=== PATIENT | male | born 1950 | race Caucasian/White ===

== ENCOUNTER 2017-06-12 07:12 | Inpatient (IN) | payer MEDICARE, OTHER ==
[2017-06-12] VITALS (10 sets, daily range): BP systolic 88–119; BP diastolic 51–73; PULSE 70–103; RESP 14–28; TEMP 97.7–98.2; O2SAT 94–98
[~2017-06-12] VITALS: Ht 167.6 cm; Wt 131.5 kg
[~2017-06-12 07:12] MED LIST: COMBAER INH; COZA100T PO; DUONSOL2 NEB; FURO1TAB93 PO; LANTUSP SQ; METF-324 PO; NOVOLOGP2 SQ; POTA-243 PO
[2017-06-12] MEDS ORDERED: methylPREDNISolone SOD SUCC 125 MG/2 ML VIAL IVP ONE (07:30)
[2017-06-12] MEDS ORDERED: SODIUM CHLORIDE 0.9% FLUSH 10 ML FLUSH IVF PRN (07:30)
--- NOTE | 2017-06-12 07:36 | PD ---
HPI Chief Complaint: Respiratory Symptoms Time Seen by Provider: 07:23 Travel History International Travel<30 days: No Contact w/Intl Traveler<30days: No Traveled to known affect area: No History of Present Illness HPI 66yo M with PMH of COPD on home O2 3L NC as needed, ?CHF, CAD, DM presents to the ED with c/o sob for 2 days. States he feels sob just sitting down and is not able to walk to the end of the room. States this is new for the last few days. Pt has not been taking his furosemide for months because he does not like that it makes him urinate a lot. Denies any fever, cough, chest pain, n/v , abdominal pain. Pt has bilateral lower extremity edema and states he is not sure if it is worst but it has been there for a while. PFSH Past Medical History Cardiovascular Problems: Yes Coronary Artery Disease: Yes Diabetes: Yes Hypertension: Yes Neurologic: Yes (DIABETIC NEUROPATHY) Past Surgical History Tonsillectomy: Yes Social History Alcohol Use: No Tobacco Use: Yes (QUIT 06/23/09 - PRIOR TO THAT 11/25 PPD X 40 YRS) Substance Use: No Allergies-Medications (Allergen,Severity, Reaction): Coded Allergies: Penicillin (Verified Allergy, Mild, 06/12/17) Reported Meds & Prescriptions Reported Meds & Active Scripts Active K-Dur (Potassium Chloride) 10 Meq Tabcr 10 Meq PO DAILY Lasix (Furosemide) 40 Mg Tab 40 Mg PO DAILY Reported Resp: Albuterol 2.5 Mg/Ipratropium 0.5 Mg (Albuterol/Ipratropium) 1 Amp Nebu 1 Amp NEB QID Combivent (Albuterol/Ipratropium) 14.7 Gm Aer 2 Puff INH Q6HPRN FOR WHEEZING Cozaar (Losartan Potassium) 100 Mg Tab 100 Mg PO BID Metformin ER 24 HR (Metformin HCl) 1,000 Mg Tab 1,000 Mg PO BID Novolog (Insulin Aspart) 100 Units/Ml Inj 30 Units SQ TIDAC Lantus (Insulin Glargine) 100 Units/Ml Inj 50 Units SQ BID Review of Systems Except as stated in HPI: all other systems reviewed are Neg Physical Exam Narrative GENERAL: 66yo M in moderate distress. SKIN: Focused skin assessment warm/dry. HEAD: Atraumatic. Normocephalic. EYES: Pupils equal and round. No scleral icterus. No injection or drainage. ENT: No nasal bleeding or discharge. Mucous membranes pink and moist. NECK: Trachea midline. No JVD. CARDIOVASCULAR: Regular rate and rhythm. No murmur appreciated. RESPIRATORY: + accessory muscle use. Bibasilar crackles. GASTROINTESTINAL: Abdomen soft, non-tender, nondistended. MUSCULOSKELETAL: No obvious deformities. No clubbing. No cyanosis. +Bilateral lower extremity pitting edema. NEUROLOGICAL: Awake and alert. No obvious cranial nerve deficits. Motor grossly within normal limits. Normal speech. PSYCHIATRIC: Appropriate mood and affect; insight and judgment normal. Data Data Last Documented VS Vital Signs Date Time Temp Pulse Resp B/P Pulse Ox O2 Delivery O2 Flow Rate FiO2 06/12/17 09:22 101 26 88/53 97 Nasal Cannula 2 06/12/17 07:34 97.8 Orders Complete Blood Count With Diff (06/12/17 07:28) Basic Metabolic Panel (Bmp) (06/12/17 07:28) B-Type Natriuretic Peptide (06/12/17 07:28) Act Partial Throm Time (Ptt) (06/12/17 07:28) Prothrombin Time / Inr (Pt) (06/12/17 07:28) Magnesium (Mg) (06/12/17 07:28) Troponin I (06/12/17 07:28) Blood Culture (06/12/17 07:28) Iv Access Insert/Monitor (06/12/17 07:28) Electrocardiogram (06/12/17 07:28) Ecg Monitoring (06/12/17 07:28) Oximetry (06/12/17 07:28) Oxygen Administration (06/12/17 07:28) Chest, Single Ap (06/12/17 07:28) Sodium Chloride 0.9% Flush (Ns Flush) (06/12/17 07:30) Methylprednisolone So Succ Inj (Solumedr (06/12/17 07:30) Albuterol-Ipratropium Neb (Duoneb Neb) (06/12/17 07:30) Lactic Acid Sepsis Protocol (06/12/17 07:29) Vancomycin Inj (Vancomycin Inj) (06/12/17 08:15) Piperacil-Tazo 3.375 Gm Premix (Zosyn 3. (06/12/17 08:15) Sodium Chlor 0.9% 1000 Ml Inj (Ns 1000 M (06/12/17 08:15) Sodium Chlor 0.9% 1000 Ml Inj (Ns 1000 M (06/12/17 08:45) Calcium Gluconate Inj (Calcium Gluconate (06/12/17 08:45) Insulin Human Regular Inj (Novolin R Inj (06/12/17 08:45) Dextrose 50% In Izabel (Vial) Inj (D50w (Vi (06/12/17 08:45) Type And Screen (06/12/17 08:48) Red Blood Cells (Rbc) (06/12/17 08:48) Blood Product Administration .UPON TRANSFUSION (06/12/17 08:48) Sodium Chlor 0.9% 250 Ml Inj (Ns 250 Ml (06/12/17 09:00) Urinalysis - C+S If Indicated (06/12/17 08:49) Dextrose 50% In Izabel (Syr) Inj (D50w (Syr (06/12/17 09:02) Admit Order (Ed Use Only) (06/12/17 09:20) Labs Laboratory Tests Test 06/12/17 06/12/17 07:30 09:20 White Blood Count 24.0 TH/MM3 Red Blood Count 2.61 MIL/MM3 Hemoglobin 8.0 GM/DL Hematocrit 25.2 % Mean Corpuscular Volume 96.5 FL Mean Corpuscular Hemoglobin 30.6 PG Mean Corpuscular Hemoglobin 31.7 % Concent Red Cell Distribution Width 17.3 % Platelet Count 185 TH/MM3 Mean Platelet Volume 9.1 FL Neutrophils (%) (Auto) 85.3 % Lymphocytes (%) (Auto) 4.7 % Monocytes (%) (Auto) 8.6 % Eosinophils (%) (Auto) 0.1 % Basophils (%) (Auto) 1.3 % Neutrophils # (Auto) 20.5 TH/MM3 Lymphocytes # (Auto) 1.1 TH/MM3 Monocytes # (Auto) 2.1 TH/MM3 Eosinophils # (Auto) 0.0 TH/MM3 Basophils # (Auto) 0.3 TH/MM3 CBC Comment DIFF FINAL Differential Comment Prothrombin Time 14.0 SEC Prothromb Time International 1.3 RATIO Ratio Activated Partial 30.8 SEC Thromboplast Time Fibrinogen 337 mg/dL Sodium Level 138 MEQ/L Potassium Level 5.9 MEQ/L Chloride Level 104 MEQ/L Carbon Dioxide Level 23.6 MEQ/L Anion Gap 10 MEQ/L Blood Urea Nitrogen 35 MG/DL Creatinine 1.43 MG/DL Estimat Glomerular Filtration 49 ML/MIN Rate Random Glucose 147 MG/DL Lactic Acid Level 5.4 mmol/L Calcium Level 7.8 MG/DL Magnesium Level 2.2 MG/DL Troponin I 0.05 NG/ML B-Type Natriuretic Peptide 260 PG/ML Blood Type A POSITIVE Antibody Screen NEGATIVE Crossmatch Leukocyte-Reduced Red Blood Cells Blood Bank Comment MDM Medical Decision Making Medical Screen Exam Complete: Yes Emergency Medical Condition: Yes Interpretation(s) EKG: Sinus tachycardia at 101bpm. 1st AV block. LAD. 1mm ST depression V4-V6. Differential Diagnosis CHF exacerbation vs. pulmonary edema vs. ACS vs. COPD exacerbation Narrative Course 66yo M with c/o sob for 2 days. Pt is afebrile but mildly tachycardic at 103bpm and BP was on the lower end at 104/51. Pt is on 3 liters NC and saturating at 97%. Labs reviewed, leukocytosis at 24.0. H/H is low at 8.0/ 25.2. Pt denies any black stool, blood in stool or vomiting. Hemaprompt negative. Lactic acid is elevated at 5.4. Blood cultures were drawn and pt empirically cover with vancomycin and zosyn. BNP 260. Troponin 0.05. 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 Critical Care Narrative Aggregate critical care time was 60 minutes. Time to perform other separately billable procedures was not included in the critical care time. My time did not include minutes spent treating any other patients simultaneously or on activities that did not directly contribute to the patient's treatment. The services I provided to this patient were to treat and/or prevent clinically significant deterioration that could result in: cardiovascular collapse or . I provided critical care services requiring my management, as noted below: Chart data review, documentation time, medication orders and management, vital sign assessments/reviewing monitor data, ordering and reviewing lab tests, ordering and interpreting/reviewing x-rays and diagnostic studies, care of the patient and discussion of the patient with the admitting physicians. Diagnosis Primary Impression: Severe sepsis Admitting Information Admitting Physician Requests: it Marie Jackson DO Jun 12, 2017 07:36
[2017-06-12 07:57] LABS: AUTOMATED NEUTROPHIL # 20.5 TH/MM3 (1.8-7.7); BASOPHIL # 0.3 TH/MM3 (0-0.2); BASOPHIL % 1.3 % (0.0-2.0); EOSINOPHIL % 0.1 % (0.0-4.0); HEMATOCRIT 25.2 % (39.0-51.0); HEMO FLAGS DIFF FINAL; LYMPH % 4.7 % (9.0-44.0); LYMPHOCYTE # 1.1 TH/MM3 (1.0-4.8); MEAN CELL VOLUME 96.5 FL (80.0-100.0); MEAN CORPUSCULAR HEMOGLOBIN 30.6 PG (27.0-34.0); MEAN CORPUSCULAR HGB CONC 31.7 % (32.0-36.0); MONO % 8.6 % (0.0-8.0); NEUT % 85.3 % (16.0-70.0); PLATELET COUNT 185 TH/MM3 (150-450); RED BLOOD COUNT 2.61 MIL/MM3 (4.50-5.90); RED CELL DISTRIBUTION WIDTH 17.3 % (11.6-17.2)
--- NOTE | 2017-06-12 07:58 | RADRPT ---
EXAM DATE/TIME: 06/12/2017 07:43 [facility] COMPARISON: No previous studies available for comparison. INDICATIONS : Chest pain and shortness of breath. MEDICAL HISTORY : None. SURGICAL HISTORY : None. ENCOUNTER: Initial ACUITY: 3 days PAIN SCORE: 4/10 LOCATION: Bilateral upper chest FINDINGS: A single view of the chest demonstrates left basilar density. Elevation left hemidiaphragm. Minimal r ight basilar density. Heart normal in size. Osseous structures are intact. CONCLUSION: 1. Elevation left hemidiaphragm. 2. Bibasilar densities likely atelectasis. Graham Antonio MD on June 12, 2017 at 7:56 Board Certified Radiologist. This report was verified electronically.
[2017-06-12 08:11] LABS: APTT (PATIENT) 30.8 SEC (24.3-30.1); INTERNATIONAL NORMALIZED RATIO 1.3 RATIO
[2017-06-12] MEDS ORDERED: PIPERACIL-TAZO 3.375 GM PREMIX 50 ML IV ONE (08:15)
[2017-06-12] MEDS ORDERED: SODIUM CHLOR 0.9% 1000 ML INJ 1,000 ML IV ONE ×2 (08:15→08:45)
[2017-06-12] MEDS ORDERED: VANCOMYCIN INJ 2,200 MG in SODIUM CHLORID 0.9% 500 ML INJ 500 ML IV ONE (08:15)
[2017-06-12 08:16] LABS: BICARBONATE 23.6 MEQ/L (21.0-32.0); MAGNESIUM 2.2 MG/DL (1.5-2.5); POTASSIUM 5.9 MEQ/L (3.5-5.1)
[2017-06-12] MEDS: RESP: ALBUTEROL 2.5 MG/IPRATROPIUM 0.5 MG NEB (SCH) INH ×4 (08:24→22:56)
[2017-06-12] MEDS ORDERED: INSULIN HUMAN REGULAR 1,000 UNITS/10 ML VIAL IV PUSH ONE ×2 (08:45→14:45)
[2017-06-12] MEDS ORDERED: CALCIUM GLUCONATE 10% 1 GM/10 ML VIAL SLOW IVP ONE ×2 (08:45→14:45)
[2017-06-12] MEDS ORDERED: DEXTROSE 50% IN WATER 50 ML VIAL(D50) IV PUSH ONE ×2 (08:45→14:45)
[2017-06-12] MEDS ORDERED: SODIUM CHLOR 0.9% 250 ML INJ 250 ML IV ONE (09:00)
[2017-06-12] MEDS ORDERED: DEXTROSE 50% IN WATER 50 ML SYRINGE ONE (09:02)
[2017-06-12] MEDS ORDERED: CHLORHEXIDINE GLUCONATE 2 % 1 PACK (2 CLOTHS) TOP PRN ×2 (09:45)
[2017-06-12] MEDS ORDERED: GLUCAGON 1 MG/ML VIAL OTHER PRN (09:45)
[2017-06-12] MEDS ORDERED: MISCELLANEOUS NURSING INFORMATION XX SCH ×2 (09:45)
[2017-06-12] MEDS ORDERED: ONDANSETRON HCL 4 MG/2 ML VIAL IV PRN (09:45)
[2017-06-12] MEDS ORDERED: ACETAMINOPHEN/HYDROcodone 325 MG/5 MG TAB PO PRN (09:45)
[2017-06-12] MEDS ORDERED: SENNOSIDES 8.6 MG TAB PO PRN (09:45)
[2017-06-12] MEDS ORDERED: MAGNESIUM HYDROXIDE SUSP 30 ML CUP PO PRN (09:45)
[2017-06-12] MEDS ORDERED: ACETAMINOPHEN 325 MG TAB PO PRN (09:45)
[2017-06-12] MEDS ORDERED: SODIUM CHLORIDE 0.9% FLUSH 10 ML FLUSH IV FLUSH PRN (09:45)
[2017-06-12] MEDS ORDERED: Vancomycin Consult Pharmacy 1 EA OTHER SCH (09:45)
[2017-06-12] MEDS ORDERED: BISACODYL 10 MG SUPP RECTAL PRN (09:45)
[2017-06-12 09:46] LABS: LACTIC ACID GHOST NOT REPORTABLE
[2017-06-12 10:21] LABS: BACTERIA, URINE OCC /hpf; BLOOD, URINE NEG (NEG); COMMENT (UR) CULT NOT INDICATED; CULTURE IF INDICATED CULT NOT INDICATED; GLUCOSE,URINE NEG (NEG); HYALINE CAST, URINE 9 /lpf (RARE); KETONE, URINE TRACE mg/dL (NEG); MUCUS URINE FEW /lpf (OCC); NITRITE,URINE NEG (NEG); PH, URINE 5.5 (5.0-8.5); SQUAMOUS EPITHELIAL CELL URINE 1 /hpf (0-5); URINE COLOR YELLOW (YELLW/STRAW)
[2017-06-12 10:34] LABS: AMYLASE 24 U/L (25-115)
[2017-06-12 10:49] LABS: CREATINE KINASE 23 U/L (39-308)
[2017-06-12] MEDS: INSULIN NovoLIN REGULAR SUPPLEMENTAL SCALE SQ SCH ×3 (11:00→21:00)
[2017-06-12] MEDS: SODIUM CHLOR 0.9% 1000 ML INJ 1,000 ML IV SCH ×3 (11:08→21:04)
[2017-06-12 12:37] LABS: BLOOD GAS BASE EXCESS -6.7 mmol/L (-2-2); BLOOD GAS CARBOXYHEMOGLOBIN 2.7 % (0-4); BLOOD GAS HCO3 18 mmol/L (22-26); BLOOD GAS METHEMOGLOBIN 0.8 % (0-2); BLOOD GAS O2 HGB SATURATION 92 % (90-100); BLOOD GAS OXYGEN CONTENT 11.2 Vol % (12.0-20.0); BLOOD GAS PCO2 31 mmHg (38-42); BLOOD GAS PO2 79 mmHg (61-120); BLOOD GAS TOTAL HGB 8.6 G/DL (12.0-16.0); TEMP CORR TO 98.6
[2017-06-12 12:38] LABS: CRITICAL VALUE NO; DRAW SITE LT RADIAL; LITER FLOW 1.5 L/M; NUMBER OF ARTERIAL PUNCTURES 1; OXYGEN DEVICE NASAL CANNULA; STAT YES; ULNAR PULSE Y
--- NOTE | 2017-06-12 13:02 | HHI.HP ---
[facility] Service Critical Care Medicine Primary Care Physician [facility] Admission Diagnosis Severe sepsis Diagnosis: (1) Severe sepsis Diagnosis: Principal (2) COPD (chronic obstructive pulmonary disease) Diagnosis: Principal (3) Diabetes mellitus Diagnosis: Principal (4) Coronary artery disease Diagnosis: Principal (5) Hypertension Diagnosis: Principal (6) Diabetic neuropathy associated with type 2 diabetes mellitus Diagnosis: Principal (7) BMI 50.0-59.9, adult Diagnosis: Principal (8) Leukocytosis Diagnosis: Principal (9) Lactic acidosis Diagnosis: Principal (10) Acute kidney injury Diagnosis: Principal (11) Elevated partial thromboplastin time (PTT) Diagnosis: Principal (12) Hyperkalemia Diagnosis: Principal (13) Hyperglycemia Diagnosis: Principal Chief Complaint: "I don't feel good" Travel History International Travel<30 Days: No Contact w/Intl Traveler <30 Da: No Traveled to Known Affected Are: No Sepsis Criteria SIRS Criteria (2 or more): RR > 20 or PaCO2 < 32, WBC > 17316, < 4000 or > 10 % bands Severe Sepsis (+one): Lactate >2 Septic Shock Criteria: Lactic acid >=4 Criteria Outcome: Meets septic shock criteria History of Present Illness 66-year-old male. Date of admission 06/12/2017. Past medical history includes COPD, morbid obesity, coronary artery disease, hypertension, diabetes mellitus with peripheral neuropathy. Patient was his normal state of health until yesterday when he "did not feel good " including myalgias, generalized weakness. No recent sick contacts. No changes in his diet. No recent travels. Laboratory work revealed a lactic acidosis of 5.4. Potassium is 5.9. Note he is on an ARB along with KCl supplementation, leukocytosis is a 24,000, anemia of 8.6 with Hemoccult-negative stool done in ED in acute kidney injury with a creatinine of 1.5. Chest x-ray revealed elevated left hemidiaphragm otherwise negative. Received 1 dose of Zosyn and vancomycin the ED. We are asked to admit. Review of Systems Constitutional: COMPLAINS OF: Fatigue, Weight gain, Dizziness, DENIES: Fever, Weight loss, Chills Endocrine: DENIES: Polydipsia, Polyuria Eyes: DENIES: Blurred vision, Double Vision Ears, nose, mouth, throat: DENIES: Tinnitus Respiratory: DENIES: Apneas Cardiovascular: DENIES: Chest pain Gastrointestinal: DENIES: Abdominal pain Genitourinary: DENIES: Urgency Musculoskeletal: DENIES: Joint pain Integumentary: DENIES: Pruritus, Rash Hematologic/lymphatic: DENIES: Bruising Immunologic/allergic: DENIES: Eczema Neurologic: DENIES: Headache Psychiatric: DENIES: Anxiety, Confusion, Depression Past Family Social History Allergies: Coded Allergies: Penicillin (Verified Allergy, Mild, 06/12/17) Past Medical History COPD Coronary artery disease Hypertension Diabetes mellitus with peripheral neuropathy Elevated BMI Past Surgical History Tonsillectomy Reported Medications Losartan 100 mg by mouth daily Duo nebs every 6 hours Metformin 1000 mg by mouth twice a day Insulin aspart 30 units 3 times a day Insulin glargine 50 mg twice a day Lasix 40 mg by mouth daily KCl 10 mEq daily Active Ordered Medications Reviewed in EMR Family History Doesn't know how his father is . Mother with coronary disease. Currently aged 83. 3 siblings in good health according to patient. Social History Quit tobacco 15 years ago. 50 pack years. Quit alcohol use. Prior " use" in past. Denies IV drug use. Physical Exam Vital Signs Vital Signs Date Time Temp Pulse Resp B/P Pulse Ox O2 Delivery O2 Flow Rate FiO2 06/12/17 11:38 103 26 92/56 96 Nasal Cannula 2 06/12/17 09:22 101 26 88/53 97 Nasal Cannula 2 06/12/17 08:27 98 Nasal Cannula 1.00 06/12/17 07:34 97 Nasal Cannula 2 06/12/17 07:34 97.8 102 24 98/53 97 Nasal Cannula 2 06/12/17 07:28 97.7 102 24 98/53 96 2 06/12/17 07:28 103 24 97 Nasal Cannula 06/12/17 07:23 97.8 103 18 104/51 96 Physical Exam GENERAL: 58-year-old male, critically ill currently resting in bed in no acute distress SKIN: Warm and pale. No rash. Tattoo left upper extremity HEAD: Atraumatic. Normocephalic. EYES: Pupils equal and round around 3 mm bilaterally and reactive. No scleral icterus. No injection or drainage. ENT: No nasal bleeding or discharge. Mucous membranes pink and moist. NECK: Trachea midline. No JVD. CARDIOVASCULAR: Distant. Regular rate and rhythm. S1, S2 no S4 without murmur RESPIRATORY: Diminished throughout. No wheezes, rales or rhonchi. Breath sounds equal bilaterally. GASTROINTESTINAL: Abdomen soft, non-tender, obese. Hypoactive bowel sounds. MUSCULOSKELETAL: Extremities with chronic venous stasis bilateral lower extremities with woody edema. NEUROLOGICAL: Awake and alert. No obvious cranial nerve deficits. Motor grossly within normal limits. Five out of 5 muscle strength in the arms and legs. Normal speech. PSYCHIATRIC: Appropriate mood and affect; insight and judgment normal. Laboratory Laboratory Tests Test 06/12/17 06/12/17 06/12/17 06/12/17 07:30 09:20 09:50 10:00 White Blood Count 24.0 Red Blood Count 2.61 Hemoglobin 8.0 Hematocrit 25.2 Mean Corpuscular Volume 96.5 Mean Corpuscular Hemoglobin 30.6 Mean Corpuscular Hemoglobin 31.7 Concent Red Cell Distribution Width 17.3 Platelet Count 185 Mean Platelet Volume 9.1 Neutrophils (%) (Auto) 85.3 Lymphocytes (%) (Auto) 4.7 Monocytes (%) (Auto) 8.6 Eosinophils (%) (Auto) 0.1 Basophils (%) (Auto) 1.3 Neutrophils # (Auto) 20.5 Lymphocytes # (Auto) 1.1 Monocytes # (Auto) 2.1 Eosinophils # (Auto) 0.0 Basophils # (Auto) 0.3 CBC Comment DIFF FINAL Differential Comment Prothrombin Time 14.0 Prothromb Time International 1.3 Ratio Activated Partial 30.8 Thromboplast Time Fibrinogen 337 Sodium Level 138 Potassium Level 5.9 Chloride Level 104 Carbon Dioxide Level 23.6 Anion Gap 10 Blood Urea Nitrogen 35 Creatinine 1.43 Estimat Glomerular Filtration 49 Rate Random Glucose 147 Lactic Acid Level 5.4 6.6 Calcium Level 7.8 Magnesium Level 2.2 Troponin I 0.05 B-Type Natriuretic Peptide 260 Blood Type A POSITIVE Antibody Screen NEGATIVE Crossmatch Leukocyte-Reduced Red Blood Cells Blood Bank Comment Urine Color YELLOW Urine Turbidity HAZY Urine pH 5.5 Urine Specific [place] 1.024 Urine Protein 30 Urine Glucose (UA) NEG Urine Ketones TRACE Urine Occult Blood NEG Urine Nitrite NEG Urine Bilirubin NEG Urine Urobilinogen 2.0 Urine Leukocyte Esterase TRACE Urine RBC LESS THAN 1 Urine WBC 3 Urine Squamous Epithelial 1 Cells Urine Bacteria OCC Urine Hyaline Casts 9 Urine Mucus FEW Microscopic Urinalysis Comment CULT NOT INDICATED Total Creatine Kinase 23 Amylase Level 24 Lipase 83 Test 06/12/17 06/12/17 10:58 12:35 Blood Type A POSITIVE Blood Gas Puncture Site LT RADIAL Blood Gas Patient Temperature 98.6 Blood Gas HCO3 18 Blood Gas Base Excess -6.7 Blood Gas Oxygen Saturation 92 Arterial Blood pH 7.37 Arterial Blood Partial 31 Pressure CO2 Arterial Blood Partial 79 Pressure O2 Arterial Blood Oxygen Content 11.2 Arterial Blood 2.7 Carboxyhemoglobin Arterial Blood Methemoglobin 0.8 Blood Gas Hemoglobin 8.6 Oxygen Delivery Device NASAL CANNULA Blood Gas Liter Flow 1.5 Date/Time Procedure Status Source Growth 06/12/17 10:19 Legionella Antigen - Final Complete Urine Clean Catch PRESUMPTIVE NEGATIVE FOR LEGIONELLA P... 06/12/17 10:19 Streptococcus pneumoniae Antigen (M - Final Complete Urine Clean Catch PRESUMPTIVE NEGATIVE FOR STREPTOCOCCU... 06/12/17 10:00 Influenza Types A,B Antigen (SUSHIL) - Final Complete Nasal Aspirate NEGATIVE FOR FLU A AND B ANTIGEN.... 06/12/17 07:47 Aerobic Blood Culture Received Blood Peripheral Pending 06/12/17 07:47 Anaerobic Blood Culture Received Blood Peripheral Pending Result Diagram: 06/12/1772906/12/17729 Imaging Last Impressions Chest X-Ray 06/12/17727 Signed Impressions: Service Date/Time: May 07:43 - CONCLUSION: 1. Elevation left hemidiaphragm. 2. Bibasilar densities likely atelectasis. Graham Antonio MD Assessment and Plan Assessment and Plan Neuro/Psych: Acetaminophen 650 mg by mouth every 4 hours when necessary fever Hydrocodone/acetaminophen 5/325 one tablet every 4 hours when necessary pain 1-5 Morphine sulfate 2 mg IV every 2 hours when necessary pain 6-10 CT head ordered CV: Lactic acidosis Hypertension Coronary artery disease EKG revealed sinus tachycardia. Left axis deviation. QTC was 403 Initial troponin 0.05. Cycle 2 Holding losartan 100 mg by mouth daily light of hypotension relative and acute kidney injury Holding Lasix 40 mg by mouth daily light of hypotension Resp: Prior tobaccoism 50 pack years. Quit 15 years ago Chronic oxygen use possibly undiagnosed PAULA/pickwick[place] Chest x-ray revealed elevated left hemidiaphragm. Possible bilateral lower lobe atelectasis Nasal cannula to maintain saturations greater than or equal to 92% Continue ipratropium/albuterol 0.5/2.5 nebulizers every 6 hours with albuterol nebulizers every 2 hours. Dyspnea Incentive spirometry while awake ABG ordered Follow-up CT thorax GI: Early satiety Liver function is currently pending. Lipase normal Check CT evidence/pelvis rule out abnormality Pantoprazole 40 mg IV daily for GI prophylaxis Docusate sodium/senna 1 tablet by mouth twice a day for bowel regimen : Franco catheter if indicated for accurate I's and O's in a critically ill patient Endo: Diabetes mellitus/insulin requiring with peripheral neuropathy Home medications include insulin aspart 30 units 3 times a day and insulin glargine 50 units subcutaneous twice a day Currently on detemir 15 units subcutaneous twice a day with Novolin R sliding scale insulin with Accu-Cheks before meals/at bedtime Renal: Acute kidney injury Unknown baseline. Check urine eosinophil/electrolytes Rule out hydronephrosis on CT scan abdomen/pelvis Currently normal saline at 84 cc an hour. Status post 3 L normal saline 1 Heme: Leukocytosis Normocytic anemia Elevated PTT Hemoccult negative in ED. ED ordered 1 unit PRBCs. Recheck PRBC/hemoglobin in a.m. ID: Day 1 vancomycin, aztreonam and Flagyl unknown sepsis Blood cultures 2, sputum, UA, urine Legionella and pneumococcal antigens are pending. Influenza negative. MSK: BMI greater than 50 Weight loss encouraged FEN: Hyperkalemia Received 1 ampule D50, 10 units are insulin, calcium gluconate in ED. Repeat pending Hold potassium chloride 10 mEq by mouth daily/home medication Replace electrolytes as clinically indicated Access - Utilize peripheral IV. Central line if indicated Prophylaxis - GI - pantoprazole - DVT - SCD/heparin Critical care time 35 minutes Code Status Full code Discussed Condition With Patient. Care plan discussed and all questions answered. Problem Qualifiers (1) COPD (chronic obstructive pulmonary disease): Qualified Code: J44.9 - Chronic obstructive pulmonary disease, unspecified COPD type (2) Diabetes mellitus: Qualified Code: E11.65 - Type 2 diabetes mellitus with hyperglycemia, with long -term current use of insulin (3) Coronary artery disease: Qualified Code: I25.10 - Coronary artery disease involving [place] coronary artery without angina pectoris, unspecified whether [place] or transplanted heart (4) Hypertension: Qualified Code: I10 - Hypertension, unspecified type (5) Diabetic neuropathy associated with type 2 diabetes mellitus: Qualified Code: E11.42 - Diabetic polyneuropathy associated with type 2 diabetes mellitus (6) Leukocytosis: Qualified Code: D72.829 - Leukocytosis, unspecified type Arron Hernandez MD Jun 12, 2017 13:01
[2017-06-12 14:25] LABS: POTASSIUM 5.8 MEQ/L (3.5-5.1)
[2017-06-12 14:28] LABS: INDIRECT BILIRUBIN 0.7 MG/DL (0.0-0.8); TOTAL BILIRUBIN ADULT 1.2 MG/DL (0.2-1.0)
[2017-06-12] MEDS ORDERED: ALBUMIN HUMAN 25% 25 GM/100 ML BAGP IV ONE (14:45)
[2017-06-12] MEDS ORDERED: SODIUM BICARBONATE 8.4% INJ 150 MEQ in WATER STERILE FOR INJ 850 ML IV SCH (14:45)
[2017-06-12] MEDS ORDERED: SODIUM POLYSTYRENE SULFONATE SUSP 15 GM/60 ML CUP PO ONE (14:45)
[2017-06-12] MEDS: metroNIDAZOLE 500 MG INJ 100 ML IV SCH ×2 (15:15→21:04)
[2017-06-12] MEDS: HEPARIN SODIUM - SQ 10,000 UNITS/ML VIAL SQ SCH ×2 (15:15→17:43)
[2017-06-12] MEDS: AZTREONAM INJ 2,000 MG in SODIUM CHLORIDE 0.9% INJ 100 ML IV SCH ×2 (15:16→21:04)
[2017-06-12] MEDS ORDERED: CALCIUM CHLORIDE INJ 1 GM in SODIUM CHLORIDE 0.9% INJ 100 ML IV ONE (17:00)
[2017-06-12] MEDS ORDERED: SODIUM BICARBONATE 8.4% SOLN 50 MEQ/50 ML VIAL SLOW IVP ONE (17:00)
[2017-06-12] MEDS ORDERED: CALCIUM GLUCONATE INJ 1 GM in SODIUM CHLORIDE 0.9% INJ 100 ML IV ONE (17:00)
[2017-06-12] MEDS ORDERED: LORazepam 2 MG/ML VIAL IV PUSH ONE (17:15)
[2017-06-12] MEDS ORDERED: SODIUM BICARBONATE 8.4% INJ 50 MEQ/50 ML SYR ONE (17:39)
--- NOTE | 2017-06-12 19:13 | EKG ---
Date Performed: 06/12/2017 Time Performed: 07:32:07 PTAGE: 66 years EKG: SINUS TACHYCARDIA BORDERLINE LEFT AXIS DEVIATION NONSPECIFIC ST & T-WAVE ABNORMALITY ABNORM AL RHYTHM ECG PREVIOUS TRACING 09/14/09 @ 12.33 Compared to prior tracing no significant change DOCTOR: Lashaun Apple Interpretating Date/Time 06/12/2017 19:13:01
--- NOTE | 2017-06-12 20:22 | RADRPT ---
EXAM DATE/TIME: 06/12/2017 18:32 [facility] COMPARISON: No previous studies available for comparison. INDICATIONS : Bilateral leg cellulitis. MEDICAL HISTORY : Hypertension. Chronic obstructive pulmonary disease. Diabetic neuropathy. Coronary artery disease. A fib. Diabetes. Neuropathy. SURGICAL HISTORY : Tonsillectomy. ENCOUNTER: Initial ACUITY: 4 - 6 days PAIN SCORE: 1/10 LOCATION: Bilateral leg. TECHNIQUE: Venous ultrasound of the left and right leg was performed from the inguinal ligament to the proximal calf. Real-time, color Doppler and spectral tracing, compression and augmentation techniques were us ed. FINDINGS: RIGHT LEG: There is normal compressibility of the deep venous system from the inguinal region to the proximal ca lf. No echogenic clot is seen in the lumen of the common femoral, femoral, popliteal, and posterior tibial veins. There is a normal response of the venous system to proximal and distal augmentation an d respiration. LEFT LEG: There is normal compressibility of the deep venous system from the inguinal region to the proximal ca lf. No echogenic clot is seen in the lumen of the common femoral, femoral, popliteal, and posterior tibial veins. There is a normal response of the venous system to proximal and distal augmentation an d respiration. CONCLUSION: Normal examination. Lev Gandhi MD on June 12, 2017 at 20:20 Board Certified Radiologist. This report was verified electronically.
[2017-06-12] MEDS: INSULIN DETEMIR 100 UNITS/ML VIAL SQ SCH (21:00)
[2017-06-12] MEDS: SODIUM CHLORIDE 0.9% FLUSH 10 ML FLUSH IV FLUSH SCH (21:05)
[2017-06-12] MEDS: DOCUSATE SODIUM 50 MG/SENNA 8.6 MG TAB PO SCH (21:07)
[2017-06-13] VITALS (26 sets, daily range): BP systolic 112–168; BP diastolic 60–84; PULSE 83–101; RESP 14–38; TEMP 97.6–98; O2SAT 88–94
[2017-06-13] MEDS: CHLORHEXIDINE GLUCONATE 2 % 1 PACK (2 CLOTHS) TOP SCH (03:10)
[2017-06-13] MEDS: metroNIDAZOLE 500 MG INJ 100 ML IV SCH ×3 (03:10→17:26)
[2017-06-13] MEDS: AZTREONAM INJ 2,000 MG in SODIUM CHLORIDE 0.9% INJ 100 ML IV SCH ×3 (03:10→23:07)
[2017-06-13] MEDS: HEPARIN SODIUM - SQ 10,000 UNITS/ML VIAL SQ SCH ×2 (03:11→11:00)
[2017-06-13] MEDS ORDERED: CHLORHEXIDINE GLUCONATE 2 % 1 PACK (2 CLOTHS) TOP SCH (04:00)
[2017-06-13] MEDS: RESP: ALBUTEROL 2.5 MG/IPRATROPIUM 0.5 MG NEB (SCH) INH ×6 (04:23→23:43)
[2017-06-13 05:27] LABS: AUTOMATED NEUTROPHIL # 17.9 TH/MM3 (1.8-7.7); BASOPHIL % 0.2 % (0.0-2.0); HEMATOCRIT 26.8 % (39.0-51.0); LYMPH % 4.2 % (9.0-44.0); LYMPHOCYTE # 0.8 TH/MM3 (1.0-4.8); MEAN CELL VOLUME 91.2 FL (80.0-100.0); MEAN CORPUSCULAR HEMOGLOBIN 31.1 PG (27.0-34.0); MEAN CORPUSCULAR HGB CONC 34.1 % (32.0-36.0); MONO % 3.4 % (0.0-8.0); NEUT % 92.2 % (16.0-70.0); PLATELET COUNT 158 TH/MM3 (150-450); RED BLOOD COUNT 2.93 MIL/MM3 (4.50-5.90); RED CELL DISTRIBUTION WIDTH 17.4 % (11.6-17.2); WHITE BLOOD COUNT 19.4 TH/MM3 (4.0-11.0)
[2017-06-13 05:35] LABS: HEMO FLAGS AUTO DIFF
[2017-06-13 05:44] LABS: APTT (PATIENT) 33.1 SEC (24.3-30.1); INTERNATIONAL NORMALIZED RATIO 1.3 RATIO; PROTHROMBIN TIME - PATIENT 14.3 SEC (9.8-11.6)
[2017-06-13 06:16] LABS: ALKALINE PHOSPHATASE 86 U/L (45-117); ALT (GPT) 24 U/L (12-78); ANION GAP 8 MEQ/L (5-15); AST (GOT) 23 U/L (15-37); BICARBONATE 27.8 MEQ/L (21.0-32.0); BLOOD UREA NITROGEN 47 MG/DL (7-18); CHLORIDE 102 MEQ/L (98-107); GLOMERULAR FILTRATION RATE 64 ML/MIN (>89); MAGNESIUM 2.4 MG/DL (1.5-2.5); POTASSIUM 4.8 MEQ/L (3.5-5.1); SODIUM (NA) 138 MEQ/L (136-145); TOTAL BILIRUBIN ADULT 1.6 MG/DL (0.2-1.0)
[2017-06-13] MEDS: INSULIN NovoLIN REGULAR SUPPLEMENTAL SCALE SQ SCH ×4 (07:00→21:39)
[2017-06-13 07:20] LABS: BANDS 11 % (0-6); PLATELET ESTIMATE SMEAR NORMAL (NORMAL); PLATELET MORPHOLOGY NORMAL (NORMAL); POLYS (SEG NEUTROPHILS) 87 % (16-70); SCAN/DIFF FINAL DIFF MANUAL; WBC DIFF SAMPLE 100
[2017-06-13] MEDS: DOCUSATE SODIUM 50 MG/SENNA 8.6 MG TAB PO SCH ×2 (09:00→21:40)
[2017-06-13] MEDS: INSULIN DETEMIR 100 UNITS/ML VIAL SQ SCH ×2 (09:00→21:00)
--- NOTE | 2017-06-13 09:31 | HHI.CCPN ---
Subjective Remarks/Hospital Course 66-year-old male. Date of admission 06/12/2017. Past medical history includes COPD, morbid obesity, coronary artery disease, hypertension, diabetes mellitus with peripheral neuropathy. Patient was his normal state of health until yesterday when he "did not feel good " including myalgias, generalized weakness. No recent sick contacts. No changes in his diet. No recent travels. Laboratory work revealed a lactic acidosis of 5.4. Potassium is 5.9. Note he is on an ARB along with KCl supplementation, leukocytosis is a 24,000, anemia of 8.6 with Hemoccult-negative stool done in ED in acute kidney injury with a creatinine of 1.5. Chest x-ray revealed elevated left hemidiaphragm otherwise negative. Received 1 dose of Zosyn and vancomycin the ED. We are asked to admit. Subjective 06/13: Lactic acidosis is clear. Afebrile. Currently on 3 L nasal cannula. Unable to do CTA imaging secondary to "anxiety "cannot lie flat". Attempted benzodiazepines however refused as he's had this before and failed. No obvious source of infection. Abdominal ultrasound ordered for today. Objective Vital Signs Date Time Temp Pulse Resp B/P Pulse Ox O2 Delivery O2 Flow Rate FiO2 06/13/17 06:00 84 06/13/17 06:00 19 127/61 94 06/13/17 04:00 97.7 06/12/17 20:00 Nasal Cannula 3.00 Intake and Output 06/12/17 06/12/17 06/12/17 07:59 15:59 23:59 Intake Total 2880 ml 5293 ml Output Total 200 ml 1200 ml Balance 2680 ml 4093 ml Result Diagram: 06/13/17 0405 06/13/17 0405 Other Results Microbiology Date/Time Procedure Status Source Growth 06/12/17 10:19 Legionella Antigen - Final Complete Urine Clean Catch PRESUMPTIVE NEGATIVE FOR LEGIONELLA P... 06/12/17 10:19 Streptococcus pneumoniae Antigen (M - Final Complete Urine Clean Catch PRESUMPTIVE NEGATIVE FOR STREPTOCOCCU... 06/12/17 10:00 Influenza Types A,B Antigen (SUSHIL) - Final Complete Nasal Aspirate NEGATIVE FOR FLU A AND B ANTIGEN.... 06/12/17 07:47 Aerobic Blood Culture - Preliminary Resulted Blood Peripheral Gram Positive Cocci 06/12/17 07:47 Anaerobic Blood Culture - Preliminary Resulted Gram Positive Cocci Imaging Last Impressions Chest X-Ray 06/12/17 0728 Signed Impressions: Service Date/Time: May 07:43 - CONCLUSION: 1. Elevation left hemidiaphragm. 2. Bibasilar densities likely atelectasis. Graham Antonio MD Lower Extremity Ultrasound 06/12/17 0000 Signed Impressions: Service Date/Time: May 18:32 - CONCLUSION: Normal examination. Lev Gandhi MD Objective Remarks GENERAL: 58-year-old male, critically ill currently resting in bed in no acute distress SKIN: Warm and pale. No rash. Tattoo left upper extremity HEAD: Atraumatic. Normocephalic. EYES: Pupils equal and round around 3 mm bilaterally and reactive. No scleral icterus. No injection or drainage. ENT: No nasal bleeding or discharge. Mucous membranes pink and moist. NECK: Trachea midline. No JVD. CARDIOVASCULAR: Distant. Regular rate and rhythm. S1, S2 no S4 without murmur RESPIRATORY: Diminished throughout. No wheezes, rales or rhonchi. Breath sounds equal bilaterally. GASTROINTESTINAL: Abdomen soft, non-tender, obese. Hypoactive bowel sounds. MUSCULOSKELETAL: Extremities with chronic venous stasis bilateral lower extremities with woody edema. NEUROLOGICAL: Awake and alert. No obvious cranial nerve deficits. Motor grossly within normal limits. Five out of 5 muscle strength in the arms and legs. Normal speech. PSYCHIATRIC: Appropriate mood and affect; insight and judgment normal. A/P Assessment and Plan Neuro/Psych: Acetaminophen 650 mg by mouth every 4 hours when necessary fever Hydrocodone/acetaminophen 5/325 one tablet every 4 hours when necessary pain 1-5 Morphine sulfate 2 mg IV every 2 hours when necessary pain 6-10 CT head ordered but refused per patient CV: Lactic acidosis - resolving Hypertension Coronary artery disease EKG revealed sinus tachycardia. Left axis deviation. QTC was 403 Initial troponin 0.05. Negative workup Holding losartan 100 mg by mouth daily light of hypotension relative and acute kidney injury. Resume when clinically indicated Holding Lasix 40 mg by mouth daily light of hypotension. Resume when clinically indicated Resp: Prior tobaccoism 50 pack years. Quit 15 years ago Chronic oxygen use possibly undiagnosed PAULA/pickwickian Chest x-ray revealed elevated left hemidiaphragm. Possible bilateral lower lobe atelectasis Nasal cannula to maintain saturations greater than or equal to 92% Continue ipratropium/albuterol 0.5/2.5 nebulizers every 6 hours with albuterol nebulizers every 2 hours. Dyspnea Incentive spirometry while awake Patient refuses CT thorax GI: Early satiety Elevated total bilirubin Total bilirubin elevated however remainder of LFTs negative. Benign abdominal examination.. Lipase normal Patient refuses CT abdomen/pelvis. Will order abdominal ultrasound today Pantoprazole 40 mg IV daily for GI prophylaxis Docusate sodium/senna 1 tablet by mouth twice a day for bowel regimen Dark stools per RN. Will Hemoccult stool 1. : Franco catheter if indicated for accurate I's and O's in a critically ill patient Endo: Diabetes mellitus/insulin requiring with peripheral neuropathy Home medications include insulin aspart 30 units 3 times a day and insulin glargine 50 units subcutaneous twice a day Currently on detemir 30 units subcutaneous twice a day with Novolin R sliding scale insulin with Accu-Cheks before meals/at bedtime Renal: Acute kidney injury - resolving Unknown baseline. Abdominal ultrasound rule out hydronephrosis Urine eosinophil/electrolytes Currently normal saline at 84 cc an hour. Status post 3 L normal saline 1 Heme: Leukocytosis Normocytic anemia Elevated PTT Hemoccult negative in ED. repeat today is nurses stools are dark ED ordered 1 unit PRBCs.. Hemoglobin currently 9.1 Recheck CBC in a.m. ID: Day 2 vancomycin, aztreonam and Flagyl unknown sepsis Blood cultures 2, sputum, UA, urine Legionella and pneumococcal antigens is also are pending. Influenza negative. MSK: BMI greater than 50 Weight loss encouraged FEN: Hyperkalemia - resolved Received 1 ampule D50, 10 units are insulin, calcium gluconate in ED. Repeat pending Hold potassium chloride 10 mEq by mouth daily/home medication Replace electrolytes as clinically indicated Access - Utilize peripheral IV. Central line if indicated Prophylaxis - GI - pantoprazole - DVT - SCD/heparin subcutaneous Level II follow-up Arron Hernandez MD Jun 13, 2017 09:31 MSK: BMI greater than 50 Weight loss encouraged FEN: Hyperkalemia Received 1 ampule D50, 10 units are insulin, calcium gluconate in ED. Repeat pending Hold potassium chloride 10 mEq by mouth daily/home medication Replace electrolytes as clinically indicated Access - Utilize peripheral IV. Central line if indicated Prophylaxis - GI - pantoprazole - DVT - SCD/heparin Critical care time 35 minutes Arron Hernandez MD Jun 13, 2017 09:31
[2017-06-13] MEDS: PANTOPRAZOLE SODIUM 40 MG VIAL IV SCH (09:37)
[2017-06-13] MEDS: SODIUM CHLOR 0.9% 1000 ML INJ 1,000 ML IV SCH (09:39)
[2017-06-13] MEDS: SODIUM CHLORIDE 0.9% FLUSH 10 ML FLUSH IV FLUSH SCH ×2 (09:39→21:44)
[2017-06-13] MEDS ORDERED: VANCOMYCIN INJ 2,200 MG in SODIUM CHLORID 0.9% 500 ML INJ 500 ML IV SCH (11:00)
--- NOTE | 2017-06-13 12:18 | PD.TRANSFR ---
Transfer Summary Admission Date Jun 12, 2017 at 09:22 Transfer Date: Jun 13, 2017 Admitting Diagnosis Severe sepsis Diagnoses: (1) Severe sepsis Diagnosis: Principal (2) COPD (chronic obstructive pulmonary disease) Diagnosis: Principal (3) Diabetes mellitus Diagnosis: Principal (4) Coronary artery disease Diagnosis: Principal (5) Hypertension Diagnosis: Principal (6) Diabetic neuropathy associated with type 2 diabetes mellitus Diagnosis: Principal (7) BMI 50.0-59.9, adult Diagnosis: Principal (8) Leukocytosis Diagnosis: Principal (9) Lactic acidosis Diagnosis: Principal (10) Acute kidney injury Diagnosis: Principal (11) Elevated partial thromboplastin time (PTT) Diagnosis: Principal (12) Hyperkalemia Diagnosis: Principal (13) Hyperglycemia Diagnosis: Principal Significant Findings Pending abdominal ultrasound Transfer Summary/Subjective See below Objective Vital Signs Date Time Temp Pulse Resp B/P Pulse Ox O2 Delivery O2 Flow Rate FiO2 06/13/17 10:41 93 3.00 06/13/17 06:00 84 06/13/17 06:00 19 127/61 06/13/17 04:00 97.7 06/12/17 20:00 Nasal Cannula Intake and Output 06/12/17 06/12/17 06/13/17 08:00 16:00 00:00 Intake Total 5980 ml 2193 ml Output Total 400 ml 1000 ml Balance 5580 ml 1193 ml Result Diagram: 06/13/17 0405 06/13/17 0405 Other Results Microbiology Date/Time Procedure Status Source Growth 06/12/17 10:00 Influenza Types A,B Antigen (SUSHIL) - Final Complete Nasal Aspirate NEGATIVE FOR FLU A AND B ANTIGEN.... 06/12/17 10:19 Legionella Antigen - Final Complete Urine Clean Catch PRESUMPTIVE NEGATIVE FOR LEGIONELLA P... 06/12/17 10:19 Streptococcus pneumoniae Antigen (M - Final Complete Urine Clean Catch PRESUMPTIVE NEGATIVE FOR STREPTOCOCCU... Laboratory Tests Test 06/12/17 12:35 Blood Gas Puncture Site LT RADIAL Blood Gas Patient Temperature 98.6 Blood Gas HCO3 18 mmol/L (22-26) Blood Gas Base Excess -6.7 mmol/L (-2-2) Blood Gas Oxygen Saturation 92 % (90-100) Arterial Blood pH 7.37 (7.380-7.420) Arterial Blood Partial 31 mmHg (38-42) Pressure CO2 Arterial Blood Partial 79 mmHg Pressure O2 (61-120) Arterial Blood Oxygen Content 11.2 Vol % (12.0-20.0) Arterial Blood 2.7 % (0-4) Carboxyhemoglobin Arterial Blood Methemoglobin 0.8 % (0-2) Blood Gas Hemoglobin 8.6 G/DL (12.0-16.0) Oxygen Delivery Device NASAL CANNULA Blood Gas Liter Flow 1.5 L/M Imaging Last Impressions Chest X-Ray 06/12/17 0728 Signed Impressions: Service Date/Time: May 07:43 - CONCLUSION: 1. Elevation left hemidiaphragm. 2. Bibasilar densities likely atelectasis. Graham Antonio MD Lower Extremity Ultrasound 06/12/17 0000 Signed Impressions: Service Date/Time: May 18:32 - CONCLUSION: Normal examination. Lev Gandhi MD Objective Remarks GENERAL: 58-year-old male, critically ill currently resting in bed in no acute distress SKIN: Warm and pale. No rash. Tattoo left upper extremity HEAD: Atraumatic. Normocephalic. EYES: Pupils equal and round around 3 mm bilaterally and reactive. No scleral icterus. No injection or drainage. ENT: No nasal bleeding or discharge. Mucous membranes pink and moist. NECK: Trachea midline. No JVD. CARDIOVASCULAR: Distant. Regular rate and rhythm. S1, S2 no S4 without murmur RESPIRATORY: Diminished throughout. No wheezes, rales or rhonchi. Breath sounds equal bilaterally. GASTROINTESTINAL: Abdomen soft, non-tender, obese. Hypoactive bowel sounds. MUSCULOSKELETAL: Extremities with chronic venous stasis bilateral lower extremities with woody edema. NEUROLOGICAL: Awake and alert. No obvious cranial nerve deficits. Motor grossly within normal limits. Five out of 5 muscle strength in the arms and legs. Normal speech. PSYCHIATRIC: Appropriate mood and affect; insight and judgment normal. A/P Assessment and Plan Neuro/Psych: Acetaminophen 650 mg by mouth every 4 hours when necessary fever Hydrocodone/acetaminophen 5/325 one tablet every 4 hours when necessary pain 1-5 Morphine sulfate 2 mg IV every 2 hours when necessary pain 6-10 CT head ordered but refused per patient CV: Lactic acidosis - resolving Hypertension Coronary artery disease EKG revealed sinus tachycardia. Left axis deviation. QTC was 403 Initial troponin 0.05. Negative workup Holding losartan 100 mg by mouth daily light of hypotension relative and acute kidney injury. Resume when clinically indicated Holding Lasix 40 mg by mouth daily light of hypotension. Resume when clinically indicated Resp: Prior tobaccoism 50 pack years. Quit 15 years ago Chronic oxygen use possibly undiagnosed PAULA/pickwickian Chest x-ray revealed elevated left hemidiaphragm. Possible bilateral lower lobe atelectasis Nasal cannula to maintain saturations greater than or equal to 92% Continue ipratropium/albuterol 0.5/2.5 nebulizers every 6 hours with albuterol nebulizers every 2 hours. Dyspnea Incentive spirometry while awake Patient refuses CT thorax GI: Early satiety Elevated total bilirubin Total bilirubin elevated however remainder of LFTs negative. Benign abdominal examination.. Lipase normal Patient refuses CT abdomen/pelvis. Will order abdominal ultrasound today Pantoprazole 40 mg IV daily for GI prophylaxis Docusate sodium/senna 1 tablet by mouth twice a day for bowel regimen Dark stools per RN. Will Hemoccult stool 1. : Franco catheter if indicated for accurate I's and O's in a critically ill patient Endo: Diabetes mellitus/insulin requiring with peripheral neuropathy Home medications include insulin aspart 30 units 3 times a day and insulin glargine 50 units subcutaneous twice a day Currently on detemir 30 units subcutaneous twice a day with Novolin R sliding scale insulin with Accu-Cheks before meals/at bedtime Renal: Acute kidney injury - resolving Unknown baseline. Abdominal ultrasound rule out hydronephrosis Urine eosinophil/electrolytes Currently normal saline at 84 cc an hour. Status post 3 L normal saline 1 Heme: Leukocytosis Normocytic anemia Elevated PTT Hemoccult negative in ED. repeat today is nurses stools are dark ED ordered 1 unit PRBCs.. Hemoglobin currently 9.1 Recheck CBC in a.m. ID: Day 2 vancomycin, aztreonam and Flagyl unknown sepsis Blood cultures 2, sputum, UA, urine Legionella and pneumococcal antigens is also are pending. Influenza negative. MSK: BMI greater than 50 Weight loss encouraged FEN: Hyperkalemia - resolved Received 1 ampule D50, 10 units are insulin, calcium gluconate in ED. Repeat pending Hold potassium chloride 10 mEq by mouth daily/home medication Replace electrolytes as clinically indicated Access - Utilize peripheral IV. Central line if indicated Prophylaxis - GI - pantoprazole - DVT - SCD/heparin subcutaneous Level II follow-up Arron Hernandez MD Jun 13, 2017 12:18
--- NOTE | 2017-06-13 17:26 | PD.CONS ---
HPI History of Present Illness This is a 66 year old male who came to the ER for evaluation of generalized weakness and difficulty breathing that began when he woke yesterday morning. He was admitted to the ICU for sepsis, hypertension, coronary artery disease, acute kidney injury with electrolyte abnormalities, and anemia. His H/H on admission was 8.0/25.2. He was transfused 2 units PRBC and it is currently 9.1/ 26.8. He was originally hemoccult negative in the ER, but another stool sample was sent to the lab and this was positive. The nurse reports that he had a melanotic stool this am. Initially, the patient told me that he has had black stools for the past 18 months and no one can ever find out where its coming from. He states that he has had stool samples sent and they always come back with no blood. Of note, he has never had an EGD or Colonoscopy. When I mentioned this, he then said that he never meant that he was having black stool and misunderstood what I was asking him. He denies any nausea, vomiting, heartburn, reflux, or abdominal pain. There was some mention of abdominal pain to other providers and a CT scan was ordered, but the patient was not able to tolerate this secondary to claustrophobia and refused the scan. He reported that he has not even been able to tolerate CT scan when he was sedated in the past. He denies any abdominal pain to me and states the only abdominal pain he has is "hunger pain" from us not giving him any food. There was also mention of early satiety, but the patient denies this as well. He denies any weight loss, change in stools, constipation, diarrhea, red blood in stools and is now denying black stools- although the nurse witnessed this earlier in the am. He denies any family hx of esophageal, gastric, colorectal cancer. (Aga Dyson) PFSH Past Medical History COPD DM CAD HTN Neuropathy Claustrophobia Past Surgical History Tonsillectomy (Aga Dyson) Coded Allergies: Penicillin (Verified Allergy, Mild, 06/12/17) Medications Allergies Coded Allergies Type Severity Reaction Last Updated Verified Penicillin Allergy Mild 06/12/17 Yes Active Scripts Medications Dose Route/Sig Days Date Category Dose Instructions K-Dur (Potassium Chloride) 10 Meq Tabcr 10 Meq PO DAILY 09/14/09 Rx Lasix (Furosemide) 40 Mg Tab 40 Mg PO DAILY 09/14/09 Rx Resp: Albuterol 2.5 Mg/Ipratropium 0.5 Mg (Albuterol/Ipratropium) 1 Amp Nebu 1 Amp NEB QID 09/14/09 Reported Combivent (Albuterol/Ipratropium) 14.7 Gm Aer 2 Puff INH Q6HPRN 09/14/09 Reported FOR WHEEZING Cozaar (Losartan Potassium) 100 Mg Tab 100 Mg PO BID 09/14/09 Reported Metformin ER 24 HR (Metformin HCl) 1,000 Mg Tab 1,000 Mg PO BID 09/14/09 Reported Novolog (Insulin Aspart) 100 Units/Ml Inj 30 Units SQ TIDAC 09/14/09 Reported Lantus (Insulin Glargine) 100 Units/Ml Inj 50 Units SQ BID 09/14/09 Reported Family History Denies any family hx of esophageal, gastric, or colorectal cancer. Social History 50 pack year smoking history, quit 15 years ago Prior etoh use, none currently No illicit drug use. (Aga Dyson) Review of Systems Constitutional: COMPLAINS OF: Fatigue, DENIES: Fever, Weight loss, Chills, Change in appetite Respiratory: COMPLAINS OF: Cough, Shortness of breath, DENIES: Wheezing Cardiovascular: COMPLAINS OF: Lower Extremity Edema, DENIES: Chest pain Gastrointestinal: COMPLAINS OF: Black stools, DENIES: Abdominal pain, Bloody stools, Constipation, Diarrhea, Nausea, Vomiting, Anorexia, Swelling of Abdomen , Heartburn, Hematemesis Musculoskeletal: COMPLAINS OF: Joint pain Hematologic/lymphatic: COMPLAINS OF: Bruising Psychiatric: DENIES: Confusion (Aga Dyson) GI Exam Vitals I&O Vital Signs Date Time Temp Pulse Resp B/P Pulse Ox O2 Delivery O2 Flow Rate FiO2 06/13/17 15:00 96 27 150/82 91 06/13/17 14:00 95 23 139/77 91 06/13/17 13:00 93 21 128/76 93 06/13/17 12:00 97.8 92 18 127/69 93 06/13/17 11:01 98 31 142/79 91 06/13/17 10:41 93 3.00 06/13/17 10:01 93 27 168/74 90 7/21/17 09:00 89 21 129/70 93 06/13/17 08:00 97.7 86 23 121/75 92 06/13/17 07:00 91 26 126/69 91 06/13/17 06:00 84 06/13/17 06:00 90 19 127/61 94 06/13/17 05:00 90 24 123/71 93 06/13/17 04:00 86 06/13/17 04:00 97.7 86 20 126/60 93 06/13/17 03:00 90 26 132/77 91 06/13/17 02:00 86 06/13/17 02:00 86 19 137/72 94 06/13/17 01:00 83 16 112/63 94 06/13/17 00:00 84 06/13/17 00:00 98.0 92 28 119/73 94 06/12/17 22:00 99 06/12/17 20:00 92 06/12/17 20:00 98.1 92 28 119/73 94 06/12/17 20:00 95 Nasal Cannula 3.00 I/O 06/12/17 06/12/17 06/12/17 06/13/17 06/13/17 06/13/17 06:59 14:59 22:59 06:59 14:59 22:59 Intake Total 8173 ml 1682 ml 1085 ml Output Total 1400 ml 1000 ml 1250 ml Balance 6773 ml 682 ml -165 ml Intake Oral 1800 ml 480 ml 300 ml IV Total 5323 ml 1202 ml 785 ml Packed Cells 1050 ml Output Urine Total 1400 ml 1000 ml 1250 ml # Voids 1 # Bowel Movements 1 1 1 3 Imaging Last Impressions Chest X-Ray 06/12/17 0728 Signed Impressions: Service Date/Time: May 07:43 - CONCLUSION: 1. Elevation left hemidiaphragm. 2. Bibasilar densities likely atelectasis. Graham Antonio MD Lower Extremity Ultrasound 06/12/17 0000 Signed Impressions: Service Date/Time: May 18:32 - CONCLUSION: Normal examination. Lev Gandhi MD Laboratory Test 06/12/17 06/12/17 06/13/17 06/13/17 20:40 21:00 04:05 05:02 Potassium Level 5.2 MEQ/L 4.8 MEQ/L Random Cortisol 27.6 MCG/DL Lactic Acid Level 3.5 mmol/L 2.1 mmol/L White Blood Count 19.4 TH/MM3 Red Blood Count 2.93 MIL/MM3 Hemoglobin 9.1 GM/DL Hematocrit 26.8 % Mean Corpuscular Volume 91.2 FL Mean Corpuscular Hemoglobin 31.1 PG Mean Corpuscular Hemoglobin 34.1 % Concent Red Cell Distribution Width 17.4 % Platelet Count 158 TH/MM3 Mean Platelet Volume 9.8 FL Neutrophils (%) (Auto) 92.2 % Lymphocytes (%) (Auto) 4.2 % Monocytes (%) (Auto) 3.4 % Eosinophils (%) (Auto) 0.0 % Basophils (%) (Auto) 0.2 % Neutrophils # (Auto) 17.9 TH/MM3 Lymphocytes # (Auto) 0.8 TH/MM3 Monocytes # (Auto) 0.7 TH/MM3 Eosinophils # (Auto) 0.0 TH/MM3 Basophils # (Auto) 0.0 TH/MM3 CBC Comment AUTO DIFF Differential Total Cells 100 Counted Neutrophils % (Manual) 87 % Band Neutrophils % 11 % Lymphocytes % 1 % Monocytes % 1 % Neutrophils # (Manual) 19.0 TH/MM3 Differential Comment FINAL DIFF MANUAL Platelet Estimate NORMAL Platelet Morphology Comment NORMAL Red Cell Morphology Comment NORMAL Prothrombin Time 14.3 SEC Prothromb Time International 1.3 RATIO Ratio Activated Partial 33.1 SEC Thromboplast Time Sodium Level 138 MEQ/L Chloride Level 102 MEQ/L Carbon Dioxide Level 27.8 MEQ/L Anion Gap 8 MEQ/L Blood Urea Nitrogen 47 MG/DL Creatinine 1.14 MG/DL Estimat Glomerular Filtration 64 ML/MIN Rate Random Glucose 342 MG/DL Calcium Level 8.0 MG/DL Phosphorus Level 2.5 MG/DL Magnesium Level 2.4 MG/DL Total Bilirubin 1.6 MG/DL Aspartate Amino Transf 23 U/L (AST/SGOT) Alanine Aminotransferase 24 U/L (ALT/SGPT) Alkaline Phosphatase 86 U/L Total Protein 6.0 GM/DL Albumin 2.2 GM/DL Random Vancomycin Level 11.6 COMMENT Date/Time Procedure Status Source Growth 06/13/17 11:00 Stool Occult Blood (SUSHIL) - Final Complete Stool Stool HEMOCCULT POSITIVE 06/12/17 10:19 Legionella Antigen - Final Complete Urine Clean Catch PRESUMPTIVE NEGATIVE FOR LEGIONELLA P... 06/12/17 10:19 Streptococcus pneumoniae Antigen (M - Final Complete Urine Clean Catch PRESUMPTIVE NEGATIVE FOR STREPTOCOCCU... 06/12/17 10:00 Influenza Types A,B Antigen (SUSHIL) - Final Complete Nasal Aspirate NEGATIVE FOR FLU A AND B ANTIGEN.... 06/12/17 07:47 Aerobic Blood Culture - Preliminary Resulted Blood Peripheral Gram Positive Cocci 06/12/17 07:47 Anaerobic Blood Culture - Preliminary Resulted Streptococcus Species Physical Examination HEENT: Normocephalic; atraumatic; no jaundice. CHEST: Resp. even/unlabored, diminished CARDIAC: RRR ABDOMEN: Soft, obese, nondistended, nontender; no hepatosplenomegaly; bowel sounds are present in all four quadrants. EXTREMITIES: BLE edema. SKIN: Normal; no rash; no jaundice. VACATION PLANNER: No focal deficits; alert and oriented times three. (Aga Dyson) Assessment and Plan Plan ASSESSMENT: - Anemia with hemoccult positive stool. H/H on admission was 8.0/25.2. S/P 2 units PRBC and it is currently 9./.8. 1st hemoccult negative in the ER, but rpt was positive. + Melanotic stool this am. Initially, the patient told me that he has had black stools for the past 18 months and no one can ever find out where its coming from. He states that he has had stool samples sent and they always come back with no blood, but denied ever having an EGD or Colonoscopy. As soon as I mentioned EGD/Colonoscopy, he denied any bleeding or GI symptoms. - GIB with melanotic stool. S/P 2 units PRBC. HH 9.12/19.8. - ? Abdominal pain. He did complain of this to other providers, but denies for me and states the only pain he is having is "hunger pain." Refused CT scan abdomen/pelvis. Abdominal US pending. - Sepsis/leukocytosis/lactic acidosis/bacteremia. WBC 19.4. BCx with GPC, Streptococcus species. Vanco, Azactam, Flagyl. - HAI with electrolyte abnormalities. Improved. - DM, CAD, COPD, HTN, Neuropathy per attending. PLAN: - EZEQUIEL - Cont. PPI - Await US - Monitor HH - Transfuse as necessary - Pt refuses CT scan - Pt is not receptive to further evaluation with CT/EGD/Colonoscopy at this time. He seems to be relatively stable and we would likely not do this until Friday unless there was active bleeding, so I am not going to press him for this at this time and will follow up over hte weekend - Supportive care - Further recommendations to follow based on results of above - Pt seen and examined by Dr. Corbett and myself and this note is written on her behalf (Aga Dyson) Physician Comments seen, examined agree with above will think about gi work-up (Pretty Corbett MD) Aga Dyson Jun 13, 2017 17:26 Pretty Corbett MD Jun 13, 2017 20:41
[2017-06-13 18:57] LABS: HEMATOCRIT 27.5 % (39.0-51.0); MEAN CELL VOLUME 92.8 FL (80.0-100.0); MEAN CORPUSCULAR HEMOGLOBIN 31.6 PG (27.0-34.0); PLATELET COUNT 185 TH/MM3 (150-450); RED BLOOD COUNT 2.96 MIL/MM3 (4.50-5.90); RED CELL DISTRIBUTION WIDTH 17.7 % (11.6-17.2); REVIEW FLAG FINAL; WHITE BLOOD COUNT 27.6 TH/MM3 (4.0-11.0)
--- NOTE | 2017-06-13 19:49 | RADRPT ---
EXAM DATE/TIME: 06/13/2017 15:35 [place] COMPARISON: No previous studies available for comparison. INDICATIONS : Abdomen pain. MEDICAL HISTORY : Chronic obstructive pulmonary disease. Hypertension. Diabetes. A-fib. Diabetic neuropathy. SURGICAL HISTORY : Tonsillectomy. ENCOUNTER: Initial ACUITY: 1 day PAIN SCORE: 2/10 LOCATION: Abdomen. MEASUREMENTS: LIVER: 16.9 cm length COMMON DUCT: 6 mm RIGHT KIDNEY: 12.9 x 5.1 x 6.2 cm LEFT KIDNEY: 11.0 x 4.7 x 5.0 cm SPLEEN: 12.3 cm length AORTA: 2.5 cm maximal FINDINGS: Pancreas not well-visualized. In the liver multiple cysts are identified including a 1.2 x 1.1 x 1.2 cm left lobe cyst and a 1.6 x 1.5 x 1.8 cm and a 9 x 8 x 10 mm cyst in the right lobe. The gallbladde r is is not adequately visualized. Right kidney and left kidney poorly visualized but unremarkable. S pleen normal. Small amount of free fluid is seen.. CONCLUSION: Limited study secondary to bowel gas and body habitus. Hepatic cysts are noted. Small amount of free fluid suspected. Lev Gandhi MD on June 13, 2017 at 19:45 Board Certified Radiologist. This report was verified electronically.
[2017-06-14] VITALS (25 sets, daily range): BP systolic 123–163; BP diastolic 66–89; PULSE 88–109; RESP 14–31; TEMP 97.6–97.9; O2SAT 88–96
[2017-06-14] MEDS: metroNIDAZOLE 500 MG INJ 100 ML IV SCH (03:03)
[2017-06-14] MEDS: RESP: ALBUTEROL 2.5 MG/IPRATROPIUM 0.5 MG NEB (SCH) INH ×6 (03:11→23:55)
[2017-06-14] MEDS: CHLORHEXIDINE GLUCONATE 2 % 1 PACK (2 CLOTHS) TOP SCH (04:00)
[2017-06-14] MEDS: AZTREONAM INJ 2,000 MG in SODIUM CHLORIDE 0.9% INJ 100 ML IV SCH (04:33)
[2017-06-14 05:04] LABS: AUTOMATED NEUTROPHIL # 25.5 TH/MM3 (1.8-7.7); BASOPHIL # 0.1 TH/MM3 (0-0.2); BASOPHIL % 0.3 % (0.0-2.0); HEMATOCRIT 28.7 % (39.0-51.0); LYMPH % 4.2 % (9.0-44.0); LYMPHOCYTE # 1.2 TH/MM3 (1.0-4.8); MEAN CELL VOLUME 94.2 FL (80.0-100.0); MEAN CORPUSCULAR HEMOGLOBIN 30.1 PG (27.0-34.0); MEAN CORPUSCULAR HGB CONC 31.9 % (32.0-36.0); MONO % 5.4 % (0.0-8.0); NEUT % 90.1 % (16.0-70.0); PLATELET COUNT 206 TH/MM3 (150-450); RED BLOOD COUNT 3.05 MIL/MM3 (4.50-5.90); RED CELL DISTRIBUTION WIDTH 17.8 % (11.6-17.2); WHITE BLOOD COUNT 28.3 TH/MM3 (4.0-11.0)
[2017-06-14 05:20] LABS: HEMO FLAGS AUTO DIFF
[2017-06-14 06:02] LABS: ALKALINE PHOSPHATASE 91 U/L (45-117); ALT (GPT) 27 U/L (12-78); ANION GAP 5 MEQ/L (5-15); AST (GOT) 33 U/L (15-37); BICARBONATE 29.2 MEQ/L (21.0-32.0); BLOOD UREA NITROGEN 34 MG/DL (7-18); CHLORIDE 107 MEQ/L (98-107); GLOMERULAR FILTRATION RATE 81 ML/MIN (>89); POTASSIUM 4.5 MEQ/L (3.5-5.1); SODIUM (NA) 141 MEQ/L (136-145); TOTAL BILIRUBIN ADULT 0.7 MG/DL (0.2-1.0)
[2017-06-14 06:03] LABS: MAGNESIUM 2.3 MG/DL (1.5-2.5)
[2017-06-14] MEDS: INSULIN NovoLIN REGULAR SUPPLEMENTAL SCALE SQ SCH ×4 (07:00→21:00)
[2017-06-14] MEDS: MORPHINE SULFATE 4 MG/ML INJ IV PRN (07:10)
--- NOTE | 2017-06-14 07:43 | HHI.PR ---
Subjective Remarks Patient seen and examined this morning. Intermittent tachycardia, pulse ox 93% on room air. He wants to know if he can eat, states his butt hurts. Denies abdominal pain. Having loose stools, unsure what color they are. States he cant see without his glasses. Objective Vital Signs Date Time Temp Pulse Resp B/P Pulse Ox O2 Delivery O2 Flow Rate FiO2 06/14/17 06:00 90 06/14/17 06:00 90 18 151/72 93 06/14/17 05:00 93 21 135/80 91 06/14/17 04:00 97.6 88 15 135/70 94 06/14/17 04:00 88 06/14/17 03:00 92 16 140/72 95 06/14/17 02:00 90 06/14/17 02:00 90 14 123/75 91 06/14/17 01:00 92 17 145/66 88 06/14/17 00:00 92 06/14/17 00:00 97.8 92 19 133/74 96 06/13/17 23:00 88 14 138/70 92 06/13/17 22:00 92 06/13/17 22:00 92 18 131/72 91 06/13/17 21:00 91 15 116/80 89 06/13/17 20:22 91 Nasal Cannula 3.00 06/13/17 20:00 96 06/13/17 20:00 97.6 96 23 116/80 88 06/13/17 18:00 101 30 135/84 88 06/13/17 17:00 95 23 130/73 91 06/13/17 16:40 97 38 127/71 88 06/13/17 16:00 97.6 92 22 121/72 92 06/13/17 15:00 96 27 150/82 91 06/13/17 14:00 95 23 139/77 91 06/13/17 13:00 93 21 128/76 93 06/13/17 12:00 97.8 92 18 127/69 93 06/13/17 11:01 98 31 142/79 91 06/13/17 10:41 93 3.00 06/13/17 10:01 93 27 168/74 90 06/13/17 09:00 89 21 129/70 93 06/13/17 08:00 97.7 86 23 121/75 92 I/O 06/13/17 06/13/17 06/13/17 06/14/17 06/14/17 06/14/17 06:59 14:59 22:59 06:59 14:59 22:59 Intake Total 1682 ml 1085 ml 1056 ml 743 ml Output Total 1000 ml 1250 ml 1125 ml 700 ml Balance 682 ml -165 ml -69 ml 43 ml Intake Oral 480 ml 300 ml IV Total 1202 ml 785 ml 1056 ml 743 ml Output Urine Total 1000 ml 1250 ml 1125 ml 700 ml # Bowel Movements 1 3 Result Diagram: 06/14/17 0430 06/14/17 0430 Imaging Last Impressions Abdomen Ultrasound 06/13/17 0000 Signed Impressions: Service Date/Time: Tuesday, June 13, 2017 15:35 - CONCLUSION: Limited study secondary to bowel gas and body habitus. Hepatic cysts are noted. Small amount of free fluid suspected. Lev Gandhi MD Chest X-Ray 06/12/17 0728 Signed Impressions: Service Date/Time: May 07:43 - CONCLUSION: 1. Elevation left hemidiaphragm. 2. Bibasilar densities likely atelectasis. Graham Antonio MD Lower Extremity Ultrasound 06/12/17 0000 Signed Impressions: Service Date/Time: May 18:32 - CONCLUSION: Normal examination. Lev Gandhi MD Objective Remarks GENERAL: 58-year-old male,sleeping comfortably no acute distress, awakes easily SKIN: Warm and pale. No rash. Tattoo left upper extremity. HEAD: Atraumatic. Normocephalic. EYES: Pupils equal and round around bilaterally and reactive. No scleral icterus. No injection or drainage. ENT: No nasal bleeding or discharge. Mucous membranes pink and dry around mouth. NECK: Trachea midline. No JVD. CARDIOVASCULAR: Distant. Regular rate and rhythm, without murmur RESPIRATORY: Diminished throughout. No wheezes, rales or rhonchi. Breath sounds equal bilaterally. GASTROINTESTINAL: Abdomen soft, non-tender, obese. Hypoactive bowel sounds. Umbilical hernia is present. MUSCULOSKELETAL: Extremities with chronic venous stasis bilateral lower extremities with woody edema. NEUROLOGICAL: Awake and alert. No obvious cranial nerve deficits. Motor grossly within normal limits. Normal speech. PSYCHIATRIC: Appropriate mood and affect; insight and judgment normal. A/P Problem List: (1) COPD (chronic obstructive pulmonary disease) ICD Code: J44.9 (2) Coronary artery disease ICD Code: I25.10 (3) Diabetes mellitus ICD Code: E11.9 (4) Severe sepsis ICD Code: A41.9 (5) Acute kidney injury ICD Code: N17.9 (6) Hypertension ICD Code: I10 Assessment and Plan 66-year-old male with Severe sepsis - On admission: Significant leukocytosis, tachycardia, tachypnea, afebrile. Leukocytosis continues to worsen. - neg legionella and strep, and flu, UA neg - Blood cultures +stretococcus - currently on vanco, aztreonam, and metronidazole - will consult ID Anemia with Hemoccult-positive stools - GI following - s/p 2 units PRBC, hb now stable at 9.2 - Likely CT/EGD/colonoscopy on Friday COPD - Continue breathing treatments - Home regimen duo nebs, Combivent Diabetes - Levemir 30 units twice a day, insulin sliding scale - Fasting blood glucose between 200- 300 - A1C ordered and pending - Home regimen: Metformin on hold, NovoLog 30 units 3 times a day, 50 units Lantus twice a day Coronary artery disease Hypertension - Home regimen Cozaar (on hold due to initial hypotension) HAI - Resolved Discharge Planning D/C pending improved clinical improvement. Likely several days. Problem Qualifiers (1) COPD (chronic obstructive pulmonary disease): Qualified Code: J44.9 - Chronic obstructive pulmonary disease, unspecified COPD type (2) Coronary artery disease: Qualified Code: I25.10 - Coronary artery disease involving [place] coronary artery without angina pectoris, unspecified whether [place] or transplanted heart (3) Diabetes mellitus: Qualified Code: E11.65 - Type 2 diabetes mellitus with hyperglycemia, with long -term current use of insulin (4) Hypertension: Qualified Code: I10 - Hypertension, unspecified type Liana Escamilla MD Jun 14, 2017 07:43
[2017-06-14] MEDS: INSULIN DETEMIR 100 UNITS/ML VIAL SQ SCH ×2 (09:00→21:00)
--- NOTE | 2017-06-14 09:14 | PD.CONS ---
History of Present Illness Service Infectious Disease Consult Requested By Dr. Escamilla Reason for Consult Evaluate patient with persistent leukocytosis Primary Care Physician Janine [facility] Diagnoses: History of Present Illness Patient seen and examined. Records reviewed. Patient is a 66-year-old morbidly obese male, presented to the hospital complaining of severe shortness of breath. Patient states he has COPD, and has had problem with chronic shortness of breath. He does not use any supplemental oxygen at home. Patient also admits to chronic lower extremity edema. He presented to the hospital because he had development of severe shortness of breath that he couldn't even walk a few distances which is not his normal. He denies any congestion, cough or any chest pain or palpitations. Also has been very weak, and just didn't feel good. He has not had any dizziness or syncopal episode. Has not had any nausea vomiting, abdominal pain, dysuria. On presentation he had an elevated white count. Patient has been afebrile. His lactic acid was elevated. Urinalysis was unremarkable. Chest x-ray with some basilar atelectasis. Patient was admitted initially for sepsis, and was started on broad-spectrum antibiotics. His WBC went down to 19, but it went up to 27,000. Patient received a large dose of IV Solu-Medrol on June 12. Patient currently states his breathing is better. He is still on nasal O2. Infectious disease consultation has been requested today to evaluate the leukocytosis. Review of Systems Constitutional: DENIES: Fever, Chills, Dizziness, Night Sweats Eyes: DENIES: Eye inflammation, Eye pain Ears, nose, mouth, throat: DENIES: Nasal discharge, Oral lesions, Throat pain, Ear Pain, Running Nose Respiratory: COMPLAINS OF: Shortness of breath, DENIES: Cough, Sputum production Cardiovascular: COMPLAINS OF: Dyspnea on Exertion, Lower Extremity Edema, DENIES: Chest pain, Palpitations, Syncope Gastrointestinal: DENIES: Abdominal pain, Diarrhea, Nausea, Vomiting, Difficulty Swallowing Genitourinary: DENIES: Urinary incontinence, Dysuria Musculoskeletal: COMPLAINS OF: Muscle aches, DENIES: Joint pain, Joint Swelling, Back pain Integumentary: DENIES: Pruritus, Rash Hematologic/lymphatic: DENIES: Bruising Immunologic/allergic: DENIES: Urticaria Neurologic: DENIES: Headache, Localized weakness Psychiatric: DENIES: Confusion, Hallucinations Past Family Social History Allergies: Coded Allergies: Penicillin (Verified Allergy, Mild, 06/12/17) Past Medical History COPD Coronary artery disease Hypertension Diabetes mellitus with peripheral neuropathy Elevated BMI Past Surgical History Tonsillectomy Active Ordered Medications Tylenol Daniel Albuterol Aztreonam Dulcolax Insulin Lactulose MOM Flagyl Morphine Zofran Protonix Cuca-colace Senokot Vancomycin Family History Non-contributory to current ID problem Social History Quit tobacco 15 years ago. 50 pack years. Quit alcohol use. Prior " use" in past. Denies IV drug use. Physical Exam Vital Signs Vital Signs Date Time Temp Pulse Resp B/P Pulse Ox O2 Delivery O2 Flow Rate FiO2 06/14/17 08:23 90 Nasal Cannula 4.00 06/14/17 06:00 90 06/14/17 06:00 90 18 151/72 93 06/14/17 05:00 93 21 135/80 91 06/14/17 04:00 97.6 88 15 135/70 94 06/14/17 04:00 88 06/14/17 03:00 92 16 140/72 95 06/14/17 02:00 90 06/14/17 02:00 90 14 123/75 91 06/14/17 01:00 92 17 145/66 88 06/14/17 00:00 92 06/14/17 00:00 97.8 92 19 133/74 96 06/13/17 23:00 88 14 138/70 92 06/13/17 22:00 92 06/13/17 22:00 92 18 131/72 91 06/13/17 21:00 91 15 116/80 89 06/13/17 20:22 91 Nasal Cannula 3.00 06/13/17 20:00 96 06/13/17 20:00 97.6 96 23 116/80 88 06/13/17 18:00 101 30 135/84 88 06/13/17 17:00 95 23 130/73 91 06/13/17 16:40 97 38 127/71 88 06/13/17 16:00 97.6 92 22 121/72 92 06/13/17 15:00 96 27 150/82 91 06/13/17 14:00 95 23 139/77 91 06/13/17 13:00 93 21 128/76 93 06/13/17 12:00 97.8 92 18 127/69 93 06/13/17 11:01 98 31 142/79 91 06/13/17 10:41 93 3.00 06/13/17 10:01 93 27 168/74 90 Physical Exam GENERAL: Patient is an obese, well-developed CM, awake and alert, not in respiratory distress. Looks comfortable at rest SKIN: Cool and dry. No generalized rash, no ecchymoses and no evidence of embolic lesions. HEAD: Atraumatic. Normocephalic. No temporal wasting, or tenderness. EYES: [place] conjunctiva. No petechia or hemorrhage. Pupils equal, round and reactive to light. Extraocular movements full and intact. No scleral icterus. No injection or drainage. EARS, NOSE AND THROAT: Nose without bleeding or purulent nasal discharge. No sinus tenderness. Mucous membranes pink and moist. No oral lesions noted. No exudate. No oral thrush. NECK: Trachea midline. Supple and not tender, no meningeal signs CARDIOVASCULAR: Regular rate and rhythm. Has murmur loudest at base of the heart. NO rub RESPIRATORY: Clear to auscultation. Breath sounds equal bilaterally. No rales , wheezing or rhonchi. Decreased BS at the bases ABDOMEN: Soft, obese, non-tender, mildly distended. Bowel sounds present and normoactive. No guarding. No rebound. He has chronic skin changes in his abdominal wall, with indurated leather texture skin and he has an umbilical hernia EXTREMITIES: No clubbing, cyanosis. He has improving edema BLE, and he has bark tree texture of his skin in both legs and feet. No joint effusion, has good ROM. No calf tenderness. Well perfused and warm. NEUROLOGICAL: Awake and alert. Cranial nerves grossly intact. Motor grossly within normal limits. PSYCHIATRIC: Normal affect, calm and cooperative. LINE: No evidence of infection : Franco in place, urine looks clear Laboratory Laboratory Tests Test 06/13/17 06/14/17 18:10 04:30 White Blood Count 27.6 28.3 Red Blood Count 2.96 3.05 Hemoglobin 9.4 9.2 Hematocrit 27.5 28.7 Mean Corpuscular Volume 92.8 94.2 Mean Corpuscular Hemoglobin 31.6 30.1 Mean Corpuscular Hemoglobin 34.0 31.9 Concent Red Cell Distribution Width 17.7 17.8 Platelet Count 185 206 Mean Platelet Volume 9.3 8.9 Neutrophils (%) (Auto) 90.1 Lymphocytes (%) (Auto) 4.2 Monocytes (%) (Auto) 5.4 Eosinophils (%) (Auto) 0.0 Basophils (%) (Auto) 0.3 Neutrophils # (Auto) 25.5 Lymphocytes # (Auto) 1.2 Monocytes # (Auto) 1.5 Eosinophils # (Auto) 0.0 Basophils # (Auto) 0.1 CBC Comment AUTO DIFF Sodium Level 141 Potassium Level 4.5 Chloride Level 107 Carbon Dioxide Level 29.2 Anion Gap 5 Blood Urea Nitrogen 34 Creatinine 0.93 Estimat Glomerular Filtration 81 Rate Random Glucose 247 Calcium Level 7.9 Phosphorus Level 2.2 Magnesium Level 2.3 Total Bilirubin 0.7 Aspartate Amino Transf 33 (AST/SGOT) Alanine Aminotransferase 27 (ALT/SGPT) Alkaline Phosphatase 91 Total Protein 6.4 Albumin 2.3 Result Diagram: 06/14/17 0430 06/14/17 0430 Imaging RADIOLOGY STUDIES/FILMS REVIEWED Last Impressions Abdomen Ultrasound 06/13/17 0000 Signed Impressions: Service Date/Time: Tuesday, June 13, 2017 15:35 - CONCLUSION: Limited study secondary to bowel gas and body habitus. Hepatic cysts are noted. Small amount of free fluid suspected. Lev Gandhi MD Chest X-Ray 06/12/17 0728 Signed Impressions: Service Date/Time: May 07:43 - CONCLUSION: 1. Elevation left hemidiaphragm. 2. Bibasilar densities likely atelectasis. Graham Antonio MD Lower Extremity Ultrasound 06/12/17 0000 Signed Impressions: Service Date/Time: May 18:32 - CONCLUSION: Normal examination. Lev Gandhi MD Assessment and Plan Assessment and Plan IMPRESSION Initial presentation of severe SOB, patient with obesity, known COPD, ? possibly with cor pulmonale - clinically no evidence of PNA - has obesity, ?with sleep apnea Has murmur, ? - ?role in his SOB Leukocytosis, ?reactive - no obvious source of active infection - possibly worsened by the lasrge steroid dose he got 06/12 RECOMMENDATION Stop Abx Echo to look at valves and LV function Repeat CXR Follow CBC Follow C/S Monitor progress I will follow along with you Thank you for this consultation Discussed Condition With Explained plan to the patient D/W Estela Zheng MD Jun 14, 2017 09:14 Assessment and Plan Assessment and Plan IMPRESSION Initial presentation of severe SOB, patient with obesity, known COPD, ? possibly with cor pulmonale - clinically no evidence of PNA - has obesity, ?with sleep apnea Has murmur, ? - ?role in his SOB Leukocytosis, ?reactive - no obvious source of active infection - possibly worsened by the lasrge steroid dose he got 06/12 RECOMMENDATION Stop Abx Echo to look at valves and LV function Repeat CXR Follow CBC Follow C/S Monitor progress I will follow along with you Thank you for this consultation Discussed Condition With Explained plan to the patient D/W Estela Zheng MD Jun 14, 2017 09:14
[2017-06-14] MEDS: SODIUM CHLOR 0.9% 1000 ML INJ 1,000 ML IV SCH ×2 (09:24→23:05)
[2017-06-14] MEDS: DOCUSATE SODIUM 50 MG/SENNA 8.6 MG TAB PO SCH ×2 (09:50→21:14)
[2017-06-14] MEDS: SODIUM CHLORIDE 0.9% FLUSH 10 ML FLUSH IV FLUSH SCH ×2 (09:50→21:17)
[2017-06-14] MEDS: PANTOPRAZOLE SODIUM 40 MG VIAL IV SCH (09:50)
[2017-06-14 10:35] LABS: BANDS 15 % (0-6); NEUTROPHIL # MANUAL DIFF 23.2 TH/MM3 (1.8-7.7); POLYS (SEG NEUTROPHILS) 67 % (16-70); WBC DIFF SAMPLE 100
[2017-06-14 10:36] LABS: PLATELET ESTIMATE SMEAR NORMAL (NORMAL); PLATELET MORPHOLOGY NORMAL (NORMAL); POLYCHROMASIA 2.2 % (0.0-1.9); SCAN/DIFF FINAL DIFF MANUAL
[2017-06-15] VITALS (10 sets, daily range): BP systolic 113–144; BP diastolic 62–92; PULSE 99–115; RESP 19–23; TEMP 95.5–97.9; O2SAT 90–93
[2017-06-15] MEDS ORDERED: ALPRAZolam 0.25 MG TAB PO ONE (01:00)
[2017-06-15] MEDS: guaiFENesin/DEXTROMETHORPHAN 200 MG/20 MG/10 ML CUP PO PRN ×3 (01:05→20:06)
[2017-06-15] MEDS: CHLORHEXIDINE GLUCONATE 2 % 1 PACK (2 CLOTHS) TOP SCH (04:00)
[2017-06-15] MEDS: RESP: ALBUTEROL 2.5 MG/IPRATROPIUM 0.5 MG NEB (SCH) INH ×6 (04:27→19:57)
[2017-06-15 05:20] LABS: AUTOMATED NEUTROPHIL # 20.4 TH/MM3 (1.8-7.7); BASOPHIL # 0.1 TH/MM3 (0-0.2); BASOPHIL % 0.4 % (0.0-2.0); EOSINOPHIL # 0.1 TH/MM3 (0-0.4); EOSINOPHIL % 0.5 % (0.0-4.0); HEMATOCRIT 29.6 % (39.0-51.0); LYMPH % 5.9 % (9.0-44.0); LYMPHOCYTE # 1.4 TH/MM3 (1.0-4.8); MEAN CELL VOLUME 93.5 FL (80.0-100.0); MEAN CORPUSCULAR HEMOGLOBIN 30.7 PG (27.0-34.0); MEAN CORPUSCULAR HGB CONC 32.9 % (32.0-36.0); MONO % 6.4 % (0.0-8.0); NEUT % 86.8 % (16.0-70.0); PLATELET COUNT 170 TH/MM3 (150-450); RED BLOOD COUNT 3.17 MIL/MM3 (4.50-5.90); RED CELL DISTRIBUTION WIDTH 17.2 % (11.6-17.2); WHITE BLOOD COUNT 23.5 TH/MM3 (4.0-11.0)
[2017-06-15 05:21] LABS: HEMO FLAGS AUTO DIFF
[2017-06-15 05:34] LABS: BICARBONATE 26.5 MEQ/L (21.0-32.0); POTASSIUM 3.7 MEQ/L (3.5-5.1)
[2017-06-15] MEDS: INSULIN NovoLIN REGULAR SUPPLEMENTAL SCALE SQ SCH ×4 (06:01→20:05)
--- NOTE | 2017-06-15 08:38 | HHI.IDPN ---
Subjective Subjective Remarks Patient is a 66-year-old morbidly obese male, presented to the hospital complaining of severe shortness of breath. Patient states he has COPD, and has had problem with chronic shortness of breath. He does not use any supplemental oxygen at home. Patient also admits to chronic lower extremity edema. He presented to the hospital because he had development of severe shortness of breath that he couldn't even walk a few distances which is not his normal. He denies any congestion, cough or any chest pain or palpitations. Also has been very weak, and just didn't feel good. He has not had any dizziness or syncopal episode. Has not had any nausea vomiting, abdominal pain, dysuria. On presentation he had an elevated white count. Patient has been afebrile. His lactic acid was elevated. Urinalysis was unremarkable. Chest x-ray with some basilar atelectasis. Patient was admitted initially for sepsis, and was started on broad-spectrum antibiotics. His WBC went down to 19, but it went up to 27,000. Patient received a large dose of IV Solu-Medrol on June 12. Patient currently states his breathing is better. He is still on nasal O2. Notes reviewed States breathing ok Temps ok BC with Strep bovis Patient states he has never had colonoscopy Stool neg for OB in the past Echo ?not done yet WBC down to 23K Antibiotics None Past Medical History COPD Coronary artery disease Hypertension Diabetes mellitus with peripheral neuropathy Elevated BMI Past Surgical History Tonsillectomy Allergies: Coded Allergies: Penicillin (Verified Allergy, Mild, 06/12/17) Objective . Vital Signs Date Time Temp Pulse Resp B/P Pulse Ox O2 Delivery O2 Flow Rate FiO2 06/15/17 08:00 95.5 105 19 140/92 90 06/15/17 04:38 97.9 99 22 138/79 92 06/15/17 04:30 92 Nasal Cannula 4.00 06/15/17 00:23 96.7 109 23 143/89 91 06/14/17 23:59 92 Nasal Cannula 4.00 06/14/17 23:05 90 Nasal Cannula 4.00 06/14/17 20:00 97.9 106 20 163/74 91 06/14/17 20:00 106 06/14/17 19:23 91 Nasal Cannula 6.00 06/14/17 18:00 104 06/14/17 17:00 104 22 149/78 92 06/14/17 16:00 97.9 104 18 154/89 91 06/14/17 16:00 104 06/14/17 15:00 109 21 155/79 88 06/14/17 14:00 100 06/14/17 14:00 100 16 151/83 90 06/14/17 13:39 107 26 152/85 88 06/14/17 13:00 105 28 147/82 91 06/14/17 12:00 97.8 100 24 140/76 91 06/14/17 12:00 100 06/14/17 11:00 97 15 138/76 92 06/14/17 10:00 99 31 130/87 89 06/14/17 10:00 99 06/14/17 09:00 95 24 127/71 90 06/14/17 06/14/17 06/15/17 15:00 23:00 07:00 Intake Total 1083 ml 1104 ml 1085 ml Output Total 650 ml 550 ml 1000 ml Balance 433 ml 554 ml 85 ml Intake Oral 320 ml 600 ml 480 ml IV Total 763 ml 504 ml 605 ml Output Urine Total 650 ml 550 ml 1000 ml # Bowel Movements 0 1 . Laboratory Tests Test 06/13/17 06/14/17 06/15/17 18:10 04:30 03:15 White Blood Count 27.6 TH/MM3 28.3 TH/MM3 23.5 TH/MM3 Red Blood Count 2.96 MIL/MM3 3.05 MIL/MM3 3.17 MIL/MM3 Hemoglobin 9.4 GM/DL 9.2 GM/DL 9.7 GM/DL Hematocrit 27.5 % 28.7 % 29.6 % Mean Corpuscular Volume 92.8 FL 94.2 FL 93.5 FL Mean Corpuscular Hemoglobin 31.6 PG 30.1 PG 30.7 PG Mean Corpuscular Hemoglobin 34.0 % 31.9 % 32.9 % Concent Red Cell Distribution Width 17.7 % 17.8 % 17.2 % Platelet Count 185 TH/MM3 206 TH/MM3 170 TH/MM3 Mean Platelet Volume 9.3 FL 8.9 FL 9.2 FL Neutrophils (%) (Auto) 90.1 % 86.8 % Lymphocytes (%) (Auto) 4.2 % 5.9 % Monocytes (%) (Auto) 5.4 % 6.4 % Eosinophils (%) (Auto) 0.0 % 0.5 % Basophils (%) (Auto) 0.3 % 0.4 % Neutrophils # (Auto) 25.5 TH/MM3 20.4 TH/MM3 Lymphocytes # (Auto) 1.2 TH/MM3 1.4 TH/MM3 Monocytes # (Auto) 1.5 TH/MM3 1.5 TH/MM3 Eosinophils # (Auto) 0.0 TH/MM3 0.1 TH/MM3 Basophils # (Auto) 0.1 TH/MM3 0.1 TH/MM3 CBC Comment AUTO DIFF AUTO DIFF Differential Total Cells 100 Counted Neutrophils % (Manual) 67 % Band Neutrophils % 15 % Lymphocytes % 11 % Monocytes % 7 % Neutrophils # (Manual) 23.2 TH/MM3 Differential Comment FINAL DIFF MANUAL Platelet Estimate NORMAL Platelet Morphology Comment NORMAL Polychromasia 2.2 % Laboratory Tests Test 06/14/17 06/15/17 04:30 03:15 Sodium Level 141 MEQ/L 139 MEQ/L Potassium Level 4.5 MEQ/L 3.7 MEQ/L Chloride Level 107 MEQ/L 106 MEQ/L Carbon Dioxide Level 29.2 MEQ/L 26.5 MEQ/L Anion Gap 5 MEQ/L 7 MEQ/L Blood Urea Nitrogen 34 MG/DL 22 MG/DL Creatinine 0.93 MG/DL 0.69 MG/DL Estimat Glomerular Filtration 81 ML/MIN 114 ML/MIN Rate Random Glucose 247 MG/DL 70 MG/DL Calcium Level 7.9 MG/DL 7.7 MG/DL Phosphorus Level 2.2 MG/DL Magnesium Level 2.3 MG/DL Total Bilirubin 0.7 MG/DL Aspartate Amino Transf 33 U/L (AST/SGOT) Alanine Aminotransferase 27 U/L (ALT/SGPT) Alkaline Phosphatase 91 U/L Total Protein 6.4 GM/DL Albumin 2.3 GM/DL Microbiology Date/Time Procedure Status Source Growth 06/12/17 10:00 Influenza Types A,B Antigen (SUSHIL) - Final Complete Nasal Aspirate NEGATIVE FOR FLU A AND B ANTIGEN.... 06/12/17 10:19 Legionella Antigen - Final Complete Urine Clean Catch PRESUMPTIVE NEGATIVE FOR LEGIONELLA P... 06/12/17 10:19 Streptococcus pneumoniae Antigen (M - Final Complete Urine Clean Catch PRESUMPTIVE NEGATIVE FOR STREPTOCOCCU... 06/13/17 11:00 Stool Occult Blood (SUSHIL) - Final Complete Stool Stool HEMOCCULT POSITIVE Imaging Last Impressions Abdomen Ultrasound 06/13/17 0000 Signed Impressions: Service Date/Time: Tuesday, June 13, 2017 15:35 - CONCLUSION: Limited study secondary to bowel gas and body habitus. Hepatic cysts are noted. Small amount of free fluid suspected. Lev Gandhi MD Chest X-Ray 06/12/17 0728 Signed Impressions: Service Date/Time: May 07:43 - CONCLUSION: 1. Elevation left hemidiaphragm. 2. Bibasilar densities likely atelectasis. Graham Antonio MD Lower Extremity Ultrasound 06/12/17 0000 Signed Impressions: Service Date/Time: May 18:32 - CONCLUSION: Normal examination. Lev Gandhi MD Physical Exam GENERAL: awake and alert, not in respiratory distress. Looks comfortable at rest SKIN: Cool and dry. No generalized rash, no ecchymoses and no evidence of embolic lesions. HEAD: Atraumatic. Normocephalic. No temporal wasting, or tenderness. EYES: [place] conjunctiva. No petechia or hemorrhage. Pupils equal, round and reactive to light. Extraocular movements full and intact. No scleral icterus. No injection or drainage. EARS, NOSE AND THROAT: Nose without bleeding or purulent nasal discharge. No sinus tenderness. Mucous membranes pink and moist. No oral lesions noted. No exudate. No oral thrush. NECK: Trachea midline. Supple and not tender, no meningeal signs CARDIOVASCULAR: Regular rate and rhythm. Has murmur loudest at base of the heart. NO rub RESPIRATORY: Has diffuse wheezing, decreased at bases ABDOMEN: Soft, obese, non-tender, mildly distended. Bowel sounds present and normoactive. No guarding. No rebound. He has chronic skin changes in his abdominal wall, with indurated leather texture skin and he has an umbilical hernia EXTREMITIES: No clubbing, cyanosis. He has improving edema BLE, and he has bark tree texture of his skin in both legs and feet. No joint effusion, has good ROM. No calf tenderness. Well perfused and warm. NEUROLOGICAL: Awake and alert. Cranial nerves grossly intact. Motor grossly within normal limits. PSYCHIATRIC: Normal affect, calm and cooperative. LINE: No evidence of infection : Franco in place, urine looks clear Assessment & Plan Remarks IMPRESSION Initial presentation of severe SOB, patient with obesity, known COPD, ? possibly with cor pulmonale - clinically no evidence of PNA - has obesity, ?with sleep apnea Strep bovis bacteremia, very concerning for wendocarditis - Has murmur, ? - ?role in his SOB Leukocytosis, still high but lower RECOMMENDATION Start Rocephin Await echo Repeat BC Repeat CXR Follow CBC Follow C/S Monitor progress He will need GI work-up, can be done in hospital or as outpatient - patient states he has never had (+) OB Explained plan to patient Estela Watts MD Jun 15, 2017 08:37
[2017-06-15] MEDS: PANTOPRAZOLE SODIUM 40 MG VIAL IV SCH (09:00)
[2017-06-15] MEDS ORDERED: VANCOMYCIN INJ 1,500 MG in SODIUM CHLORID 0.9% 500 ML INJ 500 ML IV ONE (09:00)
[2017-06-15] MEDS: DOCUSATE SODIUM 50 MG/SENNA 8.6 MG TAB PO SCH ×2 (09:01→19:09)
[2017-06-15] MEDS: SODIUM CHLORIDE 0.9% FLUSH 10 ML FLUSH IV FLUSH SCH ×2 (09:01→20:06)
[2017-06-15] MEDS: INSULIN DETEMIR 100 UNITS/ML VIAL SQ SCH ×2 (09:08→20:05)
[2017-06-15] MEDS: cefTRIAXone INJ 2,000 MG in SODIUM CHLORIDE 0.9% INJ 100 ML IV SCH (09:16)
[2017-06-15] MEDS: SODIUM CHLOR 0.9% 1000 ML INJ 1,000 ML IV SCH ×2 (09:16→20:06)
--- NOTE | 2017-06-15 09:37 | HHI.PR ---
Subjective Remarks Patient seen and examined this morning. Intermittent tachycardia, pulse ox 90% on 4L, low temp. Denies CP or SOB but states bottom is very uncomfortable and it is difficult for him to move in the bed. This is causing him much distress. Objective Vital Signs Date Time Temp Pulse Resp B/P Pulse Ox O2 Delivery O2 Flow Rate FiO2 06/15/17 09:19 90 Nasal Cannula 4.00 06/15/17 08:00 95.5 105 19 140/92 90 06/15/17 04:38 97.9 99 22 138/79 92 06/15/17 04:30 92 Nasal Cannula 4.00 06/15/17 00:23 96.7 109 23 143/89 91 06/14/17 23:59 92 Nasal Cannula 4.00 06/14/17 23:05 90 Nasal Cannula 4.00 06/14/17 20:00 97.9 106 20 163/74 91 06/14/17 20:00 106 06/14/17 19:23 91 Nasal Cannula 6.00 06/14/17 18:00 104 06/14/17 17:00 104 22 149/78 92 06/14/17 16:00 97.9 104 18 154/89 91 06/14/17 16:00 104 06/14/17 15:00 109 21 155/79 88 06/14/17 14:00 100 06/14/17 14:00 100 16 151/83 90 06/14/17 13:39 107 26 152/85 88 06/14/17 13:00 105 28 147/82 91 06/14/17 12:00 97.8 100 24 140/76 91 06/14/17 12:00 100 06/14/17 11:00 97 15 138/76 92 06/14/17 10:00 99 31 130/87 89 06/14/17 10:00 99 I/O 06/14/17 06/14/17 06/14/17 06/15/17 06/15/17 06/15/17 07:00 15:00 23:00 07:00 15:00 23:00 Intake Total 743 ml 1083 ml 1104 ml 1085 ml Output Total 700 ml 650 ml 550 ml 1000 ml Balance 43 ml 433 ml 554 ml 85 ml Intake Oral 320 ml 600 ml 480 ml IV Total 743 ml 763 ml 504 ml 605 ml Output Urine Total 700 ml 650 ml 550 ml 1000 ml # Bowel Movements 0 1 Result Diagram: 06/15/17 0315 06/15/17 0315 Imaging Last Impressions Abdomen Ultrasound 06/13/17 0000 Signed Impressions: Service Date/Time: Tuesday, June 13, 2017 15:35 - CONCLUSION: Limited study secondary to bowel gas and body habitus. Hepatic cysts are noted. Small amount of free fluid suspected. Lev Gandhi MD Chest X-Ray 06/12/17 0728 Signed Impressions: Service Date/Time: May 07:43 - CONCLUSION: 1. Elevation left hemidiaphragm. 2. Bibasilar densities likely atelectasis. Graham Antonio MD Lower Extremity Ultrasound 06/12/17 0000 Signed Impressions: Service Date/Time: May 18:32 - CONCLUSION: Normal examination. Lev Gandhi MD Objective Remarks GENERAL: 58-year-old male sitting up in bed, appearing uncomfortable in nad SKIN: Warm and pale. No rash. Tattoo left upper extremity. HEAD: Atraumatic. Normocephalic. EYES: Pupils equal and round around bilaterally and reactive. No scleral icterus. No injection or drainage. ENT: No nasal bleeding or discharge. Mucous membranes pink and dry around mouth. NECK: Trachea midline. No JVD. CARDIOVASCULAR: Distant. Regular rate and rhythm, Distant heart sounds.?Murmur over aortic valve. RESPIRATORY: Diminished throughout. Lateral breath sounds with faint end expiratory wheezes bilat at bases GASTROINTESTINAL: Abdomen soft, non-tender, obese. Hypoactive bowel sounds. Umbilical hernia is present. MUSCULOSKELETAL: Extremities with chronic venous stasis bilateral lower extremities with woody edema. NEUROLOGICAL: Awake and alert. No obvious cranial nerve deficits. Motor grossly within normal limits. Normal speech. PSYCHIATRIC: Appropriate mood and affect; insight and judgment normal. A/P Problem List: (1) COPD (chronic obstructive pulmonary disease) ICD Code: J44.9 (2) Coronary artery disease ICD Code: I25.10 (3) Diabetes mellitus ICD Code: E11.9 (4) Severe sepsis ICD Code: A41.9 (5) Acute kidney injury ICD Code: N17.9 (6) Hypertension ICD Code: I10 Assessment and Plan 66-year-old male with Severe sepsis - On admission: Significant leukocytosis, tachycardia, tachypnea, afebrile. - neg legionella and strep, and flu, UA neg - Blood cultures +stretococcus bovis - ID consulted: concern for endocarditis, started rocephin (06/15- ), cont vancomycin (06/13- ) await ECHO, repeat blood culture, repeat CXR Anemia with Hemoccult-positive stools - GI following - s/p 2 units PRBC, hb now stable at 9.2 - Likely CT/EGD/colonoscopy on Friday COPD - Continue breathing treatments - Home regimen duo nebs, Combivent Diabetes - Levemir 30 units twice a day, insulin sliding scale - Fasting blood glucose between 200- 300 - A1C ordered and pending - Home regimen: Metformin on hold, NovoLog 30 units 3 times a day, 50 units Lantus twice a day Coronary artery disease Hypertension - Home regimen Cozaar (on hold due to initial hypotension) HAI - Resolved Air mattress ordered for patient Discharge Planning D/C pending improved clinical improvement. Likely several days. Case discussed with nurse and family at bedside Problem Qualifiers (1) COPD (chronic obstructive pulmonary disease): Qualified Code: J44.9 - Chronic obstructive pulmonary disease, unspecified COPD type (2) Coronary artery disease: Qualified Code: I25.10 - Coronary artery disease involving [place] coronary artery without angina pectoris, unspecified whether [place] or transplanted heart (3) Diabetes mellitus: Qualified Code: E11.65 - Type 2 diabetes mellitus with hyperglycemia, with long -term current use of insulin (4) Hypertension: Qualified Code: I10 - Hypertension, unspecified type Liana Escamilla MD Jun 15, 2017 09:37
--- NOTE | 2017-06-15 10:20 | RADRPT ---
EXAM DATE/TIME: 06/15/2017 09:44 [facility] COMPARISON: CHEST SINGLE AP, June 12, 2017, 7:43. INDICATIONS : Shortness of breath MEDICAL HISTORY : None. SURGICAL HISTORY : None. ENCOUNTER: Subsequent ACUITY: 4 - 6 days PAIN SCORE: 7/10 LOCATION: Bilateral chest FINDINGS: Small bilateral pleural effusions are present with some degree of bibasilar atelectasis and/or infilt rate. Cardiac silhouette is also enlarged not present previously could be technical. CONCLUSION: Small bilateral pleural effusions and bibasilar atelectasis and/or infiltrate. Khadar Arboleda MD on June 15, 2017 at 10:16 Board Certified Radiologist. This report was verified electronically.
[2017-06-15] MEDS ORDERED: PHARMACY ORDERED LAB ONE (10:45)
[2017-06-15 11:08] LABS: BANDS 1 % (0-6); MYELOCYTES 3 % (0-0); NEUTROPHIL # MANUAL DIFF 20.2 TH/MM3 (1.8-7.7); POLYS (SEG NEUTROPHILS) 82 % (16-70); WBC DIFF SAMPLE 100
[2017-06-15 11:10] LABS: SCAN/DIFF FINAL DIFF MANUAL
[2017-06-15] MEDS: DEXTROSE 50% IN WATER 50 ML SYRINGE IV PRN (11:18)
[2017-06-15 12:14] LABS: HEMOGLOBIN A1a 1.1 %; HEMOGLOBIN A1b 1.8 %; HEMOGLOBIN Ao 84.7 %; HEMOGLOBIN LA1C 1.9 %; HEMOGLOBIN P3 5.5 %
[2017-06-15] MEDS: RESP: ALBUTEROL 2.5 MG/3 ML NEB (PRN) INH (15:37)
--- NOTE | 2017-06-15 16:58 | ECHRPT ---
Indication: SEVERE SEPSIS CONCLUSIONS very technically limited study The left ventricle is not well visualized. best ef estimate @ 45% Moderate thickening of the aortic valve leaflets. Severe aortic valve stenosis. Aortic valve area is 0.38 cm. Aortic valve mean gradient is 68 mmHg. The left ventricle is not well visualized. Moderate thickening of the aortic valve leaflets. Severe aortic valve stenosis. Aortic valve area is 0.38 cm. Aortic valve mean gradient is 68 mmHg. BP: 104 / 51 HR: Rhythm: Sinus MEASUREMENTS (Male / Female) Normal Values Technical Quality:Very technically difficult study 2D ECHO LV Diastolic Diameter PLAX 3.9 cm 4.2 - 5.9 / 3.9 - 5.3 cm LV Systolic Diameter PLAX 2.3 cm IVS Diastolic Thickness 1.9 cm 0.6 - 1.0 / 0.6 - 0.9 cm LVPW Diastolic Thickness 1.5 cm 0.6 - 1.0 / 0.6 - 0.9 cm LV Relative Wall Thickness 0.9 LVOT Diameter 1.9 cm Aortic Root Diameter 3.2 cm LA Systolic Diameter LX 4.2 cm 3.0 - 4.0 / 2.7 - 3.8 cm M-MODE AV Cusp Separation MM 1.6 cm DOPPLER AV Peak Velocity 520.0 cm/s AV Peak Gradient 108.2 mmHg AV Mean Gradient 68.0 mmHg AV Velocity Time Integral 120.0 cm LVOT Peak Velocity 75.9 cm/s LVOT Peak Gradient 2.3 mmHg LVOT Velocity Time Integral 16.2 cm AV Area Cont Eq vti 0.4 cm AV Area Cont Eq pk 0.4 cm LV E' Lateral Velocity 12.3 cm/s LV E' Septal Velocity 10.2 cm/s PV Peak Velocity 60.2 cm/s PV Peak Gradient 1.4 mmHg FINDINGS LEFT VENTRICLE The left ventricle is not well visualized. AORTIC VALVE Moderate thickening of the aortic valve leaflets. Severe aortic valve stenosis. Aortic valve area is 0.38 cm. Aortic valve mean gradient is 68 mmHg. Hai Park MD, FACC, [facility] [place] (Electronically Signed) Final Date:15 June 2017 16:57
[2017-06-15] MEDS ORDERED: FUROSEMIDE 20 MG/2 ML VIAL IV PUSH ONE (19:15)
--- NOTE | 2017-06-15 20:21 | MB ---
cc: IRINA JAMIL M.D. DATE OF CONSULTATION: 06/15/2017. REASON FOR CONSULTATION: HISTORY OF PRESENT ILLNESS: Cornelius is a very pleasant 58-year-old gentleman who presents with chief complaint of dyspnea and syncope, history of COPD on 3 liters nasal cannula at home, history coronary disease and diabetes. He states he cannot walk across the room without getting short of breath with no improvement with furosemide. He has bilateral lower extremity edema. He otherwise denies any fever, chills, cough, GI or bleeding, paroxysmal nocturnal dyspnea. PAST MEDICAL HISTORY: 1. Diabetic neuropathy. 2. Tonsillectomy. SOCIAL HISTORY: He quit smoking in 2008. He denies alcohol use. ALLERGIES: PENICILLIN. MEDICATIONS PRIOR TO ADMISSION: 1. Lasix 40 daily. 2. Combivent. 3. Cozaar 100 twice a day. 4. Metformin. 5. NovoLog. 6. Lantus. MEDICATIONS IN THE HOSPITAL: 1. Ceftriaxone. 2. Guaifenesin. 3. Insulin. 4. Pantoprazole 40 IV daily. 5. Senna one tab twice a day. 6. Albuterol. PHYSICAL EXAMINATION: VITAL SIGNS: Blood pressure 144/83, pulse 108, temperature 96.9, respiratory rate 22, saturations 93% on four liters nasal cannula. NECK: The neck is supple. No jugular venous distention. No bruits. CARDIOVASCULAR EXAM: S1-S2. No murmurs, rubs or gallops. LUNGS: Notable for decreased air movement at the bases bilaterally. ABDOMEN: The abdomen is soft, nontender and nondistended with positive bowel sounds. EXTREMITIES: 2+ lower extremity edema. IMAGING STUDIES: Chest x-ray: Small bilateral pleural effusions, bibasilar atelectasis and/or infiltrate. Ultrasound of the abdomen limited study secondary to bowel gas and body habitus. Hepatic cysts are noted. Small amount of free fluid suspected. Lower extremity ultrasound is a normal examination. EKGS: EKG shows sinus tachycardia at 101 beats per minute, left anterior fascicular block, poor R wave progression, borderline left ventricular hypertrophy. Echocardiogram read by myself shows a very technically limited study. I cannot make out the endocardial borders. Best estimate of the ejection fraction is 45%. The mean aortic valve gradient is 68 mmHg. PA pressure is not determined due to limited image quality. LABORATORY DATA: White count 23.5, hemoglobin 9.7, hematocrit 29.6, platelet count 170,000. Blood gas: pH 7.37, pCO2 31, pO2 79 on 1.5 liters nasal cannula. INR is 1.3. Sodium 139, potassium 3.7, chloride 106, bicarb 26.5, BUN 22, creatinine 0.69, glucose initially 342, lactic acid 2.1, calcium 7.7, total bilirubin 1.6, phosphorus 2.2. LFTs normal. Albumin 2.3. DIAGNOSES: He has the following diagnoses: 1. Severe aortic valve stenosis. 2. Cardiomyopathy. 3. Congestive heart failure. 4. Syncope. 5. Diabetes 6. Elevated white count. 7. Anemia. 8. Severe COPD. 9. Lower extremity edema. 10. Lactic acidosis. 11. Diabetes mellitus. 12. Elevated bilirubin. 13. Hypoalbuminemia. DISCUSSION: At this point in time, the patient has severe symptomatic aortic valve stenosis. Therefore, the right heart catheterization, left heart catheterization are medically necessary. 1. I am going to start him on Lasix 20 IV twice a day. 2. Follow up daily basic metabolic profile. 3. He has multiple comorbidities including severe COPD, what appears to be malnutrition with low albumin, lactic acidosis, hypoxia, uncontrolled blood sugar and severely elevated white count and infectious disease is following him for this. He also has severe anemia. MD STEFANIA Madsen/JOEY /7:13 PM /8:14 PM
[2017-06-16] MEDS: RESP: ALBUTEROL 2.5 MG/IPRATROPIUM 0.5 MG NEB (SCH) INH ×3 (00:04→09:33)
[2017-06-16] MEDS: CHLORHEXIDINE GLUCONATE 2 % 1 PACK (2 CLOTHS) TOP SCH (03:55)
[2017-06-16 04:10] VITALS: BP 134/76; PULSE 108; RESP 18; TEMP 97.1; O2SAT 98
[2017-06-16 05:07] LABS: BICARBONATE 27.9 MEQ/L (21.0-32.0); POTASSIUM 3.8 MEQ/L (3.5-5.1)
[2017-06-16 05:27] LABS: HEMATOCRIT 31.1 % (39.0-51.0); MEAN CELL VOLUME 95.1 FL (80.0-100.0); MEAN CORPUSCULAR HEMOGLOBIN 30.8 PG (27.0-34.0); MEAN CORPUSCULAR HGB CONC 32.4 % (32.0-36.0); PLATELET COUNT 150 TH/MM3 (150-450); RED BLOOD COUNT 3.27 MIL/MM3 (4.50-5.90); REVIEW FLAG FINAL
[2017-06-16] MEDS: INSULIN NovoLIN REGULAR SUPPLEMENTAL SCALE SQ SCH ×4 (07:00→21:00)
--- NOTE | 2017-06-16 07:40 | HHI.PR ---
Subjective Remarks Patient seen and examined this morning. Persistent tachycardia. Refused CTA yesterday that was ordered to r/o, the importance of this study was explained to the patient to r/o PE yesterday. Still feels SOB. Not happy with air mattress. Wants to eat. Denies CP. Objective Vital Signs Date Time Temp Pulse Resp B/P Pulse Ox O2 Delivery O2 Flow Rate FiO2 06/16/17 04:10 97.1 108 18 134/76 98 06/15/17 23:42 96.7 109 22 137/62 92 06/15/17 20:15 96.8 109 22 123/67 92 06/15/17 20:07 Nasal Cannula 4.00 06/15/17 20:01 92 Nasal Cannula 5.00 06/15/17 16:00 96.9 108 22 144/83 93 06/15/17 14:30 90 Nasal Cannula 4.00 06/15/17 13:10 90 Nasal Cannula 4.00 06/15/17 12:00 95.6 115 19 113/88 90 06/15/17 09:19 90 Nasal Cannula 4.00 06/15/17 08:00 95.5 105 19 140/92 90 I/O 06/15/17 06/15/17 06/15/17 06/16/17 06/16/17 06/16/17 07:00 15:00 23:00 07:00 15:00 23:00 Intake Total 1085 ml 1319 ml 919 ml 684 ml Output Total 1000 ml 600 ml 1800 ml 1000 ml Balance 85 ml 719 ml -881 ml -316 ml Intake Oral 480 ml 240 ml 360 ml 360 ml IV Total 605 ml 1079 ml 559 ml 324 ml Output Urine Total 1000 ml 600 ml 1800 ml 1000 ml # Bowel Movements 2 1 Result Diagram: 06/16/17 0420 06/16/17 0410 Imaging Last Impressions Chest X-Ray 06/15/17 0000 Signed Impressions: Service Date/Time: Thursday, June 15, 2017 09:44 - CONCLUSION: Small bilateral pleural effusions and bibasilar atelectasis and/or infiltrate. Khadar Arboleda MD Abdomen Ultrasound 06/13/17 0000 Signed Impressions: Service Date/Time: Tuesday, June 13, 2017 15:35 - CONCLUSION: Limited study secondary to bowel gas and body habitus. Hepatic cysts are noted. Small amount of free fluid suspected. Lev Gandhi MD Lower Extremity Ultrasound 06/12/17 0000 Signed Impressions: Service Date/Time: May 18:32 - CONCLUSION: Normal examination. Lev Gandhi MD Objective Remarks GENERAL: 58-year-old male sitting up in bed, appearing uncomfortable in nad SKIN: Warm and pale. No rash. Tattoo left upper extremity. HEAD: Atraumatic. Normocephalic. EYES: Pupils equal and round around bilaterally and reactive. No scleral icterus. No injection or drainage. ENT: No nasal bleeding or discharge. Mucous membranes pink and dry around mouth. NECK: Trachea midline. No JVD. CARDIOVASCULAR: Distant. Regular rate and rhythm, Distant heart sounds. Murmur over aortic valve--holosystolic. RESPIRATORY: Diminished throughout. Lateral breath sounds with faint end expiratory wheezes bilat at bases GASTROINTESTINAL: Abdomen soft, non-tender, obese. Hypoactive bowel sounds. Umbilical hernia is present. MUSCULOSKELETAL: Extremities with chronic venous stasis bilateral lower extremities with woody edema. NEUROLOGICAL: Awake and alert. No obvious cranial nerve deficits. Motor grossly within normal limits. Normal speech. PSYCHIATRIC: Appropriate mood and affect; insight and judgment normal. A/P Problem List: (1) COPD (chronic obstructive pulmonary disease) ICD Code: J44.9 (2) Coronary artery disease ICD Code: I25.10 (3) Diabetes mellitus ICD Code: E11.9 (4) Severe sepsis ICD Code: A41.9 (5) Acute kidney injury ICD Code: N17.9 (6) Hypertension ICD Code: I10 Assessment and Plan 66-year-old male with Severe sepsis - On admission: Significant leukocytosis, tachycardia, tachypnea, afebrile. - neg legionella and strep, and flu, UA neg - Blood cultures +stretococcus bovis 02/25 - ID consulted: concern for endocarditis, started rocephin (06/15- ), cont vancomycin (06/13- ), ECHO did not show vegetations, repeat blood cultures pending Anemia with Hemoccult-positive stools - GI following - s/p 2 units PRBC 06/12, has been stable since - Likely CT/EGD/colonoscopy on Friday Aortic Stenosis - ECHO with severe symptomatic aortic valve stenosis. Cards consulted: right heart cath and left heart cath deemed medically necessary. patient was started on lasix 20 mg IV BID COPD - Continue breathing treatments - Home regimen duo Jaime pazt Diabetes - Decreased levemir to 20 units BID due to hypoglycemia and low fasting), insulin sliding scale - Fasting blood glucose between 200- 300 - A1C 6.1 - Home regimen: Metformin on hold, NovoLog 30 units 3 times a day, 50 units Lantus twice a day Coronary artery disease Hypertension - Home regimen Cozaar (on hold due to initial hypotension) HAI - Resolved Discharge Planning D/C pending improved clinical improvement. Likely several days. Case discussed with nurse and family at bedside Problem Qualifiers (1) COPD (chronic obstructive pulmonary disease): Qualified Code: J44.9 - Chronic obstructive pulmonary disease, unspecified COPD type (2) Coronary artery disease: Qualified Code: I25.10 - Coronary artery disease involving [place] coronary artery without angina pectoris, unspecified whether [place] or transplanted heart (3) Diabetes mellitus: Qualified Code: E11.65 - Type 2 diabetes mellitus with hyperglycemia, with long -term current use of insulin (4) Hypertension: Qualified Code: I10 - Hypertension, unspecified type Liana Escamilla MD Jun 16, 2017 07:40
[2017-06-16 08:00] VITALS: BP 138/70; PULSE 112; RESP 17; TEMP 96; O2SAT 95
[2017-06-16] MEDS: cefTRIAXone INJ 2,000 MG in SODIUM CHLORIDE 0.9% INJ 100 ML IV SCH (08:10)
[2017-06-16] MEDS: DOCUSATE SODIUM 50 MG/SENNA 8.6 MG TAB PO SCH ×2 (08:12→21:59)
[2017-06-16] MEDS: PANTOPRAZOLE SODIUM 40 MG VIAL IV SCH (08:12)
[2017-06-16] MEDS: FUROSEMIDE 20 MG/2 ML VIAL IV PUSH SCH ×2 (08:14→21:05)
[2017-06-16] MEDS: SODIUM CHLORIDE 0.9% FLUSH 10 ML FLUSH IV FLUSH SCH ×2 (08:14→20:44)
[2017-06-16] MEDS: INSULIN DETEMIR 100 UNITS/ML VIAL SQ SCH ×2 (09:00→22:05)
[2017-06-16 09:35] VITALS: O2SAT 98
--- NOTE | 2017-06-16 10:48 | HHI.IDPN ---
Subjective Subjective Remarks Patient is a 66-year-old morbidly obese male, presented to the hospital complaining of severe shortness of breath. Patient states he has COPD, and has had problem with chronic shortness of breath. He does not use any supplemental oxygen at home. Patient also admits to chronic lower extremity edema. He presented to the hospital because he had development of severe shortness of breath that he couldn't even walk a few distances which is not his normal. He denies any congestion, cough or any chest pain or palpitations. Also has been very weak, and just didn't feel good. He has not had any dizziness or syncopal episode. Has not had any nausea vomiting, abdominal pain, dysuria. On presentation he had an elevated white count. Patient has been afebrile. His lactic acid was elevated. Urinalysis was unremarkable. Chest x-ray with some basilar atelectasis. Patient was admitted initially for sepsis, and was started on broad-spectrum antibiotics. His WBC went down to 19, but it went up to 27,000. Patient received a large dose of IV Solu-Medrol on June 12. Patient currently states his breathing is better. He is still on nasal O2. Notes reviewed States breathing ok Temps ok Wants something to eat On NPO for cath Echo with severe , thickened leaflets BC with Strep bovis Patient states he has never had colonoscopy Stool neg for OB in the past Echo ?not done yet WBC down to 23K Antibiotics Rocephin Past Medical History COPD Coronary artery disease Hypertension Diabetes mellitus with peripheral neuropathy Elevated BMI Past Surgical History Tonsillectomy Allergies: Coded Allergies: Penicillin (Verified Allergy, Mild, 06/12/17) Objective . Vital Signs Date Time Temp Pulse Resp B/P Pulse Ox O2 Delivery O2 Flow Rate FiO2 06/16/17 09:35 98 Nasal Cannula 5.00 06/16/17 08:26 Nasal Cannula 4.00 06/16/17 08:00 96.0 112 17 138/70 95 06/16/17 04:10 97.1 108 18 134/76 98 06/15/17 23:42 96.7 109 22 137/62 92 06/15/17 20:15 96.8 109 22 123/67 92 06/15/17 20:07 Nasal Cannula 4.00 06/15/17 20:01 92 Nasal Cannula 5.00 06/15/17 16:00 96.9 108 22 144/83 93 06/15/17 14:30 90 Nasal Cannula 4.00 06/15/17 13:10 90 Nasal Cannula 4.00 06/15/17 12:00 95.6 115 19 113/88 90 06/15/17 06/15/17 06/16/17 15:00 23:00 07:00 Intake Total 1319 ml 919 ml 684 ml Output Total 600 ml 1800 ml 1000 ml Balance 719 ml -881 ml -316 ml Intake Oral 240 ml 360 ml 360 ml IV Total 1079 ml 559 ml 324 ml Output Urine Total 600 ml 1800 ml 1000 ml # Bowel Movements 2 1 . Laboratory Tests Test 06/15/17 06/16/17 03:15 04:20 White Blood Count 23.5 TH/MM3 18.0 TH/MM3 Red Blood Count 3.17 MIL/MM3 3.27 MIL/MM3 Hemoglobin 9.7 GM/DL 10.1 GM/DL Hematocrit 29.6 % 31.1 % Mean Corpuscular Volume 93.5 FL 95.1 FL Mean Corpuscular Hemoglobin 30.7 PG 30.8 PG Mean Corpuscular Hemoglobin 32.9 % 32.4 % Concent Red Cell Distribution Width 17.2 % 17.0 % Platelet Count 170 TH/MM3 150 TH/MM3 Mean Platelet Volume 9.2 FL 8.8 FL Neutrophils (%) (Auto) 86.8 % Lymphocytes (%) (Auto) 5.9 % Monocytes (%) (Auto) 6.4 % Eosinophils (%) (Auto) 0.5 % Basophils (%) (Auto) 0.4 % Neutrophils # (Auto) 20.4 TH/MM3 Lymphocytes # (Auto) 1.4 TH/MM3 Monocytes # (Auto) 1.5 TH/MM3 Eosinophils # (Auto) 0.1 TH/MM3 Basophils # (Auto) 0.1 TH/MM3 CBC Comment AUTO DIFF Differential Total Cells 100 Counted Neutrophils % (Manual) 82 % Band Neutrophils % 1 % Lymphocytes % 5 % Monocytes % 9 % Neutrophils # (Manual) 20.2 TH/MM3 Myelocytes 3 % Differential Comment FINAL DIFF MANUAL Polychromasia 2.0 % Laboratory Tests Test 06/15/17 06/15/17 06/16/17 03:15 20:58 04:10 Sodium Level 139 MEQ/L 140 MEQ/L Potassium Level 3.7 MEQ/L 3.8 MEQ/L Chloride Level 106 MEQ/L 106 MEQ/L Carbon Dioxide Level 26.5 MEQ/L 27.9 MEQ/L Anion Gap 7 MEQ/L 6 MEQ/L Blood Urea Nitrogen 22 MG/DL 14 MG/DL Creatinine 0.69 MG/DL 0.63 MG/DL Estimat Glomerular Filtration 114 ML/MIN 127 ML/MIN Rate Random Glucose 70 MG/DL 87 MG/DL Calcium Level 7.7 MG/DL 7.8 MG/DL Magnesium Level 2.0 MG/DL B-Type Natriuretic Peptide 362 PG/ML Microbiology Date/Time Procedure Status Source Growth 06/13/17 11:00 Stool Occult Blood (SUSHIL) - Final Complete Stool Stool HEMOCCULT POSITIVE 06/15/17 09:15 Aerobic Blood Culture Received Blood Peripheral Pending 06/15/17 09:15 Anaerobic Blood Culture Received Blood Peripheral Pending 06/15/17 09:20 Aerobic Blood Culture Received Blood Peripheral Pending 06/15/17 09:20 Anaerobic Blood Culture Received Blood Peripheral Pending 06/16/17 04:20 Aerobic Blood Culture Received Blood Peripheral Pending 06/16/17 04:20 Anaerobic Blood Culture Received Blood Peripheral Pending Imaging Last Impressions Abdomen Ultrasound 06/13/17 0000 Signed Impressions: Service Date/Time: Tuesday, June 13, 2017 15:35 - CONCLUSION: Limited study secondary to bowel gas and body habitus. Hepatic cysts are noted. Small amount of free fluid suspected. Lev Gandhi MD Chest X-Ray 06/12/17 0728 Signed Impressions: Service Date/Time: May 07:43 - CONCLUSION: 1. Elevation left hemidiaphragm. 2. Bibasilar densities likely atelectasis. Graham Antonio MD Lower Extremity Ultrasound 06/12/17 0000 Signed Impressions: Service Date/Time: May 18:32 - CONCLUSION: Normal examination. Lev Gandhi MD Physical Exam GENERAL: awake and alert, not in respiratory distress. Looks comfortable at rest SKIN: Cool and dry. No generalized rash, no ecchymoses and no evidence of embolic lesions. HEAD: Atraumatic. Normocephalic. No temporal wasting, or tenderness. EYES: Bruni conjunctiva. No petechia or hemorrhage. Pupils equal, round and reactive to light. No scleral icterus. No injection or drainage. EARS, NOSE AND THROAT: Nose without bleeding or purulent nasal discharge. No sinus tenderness. Mucous membranes pink and moist. No oral lesions noted. NECK: Trachea midline. Supple and not tender, no meningeal signs CARDIOVASCULAR: Regular rate and rhythm. Has murmur loudest at base of the heart. NO rub RESPIRATORY: Has few scattered wheezing, decreased at bases ABDOMEN: Soft, obese, non-tender, mildly distended. Bowel sounds present and normoactive. No guarding. No rebound. He has chronic skin changes in his abdominal wall, with indurated leather texture skin and he has an umbilical hernia EXTREMITIES: No clubbing, cyanosis. He has improving edema BLE, and he has bark tree texture of his skin in both legs and feet. No joint effusion, has good ROM. No calf tenderness. Well perfused and warm. NEUROLOGICAL: Awake and alert. Cranial nerves grossly intact. Motor grossly within normal limits. PSYCHIATRIC: Normal affect, calm and cooperative. LINE: No evidence of infection : Franco in place, urine looks clear Assessment & Plan Remarks IMPRESSION Initial presentation of severe SOB, patient with obesity, known COPD, ? possibly with cor pulmonale - clinically no evidence of PNA - has obesity, ?with sleep apnea Strep bovis bacteremia, very concerning for endocarditis - Has severe Leukocytosis, decreasing RECOMMENDATION Continue Rocephin For cath, for severe Will D/W cardio about RIGO Follow repeat BC Follow CBC Monitor progress He will need GI work-up, can be done in hospital or as outpatient - patient states he has never had (+) OB Explained plan to patient Estela Watts MD Jun 16, 2017 10:48
[2017-06-16 12:00] VITALS: BP 137/88; PULSE 111; RESP 18; TEMP 97.5; O2SAT 97
[2017-06-16] MEDS ORDERED: LORazepam 1 MG TAB PO ONE (12:45)
[2017-06-16] MEDS ORDERED: IOHEXOL 350 MG/ML 10 ML VIAL (for RAD DIAG) IV ONE (14:08)
--- NOTE | 2017-06-16 14:45 | RADRPT ---
EXAM DATE/TIME: 06/16/2017 13:35 [place] COMPARISON: No previous studies available for comparison. INDICATIONS : Shortness of breath IV CONTRAST: 80 cc Omnipaque 350 (iohexol) IV RADIATION DOSE: 34.20 CTDIvol (mGy) MEDICAL HISTORY : Cardiovascular disease. Hypertension. Diabetes SURGICAL HISTORY : None. ENCOUNTER: Initial ACUITY: 1 day PAIN SCALE: 7/10 LOCATION: chest TECHNIQUE: Volumetric scanning of the chest was performed using a pulmonary embolism protocol MIP images were re constructed. Using automated exposure control and adjustment of the mA and/or kV according to patien t size, radiation dose was kept as low as reasonably achievable to obtain optimal diagnostic quality images. DICOM format image data is available electronically for review and comparison. Follow-up recommendations for incidentally detected pulmonary nodules are based at a minimum on nodul e size and patient risk factors according to Fleischner Society Guidelines. FINDINGS: Small bilateral pleural effusions are noted. Bibasilar alveolar consolidations are noted consistent with compressive atelectasis and/or infiltrates. Clinical correlation is recommended. No pulmonary nodul e or mass is noted. No pulmonary embolism is noted. The heart is enlarged. No mediastinal, hilar or axillary lymphadenopathy is noted. Ascites is noted within the upper abdomen. Pleural calcifications are not ed with the posterior lung bases consistent with asbestos related pleural disease versus fibrothorax. CONCLUSION: 1. Small bilateral pleural effusions with adjacent alveolar consolidations consistent with compressi ve atelectasis and/or pneumonia. Clinical correlation is recommended. 2. Pleural calcifications within the bilateral posterior lung bases consistent with asbestos related pleural disease or fibrothorax. 3. Cardiomegaly. 4. No evidence of pulmonary embolism. 5. Ascites within the upper abdomen. Casimiro Lazo MD on June 16, 2017 at 14:10 Board Certified Radiologist. This report was verified electronically.
[2017-06-16] MEDS ORDERED: IOHEXOL 350 MG/ML 50 ML BTL (for Cath Lab) OTHER ONE (15:28)
[2017-06-16] MEDS ORDERED: HEPARIN-NS/PF INJ 500 ML ONE (15:47)
[2017-06-16] MEDS ORDERED: SODIUM CHLORIDE 0.9% FLUSH 10 ML FLUSH IV FLUSH PRN (16:30)
[2017-06-16] MEDS ORDERED: MISC INFORMATION XX ONE (16:30)
--- NOTE | 2017-06-16 16:44 | CATHPROC ---
[employer] HIS Report Study Information Study Number Admission Scheduled Start Study Start [id number] Jun 12 2017 9:22AM 06/16/2017 Jun 16 2017 2:35PM [place] [facility] Cardiac Catheterization Admit Source Facility Department Other [facility] - Manager Sales Training Physician and Clinical Staff Initial Hai Ramirez Supervisor [employer]erks Estephania Benson RN Other cathlab, cathlab Recorder Damián Juarez RCIS(BS) Victoria Donahue RCIS TECH2 Procedures Performed Procedure Location (Site) Vessel Name Coronary Angiograms LCA Left Coronary Coronary Angiograms RCA Right Coronary LV Gram-hand inj. LV LV Ventricle Equipment Time Charge Aide Description Size Mfg Part Number Used/Scraped CATHETER, FR5 SWAN CRISTÓBAL 14:37 KAPLAN Picanova FR 5 [id number] *[id number] Used MONITOR TRANSDUCER, TRUWAVE [id number] 14:37 KAPLAN MYRICK * Used W/STOCKCOCK *[id number] [id number] *[id number] [id number] *[id number] [id number] *[id number] 14:37 MEDLINE INDUSTRIES PACK, CCL CUSTOM * Used *[id number] 14:37 MEDLINE PACER PEN, SKIN DUAL W/ RULER * Used *[id number] 14:37 Omnistream MEDICAL SHEATH, FR5.5 PRELUDE 11CM FR 5.5 Used [id number] 16:06 MERIT MEDICAL SHEATH, FR6.5 PRELUDE 11CM FR 6.5 038ACT Used *[id number] 14:37 Omnistream MEDICAL WIRE, 3MMJ .035 180CM 180CM Used *[id number] 14:37 NAMIC MANIFOLD, 4 PORT * Used *[id number] 14:37 NYCOMED OMNIPAQUE, 350 MG, 150ML 150ML [id number] Used [id number] 14:37 LOYA MEDICAL BLANKET,WARM AIR CCL * Used *[id number] 14:37 TERUMO MEDICAL SHEATH, FR4 TERUMO (10CM) FR 4 Used *[id number] Equipment Model, Serial, Lot Number and Expiration Data Description Model Number Serial Number Lot Number Expiration Date SHEATH, FR6.5 PRELUDE 11CM [id number] 04-23-2020 History: Current Medications Medication Dosage/Unit Route Frequency Last Date/Time Taken Statins (any) COZAAR Insulin LASIX History: Allergies Allergy Reaction Penicillin History: Risk Factors Family History of Hypertension Dyslipidemia Previous IL Previous Heart Failure Premature CAD Yes Yes No No Yes Prior Valve Prior PCI Prior CABG Surgery No No No Cerebrovascular Peripheral Artery Chronic Lung On Dialysis Diabetes Diabetes Therapy Disease Disease Disease No No No Yes Yes None History: Symptoms/Diagnosis Selection Items SOB History: CV Disease Selection Items Known CAD History: Stress Tests Stress or Imaging Studies Performed No History: Other Disease Selection Items HTN History: Other Current Smoker Method Quit Packs a Day Years Used Pack Years No Cigarettes 15 Years Ago 2 25 50 Labs Hgb (g/dl) Hct (%) WBC (l/cumm) Platelets (thousands) 11.60-17.00 35.00-51.00 4.00-11.00 150.00-450.00 10.1 31.1 18 150 Glucose (mg/dl) BUN (mg/dl) Creatinine (mg/dl) BUN:Creatinine (1:x) 74.00-106.00 7.00-18.00 0.50-1.30 10.00-20.00 87 14 0.6 23.3 Na (meq/l) K (meq/l) 136.00-145.00 3.50-5.10 140 3.8 INR (PTT:PT) 0.90-1.10 1.3 CPK-MB (ng/ML) 0.50-3.60 Not Drawn Medication Medication Total Dose (Bolus/Oral) Medication Total Dosage/Unit 1% XYLOCAINE 20 mL OXYGEN 4 l/min Medications (Bolus/Oral) Medication Time Given Dosage/Unit Administered By Reason OXYGEN 06/16/2017 3:28:16 PM 4 l/min cathlab, cathlab Patient arrived on 4 l/min OXYGEN given by cathlab, cathlab via Nasal. Ordered by Hai Park. 1% XYLOCAINE 06/16/2017 4:00:24 PM 20 mL Hai Park 20 mL 1% XYLOCAINE given in lab by Hai Park in Right Groin via Subcutaneous. Medication (Drip) Medication Time Given Dosage/Unit Concentration/Unit Diluent (ml) Solution IV Solutions 06/16/2017 3:28:12 PM 0 mL (IV) 1000 NaCl .9 Patient arrived on IV Solutions given by cathlab, cathlab in Left shoulder via Peripheral IV. Pump/Dr ip Flow = 20 ml/hr using NaCl .9. Ordered by Hai Park. Initial Case Assessment Cardiovascular HR Rhythm NIBP Chest Pain 116 stach 163/98 0 Edema Present Skin color Skin None Normal Warm Dry Circulatory - Right Pulses Dorsalis Pedis Femoral 3 1 Scale (0,1,2,3,4,d) Circulatory - Left Pulses Dorsalis Pedis Femoral 3 1 Scale (0,1,2,3,4,d) Neurological State Oriented to time-place- Alert Moves all extremities person Respiration - General Respiration Rate SpO2 (%) (B/min) 15 100 Final Case Assessment Cardiovascular HR Rhythm NIBP Chest Pain 116 stach 137/73 0 Edema Present Skin color Skin None Normal Warm Dry Circulatory - Right Pulses Dorsalis Pedis Femoral 3 1 Scale (0,1,2,3,4,d) Circulatory - Left Pulses Dorsalis Pedis Femoral 3 1 Scale (0,1,2,3,4,d) Neurological State Oriented to time-place- Alert Moves all extremities person Respiration - General Respiration Rate SpO2 (%) O2 (lpm) (B/min) 15 100 4 Chronological Log Time Study Chronological Log 15:28:01 Patient arrived via Bed. 15:28:02 Patient Name, D.O.B, / Armband Verified By R.N. 15:28:03 Consent signed by the physician and the patient and verified by the Manager Sales Training staff. 15:28:03 Pre-op and post- op instructions given; patient acknowledges understanding of instructions. 15:28:04 Verbal Stimulation=2 Physical Stimulation=2 Airway=2 Respiration=2 TOTAL=8. (0=absent, 1=li mited, 2=present) 15:28:05 Presedation assessment performed by Manager Sales Training RN. 15:28:06 Immediate Presedation assesment performed by physician. 15:28:06 Patient has been NPO for More than 6Hrs. 15:28:07 Skin Breakdown- Brusies left forearm. Right groin rash. 15:28:09 Patient Warmer Placed on the Table. 15:28:10 Greg Prominences Protected 15:28:12 A # 20 IV was noted in the Upper Arm (left). Grade = 0 Patient arrived on IV Solutions given by cathlab, cathlab in Left shoulder via Peripheral IV. P ump/Drip Flow = 20 ml/hr 15:28:12 using NaCl .9. Ordered by Hai Park. 15:28:13 History and physical on the chart or being dictated. 15:28:16 Patient arrived on 4 l/min OXYGEN given by cathlab, cathlab via Nasal. Ordered by Hai Park. Vitals capture started with the following parameters, Patient=Adult, Interval=5 min, Initial Pr zeqxnk=806 mmHg, 15:45:16 Deflation Rate=5 mmHg 15:45:22 Reference ECG taken Assessment: Initial Case, UR=481 BPM, Rhythm=stach, HOHT=343/98 mmhg, Chest Pain=0, Edema=None, Color=Normal, Skin = Warm, Dry Right Pulses: Johny Ped=3, Femoral=1 15:45:25 Left Pulses: Johny Ped=3, Femoral=1 Neurological: State=Alert, Ox3, MASCORRO Respiration: Resp=15 B/min, KyO2=636 % 15:46:26 HI=033 bpm, VCOA=686/98 mmhg, SpO2=98.0 %, Resp=17 B/min, Pain=0, Jessika=10, Carter=2 15:47:18 Bilateral groins prepped with 2% chlorhexidine, and with a 3 min. waiting time. 15:50:56 TE=017 bpm, JHHM=119/104 mmhg, SpO2=94.0 %, Resp=18 B/min, Pain=0, Jessika=10, Carter=2 15:51:02 paged 15:51:02 Rebreather placed on patient. 15:53:26 MD responded 15:55:58 IU=930 bpm, ONGE=529/97 mmhg, SlV5=024.0 %, Resp=12 B/min, Pain=0, Jessika=10, Carter=2 15:57:13 MD arrived. 15:57:16 Contrast Scanned 15:57:17 Immediate Presedation assesment performed by physician. 15:57:45 Pressure channel 1 zeroed. Time Out. Correct patient, correct procedure,correct physician, ,power injector loaded or not l oaded with contrast with 16:00:20 surgical team present. Time Out Concurred by MD, individual staff and SENIOR DRUPAL DEVELOPER in procedure 16:00:21 Case Start 16:00:24 20 mL 1% XYLOCAINE given in lab by Xavier, Hai in Right Groin via Subcutaneous. 16:00:25 Access site was Right Femoral Vein. 16:00:45 A SHEATH, FR5.5 PRELUDE 11CM FR 5.5 was advanced into the Fem Vein (right) using the Percut aneous technique. 16:01:33 IL=394 bpm, MOXZ=244/87 mmhg, YaB9=526.0 %, Resp=16 B/min, Pain=0, Jessika=10, Carter=2 16:04:45 Access site was Right Femoral Artery. 16:04:55 A SHEATH, FR6.5 PRELUDE 11CM FR 6.5 was advanced into the Fem Art (right) using the Percuta neous technique. 16:05:56 KQ=117 bpm, VTOZ=458/91 mmhg, SpO2=99.0 %, Resp=20 B/min, Pain=0, Jessika=10, Carter=2 16:06:18 A CATHETER, FR5 SWAN CRISTÓBAL MONITOR FR 5 was inserted via Fem Vein (right) 16:06:33 Saturation: Site=Ao (Aorta) , O2=98.3 %, Hgb=10.1 gm/dl, Condition=Condition 1. Used in sharyn culation. Recorded Pressure: PCW, WE=821, Condition=Condition 1 16:08:33 (Pulmonary Capillary Wedge) PCW 34/25/24 Recorded Pressure: MPA, WW=506, Condition=Condition 1 16:08:49 (Main Pulmonary Artery) MPA 44/25/35 16:09:52 Saturation: Site=PA (Pulmonary Artery) , O2=75.6 %, Hgb=10.1 gm/dl, Condition=Condition 1. Used in calculation. Recorded Pressure: RV, ZT=759, Condition=Condition 1 16:10:46 (Right Ventricle) RV 45/14/18 16:10:57 CH=303 bpm, OKXC=719/90 mmhg, XqF1=359.0 %, Resp=12 B/min, Pain=0, Jessika=10, Carter=2 Recorded Pressure: RA, NP=528, Condition=Condition 1 16:11:04 (Right Atrium) RA /16 16:11:51 Saturation: Site=RA (Right Atrium) , O2=72.8 %, Hgb=10.1 gm/dl, Condition=Condition 1. Used in calculation. 16:12:49 Jayton Cristóbal Catheter Removed A JR 4.0 INFINITI CATHETER FR 4 was advanced over a wire. OMNIPAQUE, 350 MG, 150ML 150ML was us ed for 16:12:50 injections. 16:13:01 The previous wire was exchanged for a WIRE, BENTSON 150CM 150CM. Recorded Pressure: LV, TE=445, Condition=Condition 1 16:14:56 (Left Ventricle) LV 193/16/21 16:15:07 The LV was manually injected with 10 cc's and visualized. OMNIPAQUE, 350 MG, 150ML 150ML us ed. Recorded Pressure: LV, Ao, TJ=852, Condition=Condition 1 16:15:24 (Left Ventricle) LV 198/20/22, (Aorta) Ao 128/80/102 16:15:54 The RCA was injected and visualized at various angles. OMNIPAQUE, 350 MG, 150ML 150ML used . 16:15:56 CX=114 bpm, OKDC=306/73 mmhg, UmE3=034.0 %, Resp=16 B/min, Pain=0, Jessika=10, Carter=2 Recorded Pressure: Ao, QY=915, Condition=Condition 1 16:16:11 (Aorta) Ao 125/82/101 After removing the current catheter a JL 4.0 INFINITI CATHETER FR 4 was advanced over a WIRE, 3 MMJ .035 180CM 16:16:50 180CM. 16:18:28 The LCA was injected and visualized at various angles. OMNIPAQUE, 350 MG, 150ML 150ML used . 16:19:23 Catheter was removed 16:19:24 Case End Assessment: Final Case, ZX=981 BPM, Rhythm=stach, BQKZ=880/73 mmhg, Chest Pain=0, Edema=None, Color=Normal, Skin = Warm, Dry Right Pulses: Johny Ped=3, Femoral=1 16:19:38 Left Pulses: Johny Ped=3, Femoral=1 Neurological: State=Alert, Ox3, MASCORRO Respiration: Resp=15 B/min, NfM5=792 %, O2=4 lpm 16:21:15 YC=791 bpm, JYMV=110/125 mmhg, DaB4=202.0 %, Resp=16 B/min, Pain=0, Jessika=10, Carter=2 16:23:39 Arterial Sheath removed; pressure applied to access site. Vitals capture started with the following parameters, Patient=Adult, Interval=5 min, Initial Pr qprgrj=417 mmHg, 16:24:26 Deflation Rate=5 mmHg 16:24:55 No case complications noted. 16:24:56 FI=444 bpm, FIXW=251/100 mmhg, CpO3=065.0 %, Resp=17 B/min, Pain=0, Jessika=10, Carter=2 16:24:56 Cine recording checked. 16:24:58 Bedside Report will be given. 16:25:00 Contrast Scanned 16:25:00 Verbal Stimulation=2 Physical Stimulation=2 Airway=2 Respiration=2 TOTAL=8. (0=absent, 1=li mited, 2=present) 16:25:08 A Left and Right Heart Cath was performed. 16:29:57 MX=059 bpm, JHCD=921/94 mmhg, SpO2=99.0 %, Resp=10 B/min, Pain=0, Jessika=10, Carter=2 16:35:35 XL=027 bpm, GTRT=440/96 mmhg, CfP0=795.0 %, Resp=16 B/min, Pain=0, Jessika=10, Carter=2 16:36:51 Venous Sheath removed; pressure applied to access site. 16:40:02 WQ=553 bpm, XGAS=399/93 mmhg, ZnB7=288.0 %, Resp=14 B/min, Pain=0, Jessika=10, Carter=2 16:43:55 Sterile dressing applied to site 16:43:57 Patient moved to stretcher 16:43:59 Vitals capture stopped. End Study - Contrast Media Used In Study Contrast Total Opened (mL) Total Used (mL) Total Wasted (mL) Omnipaque 50 50 0 End Study - Maximum Contrast Load Max Contrast Load (mL) 1208.3 End Study - Radiation Exposure Fluoro Time (minutes) 4.2 End Study - Sheaths Sheaths Pulled By Sheath Hold Time (min) Victoria Nevarez 25 End Study - Patient Disposition Complications Transferred To Interventional Outcome No Manager Sales Training Holding No attempt made
[2017-06-16] MEDS: MORPHINE SULFATE 4 MG/ML INJ IV PRN (21:57)
[2017-06-16] MEDS: RESP: ALBUTEROL 2.5 MG/3 ML NEB (PRN) INH (22:04)
[2017-06-16 22:06] VITALS: O2SAT 92
[2017-06-17] VITALS (7 sets, daily range): BP systolic 119–144; BP diastolic 58–88; PULSE 110–114; RESP 18–22; TEMP 96.3–97.9; O2SAT 90–98
[2017-06-17] MEDS: RESP: ALBUTEROL 2.5 MG/3 ML NEB (PRN) INH ×3 (00:32→23:07)
[2017-06-17] MEDS: CHLORHEXIDINE GLUCONATE 2 % 1 PACK (2 CLOTHS) TOP SCH (04:00)
[2017-06-17] MEDS: INSULIN NovoLIN REGULAR SUPPLEMENTAL SCALE SQ SCH ×4 (06:07→21:00)
[2017-06-17] MEDS: PANTOPRAZOLE SODIUM 40 MG VIAL IV SCH (07:45)
[2017-06-17] MEDS: DOCUSATE SODIUM 50 MG/SENNA 8.6 MG TAB PO SCH ×2 (07:45→21:00)
[2017-06-17] MEDS: FUROSEMIDE 20 MG/2 ML VIAL IV PUSH SCH ×2 (07:45→17:48)
[2017-06-17] MEDS: SODIUM CHLORIDE 0.9% FLUSH 10 ML FLUSH IV FLUSH SCH ×2 (07:46→21:22)
[2017-06-17] MEDS: cefTRIAXone INJ 2,000 MG in SODIUM CHLORIDE 0.9% INJ 100 ML IV SCH (07:46)
[2017-06-17] MEDS: INSULIN DETEMIR 100 UNITS/ML VIAL SQ SCH (08:01)
--- NOTE | 2017-06-17 11:35 | HHI.PR ---
Subjective Remarks Patient seen and examined this morning. Persistent tachycardia. "The food taste like shit and the bread is hard as hell." States his butt is sticking to itself and is painful. Per nurse he intermittently complains of shortness of breath. He is denying CP. Denies abdominal pain. Objective Vital Signs Date Time Temp Pulse Resp B/P Pulse Ox O2 Delivery O2 Flow Rate FiO2 06/17/17 09:03 91 Nasal Cannula 4.00 06/17/17 08:00 Nasal Cannula 4.00 06/17/17 08:00 96.3 112 18 119/84 90 06/17/17 04:00 97.9 114 22 125/58 91 06/16/17 22:06 92 Nasal Cannula 4.00 06/16/17 20:00 4.00 06/16/17 12:00 97.5 111 18 137/88 97 I/O 06/16/17 06/16/17 06/16/17 06/17/17 06/17/17 06/17/17 07:00 15:00 23:00 07:00 15:00 23:00 Intake Total 684 ml 0 ml 240 ml 397 ml Output Total 1000 ml 2700 ml 600 ml 375 ml Balance -316 ml -2700 ml -360 ml 22 ml Intake Oral 360 ml 0 ml 240 ml 240 ml IV Total 324 ml 0 ml 157 ml Output Urine Total 1000 ml 2700 ml 600 ml 375 ml # Bowel Movements 2 0 Result Diagram: 06/16/17 0420 06/16/17 0410 Imaging Last Impressions Chest X-Ray 06/15/17 0000 Signed Impressions: Service Date/Time: Thursday, June 15, 2017 09:44 - CONCLUSION: Small bilateral pleural effusions and bibasilar atelectasis and/or infiltrate. Khadar Arboleda MD CT Angiography 06/15/17 0000 Signed Impressions: Service Date/Time: Friday, June 16, 2017 13:35 - CONCLUSION: 1. Small bilateral pleural effusions with adjacent alveolar consolidations consistent with compressive atelectasis and/or pneumonia. Clinical correlation is recommended. 2. Pleural calcifications within the bilateral posterior lung bases consistent with asbestos related pleural disease or fibrothorax. 3. Cardiomegaly. 4. No evidence of pulmonary embolism. 5. Ascites within the upper abdomen. Casimiro Lazo MD Abdomen Ultrasound 06/13/17 0000 Signed Impressions: Service Date/Time: Tuesday, June 13, 2017 15:35 - CONCLUSION: Limited study secondary to bowel gas and body habitus. Hepatic cysts are noted. Small amount of free fluid suspected. Lev Gandhi MD Lower Extremity Ultrasound 06/12/17 0000 Signed Impressions: Service Date/Time: May 18:32 - CONCLUSION: Normal examination. Lev Gandhi MD Objective Remarks GENERAL: 58-year-old male sitting up in bed, appearing uncomfortable in nad SKIN: Warm and pale. No rash. Tattoo left upper extremity. HEAD: Atraumatic. Normocephalic. EYES: Pupils equal and round around bilaterally and reactive. No scleral icterus. No injection or drainage. ENT: No nasal bleeding or discharge. Mucous membranes pink and dry around mouth. NECK: Trachea midline. No JVD. CARDIOVASCULAR: Distant. Regular rate and rhythm, Distant heart sounds. Murmur over aortic valve--holosystolic. RESPIRATORY: Diminished throughout. Lateral breath sounds with faint end expiratory wheezes bilat at bases GASTROINTESTINAL: Abdomen soft, non-tender, obese. Hypoactive bowel sounds. Umbilical hernia is present. MUSCULOSKELETAL: Extremities with chronic venous stasis bilateral lower extremities with woody edema. NEUROLOGICAL: Awake and alert. No obvious cranial nerve deficits. Motor grossly within normal limits. Normal speech. PSYCHIATRIC: Appropriate mood and affect; insight and judgment normal. A/P Problem List: (1) COPD (chronic obstructive pulmonary disease) ICD Code: J44.9 (2) Coronary artery disease ICD Code: I25.10 (3) Diabetes mellitus ICD Code: E11.9 (4) Severe sepsis ICD Code: A41.9 (5) Acute kidney injury ICD Code: N17.9 (6) Hypertension ICD Code: I10 Assessment and Plan 66-year-old male with Severe sepsis - On admission: Significant leukocytosis, tachycardia, tachypnea, afebrile. Leukocytosis is improving. - neg legionella and strep, and flu, UA neg - 06/12 Blood cultures +stretococcus bovis 02/25 - repeat blood cultures 06/15 NGTD - ID consulted: concern for endocarditis, started on rocephin (06/15- ), vancomycin (06/13-7/23 ), ECHO did not show vegetations, considering RIGO Anemia with Hemoccult-positive stools - GI following - s/p 2 units PRBC 06/12, has been stable since - Likely needs CT/EGD/colonoscopy, date TBD Aortic Stenosis - ECHO with severe symptomatic aortic valve stenosis. - Cards Dr. Park consulted: s/p heart cath on 06/16, report pending, CT surgery was consulted - patient was started on lasix 20 mg IV BID COPD - Continue breathing treatments - Home regimen duo Doreen paz Diabetes - Levemir to 20 units BID--> I'm going to hold basal insulin at this time, the patient is not eating, he had a full plate of lunch that he did not touch. We can cover him with SS, when/if he starts eating we can resume some levemir. Patient does not have an inability to swallow, he says the food just taste nasty. - Fasting blood glucose between 70-80 - A1C 6.1 - Home regimen: Metformin, NovoLog 30 units 3 times a day, 50 units Lantus twice a day Coronary artery disease Hypertension - Home regimen Cozaar (on hold due to initial hypotension) HAI - Resolved Discharge Planning No dc plan in place at this time. patient has multiple active medical problems that are being managed at this time. Case discussed with nurse and family at bedside Problem Qualifiers (1) COPD (chronic obstructive pulmonary disease): Qualified Code: J44.9 - Chronic obstructive pulmonary disease, unspecified COPD type (2) Coronary artery disease: Qualified Code: I25.10 - Coronary artery disease involving [place] coronary artery without angina pectoris, unspecified whether [place] or transplanted heart (3) Diabetes mellitus: Qualified Code: E11.65 - Type 2 diabetes mellitus with hyperglycemia, with long -term current use of insulin (4) Hypertension: Qualified Code: I10 - Hypertension, unspecified type Liana Escamilla MD Jun 17, 2017 11:35
--- NOTE | 2017-06-17 14:31 | HHI.IDPN ---
Subjective Subjective Remarks Patient is a 66-year-old morbidly obese male, presented to the hospital complaining of severe shortness of breath. Patient states he has COPD, and has had problem with chronic shortness of breath. He does not use any supplemental oxygen at home. Patient also admits to chronic lower extremity edema. He presented to the hospital because he had development of severe shortness of breath that he couldn't even walk a few distances which is not his normal. He denies any congestion, cough or any chest pain or palpitations. Also has been very weak, and just didn't feel good. He has not had any dizziness or syncopal episode. Has not had any nausea vomiting, abdominal pain, dysuria. On presentation he had an elevated white count. Patient has been afebrile. His lactic acid was elevated. Urinalysis was unremarkable. Chest x-ray with some basilar atelectasis. Patient was admitted initially for sepsis, and was started on broad-spectrum antibiotics. His WBC went down to 19, but it went up to 27,000. Patient received a large dose of IV Solu-Medrol on June 12. Patient currently states his breathing is better. He is still on nasal O2. Notes reviewed States breathing ok Up in chair Had cath yesterday - no report yet; CTS has been consulted No New (+) BC Temps ok Wants something to eat Echo with severe , thickened leaflets BC with Strep bovis Patient states he has never had colonoscopy GI evaluating patient WBC decreasing, down to 18 Antibiotics Rocephin Lines PIV Past Medical History COPD Coronary artery disease Hypertension Diabetes mellitus with peripheral neuropathy Elevated BMI Past Surgical History Tonsillectomy Allergies: Coded Allergies: Penicillin (Verified Allergy, Mild, 06/12/17) Objective . Vital Signs Date Time Temp Pulse Resp B/P Pulse Ox O2 Delivery O2 Flow Rate FiO2 06/17/17 12:00 96.4 113 18 144/88 93 06/17/17 09:03 91 Nasal Cannula 4.00 06/17/17 08:00 Nasal Cannula 4.00 06/17/17 08:00 96.3 112 18 119/84 90 06/17/17 04:00 97.9 114 22 125/58 91 06/16/17 22:06 92 Nasal Cannula 4.00 06/16/17 20:00 4.00 06/16/17 06/16/17 06/17/17 15:00 23:00 07:00 Intake Total 0 ml 240 ml 397 ml Output Total 2700 ml 600 ml 375 ml Balance -2700 ml -360 ml 22 ml Intake Oral 0 ml 240 ml 240 ml IV Total 0 ml 157 ml Output Urine Total 2700 ml 600 ml 375 ml # Bowel Movements 2 0 . Laboratory Tests Test 06/16/17 04:20 White Blood Count 18.0 TH/MM3 Red Blood Count 3.27 MIL/MM3 Hemoglobin 10.1 GM/DL Hematocrit 31.1 % Mean Corpuscular Volume 95.1 FL Mean Corpuscular Hemoglobin 30.8 PG Mean Corpuscular Hemoglobin 32.4 % Concent Red Cell Distribution Width 17.0 % Platelet Count 150 TH/MM3 Mean Platelet Volume 8.8 FL Laboratory Tests Test 06/15/17 06/16/17 20:58 04:10 Magnesium Level 2.0 MG/DL Sodium Level 140 MEQ/L Potassium Level 3.8 MEQ/L Chloride Level 106 MEQ/L Carbon Dioxide Level 27.9 MEQ/L Anion Gap 6 MEQ/L Blood Urea Nitrogen 14 MG/DL Creatinine 0.63 MG/DL Estimat Glomerular Filtration 127 ML/MIN Rate Random Glucose 87 MG/DL Calcium Level 7.8 MG/DL B-Type Natriuretic Peptide 362 PG/ML Microbiology Date/Time Procedure Status Source Growth 06/15/17 09:15 Aerobic Blood Culture - Preliminary Resulted Blood Peripheral NO GROWTH IN 2 DAYS 06/15/17 09:15 Anaerobic Blood Culture - Final Resulted Blood Peripheral QNS - SEE AEROBE REPORT 06/15/17 09:20 Aerobic Blood Culture - Preliminary Resulted Blood Peripheral NO GROWTH IN 2 DAYS 06/15/17 09:20 Anaerobic Blood Culture - Final Resulted Blood Peripheral QNS - SEE AEROBE REPORT 06/16/17 04:20 Aerobic Blood Culture - Preliminary Resulted Blood Peripheral NO GROWTH IN 1 DAY 06/16/17 04:20 Anaerobic Blood Culture - Preliminary Resulted Blood Peripheral NO GROWTH IN 1 DAY Imaging Last Impressions Abdomen Ultrasound 06/13/17 0000 Signed Impressions: Service Date/Time: Tuesday, June 13, 2017 15:35 - CONCLUSION: Limited study secondary to bowel gas and body habitus. Hepatic cysts are noted. Small amount of free fluid suspected. Lev Gandhi MD Chest X-Ray 06/12/17 0728 Signed Impressions: Service Date/Time: May 07:43 - CONCLUSION: 1. Elevation left hemidiaphragm. 2. Bibasilar densities likely atelectasis. Graham Antonio MD Lower Extremity Ultrasound 06/12/17 0000 Signed Impressions: Service Date/Time: May 18:32 - CONCLUSION: Normal examination. Lev Gandhi MD Physical Exam GENERAL: awake and alert, not in respiratory distress. Looks comfortable at rest. Up in chair SKIN: Cool and dry. No generalized rash, no ecchymoses and no evidence of embolic lesions. HEAD: Atraumatic. Normocephalic. No temporal wasting, or tenderness. EYES: [place] conjunctiva. No petechia or hemorrhage. Pupils equal, round and reactive to light. No scleral icterus. No injection or drainage. EARS, NOSE AND THROAT: Nose without bleeding or purulent nasal discharge. No sinus tenderness. Mucous membranes pink and moist. No oral lesions noted. NECK: Trachea midline. Supple and not tender, no meningeal signs CARDIOVASCULAR: Regular rate and rhythm. Has murmur loudest at base of the heart. NO rub RESPIRATORY: Has few scattered wheezing, decreased at bases ABDOMEN: Soft, obese, non-tender, mildly distended. Bowel sounds present and normoactive. No guarding. No rebound. He has chronic skin changes in his abdominal wall, with indurated leather texture skin and he has an umbilical hernia EXTREMITIES: No clubbing, cyanosis. He has improving edema BLE, and he has bark tree texture of his skin in both legs and feet. No joint effusion, has good ROM. No calf tenderness. Well perfused and warm. NEUROLOGICAL: Awake and alert. Cranial nerves grossly intact. Motor grossly within normal limits. PSYCHIATRIC: Normal affect, calm and cooperative. LINE: No evidence of infection : Franco in place, urine looks clear Assessment & Plan Remarks IMPRESSION Initial presentation of severe SOB, patient with obesity, known COPD, ? possibly with cor pulmonale - clinically no evidence of PNA - has obesity, ?with sleep apnea Strep bovis bacteremia, very concerning for endocarditis - Has severe Leukocytosis, decreasing RECOMMENDATION Continue Rocephin Will D/W cardio about RIGO Follow repeat BC Follow CBC Monitor progress GI evaluation Explained plan to patient Estela Watts MD Jun 17, 2017 14:31
--- NOTE | 2017-06-17 15:08 | PD.CARD.PN ---
Subjective Subjective Remarks alert in nad Objective Vital Signs / I&O Vital Signs Date Time Temp Pulse Resp B/P Pulse Ox O2 Delivery O2 Flow Rate FiO2 06/17/17 12:00 96.4 113 18 144/88 93 06/17/17 09:03 91 Nasal Cannula 4.00 06/17/17 08:00 Nasal Cannula 4.00 06/17/17 08:00 96.3 112 18 119/84 90 06/17/17 04:00 97.9 114 22 125/58 91 06/16/17 22:06 92 Nasal Cannula 4.00 06/16/17 20:00 4.00 I/O 06/16/17 06/16/17 06/16/17 06/17/17 06/17/17 06/17/17 07:00 15:00 23:00 07:00 15:00 23:00 Intake Total 684 ml 0 ml 240 ml 397 ml 340 ml Output Total 1000 ml 2700 ml 600 ml 375 ml 700 ml Balance -316 ml -2700 ml -360 ml 22 ml -360 ml Intake Oral 360 ml 0 ml 240 ml 240 ml 340 ml IV Total 324 ml 0 ml 157 ml Output Urine Total 1000 ml 2700 ml 600 ml 375 ml 700 ml # Bowel Movements 2 0 2 Laboratory GENERAL: SKIN: Warm and dry. HEAD: Normocephalic. EYES: No scleral icterus. No injection or drainage. NECK: Supple, trachea midline. No JVD or lymphadenopathy. CARDIOVASCULAR: Regular rate and rhythm without murmurs, gallops, or rubs. RESPIRATORY: Breath sounds equal bilaterally. No accessory muscle use. GASTROINTESTINAL: Abdomen soft, non-tender, nondistended. MUSCULOSKELETAL: No cyanosis, or edema. BACK: Nontender without obvious deformity. No CVA tenderness. Assessment and Plan Problem List: (1) Coronary artery disease (2) COPD (chronic obstructive pulmonary disease) (3) Diabetes mellitus (4) Acute kidney injury (5) Diabetic neuropathy associated with type 2 diabetes mellitus (6) Severe sepsis (7) Hypertension (8) Aortic valve stenosis Assessment and Plan 1.) Severe - d/w Dr Stevens, most likely will need tavr when anemia and bacteremia resolves, continue diuresis, f//u bnp Problem Qualifiers (1) Coronary artery disease: Qualified Code: I25.10 - Coronary artery disease involving lower [place] coronary artery without angina pectoris, unspecified whether lower brule or transplanted heart (2) COPD (chronic obstructive pulmonary disease): Qualified Code: J44.9 - Chronic obstructive pulmonary disease, unspecified COPD type (3) Diabetes mellitus: Qualified Code: E11.65 - Type 2 diabetes mellitus with hyperglycemia, with long -term current use of insulin (4) Diabetic neuropathy associated with type 2 diabetes mellitus: Qualified Code: E11.42 - Diabetic polyneuropathy associated with type 2 diabetes mellitus (5) Hypertension: Qualified Code: I10 - Hypertension, unspecified type Hai Park MD Jun 17, 2017 15:08
[2017-06-18] VITALS (8 sets, daily range): BP systolic 111–142; BP diastolic 15–85; PULSE 107–112; RESP 18–22; TEMP 96.5–97.6; O2SAT 91–96
[2017-06-18] MEDS: CHLORHEXIDINE GLUCONATE 2 % 1 PACK (2 CLOTHS) TOP SCH (04:00)
[2017-06-18] MEDS: INSULIN NovoLIN REGULAR SUPPLEMENTAL SCALE SQ SCH ×4 (05:31→20:36)
[2017-06-18] MEDS: PANTOPRAZOLE SODIUM 40 MG VIAL IV SCH (09:15)
[2017-06-18] MEDS: DOCUSATE SODIUM 50 MG/SENNA 8.6 MG TAB PO SCH ×2 (09:15→20:29)
[2017-06-18] MEDS: FUROSEMIDE 20 MG/2 ML VIAL IV PUSH SCH ×2 (09:15→17:40)
[2017-06-18] MEDS: RESP: ALBUTEROL 2.5 MG/3 ML NEB (PRN) INH ×3 (09:15→22:03)
[2017-06-18] MEDS: cefTRIAXone INJ 2,000 MG in SODIUM CHLORIDE 0.9% INJ 100 ML IV SCH (09:16)
[2017-06-18] MEDS: SODIUM CHLORIDE 0.9% FLUSH 10 ML FLUSH IV FLUSH SCH ×2 (09:16→20:30)
[2017-06-18 11:12] LABS: BACTERIA, URINE RARE /hpf; BLOOD, URINE SMALL (NEG); COMMENT (UR) CULT NOT INDICATED; CULTURE IF INDICATED CULT NOT INDICATED; GLUCOSE,URINE NEG (NEG); HYALINE CAST, URINE 2 /lpf (RARE); KETONE, URINE NEG (NEG); MUCUS URINE FEW /lpf (OCC); NITRITE,URINE NEG (NEG); SQUAMOUS EPITHELIAL CELL URINE <1 /hpf (0-5); URINE COLOR YELLOW (YELLW/STRAW)
--- NOTE | 2017-06-18 11:16 | PD.CONS ---
History of Present Illness Service CT Surgery Consult Requested By Dr. Park Reason for Consult Severe aortic stenosis Primary Care Physician [facility] Diagnoses: (1) Aortic valve stenosis (2) COPD (chronic obstructive pulmonary disease) History of Present Illness Patient seen and examined. Records reviewed. Patient is a 66-year-old morbidly obese male, presented to the hospital complaining of severe shortness of breath. Patient states he has COPD, and has had problem with chronic shortness of breath. He does not use any supplemental oxygen at home. Patient also admits to chronic lower extremity edema. He presented to the hospital because he had development of severe shortness of breath that he couldn't even walk a few distances which is not his normal. He denies any congestion, cough or any chest pain or palpitations. Also has been very weak, and just didn't feel good. He has not had any dizziness or syncopal episode. Has not had any nausea vomiting, abdominal pain, dysuria. On presentation he had an elevated white count. Patient has been afebrile. His lactic acid was elevated. Urinalysis was unremarkable. Chest x-ray with some basilar atelectasis. Patient was admitted initially for sepsis, and was started on broad-spectrum antibiotics. His WBC went down to 19, but it went up to 27,000. Patient received a large dose of IV Solu-Medrol on June 12. Patient currently states his breathing is better. He is still on nasal O2. Infectious disease consultation has been requested today to evaluate the leukocytosis. Review of Systems Constitutional: COMPLAINS OF: Diaphoretic episodes, Fatigue, Fever, Night Sweats, DENIES: Weight gain, Weight loss, Chills, Dizziness, Change in appetite Endocrine: COMPLAINS OF: Heat/cold intolerance, DENIES: Polydipsia, Polyuria, Polyphagia Eyes: DENIES: Blurred vision, Diplopia, Eye inflammation, Eye pain, Vision loss , Photosensitivity, Double Vision Ears, nose, mouth, throat: DENIES: Tinnitus, Hearing loss, Vertigo, Nasal discharge, Oral lesions, Throat pain, Hoarseness, Ear Pain, Running Nose, Epistaxis, Sinus Pain, Toothache, Odynophagia Respiratory: COMPLAINS OF: Cough, Wheezing, Shortness of breath, DENIES: Apneas, Snoring, Hemoptysis, Sputum production Cardiovascular: COMPLAINS OF: Dyspnea on Exertion, DENIES: Chest pain, Palpitations, Syncope, PND, Lower Extremity Edema, Orthopnea, Claudication Gastrointestinal: DENIES: Abdominal pain, Black stools, Bloody stools, Constipation, Diarrhea, Nausea, Vomiting, Difficulty Swallowing, Anorexia Genitourinary: DENIES: Sexual dysfunction, Urinary frequency, Urinary incontinence, Urgency, Hematuria, Dysuria, Nocturia, Penile Discharge, Testicular Pain, Testicular Swelling Musculoskeletal: COMPLAINS OF: Muscle aches, Stiffness, DENIES: Joint pain, Joint Swelling, Back pain, Neck pain Integumentary: DENIES: Abnormal pigmentation, Nail changes, Pruritus, Rash Hematologic/lymphatic: DENIES: Bruising, Lymphadenopathy Immunologic/allergic: DENIES: Eczema, Urticaria Neurologic: COMPLAINS OF: Localized weakness, Poor Balance, DENIES: Abnormal gait, Headache, Paresthesias, Seizures, Speech Problems, Tremor Psychiatric: COMPLAINS OF: Anxiety, DENIES: Confusion, Mood changes, Depression, Hallucinations, Agitation, Suicidal Ideation, Homicidal Ideation, Delusions Past Family Social History Allergies: Coded Allergies: Penicillin (Verified Allergy, Mild, 06/12/17) Past Medical History COPD Coronary artery disease Hypertension Diabetes mellitus with peripheral neuropathy Elevated BMI Past Surgical History Tonsillectomy Reported Medications Losartan 100 mg by mouth daily Duo nebs every 6 hours Metformin 1000 mg by mouth twice a day Insulin aspart 30 units 3 times a day Insulin glargine 50 mg twice a day Lasix 40 mg by mouth daily KCl 10 mEq daily Active Ordered Medications Current Medications Medications (Trade) Dose Ordered Sig/Jonnie Route Start Time Stop Time Status Last Admin Miscellaneous Information 1 [id number] XX 06/12/17 09:45 (Chlorhexidine 2% Cloth) Taper DAILY@04 TOP 06/13/17 04:00 06/09/18 03:59 06/14/17 04:00 (Chlorhexidine 2% Cloth) 3 pack UNSCH PRN TOP 06/12/17 09:45 (Tylenol) 650 mg Q6H PRN PO 06/12/17 09:45 06/18/17 03:51 ([place] 5-325 Mg) 1 tab Q4H PRN PO 06/12/17 09:45 06/13/17 03:11 (Morphine Inj) 2 mg Q2H PRN IV 06/12/17 09:45 06/19/17 01:55 (Protonix Inj) 40 mg DAILY IV 06/13/17 09:00 06/19/17 09:48 (Zofran Inj) 4 mg Q6H PRN IV 06/12/17 09:45 (Cuca-Colace) 1 tab BID PO 06/12/17 21:00 06/19/17 09:47 (Milk Of Magnesia Liq) 30 ml Q12H PRN PO 06/12/17 09:45 (Senokot) 17.2 mg Q12H PRN PO 06/12/17 09:45 (Dulcolax Supp) 10 mg DAILY PRN RECTAL 06/12/17 09:45 (Lactulose Liq) 30 ml DAILY PRN PO 06/12/17 09:45 (D50w (Syr) Inj) 50 ml UNSCH PRN IV 06/12/17 09:45 06/15/17 11:18 (Glucagon Inj) 1 mg UNSCH PRN OTHER 06/12/17 09:45 Guaifenesin/ Dextromethorphan 10 ml 10 ml Q6H PRN PO 06/15/17 01:00 06/15/17 20:06 (Rocephin Inj/NS Inj) 100 ml @ 200 mls/hr Q24H IV 06/15/17 09:00 06/19/17 09:49 (Lasix Inj) 20 mg BID@09,18 IV PUSH 06/16/17 09:00 06/19/17 09:48 (Levemir Inj) 20 units Q12HR SQ 06/16/17 09:00 Hold 06/16/17 22:05 (NS Flush) 2 ml BID IV FLUSH 06/16/17 21:00 06/19/17 09:00 (NS Flush) 2 ml UNSCH PRN IV FLUSH 06/16/17 16:30 Family History CAD in parent Social History Remote heavy tobacco use Denies ETOH Physical Exam Vital Signs Vital Signs Date Time Temp Pulse Resp B/P Pulse Ox O2 Delivery O2 Flow Rate FiO2 06/18/17 09:16 95 Nasal Cannula 5.00 06/18/17 08:00 97.6 108 20 125/81 94 06/18/17 00:00 97.1 111 22 117/72 91 06/17/17 23:00 98 Nasal Cannula 5.00 06/17/17 21:45 97 Nasal Cannula 06/17/17 20:00 97.1 110 22 127/60 95 06/17/17 16:00 96.8 112 18 131/84 91 06/17/17 12:00 96.4 113 18 144/88 93 Physical Exam GENERAL: This is a morbidly obese patient, in no apparent distress. SKIN: No rashes, ecchymoses or lesions. Cool and dry. HEAD: Atraumatic. Normocephalic. No temporal or scalp tenderness. EYES: Pupils equal round and reactive. Extraocular motions intact. No scleral icterus. No injection or drainage. ENT: Nose without bleeding, purulent drainage or septal hematoma. Throat without erythema, tonsillar hypertrophy or exudate. Uvula midline. Airway patent. NECK: Trachea midline. No JVD or lymphadenopathy. Supple, nontender, no meningeal signs. CARDIOVASCULAR: Regular rate and rhythm without murmurs, gallops, or rubs. RESPIRATORY: Bilateral expiratory wheezes GASTROINTESTINAL: Abdomen soft, non-tender, nondistended. No hepato-splenomegaly , or palpable masses. No guarding. MUSCULOSKELETAL: Extremities without clubbing, cyanosis, or edema. No joint tenderness, effusion, or edema noted. No calf tenderness. Negative Homans sign bilaterally. NEUROLOGICAL: Awake and alert. Cranial nerves II through XII intact. Motor and sensory grossly within normal limits. Five out of 5 muscle strength in all muscle groups. Normal speech. Laboratory Laboratory Tests Test 06/18/17 07:25 Urine Eosinophils NONE SEEN Urine Random Creatinine 113.9 Urine Random Sodium 14 Date/Time Procedure Status Source Growth 06/16/17 04:20 Aerobic Blood Culture - Preliminary Resulted Blood Peripheral NO GROWTH IN 2 DAYS 06/16/17 04:20 Anaerobic Blood Culture - Preliminary Resulted Blood Peripheral NO GROWTH IN 2 DAYS Result Diagram: 06/16/17 0420 06/16/17 0410 Imaging Last Impressions Chest X-Ray 06/15/17 0000 Signed Impressions: Service Date/Time: Thursday, June 15, 2017 09:44 - CONCLUSION: Small bilateral pleural effusions and bibasilar atelectasis and/or infiltrate. Khadar Arboleda MD CT Angiography 06/15/17 0000 Signed Impressions: Service Date/Time: Friday, June 16, 2017 13:35 - CONCLUSION: 1. Small bilateral pleural effusions with adjacent alveolar consolidations consistent with compressive atelectasis and/or pneumonia. Clinical correlation is recommended. 2. Pleural calcifications within the bilateral posterior lung bases consistent with asbestos related pleural disease or fibrothorax. 3. Cardiomegaly. 4. No evidence of pulmonary embolism. 5. Ascites within the upper abdomen. Casimiro Lazo MD Abdomen Ultrasound 06/13/17 0000 Signed Impressions: Service Date/Time: Tuesday, June 13, 2017 15:35 - CONCLUSION: Limited study secondary to bowel gas and body habitus. Hepatic cysts are noted. Small amount of free fluid suspected. Lev Gandhi MD Lower Extremity Ultrasound 06/12/17 0000 Signed Impressions: Service Date/Time: May 18:32 - CONCLUSION: Normal examination. Lev Gandhi MD Course Patient presented with significant sepsis, dyspnea and anemia of unknown etiology. During his evaluation, he is noted to have severe with a BNP ~ 300. He does not appear to have a large component of heart failure at this time. I requested PFTs recently and his FEV1 = 0.6 liters. He has numerous ongoing comorbidities for AVR surgery and is at prohibitive risk for AVR. I would not offer him surgical AVR and he may eventually qualify for high-risk TAVR once his anemia and infection are sorted out. He will be followed by the Structural Heart team I discussed this with him and he understands this issue. Problem Qualifiers (1) Aortic valve stenosis: Qualified Code: I35.0 - Aortic valve stenosis, unspecified etiology (2) COPD (chronic obstructive pulmonary disease): Qualified Code: J44.9 - Chronic obstructive pulmonary disease, unspecified COPD type Skye Stevens MD Jun 18, 2017 11:16
--- NOTE | 2017-06-18 11:20 | HHI.PR ---
Subjective Remarks in no acute distress. denies chest pain but with mild sob. no fever. Objective Vitals Vital Signs Date Time Temp Pulse Resp B/P Pulse Ox O2 Delivery O2 Flow Rate FiO2 06/18/17 09:16 95 Nasal Cannula 5.00 06/18/17 08:00 97.6 108 20 125/81 94 06/18/17 00:00 97.1 111 22 117/72 91 06/17/17 23:00 98 Nasal Cannula 5.00 06/17/17 21:45 97 Nasal Cannula 06/17/17 20:00 97.1 110 22 127/60 95 06/17/17 16:00 96.8 112 18 131/84 91 06/17/17 12:00 96.4 113 18 144/88 93 I/O 06/17/17 06/17/17 06/17/17 06/18/17 06/18/17 06/18/17 07:00 15:00 23:00 07:00 15:00 23:00 Intake Total 397 ml 340 ml 600 ml 240 ml Output Total 375 ml 700 ml 800 ml 225 ml Balance 22 ml -360 ml -200 ml 15 ml Intake Oral 240 ml 340 ml 600 ml 240 ml IV Total 157 ml Output Urine Total 375 ml 700 ml 800 ml 225 ml # Bowel Movements 2 1 Result Diagram: 06/16/17 0420 06/16/17 0410 Imaging Last Impressions Chest X-Ray 06/15/17 0000 Signed Impressions: Service Date/Time: Thursday, June 15, 2017 09:44 - CONCLUSION: Small bilateral pleural effusions and bibasilar atelectasis and/or infiltrate. K. Brandon Arboleda MD CT Angiography 06/15/17 0000 Signed Impressions: Service Date/Time: Friday, June 16, 2017 13:35 - CONCLUSION: 1. Small bilateral pleural effusions with adjacent alveolar consolidations consistent with compressive atelectasis and/or pneumonia. Clinical correlation is recommended. 2. Pleural calcifications within the bilateral posterior lung bases consistent with asbestos related pleural disease or fibrothorax. 3. Cardiomegaly. 4. No evidence of pulmonary embolism. 5. Ascites within the upper abdomen. Casimiro Lazo MD Abdomen Ultrasound 06/13/17 0000 Signed Impressions: Service Date/Time: Tuesday, June 13, 2017 15:35 - CONCLUSION: Limited study secondary to bowel gas and body habitus. Hepatic cysts are noted. Small amount of free fluid suspected. Lev Gandhi MD Lower Extremity Ultrasound 06/12/17 0000 Signed Impressions: Service Date/Time: May 18:32 - CONCLUSION: Normal examination. Lev Gandhi MD Objective Remarks GENERAL: This is a well-nourished, well-developed patient, in no apparent distress. CARDIOVASCULAR: Regular rate and regular rhythm . RESPIRATORY: Clear to auscultation. Breath sounds equal bilaterally. No wheezes , rales, or rhonchi. GASTROINTESTINAL: Abdomen soft, non-tender, nondistended. Normal, active bowel sounds MUSCULOSKELETAL: Extremities with bilateral pedal edema. NEURO: Alert & Oriented x4 to person, place, time, situation. Moves all ext x4 Medications and IVs Current Medications Sodium Chloride (NS Flush) 2 ml UNSCH PRN IVF FLUSH AFTER USING IV ACCESS; Start 06/12/17 at 07:30; Stop 06/12/17 at 10:37; Status DC Methylprednisolone Sodium Succinate (SoluMEDROL INJ) 125 mg ONCE ONCE IVP Last administered on 06/12/17 08:25; Start 06/12/17 at 07:30; Stop 06/12/17 at 07:31; Status DC Albuterol/ Ipratropium 1 ampule 1 ampule Q15M INH Last administered on 08:24; Start 06/12/17 at 07:30; Stop 06/12/17 at 08:01; Status DC Vancomycin HCl 2200 mg/Sodium Chloride 522 ml @ 250 mls/hr ONCE ONCE IV Last administered on 06/12/17 08:48; Start 06/12/17 at 08:15; Stop 06/12/17 at 10:20 ; Status DC Piperacillin Sod/ Tazobactam Sod 50 ml @ 100 mls/hr ONCE ONCE IV Last administered on 06/12/17 08:25; Start 06/12/17 at 08:15; Stop 06/12/17 at 08:44 ; Status DC Sodium Chloride 1,000 ml @ 999 mls/hr BOLUS ONCE IV Last administered on 06/12 08:26; Start 06/12/17 at 08:15; Stop 06/12/17 at 09:15; Status DC Sodium Chloride (NS 1000 ml Inj) 1,000 ml @ 999 mls/hr BOLUS ONCE IV Last administered on 06/12/17 09:06; Start 06/12/17 at 08:45; Stop 06/12/17 at 09:45 ; Status DC Calcium Gluconate (Calcium Gluconate Inj) 1 gm ONCE ONCE SLOW IVP Last administered on 06/12/17 09:06; Start 06/12/17 at 08:45; Stop 06/12/17 at 08:46 ; Status DC Insulin Human Regular (NovoLIN R INJ) 10 units ONCE ONCE IV PUSH Last administered on 06/12/17 09:11; Start 06/12/17 at 08:45; Stop 06/12/17 at 08:46 ; Status DC Dextrose 50 ml 50 ml ONCE ONCE IV PUSH ; Start 06/12/17 at 08:45; Stop at 08:46; Status DC Sodium Chloride (NS 250 ml Inj) 250 ml @ 15 mls/hr ONCE ONCE IV ; Start at 09:00; Stop 06/13/17 at 01:39; Status DC Dextrose 50 ml 50 ml STK-MED ONCE .ROUTE Last administered on 06/12/17 09:06; Start 06/12/17 at 09:02; Stop 06/12/17 at 09:03; Status DC Pharmacy Profile Note 0 ml @ 0 mls/hr UNSCH OTHER ; Start 06/12/17 at 09:45; Stop 06/14/17 at 09:30; Status DC Aztreonam 2000 mg/ Sodium Chloride 100 ml @ 200 mls/hr Q8H IV Last administered on 06/14/17 04:33; Start 06/12/17 at 12:00; Stop 06/14/17 at 09:30 ; Status DC Metronidazole (Flagyl 500 Mg Inj) 100 ml @ 100 mls/hr Q8H IV Last administered on 06/14/17 03:03; Start 06/12/17 at 11:00; Stop 06/14/17 at 09:30 ; Status DC Miscellaneous Information 1 Q361D XX ; Start 06/12/17 at 09:45 Chlorhexidine Gluconate (Chlorhexidine 2% Cloth) Taper DAILY@04 TOP Last administered on 06/14/17 04:00; Start 06/13/17 at 04:00; Stop 06/09/18 at 03:59 Chlorhexidine Gluconate 3 pack 3 pack UNSCH PRN TOP HYGIENIC CARE; Start at 09:45 Sodium Chloride (NS 1000 ml Inj) 1,000 ml @ 84 mls/hr [id number] IV Last administered on 06/15/17 20:06; Start 06/12/17 at 09:44; Stop 06/16/17 at 07:39 ; Status DC Sodium Chloride (NS Flush) 2 ml UNSCH PRN IV FLUSH FLUSH AFTER USING IV ACCESS ; Start 06/12/17 at 09:45; Stop 06/16/17 at 16:45; Status DC Sodium Chloride (NS Flush) 2 ml BID IV FLUSH Last administered on 06/15/17 09: 01; Start 06/12/17 at 21:00; Stop 06/16/17 at 16:45; Status DC Acetaminophen (Tylenol) 650 mg Q6H PRN PO FEVER >101F Last administered on 03:51; Start 06/12/17 at 09:45 Acetaminophen/ Hydrocodone Bitart ([place] 5-325 Mg) 1 tab Q4H PRN PO PAIN SCALE 1 TO 5 Last administered on 06/13/17 03:11; Start 06/12/17 at 09:45 Morphine Sulfate (Morphine Inj) 2 mg Q2H PRN IV PAIN SCALE 6 TO 10 Last administered on 06/16/17 21:57; Start 06/12/17 at 09:45 Pantoprazole Sodium (Protonix Inj) 40 mg DAILY IV Last administered on 09:15; Start 06/13/17 at 09:00 Ondansetron HCl (Zofran Inj) 4 mg Q6H PRN IV NAUSEA OR VOMITING; Start at 09:45 Albuterol/ Ipratropium (Duoneb Neb) 1 ampule Q4HR NEB INH Last administered on 06/16/17 09:33; Start 06/12/17 at 12:00; Stop 06/16/17 at 12:00; Status DC Albuterol Sulfate (Albuterol Neb) 2.5 mg Q2HR NEB PRN INH SOB/WHEEZING Last administered on 06/18/17 09:15; Start 06/12/17 at 09:45 Heparin Sodium (Porcine) (Heparin Inj) 5,000 units Q8H SQ Last administered on 06/13/17 03:11; Start 06/12/17 at 11:00; Stop 06/16/17 at 16:46; Status DC Miscellaneous Information 1 Q361D XX ; Start 06/12/17 at 09:45; Stop 06/12/17 at 10:42; Status DC Chlorhexidine Gluconate (Chlorhexidine 2% Cloth) 3 pack Taper DAILY@04 TOP ; Start 06/13/17 at 04:00; Stop 06/13/17 at 04:00; Status DC Chlorhexidine Gluconate (Chlorhexidine 2% Cloth) 3 pack UNSCH PRN TOP HYGIENIC CARE; Start 06/12/17 at 09:45; Stop 06/12/17 at 10:42; Status DC Senna/Docusate Sodium (Cuca-Colace) 1 tab BID PO Last administered on 09:15; Start 06/12/17 at 21:00 Magnesium Hydroxide (Milk Of Magnesia Liq) 30 ml Q12H PRN PO MILD - MODERATE CONSTIPATION; Start 06/12/17 at 09:45 Sennosides (Senokot) 17.2 mg Q12H PRN PO MODERATE - SEVERE CONSTIPATION; Start 06/12/17 at 09:45 Bisacodyl (Dulcolax Supp) 10 mg DAILY PRN RECTAL SEVERE CONSITIPATION; Start at 09:45 Lactulose (Lactulose Liq) 30 ml DAILY PRN PO SEVERE CONSITIPATION; Start at 09:45 Dextrose (D50w (Syr) Inj) 50 ml UNSCH PRN IV HYPOGLYCEMIA-SEE COMMENTS Last administered on 06/15/17 11:18; Start 06/12/17 at 09:45 Glucagon (Glucagon Inj) 1 mg UNSCH PRN OTHER HYPOGLYCEMIA-SEE COMMENTS; Start 06/12/17 at 09:45 Insulin Human Regular (NovoLIN R SUPPLEMENTAL SCALE) 1 ACHS SLIDING SCALE SQ Last administered on 06/14/17 21:00; Start 06/12/17 at 11:00 Insulin Detemir (Levemir Inj) 15 units Q12HR SQ Last administered on 06/13/17 09:00; Start 06/12/17 at 21:00; Stop 06/13/17 at 09:30; Status DC Calcium Gluconate (Calcium Gluconate Inj) 1 gm ONCE ONCE SLOW IVP ; Start 06/12 at 14:45; Stop 06/12/17 at 14:46; Status UNV Insulin Human Regular (NovoLIN R INJ) 10 units ONCE ONCE IV PUSH ; Start at 14:45; Stop 06/12/17 at 16:41; Status DC Dextrose (D50w (Vial) Inj) 50 ml ONCE ONCE IV PUSH Last administered on 14:45; Start 06/12/17 at 14:45; Stop 06/12/17 at 16:41; Status DC Sodium Bicarbonate (Sodium Bicarbonate 8.4% Inj) 50 meq ONCE ONCE SLOW IVP Last administered on 06/12/17 17:00; Start 06/12/17 at 17:00; Stop 06/12/17 at 17:01; Status DC Sodium Polystyrene Sulfonate (Kayexalate Liq) 15 gm ONCE ONCE PO Last administered on 06/12/17 17:40; Start 06/12/17 at 14:45; Stop 06/12/17 at 16:42 ; Status DC Albumin Human 25 gm 25 gm ONCE ONCE IV Last administered on 06/12/17 17:44; Start 06/12/17 at 14:45; Stop 06/12/17 at 16:41; Status DC Sodium Bicarbonate 150 meq/Sterile Water 1,000 ml @ 150 mls/hr Q6H40M IV Last administered on 06/12/17 18:12; Start 06/12/17 at 14:45; Stop 06/12/17 at 21:24 ; Status DC Calcium Chloride 1 gm/Sodium Chloride 110 ml @ 110 mls/hr ONCE ONCE IV ; Start 06/12/17 at 17:00; Stop 06/12/17 at 17:59; Status Cancel Calcium Gluconate/ Sodium Chloride (Calcium Gluconate Inj/NS Inj) 110 ml @ 110 mls/hr ONCE ONCE IV Last administered on 06/12/17 18:14; Start 06/12/17 at 17 :00; Stop 06/12/17 at 17:59; Status DC Lorazepam (Ativan Inj) 1 mg ONCE ONCE IV PUSH ; Start 06/12/17 at 17:15; Stop 06/12/17 at 17:16; Status DC Sodium Bicarbonate (Sodium Bicarbonate 8.4% Inj) 50 meq STK-MED ONCE .ROUTE Last administered on 06/12/17 17:42; Start 06/12/17 at 17:39; Stop 06/12/17 at 17:40; Status DC Insulin Detemir 30 units 30 units Q12HR SQ Last administered on 06/15/17 09:08 ; Start 06/13/17 at 21:00; Stop 06/16/17 at 07:39; Status DC Vancomycin HCl/ Sodium Chloride (Vancomycin Inj/ NS 500 ml Inj) 522 ml @ 257.5 mls/ hr Q24H IV Last administered on 06/13/17 12:51; Start 06/13/17 at 11:00; Stop 06/14/17 at 09:30; Status DC Miscellaneous Information SPECIFIC LAB TO BE DARION... ONCE ONCE .XX ; Start 06/15 at 10:45; Stop 06/15/17 at 10:45; Status DC Alprazolam (Xanax) 0.25 mg ONCE ONCE PO Last administered on 06/15/17 01:05; Start 06/15/17 at 01:00; Stop 06/15/17 at 01:01; Status DC Guaifenesin/ Dextromethorphan 10 ml 10 ml Q6H PRN PO cough Last administered on 06/15/17 20:06; Start 06/15/17 at 01:00 Vancomycin HCl 1500 mg/Sodium Chloride 515 ml @ 257.5 mls/ hr ONCE ONCE IV Last administered on 06/15/17 10:14; Start 06/15/17 at 09:00; Stop 06/15/17 at 10:59; Status DC Ceftriaxone Sodium/Sodium Chloride (Rocephin Inj/NS Inj) 100 ml @ 200 mls/hr Q24H IV Last administered on 06/18/17 09:16; Start 06/15/17 at 09:00 Furosemide (Lasix Inj) 20 mg ONCE ONCE IV PUSH Last administered on 06/15/17 20:11; Start 06/15/17 at 19:15; Stop 06/15/17 at 19:18; Status DC Furosemide (Lasix Inj) 20 mg BID@09,18 IV PUSH Last administered on 06/18/17 09:15; Start 06/16/17 at 09:00 Insulin Detemir (Levemir Inj) 20 units Q12HR SQ Last administered on 06/16/17 22:05; Start 06/16/17 at 09:00; Status Hold Lorazepam (Ativan) 1 mg ONCE ONCE PO Last administered on 06/16/17 12:58; Start 06/16/17 at 12:45; Stop 06/16/17 at 12:55; Status DC Iohexol 80 ml 80 ml STK-MED ONCE IV Last administered on 06/16/17 14:08; Start 06/16/17 at 14:08; Stop 06/16/17 at 14:09; Status DC Heparin Sodium/ Sodium Chloride (Heparin-NS/Pf Inj) 500 ml @ As Directed STK- MED ONCE .ROUTE ; Start 06/16/17 at 15:47; Stop 06/16/17 at 15:48; Status DC Sodium Chloride (NS Flush) 2 ml BID IV FLUSH Last administered on 06/18/17 09: 16; Start 06/16/17 at 21:00 Sodium Chloride (NS Flush) 2 ml UNSCH PRN IV FLUSH FLUSH AFTER USING IV ACCESS ; Start 06/16/17 at 16:30 Miscellaneous Information 1 ONCE ONCE XX ; Start 06/16/17 at 16:30; Stop at 16:44; Status DC Iohexol (OMNIPAQUE 350 INJ (Family Educator)) 50 ml STK-MED ONCE OTHER ; Start at 15:28; Stop 06/17/17 at 10:02; Status DC A/P Assessment and Plan A/P Severe sepsis - On admission: Significant leukocytosis, tachycardia, tachypnea, afebrile. Leukocytosis is improving. - neg legionella and strep, and flu, UA neg - 06/12 Blood cultures +stretococcus bovis 02/25 - repeat blood cultures 06/15 NGTD - ID consulted: concern for endocarditis, started on Rocephin (06/15- ), vancomycin (06/13-06/15 ), ECHO did not show vegetations, considering RIGO Anemia with Hemoccult-positive stools - GI following - s/p 2 units PRBC 06/12, has been stable since - Likely needs CT/EGD/colonoscopy, date TBD Aortic Stenosis - ECHO with severe symptomatic aortic valve stenosis. - Cards Dr. Park consulted: s/p heart cath on 06/16, CT surgery was consulted - patient was started on lasix 20 mg IV BID COPD - Continue breathing treatments - Home regimen duo nebs, Combivent Diabetes -accu-check with SSI - Home regimen: Metformin, NovoLog 30 units 3 times a day, 50 units Lantus twice a day Coronary artery disease Hypertension - Home regimen Cozaar (on hold due to initial hypotension) HAI - Resolved Allison James MD Jun 18, 2017 11:20
--- NOTE | 2017-06-18 12:37 | RSPPFT ---
DATE OF PROCEDURE: 06/17/17 COMMENTS: Spirometry with FVC of 1.0, FEV1 of 0.6, FEV1/FVC ratio 65%. A positive and significant response to acutely inhaled bronchodilator noted. IMPRESSION: 1. Severe airways obstruction. 2. Positive and significant response to acutely inhaled bronchodilator.
--- NOTE | 2017-06-18 13:41 | PD.CARD.PN ---
Subjective Subjective Remarks alert in nad, unable to collect blood due to poor peripheral access Objective Vital Signs / I&O Vital Signs Date Time Temp Pulse Resp B/P Pulse Ox O2 Delivery O2 Flow Rate FiO2 06/18/17 12:00 96.5 111 18 116/85 92 06/18/17 09:16 95 Nasal Cannula 5.00 06/18/17 08:00 97.6 108 20 125/81 94 06/18/17 00:00 97.1 111 22 117/72 91 06/17/17 23:00 98 Nasal Cannula 5.00 06/17/17 21:45 97 Nasal Cannula 06/17/17 20:00 97.1 110 22 127/60 95 06/17/17 16:00 96.8 112 18 131/84 91 I/O 06/17/17 06/17/17 06/17/17 06/18/17 06/18/17 06/18/17 07:00 15:00 23:00 07:00 15:00 23:00 Intake Total 397 ml 340 ml 600 ml 240 ml Output Total 375 ml 700 ml 800 ml 225 ml Balance 22 ml -360 ml -200 ml 15 ml Intake Oral 240 ml 340 ml 600 ml 240 ml IV Total 157 ml Output Urine Total 375 ml 700 ml 800 ml 225 ml # Bowel Movements 2 1 Physical Exam GENERAL: SKIN: Warm and dry. HEAD: Normocephalic. EYES: No scleral icterus. No injection or drainage. NECK: Supple, trachea midline. No JVD or lymphadenopathy. CARDIOVASCULAR: Regular rate and rhythm without murmurs, gallops, or rubs. RESPIRATORY: Breath sounds equal bilaterally. No accessory muscle use. GASTROINTESTINAL: Abdomen soft, non-tender, nondistended. MUSCULOSKELETAL: No cyanosis, or edema. BACK: Nontender without obvious deformity. No CVA tenderness. Laboratory Laboratory Tests Test 06/18/17 06/18/17 07:25 10:33 Urine Eosinophils NONE SEEN /HPF Urine Random Creatinine 113.9 MG/DL Urine Random Sodium 14 MEQ/L Urine Color YELLOW Urine Turbidity CLEAR Urine pH 5.0 Urine Specific [place] 1.009 Urine Protein NEG mg/dL Urine Glucose (UA) NEG mg/dL Urine Ketones NEG mg/dL Urine Occult Blood SMALL Urine Nitrite NEG Urine Bilirubin NEG Urine Urobilinogen LESS THAN 2.0 MG/DL Urine Leukocyte Esterase TRACE Urine RBC 40 /hpf Urine WBC 3 /hpf Urine Squamous Epithelial <1 /hpf Cells Urine Bacteria RARE /hpf Urine Hyaline Casts 2 /lpf Urine Mucus FEW /lpf Urine Yeast (Budding) FEW Microscopic Urinalysis Comment CULT NOT INDICATED Assessment and Plan Problem List: (1) Coronary artery disease (2) COPD (chronic obstructive pulmonary disease) (3) Diabetes mellitus (4) Acute kidney injury (5) Diabetic neuropathy associated with type 2 diabetes mellitus (6) Severe sepsis (7) Hypertension (8) Aortic valve stenosis Assessment and Plan 1.) Severe - d/w Dr Stevens, most likely will need tavr when anemia and bacteremia resolves, continue diuresis, f//u bnp 2.) Bacteremia - will attempt oylie sammy, but may not be possible due to hypoxia Problem Qualifiers (1) Coronary artery disease: Qualified Code: I25.10 - Coronary artery disease involving mo[place] coronary artery without angina pectoris, unspecified whether moapa or transplanted heart (2) COPD (chronic obstructive pulmonary disease): Qualified Code: J44.9 - Chronic obstructive pulmonary disease, unspecified COPD type (3) Diabetes mellitus: Qualified Code: E11.65 - Type 2 diabetes mellitus with hyperglycemia, with long -term current use of insulin (4) Diabetic neuropathy associated with type 2 diabetes mellitus: Qualified Code: E11.42 - Diabetic polyneuropathy associated with type 2 diabetes mellitus (5) Hypertension: Qualified Code: I10 - Hypertension, unspecified type (6) Aortic valve stenosis: Qualified Code: I35.0 - Aortic valve stenosis, unspecified etiology Hai Park MD Jun 18, 2017 13:41
--- NOTE | 2017-06-18 13:51 | HHI.GIFU ---
Subjective Remarks Pt now agreeable to EGD/colonoscopy. Says he was having black stool but that has resolved. does not know if there is lizzie blood in stool. No n/v. ( Diana Leija) Objective Vitals I&O Vital Signs Date Time Temp Pulse Resp B/P Pulse Ox O2 Delivery O2 Flow Rate FiO2 06/18/17 12:00 96.5 111 18 116/85 92 06/18/17 09:16 95 Nasal Cannula 5.00 06/18/17 08:00 97.6 108 20 125/81 94 06/18/17 00:00 97.1 111 22 117/72 91 06/17/17 23:00 98 Nasal Cannula 5.00 06/17/17 21:45 97 Nasal Cannula 06/17/17 20:00 97.1 110 22 127/60 95 06/17/17 16:00 96.8 112 18 131/84 91 I/O 06/17/17 06/17/17 06/17/17 06/18/17 06/18/17 06/18/17 06:59 14:59 22:59 06:59 14:59 22:59 Intake Total 397 ml 340 ml 600 ml 240 ml Output Total 375 ml 700 ml 800 ml 225 ml Balance 22 ml -360 ml -200 ml 15 ml Intake Oral 240 ml 340 ml 600 ml 240 ml IV Total 157 ml Output Urine Total 375 ml 700 ml 800 ml 225 ml # Bowel Movements 2 1 Laboratory Laboratory Tests Test 06/18/17 06/18/17 07:25 10:33 Urine Eosinophils NONE SEEN Urine Random Creatinine 113.9 Urine Random Sodium 14 Urine Color YELLOW Urine Turbidity CLEAR Urine pH 5.0 Urine Specific [place] 1.009 Urine Protein NEG Urine Glucose (UA) NEG Urine Ketones NEG Urine Occult Blood SMALL Urine Nitrite NEG Urine Bilirubin NEG Urine Urobilinogen LESS THAN 2.0 Urine Leukocyte Esterase TRACE Urine RBC 40 Urine WBC 3 Urine Squamous Epithelial <1 Cells Urine Bacteria RARE Urine Hyaline Casts 2 Urine Mucus FEW Urine Yeast (Budding) FEW Microscopic Urinalysis Comment CULT NOT INDICATED Date/Time Procedure Status Source Growth 06/16/17 04:20 Aerobic Blood Culture - Preliminary Resulted Blood Peripheral NO GROWTH IN 2 DAYS 06/16/17 04:20 Anaerobic Blood Culture - Preliminary Resulted Blood Peripheral NO GROWTH IN 2 DAYS Imaging Last Impressions Chest X-Ray 06/15/17 0000 Signed Impressions: Service Date/Time: Thursday, June 15, 2017 09:44 - CONCLUSION: Small bilateral pleural effusions and bibasilar atelectasis and/or infiltrate. Khadar Arboleda MD CT Angiography 06/15/17 0000 Signed Impressions: Service Date/Time: Friday, June 16, 2017 13:35 - CONCLUSION: 1. Small bilateral pleural effusions with adjacent alveolar consolidations consistent with compressive atelectasis and/or pneumonia. Clinical correlation is recommended. 2. Pleural calcifications within the bilateral posterior lung bases consistent with asbestos related pleural disease or fibrothorax. 3. Cardiomegaly. 4. No evidence of pulmonary embolism. 5. Ascites within the upper abdomen. Casimiro Lazo MD Abdomen Ultrasound 06/13/17 0000 Signed Impressions: Service Date/Time: Tuesday, June 13, 2017 15:35 - CONCLUSION: Limited study secondary to bowel gas and body habitus. Hepatic cysts are noted. Small amount of free fluid suspected. Lev Gandhi MD Lower Extremity Ultrasound 06/12/17 0000 Signed Impressions: Service Date/Time: May 18:32 - CONCLUSION: Normal examination. Lev Gandhi MD Physical Exam HEENT: PERRL; normocephalic; atraumatic; no jaundice. CHEST: diminished CARDIAC: Regular rate + murmur ABDOMEN: Soft, obese, nontender; no hepatosplenomegaly; bowel sounds are present in all four quadrants. EXTREMITIES: No clubbing, cyanosis, + edema BLE SKIN: no rash; no jaundice. erythema BLE QUICK SKETCH ARTIST: No focal deficits; alert and oriented times three. (Diana Leija [facility]) Assessment and Plan Plan ASSESSMENT: - Anemia with hemoccult positive stool. H/H on admission was 8.0/25.2. S/P 2 units PRBC and has been stable. 1st hemoccult negative in the ER, but rpt was positive. + Melanotic stool previously. Initially, the patient told me that he has had black stools for the past 18 months and no one can ever find out where its coming from. He states that he has had stool samples sent and they always come back with no blood, but denied ever having an EGD or Colonoscopy. As soon as I mentioned EGD/Colonoscopy, he denied any bleeding or GI symptoms. - GIB with melanotic stool. S/P 2 units PRBC. HH stable - ? Abdominal pain. He did complain of this to other providers, but denied. initially refused procedures, CT scan. now agreeable. - Sepsis/leukocytosis/lactic acidosis/bacteremia. BCx with GPC, Streptococcus species. Vanco, Azactam, Flagyl. - HAI with electrolyte abnormalities. Improved. - DM, CAD, COPD, HTN, Neuropathy per attending. - aortic stenosis - per cardiology, may need surgery PLAN: - EGD/colonoscopy if cardiology clears - EZEQUIEL - Cont. PPI - Monitor HH - Transfuse as necessary - Supportive care - Further recommendations to follow based on results of above - Pt seen and examined by Dr. You and this note is written on his behalf ( Diana Leija) Physician Comments Patient seen and examined Agree with above Continue with current supportive care Monitor labs (Isac You MD) Diana Leija Jun 18, 2017 13:51 Isac You MD Jun 18, 2017 22:51
[2017-06-19] VITALS (12 sets, daily range): BP systolic 108–135; BP diastolic 64–82; PULSE 100–110; RESP 16–24; TEMP 96.2–97.7; O2SAT 91–95
[2017-06-19] MEDS: MORPHINE SULFATE 4 MG/ML INJ IV PRN ×2 (01:55→14:14)
[2017-06-19] MEDS: CHLORHEXIDINE GLUCONATE 2 % 1 PACK (2 CLOTHS) TOP SCH (04:00)
[2017-06-19] MEDS: RESP: ALBUTEROL 2.5 MG/3 ML NEB (PRN) INH ×2 (04:24→10:22)
[2017-06-19 05:36] LABS: BICARBONATE 30.1 MEQ/L (21.0-32.0); POTASSIUM 4.1 MEQ/L (3.5-5.1)
[2017-06-19] MEDS: INSULIN NovoLIN REGULAR SUPPLEMENTAL SCALE SQ SCH ×4 (06:03→21:00)
[2017-06-19 06:25] LABS: AUTOMATED NEUTROPHIL # 18.1 TH/MM3 (1.8-7.7); BASOPHIL # 0.1 TH/MM3 (0-0.2); BASOPHIL % 0.6 % (0.0-2.0); EOSINOPHIL # 0.2 TH/MM3 (0-0.4); EOSINOPHIL % 0.8 % (0.0-4.0); HEMATOCRIT 27.8 % (39.0-51.0); HEMO FLAGS DIFF FINAL; MEAN CELL VOLUME 95.1 FL (80.0-100.0); MEAN CORPUSCULAR HEMOGLOBIN 30.3 PG (27.0-34.0); MEAN CORPUSCULAR HGB CONC 31.9 % (32.0-36.0); MONO % 6.2 % (0.0-8.0); NEUT % 87.4 % (16.0-70.0); PLATELET COUNT 166 TH/MM3 (150-450); RED BLOOD COUNT 2.93 MIL/MM3 (4.50-5.90); RED CELL DISTRIBUTION WIDTH 17.3 % (11.6-17.2); WHITE BLOOD COUNT 20.7 TH/MM3 (4.0-11.0)
--- NOTE | 2017-06-19 08:53 | MA ---
cc: IRINA JAMIL M.D. DATE 06/16/2017 PROCEDURE PERFORMED Right heart catheterization, left heart catheterization, left ventriculography, coronary angiograpyy, pullback gradient across the aortic valve, coronary angiography, left ventriculography. INDICATIONS Diabetes mellitus. Multiple cardiac risk factors. PROCEDURE AND FINDINGS The patient was brought into the Cardiac Catheterization Laboratory, prepped and draped in the usual sterile fashion. 10 cc of 1% lidocaine was used to locally anesthetize the right common femoral artery. A 5-Tongan sheath was placed in the right common femoral vein. My intent was to placed a 4-Tongan sheath in the right common femoral artery. However, the lead dental assistant gave me the wrong wire and I was not able to put the 4-Tongan sheath in, therefore I had to put a 6-Tongan sheath in. Right heart catheterization was performed first with the following findings: This was on 100% non-rebreather face mask - FA sat was 98.3% on room air. PA sat 75.6% on room air. RA sat 72.8% on room air. Pulmonary capillary wedge pressure 34/25-24. PA pressure 44/25-35. RV pressure 45/14-18. RA pressure 22/21-16. The cardiac output by Rosaura 9.8 liters per minute. Cardiac index by Rosaura 4.0 liters per meter2 per minute. SVR 695.2 dynes. Left heart catheterization was then performed. I used a 4-Tongan JR-4 and JL-4 catheters and a 0.035 in J-tip guidewire to access the ascending thoracic aorta. I then crossed the aortic valve which appeared to be heavily thickened and calcified fluoroscopically with a 0.035 floppy tip, straight-tip Bentson wire. The LV pressures were 200/18-20. Ejection fraction was 70%. The ventricle appear to be hyperdynamic. The aortic pressure on pullback was 130/90, given the pullback gradient of 70 mmHg. The right coronary is a very large and dominant vessel, estimated at 5-6 mm in diameter. There is no significant disease angiographically. The left main coronary has no significant disease angiographically. The left main coronary artery is a large vessel, probably 7-mm in diameter. No significant disease angiographically. The left circumflex has no significant disease angiographically. The first and second obtuse marginal vessels are medium-sized vessels with no significant disease angiographically. The LAD is transapical, has mild diffuse disease in the mid-segment up to 10-20% angiographically. There are three small diagonal vessels probably 1-mm in diameter at most coming off the mid-LAD. CONCLUSIONS 1. Angiographically mild one-vessel coronary artery disease in a right dominant system as detailed above. 2. Hyperdynamic LV systolic function, EF 70%. 3. Severe aortic valve stenosis with mean gradient of 16 mm by Doppler analysis and a 70-mm gradient by pullback analysis, as detailed above. 4. Hyperdynamic LV systolic function of 70%. RECOMMENDATIONS 1. Recommend medical management of coronary disease. 2. Recommend CT surgery consult for evaluation of risks and benefits of aortic valve replacement. MD STEFANIA Madsen/WILLIAM /4:30 PM /8:32 AM
[2017-06-19] MEDS: SODIUM CHLORIDE 0.9% FLUSH 10 ML FLUSH IV FLUSH SCH ×2 (09:00→21:00)
[2017-06-19] MEDS: DOCUSATE SODIUM 50 MG/SENNA 8.6 MG TAB PO SCH ×2 (09:47→20:53)
[2017-06-19] MEDS: PANTOPRAZOLE SODIUM 40 MG VIAL IV SCH (09:48)
[2017-06-19] MEDS: FUROSEMIDE 20 MG/2 ML VIAL IV PUSH SCH ×2 (09:48→16:42)
[2017-06-19] MEDS: cefTRIAXone INJ 2,000 MG in SODIUM CHLORIDE 0.9% INJ 100 ML IV SCH (09:49)
--- NOTE | 2017-06-19 11:02 | HHI.PR ---
Subjective Remarks in no acute distress. has mild wheezing. no chest pain. d/w the RN. Objective Vitals Vital Signs Date Time Temp Pulse Resp B/P Pulse Ox O2 Delivery O2 Flow Rate FiO2 06/19/17 10:23 93 Nasal Cannula 6.00 06/19/17 08:00 96.2 105 18 125/82 93 06/19/17 07:32 Nasal Cannula 5.00 06/19/17 07:32 104 06/19/17 04:24 94 Nasal Cannula 6.00 06/19/17 04:00 96.4 106 24 135/81 93 06/19/17 00:00 97.4 110 20 118/78 91 06/18/17 22:14 96 Nasal Cannula 5.00 06/18/17 22:04 95 Nasal Cannula 6.00 06/18/17 20:10 107 06/18/17 20:00 97.5 110 20 111/75 96 06/18/17 16:00 97.1 112 18 142/74 94 06/18/17 12:00 96.5 111 18 116/85 92 I/O 06/18/17 06/18/17 06/18/17 06/19/17 06/19/17 06/19/17 07:00 15:00 23:00 07:00 15:00 23:00 Intake Total 240 ml 679 ml 340 ml Output Total 225 ml 500 ml 700 ml 200 ml Balance 15 ml 179 ml -360 ml -200 ml Intake Oral 240 ml 580 ml 340 ml IV Total 99 ml Output Urine Total 225 ml 500 ml 700 ml 200 ml # Voids 1 # Bowel Movements 1 Result Diagram: 06/19/17 0331 06/19/17 0331 Imaging Last Impressions Chest X-Ray 06/15/17 0000 Signed Impressions: Service Date/Time: Thursday, June 15, 2017 09:44 - CONCLUSION: Small bilateral pleural effusions and bibasilar atelectasis and/or infiltrate. Khadar Arboleda MD CT Angiography 06/15/17 0000 Signed Impressions: Service Date/Time: Friday, June 16, 2017 13:35 - CONCLUSION: 1. Small bilateral pleural effusions with adjacent alveolar consolidations consistent with compressive atelectasis and/or pneumonia. Clinical correlation is recommended. 2. Pleural calcifications within the bilateral posterior lung bases consistent with asbestos related pleural disease or fibrothorax. 3. Cardiomegaly. 4. No evidence of pulmonary embolism. 5. Ascites within the upper abdomen. Casimiro Lazo MD Abdomen Ultrasound 06/13/17 0000 Signed Impressions: Service Date/Time: Tuesday, June 13, 2017 15:35 - CONCLUSION: Limited study secondary to bowel gas and body habitus. Hepatic cysts are noted. Small amount of free fluid suspected. Lev Gandhi MD Lower Extremity Ultrasound 06/12/17 0000 Signed Impressions: Service Date/Time: May 18:32 - CONCLUSION: Normal examination. Lev Gandhi MD Objective Remarks GENERAL: This is a well-nourished, well-developed patient, in no apparent distress. CARDIOVASCULAR: Regular rate and regular rhythm . RESPIRATORY:mild bilateral wheezing. GASTROINTESTINAL: Abdomen soft, non-tender, nondistended. Normal, active bowel sounds MUSCULOSKELETAL: Extremities with bilateral pedal edema. NEURO: Alert & Oriented x4 to person, place, time, situation. Moves all ext x4 Medications and IVs Current Medications Sodium Chloride (NS Flush) 2 ml UNSCH PRN IVF FLUSH AFTER USING IV ACCESS; Start 06/12/17 at 07:30; Stop 06/12/17 at 10:37; Status DC Methylprednisolone Sodium Succinate (SoluMEDROL INJ) 125 mg ONCE ONCE IVP Last administered on 06/12/17 08:25; Start 06/12/17 at 07:30; Stop 06/12/17 at 07:31; Status DC Albuterol/ Ipratropium 1 ampule 1 ampule Q15M INH Last administered on 08:24; Start 06/12/17 at 07:30; Stop 06/12/17 at 08:01; Status DC Vancomycin HCl 2200 mg/Sodium Chloride 522 ml @ 250 mls/hr ONCE ONCE IV Last administered on 06/12/17 08:48; Start 06/12/17 at 08:15; Stop 06/12/17 at 10:20 ; Status DC Piperacillin Sod/ Tazobactam Sod 50 ml @ 100 mls/hr ONCE ONCE IV Last administered on 06/12/17 08:25; Start 06/12/17 at 08:15; Stop 06/12/17 at 08:44 ; Status DC Sodium Chloride 1,000 ml @ 999 mls/hr BOLUS ONCE IV Last administered on 06/12 08:26; Start 06/12/17 at 08:15; Stop 06/12/17 at 09:15; Status DC Sodium Chloride (NS 1000 ml Inj) 1,000 ml @ 999 mls/hr BOLUS ONCE IV Last administered on 06/12/17 09:06; Start 06/12/17 at 08:45; Stop 06/12/17 at 09:45 ; Status DC Calcium Gluconate (Calcium Gluconate Inj) 1 gm ONCE ONCE SLOW IVP Last administered on 06/12/17 09:06; Start 06/12/17 at 08:45; Stop 06/12/17 at 08:46 ; Status DC Insulin Human Regular (NovoLIN R INJ) 10 units ONCE ONCE IV PUSH Last administered on 06/12/17 09:11; Start 06/12/17 at 08:45; Stop 06/12/17 at 08:46 ; Status DC Dextrose 50 ml 50 ml ONCE ONCE IV PUSH ; Start 06/12/17 at 08:45; Stop at 08:46; Status DC Sodium Chloride (NS 250 ml Inj) 250 ml @ 15 mls/hr ONCE ONCE IV ; Start at 09:00; Stop 06/13/17 at 01:39; Status DC Dextrose 50 ml 50 ml STK-MED ONCE .ROUTE Last administered on 06/12/17 09:06; Start 06/12/17 at 09:02; Stop 06/12/17 at 09:03; Status DC Pharmacy Profile Note 0 ml @ 0 mls/hr UNSCH OTHER ; Start 06/12/17 at 09:45; Stop 06/14/17 at 09:30; Status DC Aztreonam 2000 mg/ Sodium Chloride 100 ml @ 200 mls/hr Q8H IV Last administered on 06/14/17 04:33; Start 06/12/17 at 12:00; Stop 06/14/17 at 09:30 ; Status DC Metronidazole (Flagyl 500 Mg Inj) 100 ml @ 100 mls/hr Q8H IV Last administered on 06/14/17 03:03; Start 06/12/17 at 11:00; Stop 06/14/17 at 09:30 ; Status DC Miscellaneous Information 1 Q361D XX ; Start 06/12/17 at 09:45 Chlorhexidine Gluconate (Chlorhexidine 2% Cloth) Taper DAILY@04 TOP Last administered on 06/14/17 04:00; Start 06/13/17 at 04:00; Stop 06/09/18 at 03:59 Chlorhexidine Gluconate 3 pack 3 pack UNSCH PRN TOP HYGIENIC CARE; Start at 09:45 Sodium Chloride (NS 1000 ml Inj) 1,000 ml @ 84 mls/hr [id number] IV Last administered on 06/15/17 20:06; Start 06/12/17 at 09:44; Stop 06/16/17 at 07:39 ; Status DC Sodium Chloride (NS Flush) 2 ml UNSCH PRN IV FLUSH FLUSH AFTER USING IV ACCESS ; Start 06/12/17 at 09:45; Stop 06/16/17 at 16:45; Status DC Sodium Chloride (NS Flush) 2 ml BID IV FLUSH Last administered on 06/15/17 09: 01; Start 06/12/17 at 21:00; Stop 06/16/17 at 16:45; Status DC Acetaminophen (Tylenol) 650 mg Q6H PRN PO FEVER >101F Last administered on 03:51; Start 06/12/17 at 09:45 Acetaminophen/ Hydrocodone Bitart (Harriet 5-325 Mg) 1 tab Q4H PRN PO PAIN SCALE 1 TO 5 Last administered on 06/13/17 03:11; Start 06/12/17 at 09:45 Morphine Sulfate (Morphine Inj) 2 mg Q2H PRN IV PAIN SCALE 6 TO 10 Last administered on 06/19/17 01:55; Start 06/12/17 at 09:45 Pantoprazole Sodium (Protonix Inj) 40 mg DAILY IV Last administered on 09:48; Start 06/13/17 at 09:00 Ondansetron HCl (Zofran Inj) 4 mg Q6H PRN IV NAUSEA OR VOMITING; Start at 09:45 Albuterol/ Ipratropium (Duoneb Neb) 1 ampule Q4HR NEB INH Last administered on 06/16/17 09:33; Start 06/12/17 at 12:00; Stop 06/16/17 at 12:00; Status DC Albuterol Sulfate (Albuterol Neb) 2.5 mg Q2HR NEB PRN INH SOB/WHEEZING Last administered on 06/19/17 10:22; Start 06/12/17 at 09:45 Heparin Sodium (Porcine) (Heparin Inj) 5,000 units Q8H SQ Last administered on 06/13/17 03:11; Start 06/12/17 at 11:00; Stop 06/16/17 at 16:46; Status DC Miscellaneous Information 1 Q361D XX ; Start 06/12/17 at 09:45; Stop 06/12/17 at 10:42; Status DC Chlorhexidine Gluconate (Chlorhexidine 2% Cloth) 3 pack Taper DAILY@04 TOP ; Start 06/13/17 at 04:00; Stop 06/13/17 at 04:00; Status DC Chlorhexidine Gluconate (Chlorhexidine 2% Cloth) 3 pack UNSCH PRN TOP HYGIENIC CARE; Start 06/12/17 at 09:45; Stop 06/12/17 at 10:42; Status DC Senna/Docusate Sodium (Cuca-Colace) 1 tab BID PO Last administered on 09:47; Start 06/12/17 at 21:00 Magnesium Hydroxide (Milk Of Magnesia Liq) 30 ml Q12H PRN PO MILD - MODERATE CONSTIPATION; Start 06/12/17 at 09:45 Sennosides (Senokot) 17.2 mg Q12H PRN PO MODERATE - SEVERE CONSTIPATION; Start 06/12/17 at 09:45 Bisacodyl (Dulcolax Supp) 10 mg DAILY PRN RECTAL SEVERE CONSITIPATION; Start at 09:45 Lactulose (Lactulose Liq) 30 ml DAILY PRN PO SEVERE CONSITIPATION; Start at 09:45 Dextrose (D50w (Syr) Inj) 50 ml UNSCH PRN IV HYPOGLYCEMIA-SEE COMMENTS Last administered on 06/15/17 11:18; Start 06/12/17 at 09:45 Glucagon (Glucagon Inj) 1 mg UNSCH PRN OTHER HYPOGLYCEMIA-SEE COMMENTS; Start 06/12/17 at 09:45 Insulin Human Regular (NovoLIN R SUPPLEMENTAL SCALE) 1 ACHS SLIDING SCALE SQ Last administered on 06/19/17 06:03; Start 06/12/17 at 11:00 Insulin Detemir (Levemir Inj) 15 units Q12HR SQ Last administered on 06/13/17 09:00; Start 06/12/17 at 21:00; Stop 06/13/17 at 09:30; Status DC Calcium Gluconate (Calcium Gluconate Inj) 1 gm ONCE ONCE SLOW IVP ; Start 06/12 at 14:45; Stop 06/12/17 at 14:46; Status UNV Insulin Human Regular (NovoLIN R INJ) 10 units ONCE ONCE IV PUSH ; Start at 14:45; Stop 06/12/17 at 16:41; Status DC Dextrose (D50w (Vial) Inj) 50 ml ONCE ONCE IV PUSH Last administered on 14:45; Start 06/12/17 at 14:45; Stop 06/12/17 at 16:41; Status DC Sodium Bicarbonate (Sodium Bicarbonate 8.4% Inj) 50 meq ONCE ONCE SLOW IVP Last administered on 06/12/17 17:00; Start 06/12/17 at 17:00; Stop 06/12/17 at 17:01; Status DC Sodium Polystyrene Sulfonate (Kayexalate Liq) 15 gm ONCE ONCE PO Last administered on 06/12/17 17:40; Start 06/12/17 at 14:45; Stop 06/12/17 at 16:42 ; Status DC Albumin Human 25 gm 25 gm ONCE ONCE IV Last administered on 06/12/17 17:44; Start 06/12/17 at 14:45; Stop 06/12/17 at 16:41; Status DC Sodium Bicarbonate 150 meq/Sterile Water 1,000 ml @ 150 mls/hr Q6H40M IV Last administered on 06/12/17 18:12; Start 06/12/17 at 14:45; Stop 06/12/17 at 21:24 ; Status DC Calcium Chloride 1 gm/Sodium Chloride 110 ml @ 110 mls/hr ONCE ONCE IV ; Start 06/12/17 at 17:00; Stop 06/12/17 at 17:59; Status Cancel Calcium Gluconate/ Sodium Chloride (Calcium Gluconate Inj/NS Inj) 110 ml @ 110 mls/hr ONCE ONCE IV Last administered on 06/12/17 18:14; Start 06/12/17 at 17 :00; Stop 06/12/17 at 17:59; Status DC Lorazepam (Ativan Inj) 1 mg ONCE ONCE IV PUSH ; Start 06/12/17 at 17:15; Stop 06/12/17 at 17:16; Status DC Sodium Bicarbonate (Sodium Bicarbonate 8.4% Inj) 50 meq STK-MED ONCE .ROUTE Last administered on 06/12/17 17:42; Start 06/12/17 at 17:39; Stop 06/12/17 at 17:40; Status DC Insulin Detemir 30 units 30 units Q12HR SQ Last administered on 06/15/17 09:08 ; Start 06/13/17 at 21:00; Stop 06/16/17 at 07:39; Status DC Vancomycin HCl/ Sodium Chloride (Vancomycin Inj/ NS 500 ml Inj) 522 ml @ 257.5 mls/ hr Q24H IV Last administered on 06/13/17 12:51; Start 06/13/17 at 11:00; Stop 06/14/17 at 09:30; Status DC Miscellaneous Information SPECIFIC LAB TO BE DARION... ONCE ONCE .XX ; Start 06/15 at 10:45; Stop 06/15/17 at 10:45; Status DC Alprazolam (Xanax) 0.25 mg ONCE ONCE PO Last administered on 06/15/17 01:05; Start 06/15/17 at 01:00; Stop 06/15/17 at 01:01; Status DC Guaifenesin/ Dextromethorphan 10 ml 10 ml Q6H PRN PO cough Last administered on 06/15/17 20:06; Start 06/15/17 at 01:00 Vancomycin HCl 1500 mg/Sodium Chloride 515 ml @ 257.5 mls/ hr ONCE ONCE IV Last administered on 06/15/17 10:14; Start 06/15/17 at 09:00; Stop 06/15/17 at 10:59; Status DC Ceftriaxone Sodium/Sodium Chloride (Rocephin Inj/NS Inj) 100 ml @ 200 mls/hr Q24H IV Last administered on 06/19/17 09:49; Start 06/15/17 at 09:00 Furosemide (Lasix Inj) 20 mg ONCE ONCE IV PUSH Last administered on 06/15/17 20:11; Start 06/15/17 at 19:15; Stop 06/15/17 at 19:18; Status DC Furosemide (Lasix Inj) 20 mg BID@09,18 IV PUSH Last administered on 06/19/17 09:48; Start 06/16/17 at 09:00 Insulin Detemir (Levemir Inj) 20 units Q12HR SQ Last administered on 06/16/17 22:05; Start 06/16/17 at 09:00; Status Hold Lorazepam (Ativan) 1 mg ONCE ONCE PO Last administered on 06/16/17 12:58; Start 06/16/17 at 12:45; Stop 06/16/17 at 12:55; Status DC Iohexol 80 ml 80 ml STK-MED ONCE IV Last administered on 06/16/17 14:08; Start 06/16/17 at 14:08; Stop 06/16/17 at 14:09; Status DC Heparin Sodium/ Sodium Chloride (Heparin-NS/Pf Inj) 500 ml @ As Directed STK- MED ONCE .ROUTE ; Start 06/16/17 at 15:47; Stop 06/16/17 at 15:48; Status DC Sodium Chloride (NS Flush) 2 ml BID IV FLUSH Last administered on 06/19/17 09: 00; Start 06/16/17 at 21:00 Sodium Chloride (NS Flush) 2 ml UNSCH PRN IV FLUSH FLUSH AFTER USING IV ACCESS ; Start 06/16/17 at 16:30 Miscellaneous Information 1 ONCE ONCE XX ; Start 06/16/17 at 16:30; Stop at 16:44; Status DC Iohexol (OMNIPAQUE 350 INJ (Coating And Baking Operator)) 50 ml STK-MED ONCE OTHER ; Start at 15:28; Stop 06/17/17 at 10:02; Status DC A/P Assessment and Plan A/P Severe sepsis - On admission: Significant leukocytosis, tachycardia, tachypnea, afebrile. -leukocytosis is worse today. - neg legionella and strep, and flu, UA neg - 06/12 Blood cultures +stretococcus bovis 02/25 - repeat blood cultures 06/15 NGTD - ID consulted: concern for endocarditis, started on Rocephin (06/15- ), vancomycin (06/13-06/15 ), ECHO did not show vegetations, for RIGO today. Anemia with Hemoccult-positive stools - GI following - s/p 2 units PRBC 06/12, has been stable since - Likely needs CT/EGD/colonoscopy- when cleared by cardiology. Aortic Stenosis - ECHO with severe symptomatic aortic valve stenosis. - Cards Dr. Park consulted: s/p heart cath on 06/16, CT surgery was consulted - patient was started on lasix 20 mg IV BID COPD - Continue breathing treatments - Home regimen duo nebs, Combivent Diabetes -accu-check with SSI - Home regimen: Metformin, NovoLog 30 units 3 times a day, 50 units Lantus twice a day Coronary artery disease Hypertension - Home regimen Cozaar (on hold due to initial hypotension) HAI - Resolved Allison James MD Jun 19, 2017 11:02
--- NOTE | 2017-06-19 13:52 | PD.CARD.PN ---
Subjective Subjective Remarks head up 45 degrees on 6l nc Objective Vital Signs / I&O Vital Signs Date Time Temp Pulse Resp B/P Pulse Ox O2 Delivery O2 Flow Rate FiO2 06/19/17 12:00 97.4 107 16 108/65 95 06/19/17 10:23 93 Nasal Cannula 6.00 06/19/17 08:00 96.2 105 18 125/82 93 06/19/17 07:32 Nasal Cannula 5.00 06/19/17 07:32 104 06/19/17 04:24 94 Nasal Cannula 6.00 06/19/17 04:00 96.4 106 24 135/81 93 06/19/17 00:00 97.4 110 20 118/78 91 06/18/17 22:14 96 Nasal Cannula 5.00 06/18/17 22:04 95 Nasal Cannula 6.00 06/18/17 20:10 107 06/18/17 20:00 97.5 110 20 111/75 96 06/18/17 16:00 97.1 112 18 142/74 94 I/O 06/18/17 06/18/17 06/18/17 06/19/17 06/19/17 06/19/17 07:00 15:00 23:00 07:00 15:00 23:00 Intake Total 240 ml 679 ml 340 ml Output Total 225 ml 500 ml 700 ml 200 ml Balance 15 ml 179 ml -360 ml -200 ml Intake Oral 240 ml 580 ml 340 ml IV Total 99 ml Output Urine Total 225 ml 500 ml 700 ml 200 ml # Voids 1 # Bowel Movements 1 Physical Exam GENERAL: SKIN: Warm and dry. HEAD: Normocephalic. EYES: No scleral icterus. No injection or drainage. NECK: Supple, trachea midline. No JVD or lymphadenopathy. CARDIOVASCULAR: Regular rate and rhythm without murmurs, gallops, or rubs. RESPIRATORY: Breath sounds equal bilaterally. No accessory muscle use. GASTROINTESTINAL: Abdomen soft, non-tender, nondistended. MUSCULOSKELETAL: No cyanosis, or edema. BACK: Nontender without obvious deformity. No CVA tenderness. Laboratory Laboratory Tests Test 06/18/17 06/19/17 17:12 03:31 Magnesium Level 1.9 MG/DL B-Type Natriuretic Peptide 322 PG/ML White Blood Count 20.7 TH/MM3 Red Blood Count 2.93 MIL/MM3 Hemoglobin 8.9 GM/DL Hematocrit 27.8 % Mean Corpuscular Volume 95.1 FL Mean Corpuscular Hemoglobin 30.3 PG Mean Corpuscular Hemoglobin 31.9 % Concent Red Cell Distribution Width 17.3 % Platelet Count 166 TH/MM3 Mean Platelet Volume 8.7 FL Neutrophils (%) (Auto) 87.4 % Lymphocytes (%) (Auto) 5.0 % Monocytes (%) (Auto) 6.2 % Eosinophils (%) (Auto) 0.8 % Basophils (%) (Auto) 0.6 % Neutrophils # (Auto) 18.1 TH/MM3 Lymphocytes # (Auto) 1.0 TH/MM3 Monocytes # (Auto) 1.3 TH/MM3 Eosinophils # (Auto) 0.2 TH/MM3 Basophils # (Auto) 0.1 TH/MM3 CBC Comment DIFF FINAL Differential Comment Sodium Level 140 MEQ/L Potassium Level 4.1 MEQ/L Chloride Level 101 MEQ/L Carbon Dioxide Level 30.1 MEQ/L Anion Gap 9 MEQ/L Blood Urea Nitrogen 17 MG/DL Creatinine 0.76 MG/DL Estimat Glomerular Filtration 102 ML/MIN Rate Random Glucose 176 MG/DL Calcium Level 8.0 MG/DL Assessment and Plan Problem List: (1) Coronary artery disease (2) COPD (chronic obstructive pulmonary disease) (3) Diabetes mellitus (4) Acute kidney injury (5) Diabetic neuropathy associated with type 2 diabetes mellitus (6) Severe sepsis (7) Hypertension (8) Aortic valve stenosis Assessment and Plan 1.) Severe - d/w Dr Stevens, most likely will need tavr when anemia and bacteremia resolves, continue diuresis, f//u bnp 2.) Bacteremia - yolie canceled due to hypoxia and currently not candidate for avr or tavr, so findings unlikely to director of materials management and risk/benefit ratio unfavorable Problem Qualifiers (1) Coronary artery disease: Qualified Code: I25.10 - Coronary artery disease involving barrow coronary artery without angina pectoris, unspecified whether barrow or transplanted heart (2) COPD (chronic obstructive pulmonary disease): Qualified Code: J44.9 - Chronic obstructive pulmonary disease, unspecified COPD type (3) Diabetes mellitus: Qualified Code: E11.65 - Type 2 diabetes mellitus with hyperglycemia, with long -term current use of insulin (4) Diabetic neuropathy associated with type 2 diabetes mellitus: Qualified Code: E11.42 - Diabetic polyneuropathy associated with type 2 diabetes mellitus (5) Hypertension: Qualified Code: I10 - Hypertension, unspecified type (6) Aortic valve stenosis: Qualified Code: I35.0 - Aortic valve stenosis, unspecified etiology Hai Park MD Jun 19, 2017 13:52
--- NOTE | 2017-06-19 17:52 | HHI.GIFU ---
Subjective Remarks Pt OOB to chair. mumbling. "I don't know what I mean." (Diana Leija) Objective Vitals I&O Vital Signs Date Time Temp Pulse Resp B/P Pulse Ox O2 Delivery O2 Flow Rate FiO2 06/19/17 16:00 97.7 109 18 118/76 93 06/19/17 15:30 108 06/19/17 12:00 97.4 107 16 108/65 95 06/19/17 10:23 93 Nasal Cannula 6.00 06/19/17 08:00 96.2 105 18 125/82 93 06/19/17 07:32 Nasal Cannula 5.00 06/19/17 07:32 104 06/19/17 04:24 94 Nasal Cannula 6.00 06/19/17 04:00 96.4 106 24 135/81 93 06/19/17 00:00 97.4 110 20 118/78 91 06/18/17 22:14 96 Nasal Cannula 5.00 06/18/17 22:04 95 Nasal Cannula 6.00 06/18/17 20:10 107 06/18/17 20:00 97.5 110 20 111/75 96 I/O 06/18/17 06/18/17 06/18/17 06/19/17 06/19/17 06/19/17 07:00 15:00 23:00 07:00 15:00 23:00 Intake Total 240 ml 679 ml 340 ml 100 ml Output Total 225 ml 500 ml 700 ml 200 ml 450 ml Balance 15 ml 179 ml -360 ml -200 ml -350 ml Intake Oral 240 ml 580 ml 340 ml 0 ml IV Total 99 ml 100 ml Output Urine Total 225 ml 500 ml 700 ml 200 ml 450 ml # Voids 1 # Bowel Movements 1 0 Laboratory Laboratory Tests Test 06/19/17 03:31 White Blood Count 20.7 Red Blood Count 2.93 Hemoglobin 8.9 Hematocrit 27.8 Mean Corpuscular Volume 95.1 Mean Corpuscular Hemoglobin 30.3 Mean Corpuscular Hemoglobin 31.9 Concent Red Cell Distribution Width 17.3 Platelet Count 166 Mean Platelet Volume 8.7 Neutrophils (%) (Auto) 87.4 Lymphocytes (%) (Auto) 5.0 Monocytes (%) (Auto) 6.2 Eosinophils (%) (Auto) 0.8 Basophils (%) (Auto) 0.6 Neutrophils # (Auto) 18.1 Lymphocytes # (Auto) 1.0 Monocytes # (Auto) 1.3 Eosinophils # (Auto) 0.2 Basophils # (Auto) 0.1 CBC Comment DIFF FINAL Differential Comment Sodium Level 140 Potassium Level 4.1 Chloride Level 101 Carbon Dioxide Level 30.1 Anion Gap 9 Blood Urea Nitrogen 17 Creatinine 0.76 Estimat Glomerular Filtration 102 Rate Random Glucose 176 Calcium Level 8.0 Date/Time Procedure Status Source Growth 06/16/17 04:20 Aerobic Blood Culture - Preliminary Resulted Blood Peripheral NO GROWTH IN 3 DAYS 06/16/17 04:20 Anaerobic Blood Culture - Preliminary Resulted Blood Peripheral NO GROWTH IN 3 DAYS Imaging Last Impressions Chest X-Ray 06/15/17 0000 Signed Impressions: Service Date/Time: Thursday, June 15, 2017 09:44 - CONCLUSION: Small bilateral pleural effusions and bibasilar atelectasis and/or infiltrate. Khadar Arboleda MD CT Angiography 06/15/17 0000 Signed Impressions: Service Date/Time: Friday, June 16, 2017 13:35 - CONCLUSION: 1. Small bilateral pleural effusions with adjacent alveolar consolidations consistent with compressive atelectasis and/or pneumonia. Clinical correlation is recommended. 2. Pleural calcifications within the bilateral posterior lung bases consistent with asbestos related pleural disease or fibrothorax. 3. Cardiomegaly. 4. No evidence of pulmonary embolism. 5. Ascites within the upper abdomen. Casimiro Lazo MD Abdomen Ultrasound 06/13/17 0000 Signed Impressions: Service Date/Time: Tuesday, June 13, 2017 15:35 - CONCLUSION: Limited study secondary to bowel gas and body habitus. Hepatic cysts are noted. Small amount of free fluid suspected. Lev Gandhi MD Lower Extremity Ultrasound 06/12/17 0000 Signed Impressions: Service Date/Time: May 18:32 - CONCLUSION: Normal examination. Lev Gandhi MD Physical Exam HEENT: PERRL; normocephalic; atraumatic; no jaundice. CHEST: diminished CARDIAC: Regular rate + murmur ABDOMEN: Soft, obese, nontender; no hepatosplenomegaly; bowel sounds are present in all four quadrants. EXTREMITIES: No clubbing, cyanosis, + edema BLE, SKIN: no rash; no jaundice. 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 H/H on admission was 8.0/25.2. S/P 2 units PRBC and has been stable. 1st hemoccult negative in the ER, but rpt was positive. + Melanotic stool previously. Initially, the patient told me that he has had black stools for the past 18 months and no one can ever find out where its coming from. He states that he has had stool samples sent and they always come back with no blood, but denied ever having an EGD or Colonoscopy. As soon as I mentioned EGD/Colonoscopy, he denied any bleeding or GI symptoms. - GIB with melanotic stool. S/P 2 units PRBC. HH stable - ? Abdominal pain. He did complain of this to other providers, but denied. initially refused procedures, CT scan. now agreeable. - Sepsis/leukocytosis/lactic acidosis/bacteremia. BCx with GPC, Streptococcus species. Vanco, Azactam, Flagyl. - HAI with electrolyte abnormalities. Improved. - DM, CAD, COPD, HTN, Neuropathy per attending. - aortic stenosis - per cardiology, may need surgery but not currently candidate , RIGO cancelled PLAN: - EGD/colonoscopy if cardiology clears - EZEQUIEL - Cont. PPI - Monitor HH - Transfuse as necessary - Supportive care - Further recommendations to follow based on results of above - Pt seen and examined by Dr. You and this note is written on his behalf ( Diana Leija) Physician Comments Patient seen and examined Agree with above Continue with current supportive care Monitor labs (Isac You MD) Diana Leija Jun 19, 2017 17:52 Isac You MD Jun 19, 2017 21:32
[2017-06-20] VITALS (9 sets, daily range): BP systolic 103–135; BP diastolic 63–79; PULSE 70–112; RESP 17–22; TEMP 96.2–97.3; O2SAT 92–98
[2017-06-20] MEDS: CHLORHEXIDINE GLUCONATE 2 % 1 PACK (2 CLOTHS) TOP SCH (04:00)
[2017-06-20] MEDS: INSULIN NovoLIN REGULAR SUPPLEMENTAL SCALE SQ SCH ×4 (06:14→20:46)
[2017-06-20] MEDS: SODIUM CHLORIDE 0.9% FLUSH 10 ML FLUSH IV FLUSH SCH ×2 (09:00→20:41)
[2017-06-20] MEDS: cefTRIAXone INJ 2,000 MG in SODIUM CHLORIDE 0.9% INJ 100 ML IV SCH (09:18)
[2017-06-20] MEDS: DOCUSATE SODIUM 50 MG/SENNA 8.6 MG TAB PO SCH ×2 (09:18→20:41)
[2017-06-20] MEDS: FUROSEMIDE 20 MG/2 ML VIAL IV PUSH SCH ×2 (09:18→18:02)
[2017-06-20] MEDS: PANTOPRAZOLE SODIUM 40 MG VIAL IV SCH (09:19)
--- NOTE | 2017-06-20 10:41 | PD.CARD.PN ---
Subjective Subjective Remarks c/o being kept npo and dyspnea when standing getting bathed by aide Objective Vital Signs / I&O Vital Signs Date Time Temp Pulse Resp B/P Pulse Ox O2 Delivery O2 Flow Rate FiO2 06/20/17 09:51 Room Air 06/20/17 07:59 96.2 107 18 103/66 93 06/20/17 04:11 96.9 108 22 118/79 93 06/19/17 23:50 96.3 109 22 117/64 93 06/19/17 20:00 96.6 100 18 116/65 92 06/19/17 20:00 110 06/19/17 19:21 93 Nasal Cannula 6.00 06/19/17 16:00 97.7 109 18 118/76 93 06/19/17 15:30 108 06/19/17 12:00 97.4 107 16 108/65 95 I/O 06/19/17 06/19/17 06/19/17 06/20/17 06/20/17 06/20/17 07:00 15:00 23:00 07:00 15:00 23:00 Intake Total 100 ml 280 ml 240 ml Output Total 200 ml 450 ml 380 ml 280 ml Balance -200 ml -350 ml -100 ml -40 ml Intake Oral 0 ml 280 ml 240 ml IV Total 100 ml Output Urine Total 200 ml 450 ml 380 ml 280 ml # Bowel Movements 0 Physical Exam GENERAL: SKIN: Warm and dry. HEAD: Normocephalic. EYES: No scleral icterus. No injection or drainage. NECK: Supple, trachea midline. No JVD or lymphadenopathy. CARDIOVASCULAR: Regular rate and rhythm without murmurs, gallops, or rubs. RESPIRATORY: Breath sounds equal bilaterally. No accessory muscle use. GASTROINTESTINAL: Abdomen soft, non-tender, nondistended. MUSCULOSKELETAL: No cyanosis, or edema. BACK: Nontender without obvious deformity. No CVA tenderness. Assessment and Plan Problem List: (1) Coronary artery disease (2) COPD (chronic obstructive pulmonary disease) (3) Diabetes mellitus (4) Acute kidney injury (5) Diabetic neuropathy associated with type 2 diabetes mellitus (6) Severe sepsis (7) Hypertension (8) Aortic valve stenosis Assessment and Plan 1.) Severe - d/w Dr Stevens, most likely will need tavr when anemia and bacteremia resolves, continue diuresis, f//u bnp 2.) Bacteremia - yolie canceled due to hypoxia and currently not candidate for avr or tavr, so findings unlikely to pipe changer and risk/benefit ratio unfavorable 3.) Palliative care consulted due to poor prognosis due to multiple co morbidities and limited treatment options Problem Qualifiers (1) Coronary artery disease: Qualified Code: I25.10 - Coronary artery disease involving [place] coronary artery without angina pectoris, unspecified whether [place] or transplanted heart (2) COPD (chronic obstructive pulmonary disease): Qualified Code: J44.9 - Chronic obstructive pulmonary disease, unspecified COPD type (3) Diabetes mellitus: Qualified Code: E11.65 - Type 2 diabetes mellitus with hyperglycemia, with long -term current use of insulin (4) Diabetic neuropathy associated with type 2 diabetes mellitus: Qualified Code: E11.42 - Diabetic polyneuropathy associated with type 2 diabetes mellitus (5) Hypertension: Qualified Code: I10 - Hypertension, unspecified type (6) Aortic valve stenosis: Qualified Code: I35.0 - Aortic valve stenosis, unspecified etiology Hai Park MD Jun 20, 2017 10:41
[2017-06-20] MEDS: MORPHINE SULFATE 4 MG/ML INJ IV PRN ×2 (12:21→18:01)
--- NOTE | 2017-06-20 12:27 | PD.CONS ---
Consult Service Palliative Care Consult Requested By Yessy Park MD. Primary Care Physician [facility] Reason for Consultation a. To assist with evaluation and management of symptoms including: Shortness of breath and debility. b. To assist medical decision maker(s) with: better understanding of current medical conditions; weighing benefits/burdens of medical treatment options; making medical treatment decisions. . HPI History of Present Illness Mr. Khan is a 66-year-old male with a medical history significant for COPD, morbid obesity, CAD, hypertension and diabetes mellitus type 2. Patient presented to the emergency room on 06/12/17 endorsing worsening shortness of breath for the higher 2 days. Patient was found with leukocytosis at 24.0, anemia at 8.0 and elevated lactic acid at 5.4. Lower extremity ultrasound negative for DVT. Chest x-ray revealing bibasilar densities likely representing atelectasis. Abdominal ultrasound limited secondary to body habitus, hepatic cyst noted. Patient was transfused 2 pack of red blood cells and empirically covered with antibiotics and admitted for further management. GI, Dr. Corbett consulted on 06/13/17 for evaluation of anemia with positive Hemoccult, patient considering GI workup at that time. ID, Dr. Durán consulted on 06/14/17 for evaluation of persistent leukocytosis. Blood cultures 06/12/17 positive for Streptococcus bovis and Staph Coagulase negative. Echocardiogram 06/13/17 revealing EF at 45%, severe aortic stenosis -no vegetation. Cardiology, Dr. Yessy Park consulted. Patient underwent left heart catheter on 06/16/17. Cardiothoracic surgery, Dr. James consulted on 06/18 for evaluation of severe aortic stenosis. Patient not a candidate for aVR secondary to multiple ongoing comorbidities, sepsis and anemia. As per cardiothoracic surgery And cardiology, patient may eventually be a candidate for high risk TAVR once anemia and sepsis is resolved. Patient highly symptomatic, palliative care has been consulted for further clarifications of goals of care given poor prognosis with limited treatment options. Patient seen in his room, he was sitting up in a recliner chair in moderate distress. Endorsing dyspnea at rest and pain/burning sensation to his buttocks. Patient requiring frequent repositioning. Patient alert and oriented x self, place and situation. Confused as to date and time. Sleepy at times during my conversation. Patient afebrile, tachycardic with heart rate in the low 110s. Stable hemodynamically. Currently on 4 L nasal cannula, oxygen saturation in the low 90s. No new laboratory or imaging for review. Spoke with patient. Obtained past medical and psychosocial history. Reviewed events leading to these hospitalization, clinical course and current medical management. Reviewed current clinical issues to include severe symptomatic aortic stenosis, sepsis and anemia. Patient seen at times confused, poor understanding on his medical condition. Patient asked me to call his friend Maday as he reports that he "does not understand anything about was is going on ". Patient reports that [facility], however , does not know if he has a copy at home. Patient reports that he will like to designate friend Maday as healthcare surrogate, however, declines to complete form today unless friend Maday is present. Telephone conversation with patient's friend Tere (Maday). Discussed patient' s clinical condition to include severe aortic valve stenosis, neck and a candidate for AVR given his multiple ongoing comorbidities, sepsis and anemia. Discussed limited treatment options which carry poor prognosis. Friend unable to come to the hospital today for a meeting. Scheduled meeting for Friday, 06/23 13:00. Maday to locate advance directives in patient's apartment. . Function/Cognitive Trajectory Patient with functional decline worsening for the past year. Residing independently prior to these acute hospitalization. Using cane outside of the home, mostly independent with ADLs. Requiring assistance from friend Maday for grocery shopping. Unclear as cognitive decline has been reported. . Review of Systems ROS Limitations: Poor Historian Constitutional: COMPLAINS OF: Fatigue, Change in appetite, Pain, Generalized weakness Endocrine: DENIES: Heat/cold intolerance Eyes: DENIES: Eye pain Ears, nose, mouth, throat: DENIES: Hearing loss, Ear Pain, Running Nose Respiratory: COMPLAINS OF: Snoring, Shortness of breath Cardiovascular: COMPLAINS OF: Dyspnea on Exertion, Lower Extremity Edema, Orthopnea Gastrointestinal: COMPLAINS OF: Abdominal pain, DENIES: Vomiting, Difficulty Swallowing Genitourinary: DENIES: Urinary incontinence Musculoskeletal: COMPLAINS OF: Stiffness, Joint Swelling Integumentary: COMPLAINS OF: Abnormal pigmentation, Excessive dryness Hematologic/Lymphatics: COMPLAINS OF: Bruising Neurologic: DENIES: Localized weakness, Speech Problems Psychiatric: COMPLAINS OF: Anxiety, Depression, DENIES: Agitation Past Family Social History Coded Allergies: Penicillin (Verified Allergy, Mild, 06/12/17) Past Medical History COPD Morbid obesity CAD Hypertension Diabetes mellitus type 2 Peripheral neuropathy . Past Surgical History Tonsillectomy . Reported Medications K-Dur (Potassium Chloride) 10 Meq Tabcr 10 Meq PO DAILY Lasix (Furosemide) 40 Mg Tab 40 Mg PO DAILY Resp: Albuterol 2.5 Mg/Ipratropium 0.5 Mg (Albuterol/Ipratropium) 1 Amp Nebu 1 Amp NEB QID Combivent (Albuterol/Ipratropium) 14.7 Gm Aer 2 Puff INH Q6HPRN Cozaar (Losartan Potassium) 100 Mg Tab 100 Mg PO BID Metformin ER 24 HR (Metformin HCl) 1,000 Mg Tab 1,000 Mg PO BID Novolog (Insulin Aspart) 100 Units/Ml Inj 30 Units SQ TIDAC Lantus (Insulin Glargine) 100 Units/Ml Inj 50 Units SQ BID . Current Medications Medications (Trade) Dose Ordered Sig/Jonnie Route Start Time Stop Time Status Last Admin Miscellaneous Information 1 [id number] XX 06/12/17 09:45 (Chlorhexidine 2% Cloth) Taper DAILY@04 TOP 06/13/17 04:00 06/09/18 03:59 06/14/17 04:00 (Chlorhexidine 2% Cloth) 3 pack UNSCH PRN TOP 06/12/17 09:45 (Tylenol) 650 mg Q6H PRN PO 06/12/17 09:45 06/18/17 03:51 ([place] 5-325 Mg) 1 tab Q4H PRN PO 06/12/17 09:45 06/13/17 03:11 (Morphine Inj) 2 mg Q2H PRN IV 06/12/17 09:45 06/19/17 14:14 (Protonix Inj) 40 mg DAILY IV 06/13/17 09:00 06/20/17 09:19 (Zofran Inj) 4 mg Q6H PRN IV 06/12/17 09:45 (Cuca-Colace) 1 tab BID PO 06/12/17 21:00 06/20/17 09:18 (Milk Of Magnesia Liq) 30 ml Q12H PRN PO 06/12/17 09:45 (Senokot) 17.2 mg Q12H PRN PO 06/12/17 09:45 (Dulcolax Supp) 10 mg DAILY PRN RECTAL 06/12/17 09:45 (Lactulose Liq) 30 ml DAILY PRN PO 06/12/17 09:45 (D50w (Syr) Inj) 50 ml UNSCH PRN IV 06/12/17 09:45 06/15/17 11:18 (Glucagon Inj) 1 mg UNSCH PRN OTHER 06/12/17 09:45 Guaifenesin/ Dextromethorphan 10 ml 10 ml Q6H PRN PO 06/15/17 01:00 06/15/17 20:06 (Rocephin Inj/NS Inj) 100 ml @ 200 mls/hr Q24H IV 06/15/17 09:00 06/20/17 09:18 (Lasix Inj) 20 mg BID@09,18 IV PUSH 06/16/17 09:00 06/20/17 09:18 (Levemir Inj) 20 units Q12HR SQ 06/16/17 09:00 Hold 06/16/17 22:05 (NS Flush) 2 ml BID IV FLUSH 06/16/17 21:00 06/19/17 21:00 (NS Flush) 2 ml UNSCH PRN IV FLUSH 06/16/17 16:30 Family History Mother with history of coronary disease. . Substance Use Tobacco: Former tobacco use, quit 15 years ago. [id number] history. Alcohol: Denies. Prescription med abuse: Denies. Illicits: Denies. . Psychosocial History Patient originally from [place]. Moved to [place] over 40 years ago. He is a , has 1 son Ismael Khan. Retired 8 years ago secondary to COPD. 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 Reports exposure to [place]. . Spiritual/Cultural Factors No judaism affiliation. . Living Will: Completed, but not made available Health Care Surrogate: Completed, but not made available Health Care Surrogate(s): Reports that [facility]. pending copy of documents. Today's verbally stated goals: Full code. Continue current medical management, ongoing goals of care conversation. . Ethical and Legal Issues No ethical issues have been identified. . Physical Exam Vital Signs Date Time Temp Pulse Resp B/P Pulse Ox O2 Delivery O2 Flow Rate FiO2 06/20/17 09:51 Room Air 06/20/17 07:59 96.2 107 18 103/66 93 06/20/17 07:40 94 Nasal Cannula 4.00 06/20/17 04:11 96.9 108 22 118/79 93 06/19/17 23:50 96.3 109 22 117/64 93 06/19/17 20:00 96.6 100 18 116/65 92 06/19/17 20:00 110 06/19/17 19:21 93 Nasal Cannula 6.00 06/19/17 16:00 97.7 109 18 118/76 93 06/19/17 15:30 108 06/19/17 06/20/17 18:59 06:59 Intake Total 100 ml 520 ml Output Total 450 ml 660 ml Balance -350 ml -140 ml Intake Oral 0 ml 520 ml IV Total 100 ml Output Urine Total 450 ml 660 ml # Bowel Movements 0 Exam CONSTITUTIONAL/GENERAL: This is an obese man sitting up in a recliner chair in moderate distress secondary to increased work of breathing. TUBES/LINES/DRAINS: PIV's, nasal cannula. SKIN: No jaundice. Ecchymoses on upper extremities. Skin temperature appropriate. Not diaphoretic. Vascular skin changes to bilateral lower extremities. HEAD: Atraumatic. Normocephalic. EYES: Pupils equal and round and reactive. Extraocular motions intact. No scleral icterus. No injection or drainage. ENT: Hearing grossly normal. Nose without bleeding or purulent drainage. Moist oral mucosa. Poor dentition. NECK: Trachea midline. Supple. CARDIOVASCULAR: Regular rate and rhythm. RESPIRATORY/CHEST: Symmetric, increased work of breathing. Diminished to auscultation. GASTROINTESTINAL: Abdomen large, obese, round. Unable to evaluate for hepatomegaly secondary to body habitus, obesity. GENITOURINARY: Unable to evaluate for bladder distension secondary to body habitus, obesity. MUSCULOSKELETAL: Extremities without clubbing, cyanosis. Edema to bilateral lower lower extremities and hands. NEUROLOGICAL: Awake and alert x self, place and situation. Disoriented as to time and date. Confused/forgetful at times. Moves all extremities. Follows commands. PSYCHIATRIC: Anxious at times. . Diagnostic Tests Laboratory Laboratory Tests Test 06/18/17 06/18/17 06/18/17 06/19/17 07:25 10:33 17:12 03:31 Urine Eosinophils NONE SEEN /HPF (NONE SEEN) Urine Random Creatinine 113.9 MG/DL Urine Random Sodium 14 MEQ/L Urine Color YELLOW (YELLW/STRAW) Urine Turbidity CLEAR (CLEAR) Urine pH 5.0 (5.0-8.5) Urine Specific [place] 1.009 (1.002-1.035) Urine Protein NEG mg/dL (NEG-TRACE) Urine Glucose (UA) NEG mg/dL (NEG) Urine Ketones NEG mg/dL (NEG) Urine Occult Blood SMALL (NEG) Urine Nitrite NEG (NEG) Urine Bilirubin NEG (NEG) Urine Urobilinogen LESS THAN 2.0 MG/DL (LESS THAN 2.0) Urine Leukocyte Esterase TRACE (NEG) Urine RBC 40 /hpf (0-3) Urine WBC 3 /hpf (0-5) Urine Squamous Epithelial <1 /hpf (0-5) Cells Urine Bacteria RARE /hpf (NONE) Urine Hyaline Casts 2 /lpf (RARE) Urine Mucus FEW /lpf (OCC) Urine Yeast (Budding) FEW (NONE) Microscopic Urinalysis Comment CULT NOT INDICATED Magnesium Level 1.9 MG/DL (1.5-2.5) B-Type Natriuretic Peptide 322 PG/ML (0-100) White Blood Count 20.7 TH/MM3 (4.0-11.0) Red Blood Count 2.93 MIL/MM3 (4.50-5.90) Hemoglobin 8.9 GM/DL (13.0-17.0) Hematocrit 27.8 % (39.0-51.0) Mean Corpuscular Volume 95.1 FL (80.0-100.0) Mean Corpuscular Hemoglobin 30.3 PG (27.0-34.0) Mean Corpuscular Hemoglobin 31.9 % Concent (32.0-36.0) Red Cell Distribution Width 17.3 % (11.6-17.2) Platelet Count 166 TH/MM3 (150-450) Mean Platelet Volume 8.7 FL (7.0-11.0) Neutrophils (%) (Auto) 87.4 % (16.0-70.0) Lymphocytes (%) (Auto) 5.0 % (9.0-44.0) Monocytes (%) (Auto) 6.2 % (0.0-8.0) Eosinophils (%) (Auto) 0.8 % (0.0-4.0) Basophils (%) (Auto) 0.6 % (0.0-2.0) Neutrophils # (Auto) 18.1 TH/MM3 (1.8-7.7) Lymphocytes # (Auto) 1.0 TH/MM3 (1.0-4.8) Monocytes # (Auto) 1.3 TH/MM3 (0-0.9) Eosinophils # (Auto) 0.2 TH/MM3 (0-0.4) Basophils # (Auto) 0.1 TH/MM3 (0-0.2) CBC Comment DIFF FINAL Differential Comment Sodium Level 140 MEQ/L (136-145) Potassium Level 4.1 MEQ/L (3.5-5.1) Chloride Level 101 MEQ/L (98-107) Carbon Dioxide Level 30.1 MEQ/L (21.0-32.0) Anion Gap 9 MEQ/L (5-15) Blood Urea Nitrogen 17 MG/DL (7-18) Creatinine 0.76 MG/DL (0.60-1.30) Estimat Glomerular Filtration 102 ML/MIN Rate (>89) Random Glucose 176 MG/DL (74-106) Calcium Level 8.0 MG/DL (8.5-10.1) Result Diagram: 06/19/17 0331 06/19/17 0331 Microbiology Microbiology Date/Time Procedure Status Source Growth 06/16/17 04:20 Aerobic Blood Culture - Preliminary Resulted Blood Peripheral NO GROWTH IN 4 DAYS 06/16/17 04:20 Anaerobic Blood Culture - Preliminary Resulted Blood Peripheral NO GROWTH IN 4 DAYS Imaging Last Impressions Chest X-Ray 06/15/17 0000 Signed Impressions: Service Date/Time: Thursday, June 15, 2017 09:44 - CONCLUSION: Small bilateral pleural effusions and bibasilar atelectasis and/or infiltrate. Khadar Arboleda MD CT Angiography 06/15/17 0000 Signed Impressions: Service Date/Time: Friday, June 16, 2017 13:35 - CONCLUSION: 1. Small bilateral pleural effusions with adjacent alveolar consolidations consistent with compressive atelectasis and/or pneumonia. Clinical correlation is recommended. 2. Pleural calcifications within the bilateral posterior lung bases consistent with asbestos related pleural disease or fibrothorax. 3. Cardiomegaly. 4. No evidence of pulmonary embolism. 5. Ascites within the upper abdomen. Casimiro Lazo MD Abdomen Ultrasound 06/13/17 0000 Signed Impressions: Service Date/Time: Tuesday, June 13, 2017 15:35 - CONCLUSION: Limited study secondary to bowel gas and body habitus. Hepatic cysts are noted. Small amount of free fluid suspected. Lev Gandhi MD Lower Extremity Ultrasound 06/12/17 0000 Signed Impressions: Service Date/Time: May 18:32 - CONCLUSION: Normal examination. Lev Gandhi MD Procedures * 06/16/17 -cardiac catheterization. . Patient/Family Conference Present at Family Conference: Patient. Friend Maday via telephone. Family Conference Time (mins): 48 Family Conference Location: Bedside, Telephone Issues Discussed: * Palliative care role, purpose, approach * Additional medical, psychosocial, and spiritual history * Patients general health, functional status, and cognitive changes in the months leading up to the current hospitalization * Patient/family understanding of the current medical problems -severe aortic valve stenosis, sepsis, anemia. * Patient/family understanding of prognosis -poor prognosis with limited treatment options. * Patients goals of care as best understood from advance directives and/or conversations and/or values * Current medical treatment options and benefits/burdens of those options * Questions answered to the best of my ability * Palliative care contact information provided * Risks, benefits and limitations of CPR given patient's clinical condition with multiple comorbidities. . Assessment and Plan Disease Oriented Problem List: (1) Aortic valve stenosis (2) Sepsis (3) COPD (chronic obstructive pulmonary disease) (4) Anemia (5) Diabetes mellitus (6) Coronary artery disease (7) Hypertension (8) BMI 50.0-59.9, adult Symptom Scale: (1) Shortness of breath 0-10 Scale: Unable to quantify Comment: Secondary to COPD, anemia, acute illness/sepsis. . (2) Debility 0-10 Scale: Unable to quantify Comment: Progressive. Exacerbated by acute injury and prolonged hospitalization. . Pertinent Non-Medical Issues Psychosocial: Patient originally from [place]. Moved to [place] over 40 years ago. He is a , has 1 son Ismael Khan. Retired 8 years ago secondary to COPD. 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 Spiritual: No judaism affiliation. Legal: Reports that advance directives have been completed through the [facility]. Ethical issues impacting care: No ethical issues identified at this time. . Important Contacts Patient's friend Tere Talamantes Pt's mother Queenie Cruz . . Prognosis Mr. Khan is a 66-year-old male with a medical history significant for COPD, morbid obesity, CAD, hypertension and diabetes mellitus type 2. Patient with newly diagnosed severe aortic valve stenosis with limited treatment options secondary to multiple chronic comorbidities, sepsis and anemia. Poor prognosis for an improved quality of life. 2 year mortality around 50% if aortic valve is not replaced. Patient at high risk for further complications, continue decline and . . Code Status: Full Code Plan * CODE STATUS: Full code. Patient declined discussing code status unless his friend Maday is present. * HEALTHCARE DECISION-MAKING: Patient participating in medical decision-making; however, demonstrates poor insight into his complicated medical issues. It is unclear if patient fully understands the potential burden vs benefits of treatment options. Patient reports that advance directives have been completed at the [place], he designated friend Tere Talamantes (Tammy) as HCS. Friend Maday to locate a AD and bring copy. In the absence of AD, proxy decision-making falls to patient's son Ismael Khan. Palliative care recommends shared decision-making with HCS. * GOALS OF CARE: Patient electing to continue current medical management while ongoing goals of care discussion. Patient declined to discuss current medical issues and limited treatment options, he reports "not knowing anything about what is going on". Demonstrates poor insight into his complicated medical issues. Patient wishing to have his friend Tere Talamantes (Tammy) present during any goals of care conversation. Meeting with patient and friend Maday has been scheduled for Friday06/23/17 at 13:00. Palliative care will continue to follow-up. * SYMPTOMS: = Shortness of breath, multifactorial. Secondary to COPD, anemia, sepsis. Currently on 4L NC. = Debility, progressive. Worsened during the past year. Exacerbated by acute illness. * Palliative care contact information has been provided to patient and friend Tere. * Palliative care will continue to follow-up for further clarifications of goals of care as patient's clinical course continues to evolve. . Time Spent Total Floor Time (mins): 62 (Total time to include review and summarization of available medical records to include prior hospitalizations, physical exam, goals of care conversation with patient, goals of care conversation with patient 's friend Maday via telephone.) >50% Counseling/Coord of Care: Yes Thank you for the opportunity to participate in the care of Mr. Khan. Attestation To help prompt me to consider important information that might be impacting today's encounter and assessment, information from prior notes written by myself or my colleagues may have been "brought forward" into today's note. My signature on this note, however, is an attestation that I personally performed the exam, history, and/or decision-making noted today, and, unless otherwise indicated, the interactions with patient, family, and staff as well as the review of records all occurred today. I also attest that the listed assessment and stated plan reflect my best clinical judgment today based on the combination of historical information, prior notes, and today's exam/ interactions. When time spent is documented, it refers only to time spent today by the signer, or if indicated, combined time spent today by collaborating physician/nurse practitioner. Camilla Marquez Jun 20, 2017 12:27
--- NOTE | 2017-06-20 13:00 | HHI.PR ---
Subjective Remarks in no acute distress. but on oxygen via [place]. has some back pain. afebrile. Objective Vitals Vital Signs Date Time Temp Pulse Resp B/P Pulse Ox O2 Delivery O2 Flow Rate FiO2 06/20/17 12:00 96.8 111 19 116/71 92 06/20/17 09:51 Room Air 06/20/17 07:59 96.2 107 18 103/66 93 06/20/17 07:40 94 Nasal Cannula 4.00 06/20/17 04:11 96.9 108 22 118/79 93 06/19/17 23:50 96.3 109 22 117/64 93 06/19/17 20:00 96.6 100 18 116/65 92 06/19/17 20:00 110 06/19/17 19:21 93 Nasal Cannula 6.00 06/19/17 16:00 97.7 109 18 118/76 93 06/19/17 15:30 108 I/O 06/19/17 06/19/17 06/19/17 06/20/17 06/20/17 06/20/17 07:00 15:00 23:00 07:00 15:00 23:00 Intake Total 100 ml 280 ml 240 ml Output Total 200 ml 450 ml 380 ml 280 ml Balance -200 ml -350 ml -100 ml -40 ml Intake Oral 0 ml 280 ml 240 ml IV Total 100 ml Output Urine Total 200 ml 450 ml 380 ml 280 ml # Bowel Movements 0 Result Diagram: 06/19/17 0331 06/19/17 0331 Imaging Last Impressions Chest X-Ray 06/15/17 0000 Signed Impressions: Service Date/Time: Thursday, June 15, 2017 09:44 - CONCLUSION: Small bilateral pleural effusions and bibasilar atelectasis and/or infiltrate. Khadar Arboleda MD CT Angiography 06/15/17 0000 Signed Impressions: Service Date/Time: Friday, June 16, 2017 13:35 - CONCLUSION: 1. Small bilateral pleural effusions with adjacent alveolar consolidations consistent with compressive atelectasis and/or pneumonia. Clinical correlation is recommended. 2. Pleural calcifications within the bilateral posterior lung bases consistent with asbestos related pleural disease or fibrothorax. 3. Cardiomegaly. 4. No evidence of pulmonary embolism. 5. Ascites within the upper abdomen. Casimiro Lazo MD Abdomen Ultrasound 06/13/17 0000 Signed Impressions: Service Date/Time: Tuesday, June 13, 2017 15:35 - CONCLUSION: Limited study secondary to bowel gas and body habitus. Hepatic cysts are noted. Small amount of free fluid suspected. Lev Gandhi MD Lower Extremity Ultrasound 06/12/17 0000 Signed Impressions: Service Date/Time: May 18:32 - CONCLUSION: Normal examination. Lev Gandhi MD Objective Remarks GENERAL: This is a well-nourished, well-developed patient, in no apparent distress. CARDIOVASCULAR: Regular rate and regular rhythm . RESPIRATORY:mild bilateral wheezing. GASTROINTESTINAL: Abdomen soft, non-tender, nondistended. Normal, active bowel sounds MUSCULOSKELETAL: Extremities with bilateral pedal edema. NEURO: Alert & Oriented x4 to person, place, time, situation. Moves all ext x4 Medications and IVs Current Medications Sodium Chloride (NS Flush) 2 ml UNSCH PRN IVF FLUSH AFTER USING IV ACCESS; Start 06/12/17 at 07:30; Stop 06/12/17 at 10:37; Status DC Methylprednisolone Sodium Succinate (SoluMEDROL INJ) 125 mg ONCE ONCE IVP Last administered on 06/12/17 08:25; Start 06/12/17 at 07:30; Stop 06/12/17 at 07:31; Status DC Albuterol/ Ipratropium 1 ampule 1 ampule Q15M INH Last administered on 08:24; Start 06/12/17 at 07:30; Stop 06/12/17 at 08:01; Status DC Vancomycin HCl 2200 mg/Sodium Chloride 522 ml @ 250 mls/hr ONCE ONCE IV Last administered on 06/12/17 08:48; Start 06/12/17 at 08:15; Stop 06/12/17 at 10:20 ; Status DC Piperacillin Sod/ Tazobactam Sod 50 ml @ 100 mls/hr ONCE ONCE IV Last administered on 06/12/17 08:25; Start 06/12/17 at 08:15; Stop 06/12/17 at 08:44 ; Status DC Sodium Chloride 1,000 ml @ 999 mls/hr BOLUS ONCE IV Last administered on 06/12 08:26; Start 06/12/17 at 08:15; Stop 06/12/17 at 09:15; Status DC Sodium Chloride (NS 1000 ml Inj) 1,000 ml @ 999 mls/hr BOLUS ONCE IV Last administered on 06/12/17 09:06; Start 06/12/17 at 08:45; Stop 06/12/17 at 09:45 ; Status DC Calcium Gluconate (Calcium Gluconate Inj) 1 gm ONCE ONCE SLOW IVP Last administered on 06/12/17 09:06; Start 06/12/17 at 08:45; Stop 06/12/17 at 08:46 ; Status DC Insulin Human Regular (NovoLIN R INJ) 10 units ONCE ONCE IV PUSH Last administered on 06/12/17 09:11; Start 06/12/17 at 08:45; Stop 06/12/17 at 08:46 ; Status DC Dextrose 50 ml 50 ml ONCE ONCE IV PUSH ; Start 06/12/17 at 08:45; Stop at 08:46; Status DC Sodium Chloride (NS 250 ml Inj) 250 ml @ 15 mls/hr ONCE ONCE IV ; Start at 09:00; Stop 06/13/17 at 01:39; Status DC Dextrose 50 ml 50 ml STK-MED ONCE .ROUTE Last administered on 06/12/17 09:06; Start 06/12/17 at 09:02; Stop 06/12/17 at 09:03; Status DC Pharmacy Profile Note 0 ml @ 0 mls/hr UNSCH OTHER ; Start 06/12/17 at 09:45; Stop 06/14/17 at 09:30; Status DC Aztreonam 2000 mg/ Sodium Chloride 100 ml @ 200 mls/hr Q8H IV Last administered on 06/14/17 04:33; Start 06/12/17 at 12:00; Stop 06/14/17 at 09:30 ; Status DC Metronidazole (Flagyl 500 Mg Inj) 100 ml @ 100 mls/hr Q8H IV Last administered on 06/14/17 03:03; Start 06/12/17 at 11:00; Stop 06/14/17 at 09:30 ; Status DC Miscellaneous Information 1 Q361D XX ; Start 06/12/17 at 09:45 Chlorhexidine Gluconate (Chlorhexidine 2% Cloth) Taper DAILY@04 TOP Last administered on 06/14/17 04:00; Start 06/13/17 at 04:00; Stop 06/09/18 at 03:59 Chlorhexidine Gluconate 3 pack 3 pack UNSCH PRN TOP HYGIENIC CARE; Start at 09:45 Sodium Chloride (NS 1000 ml Inj) 1,000 ml @ 84 mls/hr [id number] IV Last administered on 06/15/17 20:06; Start 06/12/17 at 09:44; Stop 06/16/17 at 07:39 ; Status DC Sodium Chloride (NS Flush) 2 ml UNSCH PRN IV FLUSH FLUSH AFTER USING IV ACCESS ; Start 06/12/17 at 09:45; Stop 06/16/17 at 16:45; Status DC Sodium Chloride (NS Flush) 2 ml BID IV FLUSH Last administered on 06/15/17 09: 01; Start 06/12/17 at 21:00; Stop 06/16/17 at 16:45; Status DC Acetaminophen (Tylenol) 650 mg Q6H PRN PO FEVER >101F Last administered on 03:51; Start 06/12/17 at 09:45 Acetaminophen/ Hydrocodone Bitart ([place] 5-325 Mg) 1 tab Q4H PRN PO PAIN SCALE 1 TO 5 Last administered on 06/13/17 03:11; Start 06/12/17 at 09:45 Morphine Sulfate (Morphine Inj) 2 mg Q2H PRN IV PAIN SCALE 6 TO 10 Last administered on 06/20/17 12:21; Start 06/12/17 at 09:45 Pantoprazole Sodium (Protonix Inj) 40 mg DAILY IV Last administered on 09:19; Start 06/13/17 at 09:00 Ondansetron HCl (Zofran Inj) 4 mg Q6H PRN IV NAUSEA OR VOMITING; Start at 09:45 Albuterol/ Ipratropium (Duoneb Neb) 1 ampule Q4HR NEB INH Last administered on 06/16/17 09:33; Start 06/12/17 at 12:00; Stop 06/16/17 at 12:00; Status DC Albuterol Sulfate (Albuterol Neb) 2.5 mg Q2HR NEB PRN INH SOB/WHEEZING Last administered on 06/19/17 10:22; Start 06/12/17 at 09:45 Heparin Sodium (Porcine) (Heparin Inj) 5,000 units Q8H SQ Last administered on 06/13/17 03:11; Start 06/12/17 at 11:00; Stop 06/16/17 at 16:46; Status DC Miscellaneous Information 1 Q361D XX ; Start 06/12/17 at 09:45; Stop 06/12/17 at 10:42; Status DC Chlorhexidine Gluconate (Chlorhexidine 2% Cloth) 3 pack Taper DAILY@04 TOP ; Start 06/13/17 at 04:00; Stop 06/13/17 at 04:00; Status DC Chlorhexidine Gluconate (Chlorhexidine 2% Cloth) 3 pack UNSCH PRN TOP HYGIENIC CARE; Start 06/12/17 at 09:45; Stop 06/12/17 at 10:42; Status DC Senna/Docusate Sodium (Cuca-Colace) 1 tab BID PO Last administered on 09:18; Start 06/12/17 at 21:00 Magnesium Hydroxide (Milk Of Magnesia Liq) 30 ml Q12H PRN PO MILD - MODERATE CONSTIPATION; Start 06/12/17 at 09:45 Sennosides (Senokot) 17.2 mg Q12H PRN PO MODERATE - SEVERE CONSTIPATION; Start 06/12/17 at 09:45 Bisacodyl (Dulcolax Supp) 10 mg DAILY PRN RECTAL SEVERE CONSITIPATION; Start at 09:45 Lactulose (Lactulose Liq) 30 ml DAILY PRN PO SEVERE CONSITIPATION; Start at 09:45 Dextrose (D50w (Syr) Inj) 50 ml UNSCH PRN IV HYPOGLYCEMIA-SEE COMMENTS Last administered on 06/15/17 11:18; Start 06/12/17 at 09:45 Glucagon (Glucagon Inj) 1 mg UNSCH PRN OTHER HYPOGLYCEMIA-SEE COMMENTS; Start 06/12/17 at 09:45 Insulin Human Regular (NovoLIN R SUPPLEMENTAL SCALE) 1 ACHS SLIDING SCALE SQ Last administered on 06/20/17 12:25; Start 06/12/17 at 11:00 Insulin Detemir (Levemir Inj) 15 units Q12HR SQ Last administered on 06/13/17 09:00; Start 06/12/17 at 21:00; Stop 06/13/17 at 09:30; Status DC Calcium Gluconate (Calcium Gluconate Inj) 1 gm ONCE ONCE SLOW IVP ; Start 06/12 at 14:45; Stop 06/12/17 at 14:46; Status UNV Insulin Human Regular (NovoLIN R INJ) 10 units ONCE ONCE IV PUSH ; Start at 14:45; Stop 06/12/17 at 16:41; Status DC Dextrose (D50w (Vial) Inj) 50 ml ONCE ONCE IV PUSH Last administered on 14:45; Start 06/12/17 at 14:45; Stop 06/12/17 at 16:41; Status DC Sodium Bicarbonate (Sodium Bicarbonate 8.4% Inj) 50 meq ONCE ONCE SLOW IVP Last administered on 06/12/17 17:00; Start 06/12/17 at 17:00; Stop 06/12/17 at 17:01; Status DC Sodium Polystyrene Sulfonate (Kayexalate Liq) 15 gm ONCE ONCE PO Last administered on 06/12/17 17:40; Start 06/12/17 at 14:45; Stop 06/12/17 at 16:42 ; Status DC Albumin Human 25 gm 25 gm ONCE ONCE IV Last administered on 06/12/17 17:44; Start 06/12/17 at 14:45; Stop 06/12/17 at 16:41; Status DC Sodium Bicarbonate 150 meq/Sterile Water 1,000 ml @ 150 mls/hr Q6H40M IV Last administered on 06/12/17 18:12; Start 06/12/17 at 14:45; Stop 06/12/17 at 21:24 ; Status DC Calcium Chloride 1 gm/Sodium Chloride 110 ml @ 110 mls/hr ONCE ONCE IV ; Start 06/12/17 at 17:00; Stop 06/12/17 at 17:59; Status Cancel Calcium Gluconate/ Sodium Chloride (Calcium Gluconate Inj/NS Inj) 110 ml @ 110 mls/hr ONCE ONCE IV Last administered on 06/12/17 18:14; Start 06/12/17 at 17 :00; Stop 06/12/17 at 17:59; Status DC Lorazepam (Ativan Inj) 1 mg ONCE ONCE IV PUSH ; Start 06/12/17 at 17:15; Stop 06/12/17 at 17:16; Status DC Sodium Bicarbonate (Sodium Bicarbonate 8.4% Inj) 50 meq STK-MED ONCE .ROUTE Last administered on 06/12/17 17:42; Start 06/12/17 at 17:39; Stop 06/12/17 at 17:40; Status DC Insulin Detemir 30 units 30 units Q12HR SQ Last administered on 06/15/17 09:08 ; Start 06/13/17 at 21:00; Stop 06/16/17 at 07:39; Status DC Vancomycin HCl/ Sodium Chloride (Vancomycin Inj/ NS 500 ml Inj) 522 ml @ 257.5 mls/ hr Q24H IV Last administered on 06/13/17 12:51; Start 06/13/17 at 11:00; Stop 06/14/17 at 09:30; Status DC Miscellaneous Information SPECIFIC LAB TO BE ... ONCE ONCE .XX ; Start 06/15 at 10:45; Stop 06/15/17 at 10:45; Status DC Alprazolam (Xanax) 0.25 mg ONCE ONCE PO Last administered on 06/15/17 01:05; Start 06/15/17 at 01:00; Stop 06/15/17 at 01:01; Status DC Guaifenesin/ Dextromethorphan 10 ml 10 ml Q6H PRN PO cough Last administered on 06/15/17 20:06; Start 06/15/17 at 01:00 Vancomycin HCl 1500 mg/Sodium Chloride 515 ml @ 257.5 mls/ hr ONCE ONCE IV Last administered on 06/15/17 10:14; Start 06/15/17 at 09:00; Stop 06/15/17 at 10:59; Status DC Ceftriaxone Sodium/Sodium Chloride (Rocephin Inj/NS Inj) 100 ml @ 200 mls/hr Q24H IV Last administered on 06/20/17 09:18; Start 06/15/17 at 09:00 Furosemide (Lasix Inj) 20 mg ONCE ONCE IV PUSH Last administered on 06/15/17 20:11; Start 06/15/17 at 19:15; Stop 06/15/17 at 19:18; Status DC Furosemide (Lasix Inj) 20 mg BID@09,18 IV PUSH Last administered on 06/20/17 09:18; Start 06/16/17 at 09:00 Insulin Detemir (Levemir Inj) 20 units Q12HR SQ Last administered on 06/16/17 22:05; Start 06/16/17 at 09:00; Status Hold Lorazepam (Ativan) 1 mg ONCE ONCE PO Last administered on 06/16/17 12:58; Start 06/16/17 at 12:45; Stop 06/16/17 at 12:55; Status DC Iohexol 80 ml 80 ml STK-MED ONCE IV Last administered on 06/16/17 14:08; Start 06/16/17 at 14:08; Stop 06/16/17 at 14:09; Status DC Heparin Sodium/ Sodium Chloride (Heparin-NS/Pf Inj) 500 ml @ As Directed STK- MED ONCE .ROUTE ; Start 06/16/17 at 15:47; Stop 06/16/17 at 15:48; Status DC Sodium Chloride (NS Flush) 2 ml BID IV FLUSH Last administered on 06/19/17 21: 00; Start 06/16/17 at 21:00 Sodium Chloride (NS Flush) 2 ml UNSCH PRN IV FLUSH FLUSH AFTER USING IV ACCESS ; Start 06/16/17 at 16:30 Miscellaneous Information 1 ONCE ONCE XX ; Start 06/16/17 at 16:30; Stop at 16:44; Status DC Iohexol (OMNIPAQUE 350 INJ (Checker Loader)) 50 ml STK-MED ONCE OTHER ; Start at 15:28; Stop 06/17/17 at 10:02; Status DC A/P Assessment and Plan A/P Severe sepsis - On admission: Significant leukocytosis, tachycardia, tachypnea, afebrile. - neg legionella and strep, and flu, UA neg - 06/12 Blood cultures +stretococcus bovis 02/25 - repeat blood cultures 06/15 NGTD - ID consulted: concern for endocarditis, started on Rocephin (06/15- ), vancomycin (06/13-06/15 ), ECHO did not show vegetations. -RIGO was cancelled due to the fact that the patient is not a good candidate for any surgery and this would not affect the treatment plan. Anemia with Hemoccult-positive stools - GI following - s/p 2 units PRBC 06/12, has been stable since - Likely needs CT/EGD/colonoscopy- when cleared by cardiology. Aortic Stenosis - ECHO with severe symptomatic aortic valve stenosis. - Cards Dr. Park consulted: s/p heart cath on 06/16, CT surgery was consulted;no plan for any surgical intervention at this time. - patient was started on lasix 20 mg IV BID COPD - Continue breathing treatments - Home regimen duo nebs, Combivent -keep on oxygen to keep O2 sat >90%. Diabetes -accu-check with SSI - Home regimen: Metformin, NovoLog 30 units 3 times a day, 50 units Lantus twice a day Coronary artery disease Hypertension - Home regimen Cozaar (on hold due to initial hypotension) HAI - Resolved Allison James MD Jun 20, 2017 13:00
--- NOTE | 2017-06-20 15:34 | HHI.IDPN ---
Subjective Subjective Remarks Patient is a 66-year-old morbidly obese male, presented to the hospital complaining of severe shortness of breath. Patient states he has COPD, and has had problem with chronic shortness of breath. He does not use any supplemental oxygen at home. Patient also admits to chronic lower extremity edema. He presented to the hospital because he had development of severe shortness of breath that he couldn't even walk a few distances which is not his normal. He denies any congestion, cough or any chest pain or palpitations. Also has been very weak, and just didn't feel good. He has not had any dizziness or syncopal episode. Has not had any nausea vomiting, abdominal pain, dysuria. On presentation he had an elevated white count. Patient has been afebrile. His lactic acid was elevated. Urinalysis was unremarkable. Chest x-ray with some basilar atelectasis. Patient was admitted initially for sepsis, and was started on broad-spectrum antibiotics. His WBC went down to 19, but it went up to 27,000. Patient received a large dose of IV Solu-Medrol on June 12. Patient currently states his breathing is better. He is still on nasal O2. Notes reviewed States breathing ok, SOB with movement On nasal O2 RIGO cancelled due to hypoxemia No new (+) BC Wbc remains elevated Temps ok Echo with severe , thickened leaflets BC with Strep bovis Antibiotics Rocephin Lines PIV Past Medical History COPD Coronary artery disease Hypertension Diabetes mellitus with peripheral neuropathy Elevated BMI Past Surgical History Tonsillectomy Allergies: Coded Allergies: Penicillin (Verified Allergy, Mild, 06/12/17) Objective . Vital Signs Date Time Temp Pulse Resp B/P Pulse Ox O2 Delivery O2 Flow Rate FiO2 06/20/17 12:00 96.8 111 19 116/71 92 06/20/17 09:51 Room Air 06/20/17 07:59 96.2 107 18 103/66 93 06/20/17 07:40 94 Nasal Cannula 4.00 06/20/17 04:11 96.9 108 22 118/79 93 06/19/17 23:50 96.3 109 22 117/64 93 06/19/17 20:00 96.6 100 18 116/65 92 06/19/17 20:00 110 06/19/17 19:21 93 Nasal Cannula 6.00 06/19/17 16:00 97.7 109 18 118/76 93 06/19/17 06/19/17 06/20/17 14:59 22:59 06:59 Intake Total 100 ml 280 ml 240 ml Output Total 450 ml 380 ml 280 ml Balance -350 ml -100 ml -40 ml Intake Oral 0 ml 280 ml 240 ml IV Total 100 ml Output Urine Total 450 ml 380 ml 280 ml # Bowel Movements 0 . Laboratory Tests Test 06/19/17 03:31 White Blood Count 20.7 TH/MM3 Red Blood Count 2.93 MIL/MM3 Hemoglobin 8.9 GM/DL Hematocrit 27.8 % Mean Corpuscular Volume 95.1 FL Mean Corpuscular Hemoglobin 30.3 PG Mean Corpuscular Hemoglobin 31.9 % Concent Red Cell Distribution Width 17.3 % Platelet Count 166 TH/MM3 Mean Platelet Volume 8.7 FL Neutrophils (%) (Auto) 87.4 % Lymphocytes (%) (Auto) 5.0 % Monocytes (%) (Auto) 6.2 % Eosinophils (%) (Auto) 0.8 % Basophils (%) (Auto) 0.6 % Neutrophils # (Auto) 18.1 TH/MM3 Lymphocytes # (Auto) 1.0 TH/MM3 Monocytes # (Auto) 1.3 TH/MM3 Eosinophils # (Auto) 0.2 TH/MM3 Basophils # (Auto) 0.1 TH/MM3 CBC Comment DIFF FINAL Differential Comment Laboratory Tests Test 06/18/17 06/19/17 17:12 03:31 Magnesium Level 1.9 MG/DL B-Type Natriuretic Peptide 322 PG/ML Sodium Level 140 MEQ/L Potassium Level 4.1 MEQ/L Chloride Level 101 MEQ/L Carbon Dioxide Level 30.1 MEQ/L Anion Gap 9 MEQ/L Blood Urea Nitrogen 17 MG/DL Creatinine 0.76 MG/DL Estimat Glomerular Filtration 102 ML/MIN Rate Random Glucose 176 MG/DL Calcium Level 8.0 MG/DL Imaging Last Impressions Abdomen Ultrasound 06/13/17 0000 Signed Impressions: Service Date/Time: Tuesday, June 13, 2017 15:35 - CONCLUSION: Limited study secondary to bowel gas and body habitus. Hepatic cysts are noted. Small amount of free fluid suspected. Lev Gandhi MD Chest X-Ray 06/12/17 0728 Signed Impressions: Service Date/Time: May 07:43 - CONCLUSION: 1. Elevation left hemidiaphragm. 2. Bibasilar densities likely atelectasis. Graham Antonio MD Lower Extremity Ultrasound 06/12/17 0000 Signed Impressions: Service Date/Time: , June 12, 2017 18:32 - CONCLUSION: Normal examination. Lev Gandhi MD Physical Exam GENERAL: awake and alert, not in respiratory distress. Looks comfortable at rest. Up in chair SKIN: Cool and dry. No generalized rash, no evidence of embolic lesions. HEAD: Atraumatic. Normocephalic. No temporal wasting, or tenderness. EYES: [place] conjunctiva. No petechia or hemorrhage. Pupils equal, round and reactive to light. No scleral icterus. No injection or drainage. EARS, NOSE AND THROAT: Nose without bleeding or purulent nasal discharge. Mucous membranes pink and moist. No oral lesions noted. NECK: Trachea midline. Supple and not tender, no meningeal signs CARDIOVASCULAR: Regular rate and rhythm. Has murmur loudest at base of the heart. NO rub RESPIRATORY: Has few scattered wheezing, decreased at bases ABDOMEN: Soft, obese, non-tender, mildly distended. Bowel sounds present and normoactive. No guarding. No rebound. EXTREMITIES: No clubbing, cyanosis. He has improving edema BLE, and he has bark tree texture of his skin in both legs and feet. No calf tenderness. Well perfused and warm. NEUROLOGICAL: Awake and alert. Cranial nerves grossly intact. Motor grossly within normal limits. PSYCHIATRIC: Normal affect, calm and cooperative. LINE: No evidence of infection : Franco in place, urine looks clear Assessment & Plan Remarks IMPRESSION Initial presentation of severe SOB, patient with obesity, known COPD, ? possibly with cor pulmonale - clinically no evidence of PNA - has obesity, ?with sleep apnea Strep bovis bacteremia, very suspicious for endocarditis - Has severe Leukocytosis, persistent RECOMMENDATION Continue Rocephin Follow repeat BC Follow CBC CXR Monitor progress He will need [address] Misha Castro covering this weekend and available if needed Estela Watts MD Jun 20, 2017 15:34
--- NOTE | 2017-06-20 17:39 | RADRPT ---
EXAM DATE/TIME: 06/20/2017 17:04 [facility] COMPARISON: CHEST PA & LAT, June 15, 2017, 9:44. INDICATIONS : Shortness of breath. MEDICAL HISTORY : Chronic obstructive pulmonary disease. Hypertension. Diabetes. A-fib. Diabetic neuropathy. SURGICAL HISTORY : Tonsillectomy. ENCOUNTER: Initial ACUITY: 1 day PAIN SCORE: 2/10 LOCATION: Bilateral chest FINDINGS: There is slight cardiomegaly and perivascular pulmonary edema. Focal consolidation is not seen. Tiny bilateral pleural effusions are also suspected. CONCLUSION: Slight CHF. KDrea Arboleda MD on June 20, 2017 at 17:36 Board Certified Radiologist. This report was verified electronically.
[2017-06-20] MEDS: RESP: ALBUTEROL 2.5 MG/3 ML NEB (PRN) INH (20:23)
[2017-06-20 23:44] LABS: TOTAL BILIRUBIN ADULT 0.7 MG/DL (0.2-1.0)
[2017-06-20 23:51] LABS: INDIRECT BILIRUBIN 0.5 MG/DL (0.0-0.8)
[2017-06-21] VITALS (9 sets, daily range): BP systolic 110–136; BP diastolic 67–75; PULSE 104–110; RESP 17–20; TEMP 96.8–98; O2SAT 92–96
[2017-06-21] MEDS: CHLORHEXIDINE GLUCONATE 2 % 1 PACK (2 CLOTHS) TOP SCH (04:00)
[2017-06-21] MEDS: INSULIN NovoLIN REGULAR SUPPLEMENTAL SCALE SQ SCH ×4 (05:47→19:58)
[2017-06-21 05:48] LABS: AUTOMATED NEUTROPHIL # 15.7 TH/MM3 (1.8-7.7); BASOPHIL # 0.1 TH/MM3 (0-0.2); BASOPHIL % 0.5 % (0.0-2.0); EOSINOPHIL # 0.2 TH/MM3 (0-0.4); HEMATOCRIT 28.5 % (39.0-51.0); HEMO FLAGS DIFF FINAL; LYMPH % 5.1 % (9.0-44.0); LYMPHOCYTE # 0.9 TH/MM3 (1.0-4.8); MEAN CELL VOLUME 93.8 FL (80.0-100.0); MEAN CORPUSCULAR HEMOGLOBIN 30.8 PG (27.0-34.0); MEAN CORPUSCULAR HGB CONC 32.8 % (32.0-36.0); MONO % 6.9 % (0.0-8.0); NEUT % 86.5 % (16.0-70.0); PLATELET COUNT 164 TH/MM3 (150-450); RED BLOOD COUNT 3.04 MIL/MM3 (4.50-5.90); RED CELL DISTRIBUTION WIDTH 16.7 % (11.6-17.2); WHITE BLOOD COUNT 18.1 TH/MM3 (4.0-11.0)
[2017-06-21] MEDS: FUROSEMIDE 20 MG/2 ML VIAL IV PUSH SCH ×2 (07:43→18:09)
[2017-06-21] MEDS: DOCUSATE SODIUM 50 MG/SENNA 8.6 MG TAB PO SCH ×2 (07:43→19:49)
[2017-06-21] MEDS: cefTRIAXone INJ 2,000 MG in SODIUM CHLORIDE 0.9% INJ 100 ML IV SCH (07:43)
[2017-06-21] MEDS: PANTOPRAZOLE SODIUM 40 MG VIAL IV SCH (07:43)
[2017-06-21] MEDS: SODIUM CHLORIDE 0.9% FLUSH 10 ML FLUSH IV FLUSH SCH ×2 (07:44→19:40)
--- NOTE | 2017-06-21 10:33 | PD.CARD.PN ---
Subjective Subjective Remarks c/o worsening dyspnea Objective Vital Signs / I&O Vital Signs Date Time Temp Pulse Resp B/P Pulse Ox O2 Delivery O2 Flow Rate FiO2 06/21/17 08:00 97.9 110 17 110/71 94 06/21/17 07:58 80 5.00 06/21/17 04:00 97.7 109 20 119/68 92 06/21/17 00:00 97.6 107 20 124/70 93 06/20/17 21:01 18 06/20/17 20:00 97.3 112 20 135/74 92 06/20/17 19:30 109 06/20/17 17:02 98 Nasal Cannula 4.00 06/20/17 16:34 70 06/20/17 16:00 97.2 108 17 110/63 98 06/20/17 12:00 96.8 111 19 116/71 92 I/O 06/20/17 06/20/17 06/20/17 06/21/17 06/21/17 06/21/17 07:00 15:00 23:00 07:00 15:00 23:00 Intake Total 240 ml 360 ml 480 ml 240 ml 120 ml Output Total 280 ml 300 ml 250 ml 200 ml Balance -40 ml 60 ml 230 ml 40 ml 120 ml Intake Oral 240 ml 360 ml 480 ml 240 ml 120 ml Output Urine Total 280 ml 300 ml 250 ml 200 ml # Bowel Movements 4 0 0 Physical Exam GENERAL: SKIN: Warm and dry. HEAD: Normocephalic. EYES: No scleral icterus. No injection or drainage. NECK: Supple, trachea midline. No JVD or lymphadenopathy. CARDIOVASCULAR: Regular rate and rhythm without murmurs, gallops, or rubs. RESPIRATORY: Breath sounds equal bilaterally. No accessory muscle use. GASTROINTESTINAL: Abdomen soft, non-tender, nondistended. MUSCULOSKELETAL: No cyanosis, or edema. BACK: Nontender without obvious deformity. No CVA tenderness. Laboratory Laboratory Tests Test 06/20/17 06/21/17 23:00 04:14 Total Bilirubin 0.7 MG/DL Direct Bilirubin 0.2 MG/DL Indirect Bilirubin 0.5 MG/DL Aspartate Amino Transf 40 U/L (AST/SGOT) Alanine Aminotransferase 21 U/L (ALT/SGPT) Alkaline Phosphatase 78 U/L Total Protein 6.6 GM/DL Albumin 2.2 GM/DL White Blood Count 18.1 TH/MM3 Red Blood Count 3.04 MIL/MM3 Hemoglobin 9.4 GM/DL Hematocrit 28.5 % Mean Corpuscular Volume 93.8 FL Mean Corpuscular Hemoglobin 30.8 PG Mean Corpuscular Hemoglobin 32.8 % Concent Red Cell Distribution Width 16.7 % Platelet Count 164 TH/MM3 Mean Platelet Volume 8.7 FL Neutrophils (%) (Auto) 86.5 % Lymphocytes (%) (Auto) 5.1 % Monocytes (%) (Auto) 6.9 % Eosinophils (%) (Auto) 1.0 % Basophils (%) (Auto) 0.5 % Neutrophils # (Auto) 15.7 TH/MM3 Lymphocytes # (Auto) 0.9 TH/MM3 Monocytes # (Auto) 1.3 TH/MM3 Eosinophils # (Auto) 0.2 TH/MM3 Basophils # (Auto) 0.1 TH/MM3 CBC Comment DIFF FINAL Differential Comment Assessment and Plan Problem List: (1) Coronary artery disease (2) COPD (chronic obstructive pulmonary disease) (3) Diabetes mellitus (4) Acute kidney injury (5) Diabetic neuropathy associated with type 2 diabetes mellitus (6) Severe sepsis (7) Hypertension (8) Aortic valve stenosis Assessment and Plan 1.) Severe - d/w Dr Stevens, most likely will need tavr when anemia and bacteremia resolves, continue diuresis, f//u bnp 2.) Bacteremia - yolie canceled due to hypoxia and currently not candidate for avr or tavr, so findings unlikely to global climate change analyst and risk/benefit ratio unfavorable 3.) Palliative care consulted due to poor prognosis due to multiple co morbidities and limited treatment options Problem Qualifiers (1) Coronary artery disease: Qualified Code: I25.10 - Coronary artery disease involving [place] coronary artery without angina pectoris, unspecified whether [place] or transplanted heart (2) COPD (chronic obstructive pulmonary disease): Qualified Code: J44.9 - Chronic obstructive pulmonary disease, unspecified COPD type (3) Diabetes mellitus: Qualified Code: E11.65 - Type 2 diabetes mellitus with hyperglycemia, with long -term current use of insulin (4) Diabetic neuropathy associated with type 2 diabetes mellitus: Qualified Code: E11.42 - Diabetic polyneuropathy associated with type 2 diabetes mellitus (5) Hypertension: Qualified Code: I10 - Hypertension, unspecified type (6) Aortic valve stenosis: Qualified Code: I35.0 - Aortic valve stenosis, unspecified etiology Hai Park MD Jun 21, 2017 10:33
[2017-06-21] MEDS: MORPHINE SULFATE 4 MG/ML INJ IV PRN (11:27)
--- NOTE | 2017-06-21 13:05 | HHI.PR ---
Subjective Remarks Pt complains of pain in "my ass". States that has been going on and its a burning sensation mainly whenever he sits on the recliner. States that he uses the pillows behind his back to help w his breathing as it "helps me sit up straight". Doesn't want to use the foam "donut" as it doesn't work. "Nurse wants me to stand up myself but I can't" he tells me. " no one wants to help me ". at bedside, states he has pain all over but mainly in his buttock which has been going on for a while. Discussed w RN, pain has been getting IV morphine as needed, only has norco 5/ 325 1 tablet at a time. Objective Vitals Vital Signs Date Time Temp Pulse Resp B/P Pulse Ox O2 Delivery O2 Flow Rate FiO2 06/21/17 12:00 97.4 110 19 136/74 95 06/21/17 08:00 97.9 110 17 110/71 94 06/21/17 07:58 80 5.00 06/21/17 04:00 97.7 109 20 119/68 92 06/21/17 00:00 97.6 107 20 124/70 93 06/20/17 21:01 18 06/20/17 20:00 97.3 112 20 135/74 92 06/20/17 19:30 109 06/20/17 17:02 98 Nasal Cannula 4.00 06/20/17 16:34 70 06/20/17 16:00 97.2 108 17 110/63 98 I/O 06/20/17 06/20/17 06/20/17 06/21/17 06/21/17 06/21/17 07:00 15:00 23:00 07:00 15:00 23:00 Intake Total 240 ml 360 ml 480 ml 240 ml 120 ml Output Total 280 ml 300 ml 250 ml 200 ml Balance -40 ml 60 ml 230 ml 40 ml 120 ml Intake Oral 240 ml 360 ml 480 ml 240 ml 120 ml Output Urine Total 280 ml 300 ml 250 ml 200 ml # Bowel Movements 4 0 0 Result Diagram: 06/21/17 0414 06/19/17 0331 Imaging Last Impressions Chest X-Ray 06/20/17 0000 Signed Impressions: Service Date/Time: Tuesday, June 20, 2017 17:04 - CONCLUSION: Slight CHF. K. Brandon Arboleda MD CT Angiography 06/15/17 0000 Signed Impressions: Service Date/Time: Friday, June 16, 2017 13:35 - CONCLUSION: 1. Small bilateral pleural effusions with adjacent alveolar consolidations consistent with compressive atelectasis and/or pneumonia. Clinical correlation is recommended. 2. Pleural calcifications within the bilateral posterior lung bases consistent with asbestos related pleural disease or fibrothorax. 3. Cardiomegaly. 4. No evidence of pulmonary embolism. 5. Ascites within the upper abdomen. Casimiro Lazo MD Abdomen Ultrasound 06/13/17 0000 Signed Impressions: Service Date/Time: Tuesday, June 13, 2017 15:35 - CONCLUSION: Limited study secondary to bowel gas and body habitus. Hepatic cysts are noted. Small amount of free fluid suspected. Lev Gandhi MD Lower Extremity Ultrasound 06/12/17 0000 Signed Impressions: Service Date/Time: May 18:32 - CONCLUSION: Normal examination. Lev Gandhi MD Objective Remarks GENERAL: This is an obese patient, NC in place. CARDIOVASCULAR: Regular rate and regular rhythm . RESPIRATORY:mild bilateral wheezing. GASTROINTESTINAL: Abdomen soft, non-tender, nondistended. Normal, active bowel sounds MUSCULOSKELETAL: Extremities with bilateral pedal edema. NEURO: Alert & Oriented x4 to person, place, time, situation. Moves all ext x4 skin: pt has 2 skin tags on the buttock area, mild erythema noted but no open sores or skin breakdown noted to explain pt's pain A/P Problem List: (1) Severe sepsis ICD Code: A41.9 Status: Acute (2) COPD (chronic obstructive pulmonary disease) ICD Code: J44.9 Status: Acute (3) Diabetes mellitus ICD Code: E11.9 Status: Acute (4) Coronary artery disease ICD Code: I25.10 Status: Acute (5) Hypertension ICD Code: I10 Status: Chronic (6) Diabetic neuropathy associated with type 2 diabetes mellitus ICD Code: E11.40 Status: Acute (7) BMI 50.0-59.9, adult ICD Code: Z68.43 Status: Acute (8) Leukocytosis ICD Code: D72.829 Status: Acute (9) Lactic acidosis ICD Code: E87.2 Status: Acute (10) Acute kidney injury ICD Code: N17.9 Status: Acute (11) Elevated partial thromboplastin time (PTT) ICD Code: R79.1 Status: Acute (12) Hyperkalemia ICD Code: E87.5 Status: Acute (13) Hyperglycemia ICD Code: R73.9 Status: Acute Assessment and Plan Severe sepsis - On admission: Significant leukocytosis, tachycardia, tachypnea, afebrile. - neg legionella and strep, and flu, UA neg - 06/12 Blood cultures +stretococcus bovis 02/25 - repeat blood cultures 06/15 NGTD - ID consulted: concern for endocarditis, started on Rocephin (06/15- ), vancomycin (06/13-06/15 ), ECHO did not show vegetations. -RIGO was cancelled due to the fact that the patient is not a good candidate for any surgery and this would not affect the treatment plan. Anemia with Hemoccult-positive stools - GI following - s/p 2 units PRBC 06/12, has been stable since - Likely needs CT/EGD/colonoscopy- when cleared by cardiology. Aortic Stenosis - ECHO with severe symptomatic aortic valve stenosis. - Cards Dr. Park consulted: s/p heart cath on 06/16, CT surgery was consulted;no plan for any surgical intervention at this time. - patient was started on lasix 20 mg IV BID COPD - Continue breathing treatments - Home regimen duo nebs, Combivent -keep on oxygen to keep O2 sat >90%. Diabetes -accu-check with SSI - Home regimen: Metformin, NovoLog 30 units 3 times a day, 50 units Lantus twice a day Coronary artery disease Hypertension - Home regimen Cozaar (on hold due to initial hypotension) HAI - Resolved Discharge Planning continue IV abx, pt will need 6 weeks. Per CM notes, arrangement for IV abx to be done on friday Problem Qualifiers (1) COPD (chronic obstructive pulmonary disease): Qualified Code: J44.9 - Chronic obstructive pulmonary disease, unspecified COPD type (2) Diabetes mellitus: Qualified Code: E11.65 - Type 2 diabetes mellitus with hyperglycemia, with long -term current use of insulin (3) Coronary artery disease: Qualified Code: I25.10 - Coronary artery disease involving [place] coronary artery without angina pectoris, unspecified whether [place] or transplanted heart (4) Hypertension: Qualified Code: I10 - Hypertension, unspecified type (5) Diabetic neuropathy associated with type 2 diabetes mellitus: Qualified Code: E11.42 - Diabetic polyneuropathy associated with type 2 diabetes mellitus (6) Leukocytosis: Qualified Code: D72.829 - Leukocytosis, unspecified type Skylar Del Real MD Jun 21, 2017 13:05
[2017-06-21] MEDS: ACETAMINOPHEN/HYDROcodone 325 MG/10 MG TAB PO PRN (15:55)
[2017-06-21] MEDS: RESP: ALBUTEROL 2.5 MG/3 ML NEB (PRN) INH (20:08)
[2017-06-22] VITALS (10 sets, daily range): BP systolic 115–131; BP diastolic 55–85; PULSE 101–110; RESP 18; TEMP 96.4–97.8; O2SAT 92–100
[2017-06-22] MEDS: ACETAMINOPHEN/HYDROcodone 325 MG/10 MG TAB PO PRN ×2 (01:03→13:56)
[2017-06-22] MEDS: CHLORHEXIDINE GLUCONATE 2 % 1 PACK (2 CLOTHS) TOP SCH (04:00)
[2017-06-22] MEDS: INSULIN NovoLIN REGULAR SUPPLEMENTAL SCALE SQ SCH ×4 (06:49→21:00)
[2017-06-22] MEDS: DOCUSATE SODIUM 50 MG/SENNA 8.6 MG TAB PO SCH ×2 (09:48→21:00)
[2017-06-22] MEDS: cefTRIAXone INJ 2,000 MG in SODIUM CHLORIDE 0.9% INJ 100 ML IV SCH (09:48)
[2017-06-22] MEDS: PANTOPRAZOLE SODIUM 40 MG VIAL IV SCH (09:48)
[2017-06-22] MEDS: FUROSEMIDE 20 MG/2 ML VIAL IV PUSH SCH (09:48)
[2017-06-22] MEDS: SODIUM CHLORIDE 0.9% FLUSH 10 ML FLUSH IV FLUSH SCH ×2 (09:49→21:00)
--- NOTE | 2017-06-22 10:35 | PD.CARD.PN ---
Subjective Subjective Remarks asleep in nad Objective Vital Signs / I&O Vital Signs Date Time Temp Pulse Resp B/P Pulse Ox O2 Delivery O2 Flow Rate FiO2 06/22/17 07:56 96.9 110 18 125/ 95 06/22/17 04:16 96.4 108 18 131/67 92 06/22/17 00:00 96.5 105 18 129/85 92 06/21/17 20:12 96 Nasal Cannula 5.00 06/21/17 20:00 96.8 105 18 114/67 92 06/21/17 19:51 104 06/21/17 19:36 92 Nasal Cannula 5.00 Humidified 06/21/17 16:00 98.0 109 18 136/75 95 06/21/17 14:48 105 06/21/17 12:00 97.4 110 19 136/74 95 I/O 06/21/17 06/21/17 06/21/17 06/22/17 06/22/17 06/22/17 07:00 15:00 23:00 07:00 15:00 23:00 Intake Total 240 ml 880 ml 240 ml 240 ml 120 ml Output Total 200 ml 900 ml 600 ml 600 ml Balance 40 ml -20 ml -360 ml -360 ml 120 ml Intake Oral 240 ml 880 ml 240 ml 240 ml 120 ml Output Urine Total 200 ml 900 ml 600 ml 600 ml # Bowel Movements 0 0 0 0 Physical Exam GENERAL: SKIN: Warm and dry. HEAD: Normocephalic. EYES: No scleral icterus. No injection or drainage. NECK: Supple, trachea midline. No JVD or lymphadenopathy. CARDIOVASCULAR: Regular rate and rhythm without murmurs, gallops, or rubs. RESPIRATORY: Breath sounds equal bilaterally. No accessory muscle use. GASTROINTESTINAL: Abdomen soft, non-tender, nondistended. MUSCULOSKELETAL: No cyanosis, or edema. BACK: Nontender without obvious deformity. No CVA tenderness. Laboratory Laboratory Tests Test 06/22/17 04:08 B-Type Natriuretic Peptide 736 PG/ML Assessment and Plan Problem List: (1) Coronary artery disease (2) COPD (chronic obstructive pulmonary disease) (3) Diabetes mellitus (4) Acute kidney injury (5) Diabetic neuropathy associated with type 2 diabetes mellitus (6) Severe sepsis (7) Hypertension (8) Aortic valve stenosis Assessment and Plan 1.) Severe - d/w Dr Stevens, most likely will need tavr when anemia and bacteremia resolves, continue diuresis, f//u bnp 2.) Bacteremia - yolie canceled due to hypoxia and currently not candidate for avr or tavr, so findings unlikely to change lead and risk/benefit ratio unfavorable 3.) Palliative care consulted due to poor prognosis due to multiple co morbidities and limited treatment options Problem Qualifiers (1) Coronary artery disease: Qualified Code: I25.10 - Coronary artery disease involving [place] coronary artery without angina pectoris, unspecified whether [place] or transplanted heart (2) COPD (chronic obstructive pulmonary disease): Qualified Code: J44.9 - Chronic obstructive pulmonary disease, unspecified COPD type (3) Diabetes mellitus: Qualified Code: E11.65 - Type 2 diabetes mellitus with hyperglycemia, with long -term current use of insulin (4) Diabetic neuropathy associated with type 2 diabetes mellitus: Qualified Code: E11.42 - Diabetic polyneuropathy associated with type 2 diabetes mellitus (5) Hypertension: Qualified Code: I10 - Hypertension, unspecified type (6) Aortic valve stenosis: Qualified Code: I35.0 - Aortic valve stenosis, unspecified etiology Hai Park MD Jun 22, 2017 10:35
--- NOTE | 2017-06-22 11:07 | HHI.PR ---
Subjective Remarks Patient asleep when I walked in. He wakes up easily and tells me he is okay. He goes back to sleep. He has no complaints at this time. Objective Vitals Vital Signs Date Time Temp Pulse Resp B/P Pulse Ox O2 Delivery O2 Flow Rate FiO2 06/22/17 10:40 94 Nasal Cannula 5.00 06/22/17 07:56 96.9 110 18 125/ 95 06/22/17 04:16 96.4 108 18 131/67 92 06/22/17 00:00 96.5 105 18 129/85 92 06/21/17 20:12 96 Nasal Cannula 5.00 06/21/17 20:00 96.8 105 18 114/67 92 06/21/17 19:51 104 06/21/17 19:36 92 Nasal Cannula 5.00 Humidified 06/21/17 16:00 98.0 109 18 136/75 95 06/21/17 14:48 105 06/21/17 12:00 97.4 110 19 136/74 95 I/O 06/21/17 06/21/17 06/21/17 06/22/17 06/22/17 06/22/17 07:00 15:00 23:00 07:00 15:00 23:00 Intake Total 240 ml 880 ml 240 ml 240 ml 220 ml Output Total 200 ml 900 ml 600 ml 600 ml Balance 40 ml -20 ml -360 ml -360 ml 220 ml Intake Oral 240 ml 880 ml 240 ml 240 ml 120 ml IV Total 100 ml Output Urine Total 200 ml 900 ml 600 ml 600 ml # Bowel Movements 0 0 0 0 Result Diagram: 06/21/17 0414 06/19/17 0331 Imaging Last Impressions Chest X-Ray 06/20/17 0000 Signed Impressions: Service Date/Time: Tuesday, June 20, 2017 17:04 - CONCLUSION: Slight CHF. K. Brandon Arboleda MD CT Angiography 06/15/17 0000 Signed Impressions: Service Date/Time: Friday, June 16, 2017 13:35 - CONCLUSION: 1. Small bilateral pleural effusions with adjacent alveolar consolidations consistent with compressive atelectasis and/or pneumonia. Clinical correlation is recommended. 2. Pleural calcifications within the bilateral posterior lung bases consistent with asbestos related pleural disease or fibrothorax. 3. Cardiomegaly. 4. No evidence of pulmonary embolism. 5. Ascites within the upper abdomen. Casimiro Lazo MD Abdomen Ultrasound 06/13/17 0000 Signed Impressions: Service Date/Time: Tuesday, June 13, 2017 15:35 - CONCLUSION: Limited study secondary to bowel gas and body habitus. Hepatic cysts are noted. Small amount of free fluid suspected. Lev Gandhi MD Lower Extremity Ultrasound 06/12/17 0000 Signed Impressions: Service Date/Time: May 18:32 - CONCLUSION: Normal examination. Lev Gandhi MD Objective Remarks GENERAL: This is an obese patient, NC in place. CARDIOVASCULAR: Regular rate and regular rhythm . RESPIRATORY: Clear to auscultation at this time. No wheezing GASTROINTESTINAL: Abdomen soft, non-tender, nondistended. Normal, active bowel sounds MUSCULOSKELETAL: Extremities with bilateral pedal edema. NEURO: Easily arousable but falls back to sleep. Moves all ext x4 A/P Problem List: (1) Severe sepsis ICD Code: A41.9 Status: Acute (2) COPD (chronic obstructive pulmonary disease) ICD Code: J44.9 Status: Acute (3) Diabetes mellitus ICD Code: E11.9 Status: Acute (4) Coronary artery disease ICD Code: I25.10 Status: Acute (5) Hypertension ICD Code: I10 Status: Chronic (6) Diabetic neuropathy associated with type 2 diabetes mellitus ICD Code: E11.40 Status: Acute (7) BMI 50.0-59.9, adult ICD Code: Z68.43 Status: Acute (8) Leukocytosis ICD Code: D72.829 Status: Acute (9) Lactic acidosis ICD Code: E87.2 Status: Acute (10) Acute kidney injury ICD Code: N17.9 Status: Acute (11) Elevated partial thromboplastin time (PTT) ICD Code: R79.1 Status: Acute (12) Hyperkalemia ICD Code: E87.5 Status: Acute (13) Hyperglycemia ICD Code: R73.9 Status: Acute Assessment and Plan Severe sepsis - On admission: Significant leukocytosis, tachycardia, tachypnea, afebrile. - neg legionella and strep, and flu, UA neg - 06/12 Blood cultures +stretococcus bovis 02/25 - repeat blood cultures 06/15 NGTD - ID consulted: concern for endocarditis, started on Rocephin (06/15- ), vancomycin (06/13-06/15 ), ECHO did not show vegetations. -RIGO was cancelled due to the fact that the patient is not a good candidate for any surgery and this would not affect the treatment plan. Anemia with Hemoccult-positive stools - GI following - s/p 2 units PRBC 06/12, has been stable since - Likely needs CT/EGD/colonoscopy- when cleared by cardiology. Aortic Stenosis - ECHO with severe symptomatic aortic valve stenosis. - Cards Dr. Park consulted: s/p heart cath on 06/16, CT surgery was consulted;no plan for any surgical intervention at this time. - patient was started on lasix 20 mg IV BID COPD - Continue breathing treatments - Home regimen duo nebs, Combivent -keep on oxygen to keep O2 sat >90%. Diabetes -accu-check with SSI - Home regimen: Metformin, NovoLog 30 units 3 times a day, 50 units Lantus twice a day Hypertension - Home regimen Cozaar (on hold due to initial hypotension) HAI - Resolved Discharge Planning continue IV abx, pt will need 6 weeks. Per CM notes, arrangement for IV abx to be done on friday Problem Qualifiers (1) COPD (chronic obstructive pulmonary disease): Qualified Code: J44.9 - Chronic obstructive pulmonary disease, unspecified COPD type (2) Diabetes mellitus: Qualified Code: E11.65 - Type 2 diabetes mellitus with hyperglycemia, with long -term current use of insulin (3) Coronary artery disease: Qualified Code: I25.10 - Coronary artery disease involving [place] coronary artery without angina pectoris, unspecified whether [place] or transplanted heart (4) Hypertension: Qualified Code: I10 - Hypertension, unspecified type (5) Diabetic neuropathy associated with type 2 diabetes mellitus: Qualified Code: E11.42 - Diabetic polyneuropathy associated with type 2 diabetes mellitus (6) Leukocytosis: Qualified Code: D72.829 - Leukocytosis, unspecified type Skylar Del Real MD Jun 22, 2017 11:07
[2017-06-22] MEDS ORDERED: FUROSEMIDE 40 MG/4 ML VIAL IV PUSH SCH (18:00)
[2017-06-22] MEDS: RESP: ALBUTEROL 2.5 MG/3 ML NEB (PRN) INH (20:04)
[2017-06-22 20:26] LABS: BLOOD GAS BASE EXCESS 4.5 mmol/L (-2-2); BLOOD GAS CARBOXYHEMOGLOBIN 2.3 % (0-4); BLOOD GAS HCO3 33 mmol/L (22-26); BLOOD GAS METHEMOGLOBIN 0.9 % (0-2); BLOOD GAS O2 HGB SATURATION 92 % (90-100); BLOOD GAS OXYGEN CONTENT 12.1 Vol % (12.0-20.0); BLOOD GAS PCO2 101 mmHg (38-42); BLOOD GAS PO2 83 mmHg (61-120); BLOOD GAS TOTAL HGB 9.3 G/DL (12.0-16.0); TEMP CORR TO 98.6
[2017-06-22 20:27] LABS: CRITICAL VALUE YES; DRAW SITE RT RADIAL; LITER FLOW 6 L/M; NUMBER OF ARTERIAL PUNCTURES 1; OXYGEN DEVICE NASAL CANNULA; STAT YES; ULNAR PULSE PRESENT
--- NOTE | 2017-06-22 20:55 | RADRPT ---
EXAM DATE/TIME: 06/22/2017 20:30 [facility] COMPARISON: CHEST SINGLE AP, June 20, 2017, 17:04. INDICATIONS : Congestion. MEDICAL HISTORY : Chronic obstructive pulmonary disease. Hypertension. Diabetes. A-fib. SURGICAL HISTORY : None. ENCOUNTER: Initial ACUITY: 1 day PAIN SCORE: Non-responsive. LOCATION: Bilateral chest FINDINGS: There is increasing consolidation in the lower lungs bilaterally with loss of delineation of the late ral right hemidiaphragm and medial left hemidiaphragm. The upper lungs remain clear. The heart is m ildly enlarged, stable from prior. Again noted is elevation of left hemidiaphragm. CONCLUSION: Increasing consolidation in both lower lungs. Sal Longoria MD on June 22, 2017 at 20:52 Board Certified Radiologist. This report was verified electronically.
--- NOTE | 2017-06-22 21:09 | HHI.FPPN ---
Addendum to progress note ADDENDUM Reason for addendum: Additonal documentation Additional information S: Radha Naylor and Josselyn responded to [facility] at 2035 hours for 66 YO male with reports of being non-responsive, O2 sats in low 70s, severe sepsis and confusion. ABG showed metabolic acidosis w/ pH 7.14 and PCO2 @ 101. O: Vital Signs Date Time Temp Pulse Resp B/P Pulse Ox O2 Delivery O2 Flow Rate FiO2 06/23/17 00:24 100 60 06/23/17 00:00 97.9 103 14 115/55 06/22/17 20:53 Non-Rebreather 15.00 GEN: On exam pt was confused and oriented only to his name, not to place or date. HEENT: NCAT; complained of right eye pain, but no obvious abnormality seen. 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 RESP: Pt lungs were clear to auscultation bilaterally and no increased WOB. Abdomen: normal BS, nontender to palpation, no guarding, no rebound. SKIN: left hand with erythema on dorsal aspect with exudate seen on pillow. A/P: 66 YO male with severe sepsis, currently being treated with Rocephin for Strep bovis bacteremia, confusion and possible cellulitis of left hand presents with hypoxemia and hypercapnic respiratory failure. - EKG - ABG - Lactic acid - CMP, CBC, CXR - Move to ICU for BiPAP and possible intubation - Consult with vp product management jackiew Radha Naylor and Steve Reis MD R1 Jun 22, 2017 21:09
[2017-06-22 21:45] LABS: AUTOMATED NEUTROPHIL # 22.5 TH/MM3 (1.8-7.7); BASOPHIL # 0.2 TH/MM3 (0-0.2); BASOPHIL % 0.9 % (0.0-2.0); EOSINOPHIL % 0.1 % (0.0-4.0); HEMATOCRIT 28.8 % (39.0-51.0); HEMO FLAGS DIFF FINAL; LYMPH % 3.1 % (9.0-44.0); LYMPHOCYTE # 0.8 TH/MM3 (1.0-4.8); MEAN CELL VOLUME 93.7 FL (80.0-100.0); MEAN CORPUSCULAR HGB CONC 33.1 % (32.0-36.0); MONO % 5.8 % (0.0-8.0); NEUT % 90.1 % (16.0-70.0); PLATELET COUNT 198 TH/MM3 (150-450); RED BLOOD COUNT 3.07 MIL/MM3 (4.50-5.90); RED CELL DISTRIBUTION WIDTH 16.7 % (11.6-17.2)
[2017-06-22 22:34] LABS: POTASSIUM 4.8 MEQ/L (3.5-5.1)
--- NOTE | 2017-06-22 23:04 | PD.CONS ---
[facility] Service Critical Care Medicine Consult Requested By Primary Care Physician [facility] History of Present Illness 66-year-old male. Date of admission 06/12/2017. Past medical history includes COPD, morbid obesity, coronary artery disease, hypertension, diabetes mellitus with peripheral neuropathy. Patient was his normal state of health until the day prior to admission when he "did not feel good " including myalgias , generalized weakness. No recent sick contacts. No changes in his diet. No recent travels. Laboratory work revealed a lactic acidosis of 5.4. Potassium is 5.9. Note he is on an ARB along with KCl supplementation, leukocytosis is a 24,000, anemia of 8.6 with Hemoccult-negative stool done in ED in acute kidney injury with a creatinine of 1.5. Chest x-ray revealed elevated left hemidiaphragm otherwise negative. Received 1 dose of Zosyn and vancomycin the ED. His condition through the hospital stay improved and he was transferred to medicine service on June 13, 2017. Today at around 8 PM the rapid response team was called due to patient's hypoxemia altered mental status and hypercapnic respiratory failure. Review of Systems ROS Unobtainable patient on facemask BiPAP and lethargic Past Family Social History Allergies: Coded Allergies: Penicillin (Verified Allergy, Mild, 06/12/17) Past Medical History COPD Coronary artery disease Hypertension Diabetes mellitus with peripheral neuropathy Elevated BMI Past Surgical History Tonsillectomy Reported Medications Reported Meds & Active Scripts Active K-Dur (Potassium Chloride) 10 Meq Tabcr 10 Meq PO DAILY Lasix (Furosemide) 40 Mg Tab 40 Mg PO DAILY Reported Resp: Albuterol 2.5 Mg/Ipratropium 0.5 Mg (Albuterol/Ipratropium) 1 Amp Nebu 1 Amp NEB QID Combivent (Albuterol/Ipratropium) 14.7 Gm Aer 2 Puff INH Q6HPRN FOR WHEEZING Cozaar (Losartan Potassium) 100 Mg Tab 100 Mg PO BID Metformin ER 24 HR (Metformin HCl) 1,000 Mg Tab 1,000 Mg PO BID Novolog (Insulin Aspart) 100 Units/Ml Inj 30 Units SQ TIDAC Lantus (Insulin Glargine) 100 Units/Ml Inj 50 Units SQ BID Active Ordered Medications Current Medications Medications (Trade) Dose Ordered Sig/Jonnie Route PRN Reason Start Time Stop Time Status Last Admin Dose Admin Miscellaneous Information 1 [id number] XX 06/12/17 09:45 Chlorhexidine Gluconate (Chlorhexidine 2% Cloth) Taper DAILY@04 TOP 06/13/17 04:00 06/09/18 03:59 06/14/17 04:00 Chlorhexidine Gluconate (Chlorhexidine 2% Cloth) 3 pack UNSCH PRN TOP HYGIENIC CARE 06/12/17 09:45 Acetaminophen (Tylenol) 650 mg Q6H PRN PO FEVER >101F/LEE 06/12/17 09:45 06/18/17 03:51 Acetaminophen/ Hydrocodone Bitart ([place] 5-325 Mg) 1 tab Q4H PRN PO PAIN SCALE 1 TO 5 06/12/17 09:45 06/13/17 03:11 Morphine Sulfate (Morphine Inj) 2 mg Q2H PRN IV BREAKTHROUGH PAIN 06/12/17 09:45 06/21/17 11:27 Pantoprazole Sodium (Protonix Inj) 40 mg DAILY IV 06/13/17 09:00 06/22/17 09:48 Ondansetron HCl (Zofran Inj) 4 mg Q6H PRN IV NAUSEA OR VOMITING 06/12/17 09:45 Senna/Docusate Sodium (Cuca-Colace) 1 tab BID PO 06/12/17 21:00 06/22/17 09:48 Magnesium Hydroxide (Milk Of Magnesia Liq) 30 ml Q12H PRN PO MILD - MODERATE CONSTIPATION 06/12/17 09:45 Sennosides (Senokot) 17.2 mg Q12H PRN PO MODERATE - SEVERE CONSTIPATION 06/12/17 09:45 Bisacodyl (Dulcolax Supp) 10 mg DAILY PRN RECTAL SEVERE CONSITIPATION 06/12/17 09:45 Lactulose (Lactulose Liq) 30 ml DAILY PRN PO SEVERE CONSITIPATION 06/12/17 09:45 Dextrose (D50w (Syr) Inj) 50 ml UNSCH PRN IV HYPOGLYCEMIA-SEE COMMENTS 06/12/17 09:45 06/15/17 11:18 Glucagon (Glucagon Inj) 1 mg UNSCH PRN OTHER HYPOGLYCEMIA-SEE COMMENTS 06/12/17 09:45 Guaifenesin/ Dextromethorphan 10 ml 10 ml Q6H PRN PO cough 06/15/17 01:00 06/15/17 20:06 Ceftriaxone Sodium/Sodium Chloride (Rocephin Inj/NS Inj) 100 ml @ 200 mls/hr Q24H IV 06/15/17 09:00 06/22/17 09:48 Insulin Detemir (Levemir Inj) 20 units Q12HR SQ 06/16/17 09:00 Hold 06/16/17 22:05 Sodium Chloride (NS Flush) 2 ml BID IV FLUSH 06/16/17 21:00 06/22/17 21:00 Sodium Chloride (NS Flush) 2 ml UNSCH PRN IV FLUSH FLUSH AFTER USING IV ACCESS 06/16/17 16:30 Acetaminophen/ Hydrocodone Bitart ([place] 10-325 Mg) 1 tab Q6H PRN PO PAIN SCALE 6 TO 10 06/21/17 11:45 06/22/17 13:56 Furosemide (Lasix Inj) 40 mg BID@09,18 IV PUSH 06/22/17 18:00 06/22/17 17:19 Family History Doesn't know how his father was . Mother with coronary disease. Currently aged 83. 3 siblings in good health according to patient. Social History Quit tobacco 15 years ago. 50 pack years. Quit alcohol use. Prior " use" in past. Denies IV drug use. Physical Exam Vital Signs Vital Signs Date Time Temp Pulse Resp B/P Pulse Ox O2 Delivery O2 Flow Rate FiO2 06/22/17 21:21 96 60 06/22/17 20:53 100 Non-Rebreather 15.00 100 06/22/17 20:05 92 Nasal Cannula 6.00 06/22/17 16:00 97.8 106 18 115/55 95 06/22/17 12:00 96.9 109 18 117/59 95 06/22/17 10:40 94 Nasal Cannula 5.00 06/22/17 07:56 96.9 110 18 125/ 95 06/22/17 04:16 96.4 108 18 131/67 92 06/22/17 00:00 96.5 105 18 129/85 92 Physical Exam GENERAL: 58-year-old male, critically ill currently resting in bed in no acute distress, confused and lethargic however following commands SKIN: Warm and pale. No rash. Tattoo left upper extremity HEAD: Atraumatic. Normocephalic. EYES: Pupils equal and round around 3 mm bilaterally and reactive. No scleral icterus. No injection or drainage. ENT: No nasal bleeding or discharge. Mucous membranes pink and moist. NECK: Trachea midline. No JVD. CARDIOVASCULAR: Distant. Regular rate and rhythm. S1, S2 no S4 without murmur RESPIRATORY: Diminished throughout. No wheezes, rales or rhonchi. Breath sounds equal bilaterally. GASTROINTESTINAL: Abdomen soft, non-tender, obese. Hypoactive bowel sounds. MUSCULOSKELETAL: Extremities with chronic venous stasis bilateral lower extremities with woody edema. NEUROLOGICAL: Lethargic but arousable, following commands. No obvious cranial nerve deficits. Motor grossly within normal limits. Five out of 5 muscle strength in the arms and legs. Slurred speech. Laboratory Laboratory Tests Test 06/22/17 06/22/17 06/22/17 04:08 20:19 21:27 B-Type Natriuretic Peptide 736 Blood Gas Puncture Site RT RADIAL Blood Gas Patient Temperature 98.6 Blood Gas HCO3 33 Blood Gas Base Excess 4.5 Blood Gas Oxygen Saturation 92 Arterial Blood pH 7.14 Arterial Blood Partial 101 Pressure CO2 Arterial Blood Partial 83 Pressure O2 Arterial Blood Oxygen Content 12.1 Arterial Blood 2.3 Carboxyhemoglobin Arterial Blood Methemoglobin 0.9 Blood Gas Hemoglobin 9.3 Oxygen Delivery Device NASAL CANNULA Blood Gas Liter Flow 6 White Blood Count 25.0 Red Blood Count 3.07 Hemoglobin 9.5 Hematocrit 28.8 Mean Corpuscular Volume 93.7 Mean Corpuscular Hemoglobin 31.0 Mean Corpuscular Hemoglobin 33.1 Concent Red Cell Distribution Width 16.7 Platelet Count 198 Mean Platelet Volume 9.0 Neutrophils (%) (Auto) 90.1 Lymphocytes (%) (Auto) 3.1 Monocytes (%) (Auto) 5.8 Eosinophils (%) (Auto) 0.1 Basophils (%) (Auto) 0.9 Neutrophils # (Auto) 22.5 Lymphocytes # (Auto) 0.8 Monocytes # (Auto) 1.4 Eosinophils # (Auto) 0.0 Basophils # (Auto) 0.2 CBC Comment DIFF FINAL Differential Comment Sodium Level 137 Potassium Level 4.8 Chloride Level 97 Carbon Dioxide Level 35.0 Anion Gap 5 Blood Urea Nitrogen 35 Creatinine 1.57 Estimat Glomerular Filtration 44 Rate Random Glucose 174 Lactic Acid Level 1.3 Calcium Level 8.9 Magnesium Level 2.1 Result Diagram: 06/22/17212606/22/172126 Assessment and Plan Assessment and Plan Neuro/Psych: Acetaminophen 650 mg by mouth every 4 hours when necessary fever Hydrocodone/acetaminophen 5/325 one tablet every 4 hours when necessary pain 1-5 Morphine sulfate 2 mg IV every 2 hours when necessary pain 6-10 CT head ordered but refused per patient CV: Lactic acidosis - resolved Hypertension Coronary artery disease EKG revealed sinus tachycardia. Left axis deviation. QTC was 403 Initial troponin 0.05. Negative workup Holding losartan 100 mg by mouth daily light of hypotension relative and acute kidney injury. Resume when clinically indicated Patient has received IV Lasix 40 mg we'll hold further doses by mouth daily in light of hypotension. Resume when clinically indicated Resp: Prior tobaccoism 50 pack years. Quit 15 years ago Chronic oxygen use possibly undiagnosed PAULA/pickwickian Obesity hypoventilation syndrome Chest x-ray revealed elevated left hemidiaphragm. Possible bilateral lower lobe atelectasis Nasal cannula to maintain saturations greater than or equal to 92% Continue ipratropium/albuterol 0.5/2.5 nebulizers every 6 hours with albuterol nebulizers every 2 hours. Dyspnea Incentive spirometry while awake Nocturnal BiPAP GI: Early satiety Elevated total bilirubin Total bilirubin elevated however remainder of LFTs negative. Benign abdominal examination.. Lipase normal Patient refuses CT abdomen/pelvis. Pantoprazole 40 mg IV daily for GI prophylaxis Docusate sodium/senna 1 tablet by mouth twice a day for bowel regimen Dark stools per RN. Will Hemoccult stool 1. : Franco catheter if indicated for accurate I's and O's in a critically ill patient Endo: Diabetes mellitus/insulin requiring with peripheral neuropathy Home medications include insulin aspart 30 units 3 times a day and insulin glargine 50 units subcutaneous twice a day Currently on detemir 30 units subcutaneous twice a day with Novolin R sliding scale insulin with Accu-Cheks before meals/at bedtime Renal: Acute or chronic kidney injury - resolving Unknown baseline. Abdominal ultrasound rule out hydronephrosis Urine eosinophil/electrolytes Currently normal saline at 84 cc an hour. Status post 3 L normal saline 1 Heme: Leukocytosis Normocytic anemia Elevated PTT Hemoccult negative in ED. Received 1 unit PRBCs in the emergency department Hemoglobin currently 9.5 Recheck CBC in a.m. ID: Antibiotic per ID recommendation Blood cultures 2, sputum, UA, urine Legionella and pneumococcal antigens is also are pending. Influenza negative. ID consult appreciated MSK: BMI greater than 50 Weight loss encouraged FEN: Access - Utilize peripheral IV. Central line if indicated Prophylaxis - GI - pantoprazole - DVT - SCD/heparin subcutaneous Critical Care: The total critical care time was 35 minutes. Time to perform other separately billable procedures was not included in the critical care time. Jung Calderon MD Jun 22, 2017 23:04
[2017-06-22] MEDS ORDERED: ALBUMIN HUMAN 25% 25 GM/100 ML BAGP IV ONE (23:15)
[2017-06-22 23:39] LABS: BLOOD GAS BASE EXCESS 4.6 mmol/L (-2-2); BLOOD GAS CARBOXYHEMOGLOBIN 2.4 % (0-4); BLOOD GAS HCO3 32 mmol/L (22-26); BLOOD GAS METHEMOGLOBIN 0.8 % (0-2); BLOOD GAS O2 HGB SATURATION 87 % (90-100); BLOOD GAS OXYGEN CONTENT 10.9 Vol % (12.0-20.0); BLOOD GAS PCO2 78 mmHg (38-42); BLOOD GAS PO2 60 mmHg (61-120); BLOOD GAS TOTAL HGB 8.9 G/DL (12.0-16.0); CRITICAL VALUE YES; OXYGEN DEVICE BIPAP; TEMP CORR TO 98.6; VENT SETTINGS IPAP20/EPAP8
[2017-06-22 23:40] LABS: DRAW SITE RT RADIAL; FIO2 60 %; NUMBER OF ARTERIAL PUNCTURES 1; STAT NO; ULNAR PULSE PRESENT
[2017-06-23] VITALS (22 sets, daily range): BP systolic 104–148; BP diastolic 55–65; PULSE 69–108; RESP 14–18; TEMP 97.8–99.2; O2SAT 92–100
[2017-06-23 01:27] LABS: MRSA PCR NEGATIVE (NEGATIVE); STAPH AUREUS PCR NEGATIVE (NEGATIVE)
[2017-06-23] MEDS: CHLORHEXIDINE GLUCONATE 2 % 1 PACK (2 CLOTHS) TOP SCH (03:11)
[2017-06-23 04:49] LABS: BASOPHIL # 0.2 TH/MM3 (0-0.2); BASOPHIL % 0.7 % (0.0-2.0); HEMATOCRIT 28.7 % (39.0-51.0); HEMO FLAGS DIFF FINAL; LYMPH % 3.1 % (9.0-44.0); LYMPHOCYTE # 0.7 TH/MM3 (1.0-4.8); MEAN CELL VOLUME 94.6 FL (80.0-100.0); MEAN CORPUSCULAR HEMOGLOBIN 29.6 PG (27.0-34.0); MEAN CORPUSCULAR HGB CONC 31.3 % (32.0-36.0); MONO % 4.7 % (0.0-8.0); NEUT % 91.5 % (16.0-70.0); PLATELET COUNT 166 TH/MM3 (150-450); RED BLOOD COUNT 3.04 MIL/MM3 (4.50-5.90); RED CELL DISTRIBUTION WIDTH 16.7 % (11.6-17.2); WHITE BLOOD COUNT 22.9 TH/MM3 (4.0-11.0)
[2017-06-23 05:15] LABS: BICARBONATE 32.8 MEQ/L (21.0-32.0); POTASSIUM 4.8 MEQ/L (3.5-5.1)
[2017-06-23 05:40] LABS: BLOOD GAS BASE EXCESS 4.8 mmol/L (-2-2); BLOOD GAS CARBOXYHEMOGLOBIN 2.2 % (0-4); BLOOD GAS HCO3 32 mmol/L (22-26); BLOOD GAS METHEMOGLOBIN 0.8 % (0-2); BLOOD GAS O2 HGB SATURATION 95 % (90-100); BLOOD GAS OXYGEN CONTENT 12.2 Vol % (12.0-20.0); BLOOD GAS PCO2 77 mmHg (38-42); BLOOD GAS PO2 105 mmHg (61-120); CRITICAL VALUE YES; OXYGEN DEVICE BiPAP; TEMP CORR TO 98.6
[2017-06-23 05:41] LABS: DRAW SITE RT RADIAL; FIO2 55 %; NUMBER OF ARTERIAL PUNCTURES 1; STAT NO; ULNAR PULSE PRESENT; VENT SETTINGS IPAP20/EPAP8
[2017-06-23] MEDS: INSULIN NovoLIN REGULAR SUPPLEMENTAL SCALE SQ SCH ×4 (06:30→22:01)
[2017-06-23] MEDS ORDERED: ROCURONIUM INJ 50 MG/5 ML VIAL IV ONE (08:30)
[2017-06-23] MEDS ORDERED: MIDAZOLAM HCL 5 MG/ML VIAL (1 ML) IM ONE (08:30)
[2017-06-23] MEDS ORDERED: TERBUTALINE INJ 1 MG/ML AMP SQ PRN (08:30)
--- NOTE | 2017-06-23 08:40 | HHI.CCPN ---
Subjective Remarks/Hospital Course 66-year-old male. Date of admission 06/12/2017. Past medical history includes COPD, morbid obesity, coronary artery disease, hypertension, diabetes mellitus with peripheral neuropathy. Patient was his normal state of health until yesterday when he "did not feel good " including myalgias, generalized weakness. No recent sick contacts. No changes in his diet. No recent travels. Laboratory work revealed a lactic acidosis of 5.4. Potassium is 5.9. Note he is on an ARB along with KCl supplementation, leukocytosis is a 24,000, anemia of 8.6 with Hemoccult-negative stool done in ED in acute kidney injury with a creatinine of 1.5. Chest x-ray revealed elevated left hemidiaphragm otherwise negative. Received 1 dose of Zosyn and vancomycin the ED. We are asked to admit. 06/23: Tight , morbid obesity, fluid overload, pneumonia all hampering CO2 removal. Respiratory effort ineffective and nearly obtunded from hypercapneic failure. Objective Vital Signs Date Time Temp Pulse Resp B/P Pulse Ox O2 Delivery O2 Flow Rate FiO2 06/23/17 06:00 100 06/23/17 04:00 97.8 18 107/59 99 06/23/17 03:53 55 06/22/17 20:53 Non-Rebreather 15.00 Intake and Output 06/22/17 06/22/17 06/23/17 08:00 16:00 00:00 Intake Total 360 ml 340 ml Output Total 600 ml 400 ml 350 ml Balance -240 ml -60 ml -350 ml Result Diagram: 06/23/17 0422 06/23/17 0422 Other Results Laboratory Tests Test 06/22/17 06/22/17 06/23/17 20:19 23:19 05:24 Blood Gas Puncture Site RT RADIAL RT RADIAL RT RADIAL Blood Gas Patient Temperature 98.6 98.6 98.6 Blood Gas HCO3 33 mmol/L 32 mmol/L 32 mmol/L (22-26) (22-26) (22-26) Blood Gas Base Excess 4.5 mmol/L 4.6 mmol/L 4.8 mmol/L (-2-2) (-2-2) (-2-2) Blood Gas Oxygen Saturation 92 % (90-100) 87 % (90-100) 95 % (90-100) Arterial Blood pH 7.14 7.23 7.24 (7.380-7.420) (7.380-7.420) (7.380-7.420) Arterial Blood Partial 101 mmHg 78 mmHg (38-42) 77 mmHg (38-42) Pressure CO2 (38-42) Arterial Blood Partial 83 mmHg 60 mmHg 105 mmHg Pressure O2 (61-120) (61-120) (61-120) Arterial Blood Oxygen Content 12.1 Vol % 10.9 Vol % 12.2 Vol % (12.0-20.0) (12.0-20.0) (12.0-20.0) Arterial Blood 2.3 % (0-4) 2.4 % (0-4) 2.2 % (0-4) Carboxyhemoglobin Arterial Blood Methemoglobin 0.9 % (0-2) 0.8 % (0-2) 0.8 % (0-2) Blood Gas Hemoglobin 9.3 G/DL 8.9 G/DL 9.0 G/DL (12.0-16.0) (12.0-16.0) (12.0-16.0) Oxygen Delivery Device NASAL CANNULA BIPAP BiPAP Blood Gas Liter Flow 6 L/M Blood Gas Ventilator Setting IPAP20/EPAP8 IPAP20/EPAP8 Blood Gas Inspired Oxygen 60 % 55 % Imaging Last Impressions Chest X-Ray 06/12/17 0728 Signed Impressions: Service Date/Time: May 07:43 - CONCLUSION: 1. Elevation left hemidiaphragm. 2. Bibasilar densities likely atelectasis. Graham Antonio MD Lower Extremity Ultrasound 06/12/17 0000 Signed Impressions: Service Date/Time: May 18:32 - CONCLUSION: Normal examination. Lev Gandhi MD Objective Remarks GENERAL: 58-year-old male, critically ill currently resting in bed in no acute distress, obtunded. SKIN: Warm and pale. No rash. Tattoo left upper extremity HEAD: Atraumatic. Normocephalic. EYES: Pupils equal and round around 2 mm bilaterally and reactive. No scleral icterus. No injection or drainage. ENT: No nasal bleeding or discharge. Mucous membranes pink and moist. NECK: Trachea midline. No obstruction. CARDIOVASCULAR: Distant. Regular rate and rhythm. S1, S2 no S4 without murmur RESPIRATORY: Diminished throughout. No wheezes, rales or rhonchi. Breath sounds poor bilaterally. GASTROINTESTINAL: Abdomen soft, non-tender, obese. Hypoactive bowel sounds. No guarding. MUSCULOSKELETAL: Extremities with chronic venous stasis bilateral lower extremities with woody edema. NEUROLOGICAL: Obtunded.Withdraws 4 limbs. A/P Assessment and Plan Neuro/Psych: Acetaminophen 650 mg by mouth every 4 hours when necessary fever Hydrocodone/acetaminophen 5/325 one tablet every 4 hours when necessary pain 1-5 Morphine sulfate 2 mg IV every 2 hours when necessary pain 6-10 CT head ordered but refused per patient CV: Lactic acidosis - resolved Hypertension Coronary artery disease EKG revealed sinus tachycardia. Left axis deviation. QTC was 403 Initial troponin 0.05. Negative workup Holding losartan 100 mg by mouth daily light of hypotension relative and acute kidney injury. Resume when clinically indicated Patient has received IV Lasix 40 mg we'll hold further doses by mouth daily in light of hypotension. Resume when clinically indicated Resp: Prior tobaccoism 50 pack years. Quit 15 years ago Chronic oxygen use possibly undiagnosed PAULA/pickwickian Obesity hypoventilation syndrome Chest x-ray revealed elevated left hemidiaphragm. Possible bilateral lower lobe atelectasis Nasal cannula to maintain saturations greater than or equal to 92% Continue ipratropium/albuterol 0.5/2.5 nebulizers every 6 hours with albuterol nebulizers every 2 hours. Dyspnea Incentive spirometry while awake Will need intubation. GI: Early satiety Elevated total bilirubin Total bilirubin elevated however remainder of LFTs negative. Benign abdominal examination.. Lipase normal Patient refuses CT abdomen/pelvis. Pantoprazole 40 mg IV daily for GI prophylaxis Docusate sodium/senna 1 tablet by mouth twice a day for bowel regimen Dark stools per RN. Will Hemoccult stool 1. : Franco catheter if indicated for accurate I's and O's in a critically ill patient Endo: Diabetes mellitus/insulin requiring with peripheral neuropathy Home medications include insulin aspart 30 units 3 times a day and insulin glargine 50 units subcutaneous twice a day Currently on detemir 30 units subcutaneous twice a day with Novolin R sliding scale insulin with Accu-Cheks before meals/at bedtime Renal: Acute or chronic kidney injury - resolving Unknown baseline. Abdominal ultrasound rule out hydronephrosis Urine eosinophil/electrolytes Currently normal saline at 84 cc an hour. Status post 3 L normal saline 1 Heme: Leukocytosis Normocytic anemia Elevated PTT Hemoccult negative in ED. Received 1 unit PRBCs in the emergency department Hemoglobin currently 9.5 Recheck CBC in a.m. ID: Antibiotic per ID recommendation Blood cultures 2, sputum, UA, urine Legionella and pneumococcal antigens is also are pending. Influenza negative. ID consult appreciated MSK: BMI greater than 50 Weight loss encouraged FEN: Access - Utilize peripheral IV. - Right SCV CVL placed 06/23 Prophylaxis - GI - pantoprazole - DVT - SCD/heparin subcutaneous Overall impression: Critically ill and deteriorating respiratory function. Will require intubation and mechanical ventilation. Critical Care 44 mins aside from procedures Eddie Shabazz MD Jun 23, 2017 08:40
[2017-06-23] MEDS ORDERED: PHENYLEPHRINE HCL 10 MG/ML VIAL ONE (08:51)
[2017-06-23] MEDS: PANTOPRAZOLE SODIUM 40 MG VIAL IV SCH (09:00)
[2017-06-23] MEDS: cefTRIAXone INJ 2,000 MG in SODIUM CHLORIDE 0.9% INJ 100 ML IV SCH (09:00)
[2017-06-23] MEDS: DOCUSATE SODIUM 50 MG/SENNA 8.6 MG TAB PO SCH ×2 (09:00→21:43)
[2017-06-23] MEDS: SODIUM CHLORIDE 0.9% FLUSH 10 ML FLUSH IV FLUSH SCH ×2 (09:00→20:32)
--- NOTE | 2017-06-23 10:11 | PD.PROCEDR ---
Procedure Note Procedure DX: Hypercapneic Respiratory Failure (J96.02) OP: 1. Orotracheal Intubation (01444) 2. Insertion Central Venous Line (51638) Procedure: Bag mask ventilation due to inadequate spontaneous air movement. Versed 5 mg iv X 2, rocuronium 100 mg iv. Intubated orally with 8.0 tube. Position confirmed with CO2 detection, breath sounds, sats 100%. Right chest prepped and draped. Right subclavian vein cannulated with spinal needle and wire easily advanced. Catheter passed over wire to 18 cm. Lumens aspirated and flushed. Dressing applied. CXR ordered, will review. Eddie Shabazz MD Jun 23, 2017 10:11
--- NOTE | 2017-06-23 11:09 | HHI.HCPN ---
Reason for visit a. To assist with evaluation and management of symptoms including: Shortness of breath and debility. b. To assist medical decision maker(s) with: better understanding of current medical conditions; weighing benefits/burdens of medical treatment options; making medical treatment decisions. . Subjective/Interval History Mr. Khan is a 66-year-old male with a medical history significant for COPD, morbid obesity, CAD, hypertension and diabetes mellitus type 2. Recently diagnosed with severe aortic stenosis, not a candidate for AVR secondary to multiple ongoing comorbidities, sepsis and anemia. May eventually be a candidate for high risk TAVR once anemia and sepsis is resolved. Palliative care consulted for clarification of goals of care given poor prognosis with limited treatment options. Clinical course complicated by hypercapnic respiratory failure. Patient last night was found obtunded with oxygen saturation in the 70's. He was transferred to ICU and placed on BiPAP. Patient with hypercapnic respiratory failure, ABG revealing pH 72.4, PCO2 77. Patient was subsequently intubated and placed on medical ventilation. Patient hypotensive requiring vasopressor. Patient seen in ICU, he remains orally intubated on mechanical ventilation, 60% FiO2. Afebrile, slightly tachycardic with HR in the low 100s. Laboratory work Today revealing persistent leukocytosis 22.9, Hgb is stable and 9.0, platelet count 166. Sodium 137, potassium 4.8, BUN/creatinine 40/1.55. BNP 987. Palliative care met with patient and friend Tere Caruso) last Friday06/20/17 in the afternoon. Discussed patient's clinical condition to include severe aortic valve stenosis, not a candidate for AVR given his multiple ongoing comorbidities, sepsis and anemia. Discussed limited treatment options which carry poor prognosis. Assisted patient at that time to complete designation of healthcare surrogate, patient designated friend Tere Talamantes as [facility]. Discussed with patient and friend benefits, risks and limitations of CPR, intubation and mechanical ventilation given patient's multiple comorbidities and current clinical condition. Patient electing full code to include CPR, intubation and mechanical ventilation. Discussed limitations of treatment, patient verbalized NOT wishing tracheostomy and/or PEG tube placement if unable to wean off ventilator support. Patient verbalized wishing to be "let go" if his clinical condition does not improve after being in on life support for up to 2 weeks. Friend Maday supportive of patient's wishes. . Family/friend interactions Telephone conversation with patient's friend/HCS Maday. Medical update provided. Shared concerns of patient's clinical condition given multiple ongoing chronic comorbidities and acute events. All questions were answered in great detail. Goal of therapy remain aggressive, allow time for clinical improvement. . Advance Directives Living Will: Completed, but not made available Health Care Surrogate: Copy in medical record Advance Directive Specifics Date completed: 06/20/2017 . Health Care Surrogate(s): Patient designated friend Tere Talamantes as HCS. No alternate HCS. . Documented care wishes: Pending copy of living will. . Significant change in goals: Full code. Continue aggressive care. . Objective Vital Signs Date Time Temp Pulse Resp B/P Pulse Ox O2 Delivery O2 Flow Rate FiO2 06/23/17 09:00 100 60 06/23/17 06:00 100 06/23/17 04:00 104 06/23/17 04:00 97.8 108 18 107/59 99 06/23/17 03:53 98 55 06/23/17 02:00 102 06/23/17 00:24 100 60 06/23/17 00:00 97.9 103 14 115/55 100 06/23/17 00:00 102 06/22/17 23:00 101 06/22/17 23:00 101 06/22/17 21:21 96 60 06/22/17 20:53 100 Non-Rebreather 15.00 100 06/22/17 20:05 92 Nasal Cannula 6.00 06/22/17 16:00 97.8 106 18 115/55 95 06/22/17 12:00 96.9 109 18 117/59 95 06/22/17 10:40 94 Nasal Cannula 5.00 Intake & Output 06/23/17 06/23/17 06:59 18:59 Intake Total 100 ml Output Total 600 ml Balance -500 ml Intake Oral 100 ml Output Urine Total 600 ml # Bowel Movements 0 Physical Exam CONSTITUTIONAL/GENERAL: This is an obese man orally intubated on mechanical ventilation. TUBES/LINES/DRAINS: ETT, OG, PIV's, right chest central line, Franco catheter, bilateral soft wrist restraints. SKIN: No jaundice. Ecchymoses on upper extremities. Skin temperature appropriate. Not diaphoretic. Vascular skin changes to bilateral lower extremities. HEAD: Atraumatic. Normocephalic. EYES: Pupils equal and round and reactive. No scleral icterus. No injection or drainage. ENT: Unable to evaluate hearing, sedated. Nose without bleeding or purulent drainage. Moist oral mucosa. NECK: Trachea midline. Supple. CARDIOVASCULAR: Regular rate and rhythm. Weeping edema to bilateral upper extremities. RESPIRATORY/CHEST: Symmetric, orally intubated on mechanical ventilation. Expiratory crackles bilaterally L>R. GASTROINTESTINAL: Abdomen large, obese, round. Unable to evaluate for hepatomegaly secondary to body habitus, obesity. GENITOURINARY: Unable to evaluate for bladder distension secondary to body habitus, obesity. MUSCULOSKELETAL: Extremities without cyanosis. Edema to bilateral lower lower extremities and hands. NEUROLOGICAL: Unresponsive to verbal or tactile stimuli, sedated. PSYCHIATRIC: Unable to evaluate secondary to clinical condition, sedated. Diagnostic Tests Laboratory Laboratory Tests Test 06/20/17 06/21/17 06/22/17 06/22/17 23:00 04:14 04:08 20:19 Total Bilirubin 0.7 MG/DL (0.2-1.0) Direct Bilirubin 0.2 MG/DL (0.0-0.2) Indirect Bilirubin 0.5 MG/DL (0.0-0.8) Aspartate Amino Transf 40 U/L (15-37) (AST/SGOT) Alanine Aminotransferase 21 U/L (12-78) (ALT/SGPT) Alkaline Phosphatase 78 U/L (45-117) Total Protein 6.6 GM/DL (6.4-8.2) Albumin 2.2 GM/DL (3.4-5.0) White Blood Count 18.1 TH/MM3 (4.0-11.0) Red Blood Count 3.04 MIL/MM3 (4.50-5.90) Hemoglobin 9.4 GM/DL (13.0-17.0) Hematocrit 28.5 % (39.0-51.0) Mean Corpuscular Volume 93.8 FL (80.0-100.0) Mean Corpuscular Hemoglobin 30.8 PG (27.0-34.0) Mean Corpuscular Hemoglobin 32.8 % Concent (32.0-36.0) Red Cell Distribution Width 16.7 % (11.6-17.2) Platelet Count 164 TH/MM3 (150-450) Mean Platelet Volume 8.7 FL (7.0-11.0) Neutrophils (%) (Auto) 86.5 % (16.0-70.0) Lymphocytes (%) (Auto) 5.1 % (9.0-44.0) Monocytes (%) (Auto) 6.9 % (0.0-8.0) Eosinophils (%) (Auto) 1.0 % (0.0-4.0) Basophils (%) (Auto) 0.5 % (0.0-2.0) Neutrophils # (Auto) 15.7 TH/MM3 (1.8-7.7) Lymphocytes # (Auto) 0.9 TH/MM3 (1.0-4.8) Monocytes # (Auto) 1.3 TH/MM3 (0-0.9) Eosinophils # (Auto) 0.2 TH/MM3 (0-0.4) Basophils # (Auto) 0.1 TH/MM3 (0-0.2) CBC Comment DIFF FINAL Differential Comment B-Type Natriuretic Peptide 736 PG/ML (0-100) Blood Gas Puncture Site RT RADIAL Blood Gas Patient Temperature 98.6 Blood Gas HCO3 33 mmol/L (22-26) Blood Gas Base Excess 4.5 mmol/L (-2-2) Blood Gas Oxygen Saturation 92 % (90-100) Arterial Blood pH 7.14 (7.380-7.420) Arterial Blood Partial 101 mmHg Pressure CO2 (38-42) Arterial Blood Partial 83 mmHg Pressure O2 (61-120) Arterial Blood Oxygen Content 12.1 Vol % (12.0-20.0) Arterial Blood 2.3 % (0-4) Carboxyhemoglobin Arterial Blood Methemoglobin 0.9 % (0-2) Blood Gas Hemoglobin 9.3 G/DL (12.0-16.0) Oxygen Delivery Device NASAL CANNULA Blood Gas Liter Flow 6 L/M Test 06/22/17 06/22/17 06/22/17 06/23/17 21:15 21:27 23:19 04:22 Nasal Screen MRSA (PCR) NEGATIVE (NEGATIVE) Staphylococcus aureus NEGATIVE (PCR)(LAB) (NEGATIVE) White Blood Count 25.0 TH/MM3 22.9 TH/MM3 (4.0-11.0) (4.0-11.0) Red Blood Count 3.07 MIL/MM3 3.04 MIL/MM3 (4.50-5.90) (4.50-5.90) Hemoglobin 9.5 GM/DL 9.0 GM/DL (13.0-17.0) (13.0-17.0) Hematocrit 28.8 % 28.7 % (39.0-51.0) (39.0-51.0) Mean Corpuscular Volume 93.7 FL 94.6 FL (80.0-100.0) (80.0-100.0) Mean Corpuscular Hemoglobin 31.0 PG 29.6 PG (27.0-34.0) (27.0-34.0) Mean Corpuscular Hemoglobin 33.1 % 31.3 % Concent (32.0-36.0) (32.0-36.0) Red Cell Distribution Width 16.7 % 16.7 % (11.6-17.2) (11.6-17.2) Platelet Count 198 TH/MM3 166 TH/MM3 (150-450) (150-450) Mean Platelet Volume 9.0 FL 8.3 FL (7.0-11.0) (7.0-11.0) Neutrophils (%) (Auto) 90.1 % 91.5 % (16.0-70.0) (16.0-70.0) Lymphocytes (%) (Auto) 3.1 % 3.1 % (9.0-44.0) (9.0-44.0) Monocytes (%) (Auto) 5.8 % (0.0-8.0) 4.7 % (0.0-8.0) Eosinophils (%) (Auto) 0.1 % (0.0-4.0) 0.0 % (0.0-4.0) Basophils (%) (Auto) 0.9 % (0.0-2.0) 0.7 % (0.0-2.0) Neutrophils # (Auto) 22.5 TH/MM3 21.0 TH/MM3 (1.8-7.7) (1.8-7.7) Lymphocytes # (Auto) 0.8 TH/MM3 0.7 TH/MM3 (1.0-4.8) (1.0-4.8) Monocytes # (Auto) 1.4 TH/MM3 1.1 TH/MM3 (0-0.9) (0-0.9) Eosinophils # (Auto) 0.0 TH/MM3 0.0 TH/MM3 (0-0.4) (0-0.4) Basophils # (Auto) 0.2 TH/MM3 0.2 TH/MM3 (0-0.2) (0-0.2) CBC Comment DIFF FINAL DIFF FINAL Differential Comment Sodium Level 137 MEQ/L 137 MEQ/L (136-145) (136-145) Potassium Level 4.8 MEQ/L 4.8 MEQ/L (3.5-5.1) (3.5-5.1) Chloride Level 97 MEQ/L 97 MEQ/L (98-107) (98-107) Carbon Dioxide Level 35.0 MEQ/L 32.8 MEQ/L (21.0-32.0) (21.0-32.0) Anion Gap 5 MEQ/L (5-15) 7 MEQ/L (5-15) Blood Urea Nitrogen 35 MG/DL (7-18) 40 MG/DL (7-18) Creatinine 1.57 MG/DL 1.55 MG/DL (0.60-1.30) (0.60-1.30) Estimat Glomerular Filtration 44 ML/MIN (>89) 45 ML/MIN (>89) Rate Random Glucose 174 MG/DL 166 MG/DL (74-106) (74-106) Lactic Acid Level 1.3 mmol/L (0.4-2.0) Calcium Level 8.9 MG/DL 8.7 MG/DL (8.5-10.1) (8.5-10.1) Magnesium Level 2.1 MG/DL (1.5-2.5) Blood Gas Puncture Site RT RADIAL Blood Gas Patient Temperature 98.6 Blood Gas HCO3 32 mmol/L (22-26) Blood Gas Base Excess 4.6 mmol/L (-2-2) Blood Gas Oxygen Saturation 87 % (90-100) Arterial Blood pH 7.23 (7.380-7.420) Arterial Blood Partial 78 mmHg (38-42) Pressure CO2 Arterial Blood Partial 60 mmHg Pressure O2 (61-120) Arterial Blood Oxygen Content 10.9 Vol % (12.0-20.0) Arterial Blood 2.4 % (0-4) Carboxyhemoglobin Arterial Blood Methemoglobin 0.8 % (0-2) Blood Gas Hemoglobin 8.9 G/DL (12.0-16.0) Oxygen Delivery Device BIPAP Blood Gas Ventilator Setting IPAP20/EPAP8 Blood Gas Inspired Oxygen 60 % B-Type Natriuretic Peptide 987 PG/ML (0-100) Test 06/23/17 05:24 Blood Gas Puncture Site RT RADIAL Blood Gas Patient Temperature 98.6 Blood Gas HCO3 32 mmol/L (22-26) Blood Gas Base Excess 4.8 mmol/L (-2-2) Blood Gas Oxygen Saturation 95 % (90-100) Arterial Blood pH 7.24 (7.380-7.420) Arterial Blood Partial 77 mmHg (38-42) Pressure CO2 Arterial Blood Partial 105 mmHg Pressure O2 (61-120) Arterial Blood Oxygen Content 12.2 Vol % (12.0-20.0) Arterial Blood 2.2 % (0-4) Carboxyhemoglobin Arterial Blood Methemoglobin 0.8 % (0-2) Blood Gas Hemoglobin 9.0 G/DL (12.0-16.0) Oxygen Delivery Device BiPAP Blood Gas Ventilator Setting IPAP20/EPAP8 Blood Gas Inspired Oxygen 55 % Result Diagram: 06/23/17 0422 06/23/17 0422 Procedures * 06/23/17 -endotracheal intubation * 06/23/17 -right chest central line placement * 06/16/17 -cardiac catheterization. . Assessment and Plan Disease Oriented Problem List: (1) Hypercapnic respiratory failure (2) Aortic valve stenosis (3) Sepsis (4) COPD (chronic obstructive pulmonary disease) (5) Anemia (6) Diabetes mellitus (7) Coronary artery disease (8) Hypertension (9) BMI 50.0-59.9, adult Symptom Scale: (1) Shortness of breath 0-10 Scale: Unable to quantify Comment: Secondary to COPD, anemia, acute illness/sepsis. Now intubated on mechanical ventilation. . (2) Debility 0-10 Scale: Unable to quantify Comment: Progressive. Exacerbated by acute injury and prolonged hospitalization. . Pertinent Non-Medical Issues Psychosocial: Patient originally from [place]. Moved to [place] over 40 years ago. He is a , has 1 son Ismael Khan. Retired 8 years ago secondary to COPD. 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 Served in the [employer] for 3 years, a 70 [place] . Spiritual: No voodoo affiliation. Legal: Reports that advance directives have been completed through the [place]. Ethical issues impacting care: No ethical issues identified at this time. . Important Contacts Patient's friend Tere Talamantes Pt's mother Queenie Cruz . . Prognosis Mr. Khan is a 66-year-old male with a medical history significant for COPD, morbid obesity, CAD, hypertension and diabetes mellitus type 2. Patient with newly diagnosed severe aortic valve stenosis with limited treatment options secondary to multiple chronic comorbidities, sepsis and anemia. Poor prognosis for an improved quality of life. 2 year mortality around 50% if aortic valve is not replaced. Patient at high risk for further complications, continue decline and . . Code Status: Full Code Plan * CODE STATUS: Full code. Risks, benefits and limitations of CPR, intubation and mechanical ventilation were previously discussed with patient on 06/21/17. Patient elected full code. * HEALTHCARE DECISION-MAKING: Patient unable to participating in medical decision-making secondary to clinical condition, sedated -intubated on mechanical ventilation. Patient designated friend Tere Talamantes as HCS, no alternate HCS. * GOALS OF CARE: Healthcare surrogate Tere electing to continue aggressive management, allow a few days for clinical improvement. * Palliative care met with patient and friend Tere Talamantes (Maday) last Friday06/20/17. Discussed patient's clinical condition to include severe aortic valve stenosis, not a candidate for AVR given his multiple ongoing comorbidities , sepsis and anemia. Discussed limited treatment options which carry poor prognosis. Discussed limitations of treatment in the setting of patient requiring intubation and mechanical ventilation, patient verbalized NOT wishing tracheostomy and/or PEG tube placement if unable to wean off ventilator support. Patient verbalized wishing to be "let go" if his clinical condition does not improve after being on life support for up to 2 weeks. Friend Maday supportive of patient's wishes. * SYMPTOMS: = Shortness of breath, multifactorial. Secondary to COPD, anemia, sepsis. Currently on 4L NC. = Debility, progressive. Worsened during the past year. Exacerbated by acute illness. * Palliative care contact information has been provided to patient and friend Tere. * Palliative care will continue to follow-up for further clarifications of goals of care as patient's clinical course continues to evolve. . Time Spent Total Floor Time (mins): 41 (Total time to include review medical records, physical exam, telephone conversation with healthcare surrogate.) >50% Counseling/Coord of Care: Yes Attestation To help prompt me to consider important information that might be impacting today's encounter and assessment, information from prior notes written by myself or my colleagues may have been "brought forward" into today's note. My signature on this note, however, is an attestation that I personally performed the exam, history, and/or decision-making noted today, and, unless otherwise indicated, the interactions with patient, family, and staff as well as the review of records all occurred today. I also attest that the listed assessment and stated plan reflect my best clinical judgment today based on the combination of historical information, prior notes, and today's exam/ interactions. When time spent is documented, it refers only to time spent today by the signer, or if indicated, combined time spent today by collaborating physician/nurse practitioner. Camilla Marquez Jun 23, 2017 11:09
--- NOTE | 2017-06-23 11:11 | RADRPT ---
EXAM DATE/TIME: 06/23/2017 10:20 [facility] COMPARISON: CHEST SINGLE AP, June 22, 2017, 20:30. INDICATIONS : ET tube and central line placement. MEDICAL HISTORY : Chronic obstructive pulmonary disease. Hypertension Diabetes mellitus type II. Afib SURGICAL HISTORY : None. ENCOUNTER: Subsequent ACUITY: 2 weeks PAIN SCORE: Non-responsive. LOCATION: Bilateral chest FINDINGS: Bibasilar opacities are present due to a combination of consolidation and or pleural effusion. ET tub e is present with tip overlapping approximately 1 cm above the juan f. Right subclavian line is prese nt with tip overlapping the expected region of the SVC. NG tube is present with tip in the stomach. CONCLUSION: Bilateral pleural effusions and bibasilar consolidation and or compressive collapse possibly slightly worse on the right since the prior exam. Khadar Arboleda MD on June 23, 2017 at 11:08 Board Certified Radiologist. This report was verified electronically.
[2017-06-23 12:21] LABS: BLOOD GAS VENOUS BASE EXCESS 2.5 mmol/L (-2-2); BLOOD GAS VENOUS HCO3 28 mmol/L (22-26); BLOOD GAS VENOUS O2 CONTENT 8.6 Vol % (9.0-17.0); BLOOD GAS VENOUS O2 HGB SAT 71 % (70-76); BLOOD GAS VENOUS PCO2 53 mmHg (44-48); BLOOD GAS VENOUS PO2 41 mmHg (35-40); BLOOD GAS VENOUS pH 7.34 (7.360-7.400); CRITICAL VALUE NO; OXYGEN DEVICE VENTILATOR; TEMP CORR TO 98.6; VENT SETTINGS 500/18/1.0/+5
[2017-06-23 12:22] LABS: DRAW SITE LINE; FIO2 60 %; STAT NO
--- NOTE | 2017-06-23 12:28 | HHI.GIFU ---
Subjective Remarks Pt was Halicated to I[facility] last night for altered mental status, hypoxia, respiratory distress. He was found to have CO2 of 101 and placed on Bipap, but continued to have respiratory distress and elevated CO2 and was therefore intubated and placed on the mechanical ventilator. He has not had any active GI bleeding according to the nurse. Objective Vitals I&O Vital Signs Date Time Temp Pulse Resp B/P Pulse Ox O2 Delivery O2 Flow Rate FiO2 06/23/17 09:00 100 60 06/23/17 06:00 100 06/23/17 04:00 104 06/23/17 04:00 97.8 108 18 107/59 99 06/23/17 03:53 98 55 06/23/17 02:00 102 06/23/17 00:24 100 60 06/23/17 00:00 97.9 103 14 115/55 100 06/23/17 00:00 102 06/22/17 23:00 101 06/22/17 23:00 101 06/22/17 21:21 96 60 06/22/17 20:53 100 Non-Rebreather 15.00 100 06/22/17 20:05 92 Nasal Cannula 6.00 06/22/17 16:00 97.8 106 18 115/55 95 I/O 06/22/17 06/22/17 06/22/17 06/23/17 06/23/17 06/23/17 07:00 15:00 23:00 07:00 15:00 23:00 Intake Total 240 ml 460 ml 100 ml Output Total 600 ml 400 ml 350 ml 250 ml Balance -360 ml 60 ml -350 ml -150 ml Intake Oral 240 ml 360 ml 100 ml IV Total 100 ml Output Urine Total 600 ml 400 ml 350 ml 250 ml # Bowel Movements 0 0 0 0 Laboratory Laboratory Tests Test 06/22/17 06/22/17 06/22/17 06/22/17 20:19 21:15 21:27 23:19 Blood Gas Puncture Site RT RADIAL RT RADIAL Blood Gas Patient Temperature 98.6 98.6 Blood Gas HCO3 33 32 Blood Gas Base Excess 4.5 4.6 Blood Gas Oxygen Saturation 92 87 Arterial Blood pH 7.14 7.23 Arterial Blood Partial 101 78 Pressure CO2 Arterial Blood Partial 83 60 Pressure O2 Arterial Blood Oxygen Content 12.1 10.9 Arterial Blood 2.3 2.4 Carboxyhemoglobin Arterial Blood Methemoglobin 0.9 0.8 Blood Gas Hemoglobin 9.3 8.9 Oxygen Delivery Device NASAL CANNULA BIPAP Blood Gas Liter Flow 6 Nasal Screen MRSA (PCR) NEGATIVE Staphylococcus aureus NEGATIVE (PCR)(LAB) White Blood Count 25.0 Red Blood Count 3.07 Hemoglobin 9.5 Hematocrit 28.8 Mean Corpuscular Volume 93.7 Mean Corpuscular Hemoglobin 31.0 Mean Corpuscular Hemoglobin 33.1 Concent Red Cell Distribution Width 16.7 Platelet Count 198 Mean Platelet Volume 9.0 Neutrophils (%) (Auto) 90.1 Lymphocytes (%) (Auto) 3.1 Monocytes (%) (Auto) 5.8 Eosinophils (%) (Auto) 0.1 Basophils (%) (Auto) 0.9 Neutrophils # (Auto) 22.5 Lymphocytes # (Auto) 0.8 Monocytes # (Auto) 1.4 Eosinophils # (Auto) 0.0 Basophils # (Auto) 0.2 CBC Comment DIFF FINAL Differential Comment Sodium Level 137 Potassium Level 4.8 Chloride Level 97 Carbon Dioxide Level 35.0 Anion Gap 5 Blood Urea Nitrogen 35 Creatinine 1.57 Estimat Glomerular Filtration 44 Rate Random Glucose 174 Lactic Acid Level 1.3 Calcium Level 8.9 Magnesium Level 2.1 Blood Gas Ventilator Setting IPAP20/EPAP8 Blood Gas Inspired Oxygen 60 Test 06/23/17 06/23/17 04:22 05:24 White Blood Count 22.9 Red Blood Count 3.04 Hemoglobin 9.0 Hematocrit 28.7 Mean Corpuscular Volume 94.6 Mean Corpuscular Hemoglobin 29.6 Mean Corpuscular Hemoglobin 31.3 Concent Red Cell Distribution Width 16.7 Platelet Count 166 Mean Platelet Volume 8.3 Neutrophils (%) (Auto) 91.5 Lymphocytes (%) (Auto) 3.1 Monocytes (%) (Auto) 4.7 Eosinophils (%) (Auto) 0.0 Basophils (%) (Auto) 0.7 Neutrophils # (Auto) 21.0 Lymphocytes # (Auto) 0.7 Monocytes # (Auto) 1.1 Eosinophils # (Auto) 0.0 Basophils # (Auto) 0.2 CBC Comment DIFF FINAL Differential Comment Sodium Level 137 Potassium Level 4.8 Chloride Level 97 Carbon Dioxide Level 32.8 Anion Gap 7 Blood Urea Nitrogen 40 Creatinine 1.55 Estimat Glomerular Filtration 45 Rate Random Glucose 166 Calcium Level 8.7 B-Type Natriuretic Peptide 987 Blood Gas Puncture Site RT RADIAL Blood Gas Patient Temperature 98.6 Blood Gas HCO3 32 Blood Gas Base Excess 4.8 Blood Gas Oxygen Saturation 95 Arterial Blood pH 7.24 Arterial Blood Partial 77 Pressure CO2 Arterial Blood Partial 105 Pressure O2 Arterial Blood Oxygen Content 12.2 Arterial Blood 2.2 Carboxyhemoglobin Arterial Blood Methemoglobin 0.8 Blood Gas Hemoglobin 9.0 Oxygen Delivery Device BiPAP Blood Gas Ventilator Setting IPAP20/EPAP8 Blood Gas Inspired Oxygen 55 Imaging Last Impressions Chest X-Ray 06/23/17 0000 Signed Impressions: Service Date/Time: Friday, June 23, 2017 10:20 - CONCLUSION: Bilateral pleural effusions and bibasilar consolidation and or compressive collapse possibly slightly worse on the right since the prior exam. Khadar Arboleda MD CT Angiography 06/15/17 0000 Signed Impressions: Service Date/Time: Friday, June 16, 2017 13:35 - CONCLUSION: 1. Small bilateral pleural effusions with adjacent alveolar consolidations consistent with compressive atelectasis and/or pneumonia. Clinical correlation is recommended. 2. Pleural calcifications within the bilateral posterior lung bases consistent with asbestos related pleural disease or fibrothorax. 3. Cardiomegaly. 4. No evidence of pulmonary embolism. 5. Ascites within the upper abdomen. Casimiro Lazo MD Abdomen Ultrasound 06/13/17 0000 Signed Impressions: Service Date/Time: Tuesday, June 13, 2017 15:35 - CONCLUSION: Limited study secondary to bowel gas and body habitus. Hepatic cysts are noted. Small amount of free fluid suspected. Lev Gandhi MD Lower Extremity Ultrasound 06/12/17 0000 Signed Impressions: Service Date/Time: May 18:32 - CONCLUSION: Normal examination. Lev Gandhi MD Physical Exam HEENT: Normocephalic; atraumatic CHEST: Resp even/unlabored, OETT to vent. Diminished. CARDIAC: RRR ABDOMEN: Soft, obese, bowel sounds are present in all four quadrants. EXTREMITIES: Generalized edema. SKIN: no rash; no jaundice. FILM MOUNTER: Sedated on the ventilator Assessment and Plan Plan ASSESSMENT: - GIB with melanotic stool. Hemoccult positive. Plan is for GI workup once cleared by cardiology (pt with severe aortic steonsis and will likely need surgery once anemia and sepsis improves. S/P 2 units PRBC. HH 9.0/28.7. - Anemia secondary to acute blood loss. H/H on admission was 8.0/25.2. S/P 2 units PRBC and has been stable, currently 9.0/28.7. No history of EGD/ Colonoscopy. Plan is for GI workup once cleared by cardiology. - Acute respiratory failure. Pt halicated for respiratory distress/hypoxia/ams last night, required intubation with mechanical ventilation. - AMS, likely secondary to elevated CO2, now intubated. - Sepsis/leukocytosis/lactic acidosis/bacteremia. BCx with GPC, Streptococcus species. Rpt. BCx no growth 5 days. 2D echo with very technically limited study , moderate thickening of the aortic valve leaflets, severe aortic valve stenosis, moderate thickening of the aortic valve leaflets. RIGO was canceled due to hypoxia and currently not candidate for avr or tavr, so findings unlikely to gear changer and risk/benefit ratio unfavorable per cardiology. WBC 22.9. Ceftriaxone. - HAI with electrolyte abnormalities. Creat 1.55. - DM, CAD, COPD, HTN, Neuropathy per attending. PLAN: - Plan for EGD +/- Colonoscopy once cleared by cardiology- D/W nurse, will ask Dr. Park when he rounds today. - Start Glucerna 1.5 at 30cc/hr, change per dietary recommendations - Academic Affairs Coordinator evaluation for TF recommendations. - Cont. PPI - Monitor HH - Transfuse as necessary - Supportive care - Further recommendations to follow based on results of above - Pt seen and examined by Dr. Corbett and this note is written on her behalf Aga Dyson Jun 23, 2017 12:28
--- NOTE | 2017-06-23 12:37 | HHI.IDPN ---
Subjective Subjective Remarks Patient is a 66-year-old morbidly obese male, presented to the hospital complaining of severe shortness of breath. Patient states he has COPD, and has had problem with chronic shortness of breath. He does not use any supplemental oxygen at home. Patient also admits to chronic lower extremity edema. He presented to the hospital because he had development of severe shortness of breath that he couldn't even walk a few distances which is not his normal. He denies any congestion, cough or any chest pain or palpitations. Also has been very weak, and just didn't feel good. He has not had any dizziness or syncopal episode. Has not had any nausea vomiting, abdominal pain, dysuria. On presentation he had an elevated white count. Patient has been afebrile. His lactic acid was elevated. Urinalysis was unremarkable. Chest x-ray with some basilar atelectasis. Patient was admitted initially for sepsis, and was started on broad-spectrum antibiotics. His WBC went down to 19, but it went up to 27,000. Patient received a large dose of IV Solu-Medrol on June 12. Patient currently states his breathing is better. He is still on nasal O2. Notes reviewed Transferred to ICU this morning for severe SOB Now intubated, on pressors Sedated Temps ok No new (+) BC WBC remains elevated Echo with severe , thickened leaflets BC with Strep bovis CXR infiltrates worse Antibiotics Rocephin Lines PIV Past Medical History COPD Coronary artery disease Hypertension Diabetes mellitus with peripheral neuropathy Elevated BMI Past Surgical History Tonsillectomy Allergies: Coded Allergies: Penicillin (Verified Allergy, Mild, 06/12/17) Objective . Vital Signs Date Time Temp Pulse Resp B/P Pulse Ox O2 Delivery O2 Flow Rate FiO2 06/23/17 09:00 100 60 06/23/17 06:00 100 06/23/17 04:00 104 06/23/17 04:00 97.8 108 18 107/59 99 06/23/17 03:53 98 55 06/23/17 02:00 102 06/23/17 00:24 100 60 06/23/17 00:00 97.9 103 14 115/55 100 06/23/17 00:00 102 06/22/17 23:00 101 06/22/17 23:00 101 06/22/17 21:21 96 60 06/22/17 20:53 100 Non-Rebreather 15.00 100 06/22/17 20:05 92 Nasal Cannula 6.00 06/22/17 16:00 97.8 106 18 115/55 95 06/22/17 06/22/17 06/23/17 15:00 23:00 07:00 Intake Total 460 ml 100 ml Output Total 400 ml 350 ml 250 ml Balance 60 ml -350 ml -150 ml Intake Oral 360 ml 100 ml IV Total 100 ml Output Urine Total 400 ml 350 ml 250 ml # Bowel Movements 0 0 0 . Laboratory Tests Test 06/22/17 06/23/17 21:27 04:22 White Blood Count 25.0 TH/MM3 22.9 TH/MM3 Red Blood Count 3.07 MIL/MM3 3.04 MIL/MM3 Hemoglobin 9.5 GM/DL 9.0 GM/DL Hematocrit 28.8 % 28.7 % Mean Corpuscular Volume 93.7 FL 94.6 FL Mean Corpuscular Hemoglobin 31.0 PG 29.6 PG Mean Corpuscular Hemoglobin 33.1 % 31.3 % Concent Red Cell Distribution Width 16.7 % 16.7 % Platelet Count 198 TH/MM3 166 TH/MM3 Mean Platelet Volume 9.0 FL 8.3 FL Neutrophils (%) (Auto) 90.1 % 91.5 % Lymphocytes (%) (Auto) 3.1 % 3.1 % Monocytes (%) (Auto) 5.8 % 4.7 % Eosinophils (%) (Auto) 0.1 % 0.0 % Basophils (%) (Auto) 0.9 % 0.7 % Neutrophils # (Auto) 22.5 TH/MM3 21.0 TH/MM3 Lymphocytes # (Auto) 0.8 TH/MM3 0.7 TH/MM3 Monocytes # (Auto) 1.4 TH/MM3 1.1 TH/MM3 Eosinophils # (Auto) 0.0 TH/MM3 0.0 TH/MM3 Basophils # (Auto) 0.2 TH/MM3 0.2 TH/MM3 CBC Comment DIFF FINAL DIFF FINAL Differential Comment Laboratory Tests Test 06/22/17 06/22/17 06/23/17 04:08 21:27 04:22 B-Type Natriuretic Peptide 736 PG/ML 987 PG/ML Sodium Level 137 MEQ/L 137 MEQ/L Potassium Level 4.8 MEQ/L 4.8 MEQ/L Chloride Level 97 MEQ/L 97 MEQ/L Carbon Dioxide Level 35.0 MEQ/L 32.8 MEQ/L Anion Gap 5 MEQ/L 7 MEQ/L Blood Urea Nitrogen 35 MG/DL 40 MG/DL Creatinine 1.57 MG/DL 1.55 MG/DL Estimat Glomerular Filtration 44 ML/MIN 45 ML/MIN Rate Random Glucose 174 MG/DL 166 MG/DL Lactic Acid Level 1.3 mmol/L Calcium Level 8.9 MG/DL 8.7 MG/DL Magnesium Level 2.1 MG/DL Imaging Chest X-Ray 06/23/17 0000 Signed Impressions: Service Date/Time: Friday, June 23, 2017 10:20 - CONCLUSION: Bilateral pleural effusions and bibasilar consolidation and or compressive collapse possibly slightly worse on the right since the prior exam. Khadar Arboleda MD CT Angiography 06/15/17 0000 Signed Impressions: Service Date/Time: Friday, June 16, 2017 13:35 - CONCLUSION: 1. Small bilateral pleural effusions with adjacent alveolar consolidations consistent with compressive atelectasis and/or pneumonia. Clinical correlation is recommended. 2. Pleural calcifications within the bilateral posterior lung bases consistent with asbestos related pleural disease or fibrothorax. 3. Cardiomegaly. 4. No evidence of pulmonary embolism. 5. Ascites within the upper abdomen. Casimiro Lazo MD Abdomen Ultrasound 06/13/17 0000 Signed Impressions: Service Date/Time: Tuesday, June 13, 2017 15:35 - CONCLUSION: Limited study secondary to bowel gas and body habitus. Hepatic cysts are noted. Small amount of free fluid suspected. Lev Gandhi MD Lower Extremity Ultrasound 06/12/17 0000 Signed Impressions: Service Date/Time: May 18:32 - CONCLUSION: Normal examination. Lev Gandhi MD Physical Exam GENERAL: sedated on the vent, not in respiratory distress. SKIN: Cool and dry. No generalized rash, no evidence of embolic lesions. HEAD: Atraumatic. Normocephalic. No temporal wasting, or tenderness. EYES: [place] conjunctiva. No petechia or hemorrhage. Pupils equal, round and reactive to light. No scleral icterus. No injection or drainage. EARS, NOSE AND THROAT: Nose without bleeding or purulent nasal discharge. Mucous membranes moist. Orally intubated NECK: Trachea midline. Supple and not tender, no meningeal signs CARDIOVASCULAR: Regular rate and rhythm. Has murmur loudest at base of the heart. NO rub RESPIRATORY: Coarse BS larry ABDOMEN: Soft, obese, non-tender, mildly distended. Bowel sounds present and normoactive. No guarding. No rebound. EXTREMITIES: No clubbing, cyanosis. He has improving edema BLE, and he has bark tree texture of his skin in both legs and feet. No calf tenderness. Cool feet, no mottling NEUROLOGICAL: Sedated PSYCHIATRIC: Unable to assess LINE: No evidence of infection : Franco in place, urine looks clear Assessment & Plan Remarks IMPRESSION Initial presentation of severe SOB, patient with obesity, known COPD, ? possibly with cor pulmonale - clinically no evidence of PNA - has obesity, ?with sleep apnea Strep bovis bacteremia, very suspicious for endocarditis - Has severe Leukocytosis, persistent Respiratory failure, likely pulmonary edema Renal insufficiency RECOMMENDATION Follow new C/S Change Rocephin to cefepime Give dose of Vancomycin - check level in AM Follow CBC Monitor progress Estela Watts MD Jun 23, 2017 12:37
--- NOTE | 2017-06-23 13:18 | PD.CAR.PN ---
CVT Progress Note Subjective/Hospital Course: remains on vent, severe volume overload, hypercapneic resp failure Past medical history includes COPD, morbid obesity, coronary artery disease, hypertension, diabetes mellitus with peripheral neuropathy. Objective: GENERAL: obtunded / on vent SKIN: Warm and dry. HEAD: Normocephalic. EYES: No scleral icterus. No injection or drainage. NECK: Supple, trachea midline. No JVD or lymphadenopathy. CARDIOVASCULAR: Regular rate and rhythm without murmurs, gallops, or rubs. general edema RESPIRATORY: Breath sounds equal bilaterally. No accessory muscle use. orally intubated , diminished breath sounds throughout GASTROINTESTINAL: Abdomen soft, non-tender, nondistended. , obese MUSCULOSKELETAL: No cyanosis, BACK: Nontender without obvious deformity. No CVA tenderness. Vital Signs Date Time Temp Pulse Resp B/P Pulse Ox O2 Delivery O2 Flow Rate FiO2 06/23/17 12:55 98 60 06/23/17 09:00 100 60 06/23/17 06:00 100 06/23/17 04:00 104 06/23/17 04:00 97.8 108 18 107/59 99 06/23/17 03:53 98 55 06/23/17 02:00 102 06/23/17 00:24 100 60 06/23/17 00:00 97.9 103 14 115/55 100 06/23/17 00:00 102 06/22/17 23:00 101 06/22/17 23:00 101 06/22/17 21:21 96 60 06/22/17 20:53 100 Non-Rebreather 15.00 100 06/22/17 20:05 92 Nasal Cannula 6.00 06/22/17 16:00 97.8 106 18 115/55 95 Labs: Laboratory Tests Test 06/23/17 06/23/17 06/23/17 04:22 05:24 12:06 White Blood Count 22.9 TH/MM3 (4.0-11.0) Red Blood Count 3.04 MIL/MM3 (4.50-5.90) Hemoglobin 9.0 GM/DL (13.0-17.0) Hematocrit 28.7 % (39.0-51.0) Mean Corpuscular Volume 94.6 FL (80.0-100.0) Mean Corpuscular Hemoglobin 29.6 PG (27.0-34.0) Mean Corpuscular Hemoglobin 31.3 % Concent (32.0-36.0) Red Cell Distribution Width 16.7 % (11.6-17.2) Platelet Count 166 TH/MM3 (150-450) Mean Platelet Volume 8.3 FL (7.0-11.0) Neutrophils (%) (Auto) 91.5 % (16.0-70.0) Lymphocytes (%) (Auto) 3.1 % (9.0-44.0) Monocytes (%) (Auto) 4.7 % (0.0-8.0) Eosinophils (%) (Auto) 0.0 % (0.0-4.0) Basophils (%) (Auto) 0.7 % (0.0-2.0) Neutrophils # (Auto) 21.0 TH/MM3 (1.8-7.7) Lymphocytes # (Auto) 0.7 TH/MM3 (1.0-4.8) Monocytes # (Auto) 1.1 TH/MM3 (0-0.9) Eosinophils # (Auto) 0.0 TH/MM3 (0-0.4) Basophils # (Auto) 0.2 TH/MM3 (0-0.2) CBC Comment DIFF FINAL Differential Comment Sodium Level 137 MEQ/L (136-145) Potassium Level 4.8 MEQ/L (3.5-5.1) Chloride Level 97 MEQ/L (98-107) Carbon Dioxide Level 32.8 MEQ/L (21.0-32.0) Anion Gap 7 MEQ/L (5-15) Blood Urea Nitrogen 40 MG/DL (7-18) Creatinine 1.55 MG/DL (0.60-1.30) Estimat Glomerular Filtration 45 ML/MIN (>89) Rate Random Glucose 166 MG/DL (74-106) Calcium Level 8.7 MG/DL (8.5-10.1) B-Type Natriuretic Peptide 987 PG/ML (0-100) Blood Gas Puncture Site RT RADIAL LINE Blood Gas Patient Temperature 98.6 98.6 Blood Gas HCO3 32 mmol/L (22-26) Blood Gas Base Excess 4.8 mmol/L (-2-2) Blood Gas Oxygen Saturation 95 % (90-100) Arterial Blood pH 7.24 (7.380-7.420) Arterial Blood Partial 77 mmHg (38-42) Pressure CO2 Arterial Blood Partial 105 mmHg Pressure O2 (61-120) Arterial Blood Oxygen Content 12.2 Vol % (12.0-20.0) Arterial Blood 2.2 % (0-4) Carboxyhemoglobin Arterial Blood Methemoglobin 0.8 % (0-2) Blood Gas Hemoglobin 9.0 G/DL (12.0-16.0) Oxygen Delivery Device BiPAP VENTILATOR Blood Gas Ventilator Setting [id number]/EPAP8 500/18/1.0/+5 Blood Gas Inspired Oxygen 55 % 60 % Venous Blood pH 7.34 (7.360-7.400) Venous Blood Partial Pressure 53 mmHg (44-48) CO2 Venous Blood Partial Pressure 41 mmHg (35-40) O2 Venous Blood HCO3 28 mmol/L (22-26) Venous Blood Oxygen Saturation 71 % (70-76) Venous Blood Oxygen Content 8.6 Vol % (9.0-17.0) Venous Blood Base Excess 2.5 mmol/L (-2-2) Result Diagram: 06/23/1742106/23/17421 (1) Coronary artery disease (2) COPD (chronic obstructive pulmonary disease) (3) Diabetes mellitus (4) Acute kidney injury (5) Diabetic neuropathy associated with type 2 diabetes mellitus (6) Severe sepsis (7) Hypertension (8) Aortic valve stenosis Plan: Patient presented with significant sepsis, dyspnea and anemia of unknown etiology. During his evaluation, he is noted to have severe with a BNP ~ 300. He does not appear to have a large component of heart failure at this time. I requested PFTs recently and his FEV1 = 0.6 liters. He has numerous ongoing comorbidities for AVR surgery and is at prohibitive risk for AVR. I would not offer him surgical AVR and he may eventually qualify for high-risk TAVR once his anemia and infection are sorted out, and stable He will be followed by the Structural Heart team/ will provide information with TAVR coordinator Problem Qualifiers (1) Coronary artery disease: Qualified Code: I25.10 - Coronary artery disease involving [place] coronary artery without angina pectoris, unspecified whether [place] or transplanted heart (2) COPD (chronic obstructive pulmonary disease): Qualified Code: J44.9 - Chronic obstructive pulmonary disease, unspecified COPD type (3) Diabetes mellitus: Qualified Code: E11.65 - Type 2 diabetes mellitus with hyperglycemia, with long -term current use of insulin (4) Diabetic neuropathy associated with type 2 diabetes mellitus: Qualified Code: E11.42 - Diabetic polyneuropathy associated with type 2 diabetes mellitus (5) Hypertension: Qualified Code: I10 - Hypertension, unspecified type (6) Aortic valve stenosis: Qualified Code: I35.0 - Aortic valve stenosis, unspecified etiology Tamika Moran Jun 23, 2017 13:18
--- NOTE | 2017-06-23 13:23 | PD.CARD.PN ---
Subjective Subjective Remarks intubated due to hypercapnic respiratory failure apparently refractory to bipap Objective Vital Signs / I&O Vital Signs Date Time Temp Pulse Resp B/P Pulse Ox O2 Delivery O2 Flow Rate FiO2 06/23/17 12:55 98 60 06/23/17 09:00 100 60 06/23/17 06:00 100 06/23/17 04:00 104 06/23/17 04:00 97.8 108 18 107/59 99 06/23/17 03:53 98 55 06/23/17 02:00 102 06/23/17 00:24 100 60 06/23/17 00:00 97.9 103 14 115/55 100 06/23/17 00:00 102 06/22/17 23:00 101 06/22/17 23:00 101 06/22/17 21:21 96 60 06/22/17 20:53 100 Non-Rebreather 15.00 100 06/22/17 20:05 92 Nasal Cannula 6.00 06/22/17 16:00 97.8 106 18 115/55 95 I/O 06/22/17 06/22/17 06/22/17 06/23/17 06/23/17 06/23/17 07:00 15:00 23:00 07:00 15:00 23:00 Intake Total 240 ml 460 ml 100 ml Output Total 600 ml 400 ml 350 ml 250 ml Balance -360 ml 60 ml -350 ml -150 ml Intake Oral 240 ml 360 ml 100 ml IV Total 100 ml Output Urine Total 600 ml 400 ml 350 ml 250 ml # Bowel Movements 0 0 0 0 Physical Exam GENERAL: SKIN: Warm and dry. HEAD: Normocephalic. EYES: No scleral icterus. No injection or drainage. NECK: Supple, trachea midline. No JVD or lymphadenopathy. CARDIOVASCULAR: Regular rate and rhythm without murmurs, gallops, or rubs. RESPIRATORY: Breath sounds equal bilaterally. No accessory muscle use. GASTROINTESTINAL: Abdomen soft, non-tender, nondistended. MUSCULOSKELETAL: No cyanosis, or edema. BACK: Nontender without obvious deformity. No CVA tenderness. Laboratory Laboratory Tests Test 06/22/17 06/22/17 06/22/17 06/22/17 20:19 21:15 21:27 23:19 Blood Gas Puncture Site RT RADIAL RT RADIAL Blood Gas Patient Temperature 98.6 98.6 Blood Gas HCO3 33 mmol/L 32 mmol/L Blood Gas Base Excess 4.5 mmol/L 4.6 mmol/L Blood Gas Oxygen Saturation 92 % 87 % Arterial Blood pH 7.14 7.23 Arterial Blood Partial 101 mmHg 78 mmHg Pressure CO2 Arterial Blood Partial 83 mmHg 60 mmHg Pressure O2 Arterial Blood Oxygen Content 12.1 Vol % 10.9 Vol % Arterial Blood 2.3 % 2.4 % Carboxyhemoglobin Arterial Blood Methemoglobin 0.9 % 0.8 % Blood Gas Hemoglobin 9.3 G/DL 8.9 G/DL Oxygen Delivery Device NASAL CANNULA BIPAP Blood Gas Liter Flow 6 L/M Nasal Screen MRSA (PCR) NEGATIVE Staphylococcus aureus NEGATIVE (PCR)(LAB) White Blood Count 25.0 TH/MM3 Red Blood Count 3.07 MIL/MM3 Hemoglobin 9.5 GM/DL Hematocrit 28.8 % Mean Corpuscular Volume 93.7 FL Mean Corpuscular Hemoglobin 31.0 PG Mean Corpuscular Hemoglobin 33.1 % Concent Red Cell Distribution Width 16.7 % Platelet Count 198 TH/MM3 Mean Platelet Volume 9.0 FL Neutrophils (%) (Auto) 90.1 % Lymphocytes (%) (Auto) 3.1 % Monocytes (%) (Auto) 5.8 % Eosinophils (%) (Auto) 0.1 % Basophils (%) (Auto) 0.9 % Neutrophils # (Auto) 22.5 TH/MM3 Lymphocytes # (Auto) 0.8 TH/MM3 Monocytes # (Auto) 1.4 TH/MM3 Eosinophils # (Auto) 0.0 TH/MM3 Basophils # (Auto) 0.2 TH/MM3 CBC Comment DIFF FINAL Differential Comment Sodium Level 137 MEQ/L Potassium Level 4.8 MEQ/L Chloride Level 97 MEQ/L Carbon Dioxide Level 35.0 MEQ/L Anion Gap 5 MEQ/L Blood Urea Nitrogen 35 MG/DL Creatinine 1.57 MG/DL Estimat Glomerular Filtration 44 ML/MIN Rate Random Glucose 174 MG/DL Lactic Acid Level 1.3 mmol/L Calcium Level 8.9 MG/DL Magnesium Level 2.1 MG/DL Blood Gas Ventilator Setting IPAP20/EPAP8 Blood Gas Inspired Oxygen 60 % Test 06/23/17 06/23/17 06/23/17 04:22 05:24 12:06 White Blood Count 22.9 TH/MM3 Red Blood Count 3.04 MIL/MM3 Hemoglobin 9.0 GM/DL Hematocrit 28.7 % Mean Corpuscular Volume 94.6 FL Mean Corpuscular Hemoglobin 29.6 PG Mean Corpuscular Hemoglobin 31.3 % Concent Red Cell Distribution Width 16.7 % Platelet Count 166 TH/MM3 Mean Platelet Volume 8.3 FL Neutrophils (%) (Auto) 91.5 % Lymphocytes (%) (Auto) 3.1 % Monocytes (%) (Auto) 4.7 % Eosinophils (%) (Auto) 0.0 % Basophils (%) (Auto) 0.7 % Neutrophils # (Auto) 21.0 TH/MM3 Lymphocytes # (Auto) 0.7 TH/MM3 Monocytes # (Auto) 1.1 TH/MM3 Eosinophils # (Auto) 0.0 TH/MM3 Basophils # (Auto) 0.2 TH/MM3 CBC Comment DIFF FINAL Differential Comment Sodium Level 137 MEQ/L Potassium Level 4.8 MEQ/L Chloride Level 97 MEQ/L Carbon Dioxide Level 32.8 MEQ/L Anion Gap 7 MEQ/L Blood Urea Nitrogen 40 MG/DL Creatinine 1.55 MG/DL Estimat Glomerular Filtration 45 ML/MIN Rate Random Glucose 166 MG/DL Calcium Level 8.7 MG/DL B-Type Natriuretic Peptide 987 PG/ML Blood Gas Puncture Site RT RADIAL LINE Blood Gas Patient Temperature 98.6 98.6 Blood Gas HCO3 32 mmol/L Blood Gas Base Excess 4.8 mmol/L Blood Gas Oxygen Saturation 95 % Arterial Blood pH 7.24 Arterial Blood Partial 77 mmHg Pressure CO2 Arterial Blood Partial 105 mmHg Pressure O2 Arterial Blood Oxygen Content 12.2 Vol % Arterial Blood 2.2 % Carboxyhemoglobin Arterial Blood Methemoglobin 0.8 % Blood Gas Hemoglobin 9.0 G/DL Oxygen Delivery Device BiPAP VENTILATOR Blood Gas Ventilator Setting [id number]/EPAP8 500/18/1.0/+5 Blood Gas Inspired Oxygen 55 % 60 % Venous Blood pH 7.34 Venous Blood Partial Pressure 53 mmHg CO2 Venous Blood Partial Pressure 41 mmHg O2 Venous Blood HCO3 28 mmol/L Venous Blood Oxygen Saturation 71 % Venous Blood Oxygen Content 8.6 Vol % Venous Blood Base Excess 2.5 mmol/L Assessment and Plan Problem List: (1) Coronary artery disease (2) COPD (chronic obstructive pulmonary disease) (3) Diabetes mellitus (4) Acute kidney injury (5) Diabetic neuropathy associated with type 2 diabetes mellitus (6) Severe sepsis (7) Hypertension (8) Aortic valve stenosis Assessment and Plan 1.) Severe - d/w Dr Stevens, most likely will need tavr when anemia and bacteremia resolves, try to continue diuresis with lasix 40 mg iv bid if sbp > 90 and no worsening renal failure, f//u bnp 2.) Bacteremia - yolie canceled due to hypoxia and currently not candidate for avr or tavr, so findings unlikely to private branch exchange repairer and risk/benefit ratio unfavorable 3.) Palliative care consulted due to poor prognosis due to multiple co morbidities and limited treatment options 4.) Respiratory failure - due to hypercapnic respiratory failure and worsening decompensated chf due to severe ; patient appears to be failing medical management. Attempting to increase lasix dose but limited by hypotension and arf /cri. Problem Qualifiers (1) Coronary artery disease: Qualified Code: I25.10 - Coronary artery disease involving [place] coronary artery without angina pectoris, unspecified whether [place] or transplanted heart (2) COPD (chronic obstructive pulmonary disease): Qualified Code: J44.9 - Chronic obstructive pulmonary disease, unspecified COPD type (3) Diabetes mellitus: Qualified Code: E11.65 - Type 2 diabetes mellitus with hyperglycemia, with long -term current use of insulin (4) Diabetic neuropathy associated with type 2 diabetes mellitus: Qualified Code: E11.42 - Diabetic polyneuropathy associated with type 2 diabetes mellitus (5) Hypertension: Qualified Code: I10 - Hypertension, unspecified type (6) Aortic valve stenosis: Qualified Code: I35.0 - Aortic valve stenosis, unspecified etiology Hai Park MD Jun 23, 2017 13:23
[2017-06-23] MEDS ORDERED: VANCOMYCIN INJ 1,000 MG in SODIUM CHLOR 0.9% 250 ML INJ 250 ML IV ONE (13:30)
--- NOTE | 2017-06-23 14:08 | EKG ---
Date Performed: 06/22/2017 Time Performed: 21:23:45 PTAGE: 66 years EKG: SINUS TACHYCARDIA POSSIBLE LEFT ATRIAL ENLARGEMENT NONSPECIFIC ST & T-WAVE ABNORMALITY ABNO RMAL RHYTHM ECG Compared to prior tracing no significant change PREVIOUS TRACING : 06/12/2017 07.32 DOCTOR: Hernan Childers Interpretating Date/Time 06/23/2017 14:06:35
[2017-06-23] MEDS: CEFEPIME INJ 2,000 MG in SODIUM CHLORIDE 0.9% INJ 100 ML IV SCH (14:23)
[2017-06-23] MEDS: FUROSEMIDE 100 MG/10 ML VIAL IV PUSH SCH (18:00)
[2017-06-23] MEDS: CHLORHEXIDINE 0.12% (ORAL KIT) 15 ML CUP MT SCH (20:32)
[2017-06-23] MEDS: PROPOFOL 1000 MG/100 ML INJ 100 ML IV SCH (21:44)
[2017-06-23] MEDS: PHENYLEPHRINE INJ 80 MG in DEXTROSE 5% IN WATE 500 ML INJ 492 ML IV SCH ×2 (23:54)
[2017-06-24] VITALS (20 sets, daily range): BP systolic 121–143; BP diastolic 56–65; PULSE 58–68; RESP 12–14; TEMP 98.1–98.7; O2SAT 94–99
[2017-06-24] MEDS: CEFEPIME INJ 2,000 MG in SODIUM CHLORIDE 0.9% INJ 100 ML IV SCH ×2 (03:24→15:00)
[2017-06-24] MEDS: CHLORHEXIDINE GLUCONATE 2 % 1 PACK (2 CLOTHS) TOP SCH (03:24)
[2017-06-24] MEDS: PROPOFOL 1000 MG/100 ML INJ 100 ML IV SCH ×2 (03:26→21:32)
[2017-06-24] MEDS: PHENYLEPHRINE INJ 80 MG in DEXTROSE 5% IN WATE 500 ML INJ 492 ML IV SCH ×4 (03:58→21:30)
[2017-06-24] MEDS: fentaNYL DRIP 250 ML IV SCH ×2 (03:58→21:32)
[2017-06-24 04:39] LABS: AUTOMATED NEUTROPHIL # 16.8 TH/MM3 (1.8-7.7); BASOPHIL # 0.2 TH/MM3 (0-0.2); BASOPHIL % 0.9 % (0.0-2.0); EOSINOPHIL # 0.2 TH/MM3 (0-0.4); EOSINOPHIL % 0.8 % (0.0-4.0); HEMO FLAGS DIFF FINAL; LYMPH % 6.3 % (9.0-44.0); LYMPHOCYTE # 1.3 TH/MM3 (1.0-4.8); MEAN CELL VOLUME 93.2 FL (80.0-100.0); MEAN CORPUSCULAR HEMOGLOBIN 29.6 PG (27.0-34.0); MEAN CORPUSCULAR HGB CONC 31.7 % (32.0-36.0); MONO % 9.6 % (0.0-8.0); NEUT % 82.4 % (16.0-70.0); PLATELET COUNT 234 TH/MM3 (150-450); RED BLOOD COUNT 3.11 MIL/MM3 (4.50-5.90); RED CELL DISTRIBUTION WIDTH 17.5 % (11.6-17.2); WHITE BLOOD COUNT 20.4 TH/MM3 (4.0-11.0)
[2017-06-24 05:29] LABS: BICARBONATE 33.7 MEQ/L (21.0-32.0); POTASSIUM 3.5 MEQ/L (3.5-5.1)
[2017-06-24] MEDS: INSULIN NovoLIN REGULAR SUPPLEMENTAL SCALE SQ SCH ×3 (06:55→16:00)
[2017-06-24] MEDS: CHLORHEXIDINE 0.12% (ORAL KIT) 15 ML CUP MT SCH ×2 (08:00→21:13)
[2017-06-24 08:15] LABS: BLOOD GAS VENOUS BASE EXCESS 5.8 mmol/L (-2-2); BLOOD GAS VENOUS HCO3 30 mmol/L (22-26); BLOOD GAS VENOUS O2 CONTENT 7.6 Vol % (9.0-17.0); BLOOD GAS VENOUS O2 HGB SAT 63 % (70-76); BLOOD GAS VENOUS PCO2 49 mmHg (44-48); BLOOD GAS VENOUS PO2 37 mmHg (35-40); BLOOD GAS VENOUS pH 7.41 (7.360-7.400); CRITICAL VALUE NO; FIO2 40 %; OXYGEN DEVICE VENTILATOR; TEMP CORR TO 98.6; VENT SETTINGS PRVC/AC
[2017-06-24 08:16] LABS: DRAW SITE CENTRAL LINE; STAT NO
[2017-06-24] MEDS: PANTOPRAZOLE SODIUM 40 MG VIAL IV SCH (08:31)
[2017-06-24] MEDS: SODIUM CHLORIDE 0.9% FLUSH 10 ML FLUSH IV FLUSH SCH ×2 (08:32→21:00)
[2017-06-24] MEDS: FUROSEMIDE 100 MG/10 ML VIAL IV PUSH SCH (08:32)
[2017-06-24] MEDS: DOCUSATE SODIUM 50 MG/SENNA 8.6 MG TAB PO SCH ×2 (08:32→21:13)
--- NOTE | 2017-06-24 12:34 | PD.CARD.PN ---
Subjective Subjective Remarks intubated, sedated Objective Vital Signs / I&O Vital Signs Date Time Temp Pulse Resp B/P Pulse Ox O2 Delivery O2 Flow Rate FiO2 06/24/17 11:53 96 40 06/24/17 10:00 64 06/24/17 08:00 50 06/24/17 08:00 64 06/24/17 08:00 98.1 64 14 137/63 98 06/24/17 07:52 99 Ventilator 40 06/24/17 07:52 99 40 06/24/17 07:00 98 Mechanical Ventilator 40 06/24/17 07:00 58 06/24/17 06:00 60 06/24/17 04:00 98.5 66 14 121/56 96 06/24/17 04:00 50 06/24/17 04:00 66 06/24/17 03:52 98 40 06/24/17 02:00 50 06/24/17 02:00 64 06/24/17 01:15 96 40 06/24/17 00:00 98.6 68 14 130/62 97 06/24/17 00:00 50 06/24/17 00:00 68 06/23/17 23:00 70 06/23/17 22:30 98 40 06/23/17 22:00 72 06/23/17 20:00 98.2 69 14 148/63 97 06/23/17 20:00 50 06/23/17 20:00 69 06/23/17 19:13 100 50 06/23/17 19:00 97 Mechanical Ventilator 50 06/23/17 18:00 69 06/23/17 16:17 97 60 06/23/17 16:00 99.1 76 18 148/65 100 06/23/17 16:00 50 06/23/17 16:00 85 06/23/17 15:00 79 06/23/17 14:00 85 06/23/17 12:55 98 60 I/O 06/23/17 06/23/17 06/23/17 06/24/17 06/24/17 06/24/17 07:00 15:00 23:00 07:00 15:00 23:00 Intake Total 100 ml 1532 ml 1283 ml 1200 ml Output Total 250 ml 1300 ml 1950 ml 1050 ml Balance -150 ml 232 ml -667 ml 150 ml Intake Oral 100 ml 0 ml IV Total 1532 ml 1283 ml 1200 ml Output Urine Total 250 ml 1300 ml 1950 ml 1050 ml Gastric Drainage Total 0 ml 0 ml # Bowel Movements 0 0 0 0 Physical Exam GENERAL: SKIN: Warm and dry. HEAD: Normocephalic. EYES: No scleral icterus. No injection or drainage. NECK: Supple, trachea midline. No JVD or lymphadenopathy. CARDIOVASCULAR: Regular rate and rhythm without murmurs, gallops, or rubs. RESPIRATORY: Breath sounds equal bilaterally. No accessory muscle use. GASTROINTESTINAL: Abdomen soft, non-tender, nondistended. MUSCULOSKELETAL: No cyanosis, or edema. BACK: Nontender without obvious deformity. No CVA tenderness. Laboratory Laboratory Tests Test 06/24/17 06/24/17 04:08 08:02 White Blood Count 20.4 TH/MM3 Red Blood Count 3.11 MIL/MM3 Hemoglobin 9.2 GM/DL Hematocrit 29.0 % Mean Corpuscular Volume 93.2 FL Mean Corpuscular Hemoglobin 29.6 PG Mean Corpuscular Hemoglobin 31.7 % Concent Red Cell Distribution Width 17.5 % Platelet Count 234 TH/MM3 Mean Platelet Volume 8.0 FL Neutrophils (%) (Auto) 82.4 % Lymphocytes (%) (Auto) 6.3 % Monocytes (%) (Auto) 9.6 % Eosinophils (%) (Auto) 0.8 % Basophils (%) (Auto) 0.9 % Neutrophils # (Auto) 16.8 TH/MM3 Lymphocytes # (Auto) 1.3 TH/MM3 Monocytes # (Auto) 2.0 TH/MM3 Eosinophils # (Auto) 0.2 TH/MM3 Basophils # (Auto) 0.2 TH/MM3 CBC Comment DIFF FINAL Differential Comment Sodium Level 136 MEQ/L Potassium Level 3.5 MEQ/L Chloride Level 95 MEQ/L Carbon Dioxide Level 33.7 MEQ/L Anion Gap 7 MEQ/L Blood Urea Nitrogen 34 MG/DL Creatinine 1.38 MG/DL Estimat Glomerular Filtration 51 ML/MIN Rate Random Glucose 317 MG/DL Calcium Level 8.5 MG/DL B-Type Natriuretic Peptide 1978 PG/ML Random Vancomycin Level 7.8 COMMENT Blood Gas Puncture Site CENTRAL LINE Blood Gas Patient Temperature 98.6 Venous Blood pH 7.41 Venous Blood Partial Pressure 49 mmHg CO2 Venous Blood Partial Pressure 37 mmHg O2 Venous Blood HCO3 30 mmol/L Venous Blood Oxygen Saturation 63 % Venous Blood Oxygen Content 7.6 Vol % Venous Blood Base Excess 5.8 mmol/L Oxygen Delivery Device VENTILATOR Blood Gas Ventilator Setting PRVC/AC Blood Gas Inspired Oxygen 40 % Assessment and Plan Problem List: (1) Coronary artery disease (2) COPD (chronic obstructive pulmonary disease) (3) Diabetes mellitus (4) Acute kidney injury (5) Diabetic neuropathy associated with type 2 diabetes mellitus (6) Severe sepsis (7) Hypertension (8) Aortic valve stenosis Assessment and Plan 1.) Severe - d/w Dr Stevens, most likely will need tavr when anemia and bacteremia resolves, try to continue diuresis with lasix 40 mg iv bid if sbp > 90 and no worsening renal failure, f//u bnp 2.) Bacteremia - yolie canceled due to hypoxia and currently not candidate for avr or tavr, so findings unlikely to slip box changer and risk/benefit ratio unfavorable 3.) Palliative care consulted due to poor prognosis due to multiple co morbidities and limited treatment options 4.) Respiratory failure - due to hypercapnic respiratory failure and worsening decompensated chf due to severe ; patient appears to be failing medical management. Attempting to increase lasix dose but limited by hypotension and arf /cri. Problem Qualifiers (1) Coronary artery disease: Qualified Code: I25.10 - Coronary artery disease involving [place] coronary artery without angina pectoris, unspecified whether [place] or transplanted heart (2) COPD (chronic obstructive pulmonary disease): Qualified Code: J44.9 - Chronic obstructive pulmonary disease, unspecified COPD type (3) Diabetes mellitus: Qualified Code: E11.65 - Type 2 diabetes mellitus with hyperglycemia, with long -term current use of insulin (4) Diabetic neuropathy associated with type 2 diabetes mellitus: Qualified Code: E11.42 - Diabetic polyneuropathy associated with type 2 diabetes mellitus (5) Hypertension: Qualified Code: I10 - Hypertension, unspecified type (6) Aortic valve stenosis: Qualified Code: I35.0 - Aortic valve stenosis, unspecified etiology Hai Park MD Jun 24, 2017 12:34
--- NOTE | 2017-06-24 12:36 | PD.CARD.PN ---
Subjective Subjective Remarks intubated, sedated Objective Vital Signs / I&O Vital Signs Date Time Temp Pulse Resp B/P Pulse Ox O2 Delivery O2 Flow Rate FiO2 06/24/17 11:53 96 40 06/24/17 10:00 64 06/24/17 08:00 50 06/24/17 08:00 64 06/24/17 08:00 98.1 64 14 137/63 98 06/24/17 07:52 99 Ventilator 40 06/24/17 07:52 99 40 06/24/17 07:00 98 Mechanical Ventilator 40 06/24/17 07:00 58 06/24/17 06:00 60 06/24/17 04:00 98.5 66 14 121/56 96 06/24/17 04:00 50 06/24/17 04:00 66 06/24/17 03:52 98 40 06/24/17 02:00 50 06/24/17 02:00 64 06/24/17 01:15 96 40 06/24/17 00:00 98.6 68 14 130/62 97 06/24/17 00:00 50 06/24/17 00:00 68 06/23/17 23:00 70 06/23/17 22:30 98 40 06/23/17 22:00 72 06/23/17 20:00 98.2 69 14 148/63 97 06/23/17 20:00 50 06/23/17 20:00 69 06/23/17 19:13 100 50 06/23/17 19:00 97 Mechanical Ventilator 50 06/23/17 18:00 69 06/23/17 16:17 97 60 06/23/17 16:00 99.1 76 18 148/65 100 06/23/17 16:00 50 06/23/17 16:00 85 06/23/17 15:00 79 06/23/17 14:00 85 06/23/17 12:55 98 60 I/O 06/23/17 06/23/17 06/23/17 06/24/17 06/24/17 06/24/17 06:59 14:59 22:59 06:59 14:59 22:59 Intake Total 100 ml 1532 ml 1283 ml 1200 ml Output Total 250 ml 1300 ml 1950 ml 1050 ml Balance -150 ml 232 ml -667 ml 150 ml Intake Oral 100 ml 0 ml IV Total 1532 ml 1283 ml 1200 ml Output Urine Total 250 ml 1300 ml 1950 ml 1050 ml Gastric Drainage Total 0 ml 0 ml # Bowel Movements 0 0 0 0 Physical Exam GENERAL: SKIN: Warm and dry. HEAD: Normocephalic. EYES: No scleral icterus. No injection or drainage. NECK: Supple, trachea midline. No JVD or lymphadenopathy. CARDIOVASCULAR: Regular rate and rhythm without murmurs, gallops, or rubs. RESPIRATORY: Breath sounds equal bilaterally. No accessory muscle use. GASTROINTESTINAL: Abdomen soft, non-tender, nondistended. MUSCULOSKELETAL: No cyanosis, or edema. BACK: Nontender without obvious deformity. No CVA tenderness. Laboratory Laboratory Tests Test 06/24/17 06/24/17 04:08 08:02 White Blood Count 20.4 TH/MM3 Red Blood Count 3.11 MIL/MM3 Hemoglobin 9.2 GM/DL Hematocrit 29.0 % Mean Corpuscular Volume 93.2 FL Mean Corpuscular Hemoglobin 29.6 PG Mean Corpuscular Hemoglobin 31.7 % Concent Red Cell Distribution Width 17.5 % Platelet Count 234 TH/MM3 Mean Platelet Volume 8.0 FL Neutrophils (%) (Auto) 82.4 % Lymphocytes (%) (Auto) 6.3 % Monocytes (%) (Auto) 9.6 % Eosinophils (%) (Auto) 0.8 % Basophils (%) (Auto) 0.9 % Neutrophils # (Auto) 16.8 TH/MM3 Lymphocytes # (Auto) 1.3 TH/MM3 Monocytes # (Auto) 2.0 TH/MM3 Eosinophils # (Auto) 0.2 TH/MM3 Basophils # (Auto) 0.2 TH/MM3 CBC Comment DIFF FINAL Differential Comment Sodium Level 136 MEQ/L Potassium Level 3.5 MEQ/L Chloride Level 95 MEQ/L Carbon Dioxide Level 33.7 MEQ/L Anion Gap 7 MEQ/L Blood Urea Nitrogen 34 MG/DL Creatinine 1.38 MG/DL Estimat Glomerular Filtration 51 ML/MIN Rate Random Glucose 317 MG/DL Calcium Level 8.5 MG/DL B-Type Natriuretic Peptide 1978 PG/ML Random Vancomycin Level 7.8 COMMENT Blood Gas Puncture Site CENTRAL LINE Blood Gas Patient Temperature 98.6 Venous Blood pH 7.41 Venous Blood Partial Pressure 49 mmHg CO2 Venous Blood Partial Pressure 37 mmHg O2 Venous Blood HCO3 30 mmol/L Venous Blood Oxygen Saturation 63 % Venous Blood Oxygen Content 7.6 Vol % Venous Blood Base Excess 5.8 mmol/L Oxygen Delivery Device VENTILATOR Blood Gas Ventilator Setting PRVC/AC Blood Gas Inspired Oxygen 40 % Assessment and Plan Problem List: (1) Coronary artery disease (2) COPD (chronic obstructive pulmonary disease) (3) Diabetes mellitus (4) Acute kidney injury (5) Diabetic neuropathy associated with type 2 diabetes mellitus (6) Severe sepsis (7) Hypertension (8) Aortic valve stenosis Assessment and Plan 1.) Severe - d/w Dr Stevens, most likely will need tavr when anemia and bacteremia resolves, try to continue diuresis with lasix 40 mg iv bid if sbp > 90 and no worsening renal failure, f//u bnp 2.) Bacteremia - yolie canceled due to hypoxia and currently not candidate for avr or tavr, so findings unlikely to content management consultant and risk/benefit ratio unfavorable 3.) Palliative care consulted due to poor prognosis due to multiple co morbidities and limited treatment options 4.) Respiratory failure - due to hypercapnic respiratory failure and worsening decompensated chf due to severe ; patient appears to be failing medical management. Attempting to increase lasix dose but limited by hypotension and arf /cri. 5.) High risk for noncardiac procedure Problem Qualifiers (1) Coronary artery disease: Qualified Code: I25.10 - Coronary artery disease involving [place] coronary artery without angina pectoris, unspecified whether [place] or transplanted heart (2) COPD (chronic obstructive pulmonary disease): Qualified Code: J44.9 - Chronic obstructive pulmonary disease, unspecified COPD type (3) Diabetes mellitus: Qualified Code: E11.65 - Type 2 diabetes mellitus with hyperglycemia, with long -term current use of insulin (4) Diabetic neuropathy associated with type 2 diabetes mellitus: Qualified Code: E11.42 - Diabetic polyneuropathy associated with type 2 diabetes mellitus (5) Hypertension: Qualified Code: I10 - Hypertension, unspecified type (6) Aortic valve stenosis: Qualified Code: I35.0 - Aortic valve stenosis, unspecified etiology Hai Park MD Jun 24, 2017 12:36
--- NOTE | 2017-06-24 12:42 | HHI.IDPN ---
Subjective Subjective Remarks Patient is a 66-year-old morbidly obese male, presented to the hospital complaining of severe shortness of breath. Patient states he has COPD, and has had problem with chronic shortness of breath. He does not use any supplemental oxygen at home. Patient also admits to chronic lower extremity edema. He presented to the hospital because he had development of severe shortness of breath that he couldn't even walk a few distances which is not his normal. He denies any congestion, cough or any chest pain or palpitations. Also has been very weak, and just didn't feel good. He has not had any dizziness or syncopal episode. Has not had any nausea vomiting, abdominal pain, dysuria. On presentation he had an elevated white count. Patient has been afebrile. His lactic acid was elevated. Urinalysis was unremarkable. Chest x-ray with some basilar atelectasis. Patient was admitted initially for sepsis, and was started on broad-spectrum antibiotics. His WBC went down to 19, but it went up to 27,000. Patient received a large dose of IV Solu-Medrol on June 12. Patient currently states his breathing is better. He is still on nasal O2. Notes reviewed Temps ok On pressors Sedated on the vent Diuresing No new (+) BC WBC remains elevated Echo with severe , thickened leaflets BC with Strep bovis CXR infiltrates worse Palliative med notes reviewed Antibiotics Cefepime Vancomycin Past Medical History COPD Coronary artery disease Hypertension Diabetes mellitus with peripheral neuropathy Elevated BMI Past Surgical History Tonsillectomy Allergies: Coded Allergies: Penicillin (Verified Allergy, Mild, 06/12/17) Objective . Vital Signs Date Time Temp Pulse Resp B/P Pulse Ox O2 Delivery O2 Flow Rate FiO2 06/24/17 11:53 96 40 06/24/17 10:00 64 06/24/17 08:00 50 06/24/17 08:00 64 06/24/17 08:00 98.1 64 14 137/63 98 06/24/17 07:52 99 Ventilator 40 06/24/17 07:52 99 40 06/24/17 07:00 98 Mechanical Ventilator 40 06/24/17 07:00 58 06/24/17 06:00 60 06/24/17 04:00 98.5 66 14 121/56 96 06/24/17 04:00 50 06/24/17 04:00 66 06/24/17 03:52 98 40 06/24/17 02:00 50 06/24/17 02:00 64 06/24/17 01:15 96 40 06/24/17 00:00 98.6 68 14 130/62 97 06/24/17 00:00 50 06/24/17 00:00 68 06/23/17 23:00 70 06/23/17 22:30 98 40 06/23/17 22:00 72 06/23/17 20:00 98.2 69 14 148/63 97 06/23/17 20:00 50 06/23/17 20:00 69 06/23/17 19:13 100 50 06/23/17 19:00 97 Mechanical Ventilator 50 06/23/17 18:00 69 06/23/17 16:17 97 60 06/23/17 16:00 99.1 76 18 148/65 100 06/23/17 16:00 50 06/23/17 16:00 85 06/23/17 15:00 79 06/23/17 14:00 85 06/23/17 12:55 98 60 06/23/17 06/23/17 06/24/17 14:59 22:59 06:59 Intake Total 1532 ml 1283 ml 1200 ml Output Total 1300 ml 1950 ml 1050 ml Balance 232 ml -667 ml 150 ml Intake Oral 0 ml IV Total 1532 ml 1283 ml 1200 ml Output Urine Total 1300 ml 1950 ml 1050 ml Gastric Drainage Total 0 ml 0 ml # Bowel Movements 0 0 0 . Laboratory Tests Test 06/22/17 06/23/17 06/24/17 21:27 04:22 04:08 White Blood Count 25.0 TH/MM3 22.9 TH/MM3 20.4 TH/MM3 Red Blood Count 3.07 MIL/MM3 3.04 MIL/MM3 3.11 MIL/MM3 Hemoglobin 9.5 GM/DL 9.0 GM/DL 9.2 GM/DL Hematocrit 28.8 % 28.7 % 29.0 % Mean Corpuscular Volume 93.7 FL 94.6 FL 93.2 FL Mean Corpuscular Hemoglobin 31.0 PG 29.6 PG 29.6 PG Mean Corpuscular Hemoglobin 33.1 % 31.3 % 31.7 % Concent Red Cell Distribution Width 16.7 % 16.7 % 17.5 % Platelet Count 198 TH/MM3 166 TH/MM3 234 TH/MM3 Mean Platelet Volume 9.0 FL 8.3 FL 8.0 FL Neutrophils (%) (Auto) 90.1 % 91.5 % 82.4 % Lymphocytes (%) (Auto) 3.1 % 3.1 % 6.3 % Monocytes (%) (Auto) 5.8 % 4.7 % 9.6 % Eosinophils (%) (Auto) 0.1 % 0.0 % 0.8 % Basophils (%) (Auto) 0.9 % 0.7 % 0.9 % Neutrophils # (Auto) 22.5 TH/MM3 21.0 TH/MM3 16.8 TH/MM3 Lymphocytes # (Auto) 0.8 TH/MM3 0.7 TH/MM3 1.3 TH/MM3 Monocytes # (Auto) 1.4 TH/MM3 1.1 TH/MM3 2.0 TH/MM3 Eosinophils # (Auto) 0.0 TH/MM3 0.0 TH/MM3 0.2 TH/MM3 Basophils # (Auto) 0.2 TH/MM3 0.2 TH/MM3 0.2 TH/MM3 CBC Comment DIFF FINAL DIFF FINAL DIFF FINAL Differential Comment Laboratory Tests Test 06/22/17 06/23/17 06/24/17 21:27 04:22 04:08 Sodium Level 137 MEQ/L 137 MEQ/L 136 MEQ/L Potassium Level 4.8 MEQ/L 4.8 MEQ/L 3.5 MEQ/L Chloride Level 97 MEQ/L 97 MEQ/L 95 MEQ/L Carbon Dioxide Level 35.0 MEQ/L 32.8 MEQ/L 33.7 MEQ/L Anion Gap 5 MEQ/L 7 MEQ/L 7 MEQ/L Blood Urea Nitrogen 35 MG/DL 40 MG/DL 34 MG/DL Creatinine 1.57 MG/DL 1.55 MG/DL 1.38 MG/DL Estimat Glomerular Filtration 44 ML/MIN 45 ML/MIN 51 ML/MIN Rate Random Glucose 174 MG/DL 166 MG/DL 317 MG/DL Lactic Acid Level 1.3 mmol/L Calcium Level 8.9 MG/DL 8.7 MG/DL 8.5 MG/DL Magnesium Level 2.1 MG/DL B-Type Natriuretic Peptide 987 PG/ML 1978 PG/ML Imaging Chest X-Ray 06/23/17 0000 Signed Impressions: Service Date/Time: Friday, June 23, 2017 10:20 - CONCLUSION: Bilateral pleural effusions and bibasilar consolidation and or compressive collapse possibly slightly worse on the right since the prior exam. Khadar Arboleda MD CT Angiography 06/15/17 0000 Signed Impressions: Service Date/Time: Friday, June 16, 2017 13:35 - CONCLUSION: 1. Small bilateral pleural effusions with adjacent alveolar consolidations consistent with compressive atelectasis and/or pneumonia. Clinical correlation is recommended. 2. Pleural calcifications within the bilateral posterior lung bases consistent with asbestos related pleural disease or fibrothorax. 3. Cardiomegaly. 4. No evidence of pulmonary embolism. 5. Ascites within the upper abdomen. Casimiro Lazo MD Abdomen Ultrasound 06/13/17 0000 Signed Impressions: Service Date/Time: Tuesday, June 13, 2017 15:35 - CONCLUSION: Limited study secondary to bowel gas and body habitus. Hepatic cysts are noted. Small amount of free fluid suspected. Lev Gandhi MD Lower Extremity Ultrasound 06/12/17 0000 Signed Impressions: Service Date/Time: May 18:32 - CONCLUSION: Normal examination. Lev Gandhi MD Physical Exam GENERAL: sedated on the vent, not in respiratory distress. SKIN: Cool and dry. No generalized rash, no evidence of embolic lesions. HEAD: Atraumatic. Normocephalic. No temporal wasting, or tenderness. EYES: [place] conjunctiva. No petechia or hemorrhage. Pupils equal, round and reactive to light. No scleral icterus. No injection or drainage. EARS, NOSE AND THROAT: Nose without bleeding or purulent nasal discharge. Mucous membranes moist. Orally intubated NECK: Trachea midline. Supple and not tender, no meningeal signs CARDIOVASCULAR: Regular rate and rhythm. Has murmur loudest at base of the heart. NO rub RESPIRATORY: Diffuse wheezing ABDOMEN: Soft, obese, non-tender, mildly distended. Bowel sounds present and normoactive. No guarding. No rebound. EXTREMITIES: No clubbing, cyanosis. He has improving edema BLE, and he has bark [place] texture of his skin in both legs and feet. NEUROLOGICAL: Sedated PSYCHIATRIC: Unable to assess LINE: No evidence of infection : Franco in place, urine looks clear Assessment & Plan Remarks IMPRESSION Initial presentation of severe SOB, patient with obesity, known COPD, ? possibly with cor pulmonale - clinically no evidence of PNA - has obesity, ?with sleep apnea Strep bovis bacteremia, very suspicious for endocarditis - Has severe Sepsis, shock Severe aortic stenosis COPD Leukocytosis, persistent Respiratory failure, likely pulmonary edema, ?PNA Renal insufficiency RECOMMENDATION Follow new C/S Continue cefepime Give dose of Vancomycin - check level in AM Follow CBC Monitor progress Prognosis not good due to other underlying comorbid conditions Estela Watts MD Jun 24, 2017 12:42
[2017-06-24] MEDS ORDERED: VANCOMYCIN INJ 1,000 MG in SODIUM CHLOR 0.9% 250 ML INJ 250 ML IV ONE (12:45)
--- NOTE | 2017-06-24 13:59 | HHI.HCPN ---
Reason for visit a. To assist with evaluation and management of symptoms including: Shortness of breath and debility. b. To assist medical decision maker(s) with: better understanding of current medical conditions; weighing benefits/burdens of medical treatment options; making medical treatment decisions. . Subjective/Interval History Mr. Khan is a 66-year-old male with a medical history significant for COPD, morbid obesity, CAD, hypertension and diabetes mellitus type 2. Recently diagnosed with severe aortic stenosis, not a candidate for AVR secondary to multiple ongoing comorbidities, sepsis and anemia. May eventually be a candidate for high risk TAVR once anemia and sepsis is resolved. Palliative care consulted for clarification of goals of care given poor prognosis with limited treatment options. Patient seen in ICU. He remains orally intubated on mechanical ventilation, sedated. Patient currently on Tank-Synephrine drip secondary to hypotension. Persistent leukocytosis, 20.4. Infectious disease following. Chest x-ray revealing worsening bilateral pleural effusions and consolidation. Worsening decompensated CHF secondary to severe aortic stenosis, cardiology following. BNP 1978 from 987 yesterday. Hemoglobin remained stable to 9.2, GI following. No signs of active bleeding noted. As per GI notes, plan for EGD +/ - Colonoscopy once cleared by cardiology. Patient remains on acute renal failure, BUN/creatinine 34/1.38. Patient afebrile, remains on 40% FiO2. Telephone conversation with [facility] Tere Caruso), medical update provided. Shared concerns of patient's clinical condition given multiple ongoing chronic comorbidities, severe aortic stenosis, respiratory failure, acute kidney injury and physical deconditioning. Goal of therapy is to continue aggressive management, allow time for medical improvement. HCS receptive to continue goals of care conversation. . Family/friend interactions See interval note. . Advance Directives Living Will: Completed, but not made available Health Care Surrogate: Copy in medical record Advance Directive Specifics Date completed: 06/20/2017 . Health Care Surrogate(s): Patient designated friend Tere Talamantes as HCS. No alternate HCS. . Documented care wishes: Pending copy of living will. . Significant change in goals: Goals of care remain unchanged. . Objective Vital Signs Date Time Temp Pulse Resp B/P Pulse Ox O2 Delivery O2 Flow Rate FiO2 06/24/17 11:53 96 40 06/24/17 10:00 64 06/24/17 08:00 50 8/1/17 08:00 64 06/24/17 08:00 98.1 64 14 137/63 98 06/24/17 07:52 99 Ventilator 40 06/24/17 07:52 99 40 06/24/17 07:00 98 Mechanical Ventilator 40 06/24/17 07:00 58 06/24/17 06:00 60 06/24/17 04:00 98.5 66 14 121/56 96 06/24/17 04:00 50 06/24/17 04:00 66 06/24/17 03:52 98 40 06/24/17 02:00 50 06/24/17 02:00 64 06/24/17 01:15 96 40 06/24/17 00:00 98.6 68 14 130/62 97 06/24/17 00:00 50 06/24/17 00:00 68 06/23/17 23:00 70 06/23/17 22:30 98 40 06/23/17 22:00 72 06/23/17 20:00 98.2 69 14 148/63 97 06/23/17 20:00 50 06/23/17 20:00 69 06/23/17 19:13 100 50 06/23/17 19:00 97 Mechanical Ventilator 50 06/23/17 18:00 69 06/23/17 16:17 97 60 06/23/17 16:00 99.1 76 18 148/65 100 06/23/17 16:00 50 06/23/17 16:00 85 06/23/17 15:00 79 06/23/17 14:00 85 Intake & Output 06/24/17 06/24/17 06:59 18:59 Intake Total 2483 ml Output Total 3000 ml Balance -517 ml IV Total 2483 ml Output Urine Total 3000 ml Gastric Drainage Total 0 ml # Bowel Movements 0 Physical Exam CONSTITUTIONAL/GENERAL: This is an obese man orally intubated on mechanical ventilation. TUBES/LINES/DRAINS: ETT, OG, PIV's, right chest central line, Franco catheter, bilateral soft wrist restraints. SKIN: No jaundice. Ecchymoses on upper extremities. Skin temperature appropriate. Not diaphoretic. Vascular skin changes to bilateral lower extremities. HEAD: Atraumatic. Normocephalic. EYES: Pupils equal and round and reactive. No scleral icterus. No injection or drainage. ENT: Unable to evaluate hearing, sedated. Nose without bleeding or purulent drainage. Moist oral mucosa. NECK: Trachea midline. Supple. CARDIOVASCULAR: Regular rate and rhythm. Weeping edema to bilateral upper extremities. RESPIRATORY/CHEST: Symmetric, orally intubated on mechanical ventilation. Coarse breath sounds bilaterally. GASTROINTESTINAL: Abdomen large, obese, round. Unable to evaluate for hepatomegaly secondary to body habitus, obesity. GENITOURINARY: Unable to evaluate for bladder distension secondary to body habitus, obesity. MUSCULOSKELETAL: Extremities without cyanosis. Edema to bilateral lower lower extremities and hands. NEUROLOGICAL: Unresponsive to verbal or tactile stimuli, sedated. PSYCHIATRIC: Unable to evaluate secondary to clinical condition, sedated. . Diagnostic Tests Laboratory Laboratory Tests Test 06/22/17 06/22/17 06/22/17 06/22/17 04:08 20:19 21:15 21:27 B-Type Natriuretic Peptide 736 PG/ML (0-100) Blood Gas Puncture Site RT RADIAL Blood Gas Patient Temperature 98.6 Blood Gas HCO3 33 mmol/L (22-26) Blood Gas Base Excess 4.5 mmol/L (-2-2) Blood Gas Oxygen Saturation 92 % (90-100) Arterial Blood pH 7.14 (7.380-7.420) Arterial Blood Partial 101 mmHg Pressure CO2 (38-42) Arterial Blood Partial 83 mmHg Pressure O2 (61-120) Arterial Blood Oxygen Content 12.1 Vol % (12.0-20.0) Arterial Blood 2.3 % (0-4) Carboxyhemoglobin Arterial Blood Methemoglobin 0.9 % (0-2) Blood Gas Hemoglobin 9.3 G/DL (12.0-16.0) Oxygen Delivery Device NASAL CANNULA Blood Gas Liter Flow 6 L/M Nasal Screen MRSA (PCR) NEGATIVE (NEGATIVE) Staphylococcus aureus NEGATIVE (PCR)(LAB) (NEGATIVE) White Blood Count 25.0 TH/MM3 (4.0-11.0) Red Blood Count 3.07 MIL/MM3 (4.50-5.90) Hemoglobin 9.5 GM/DL (13.0-17.0) Hematocrit 28.8 % (39.0-51.0) Mean Corpuscular Volume 93.7 FL (80.0-100.0) Mean Corpuscular Hemoglobin 31.0 PG (27.0-34.0) Mean Corpuscular Hemoglobin 33.1 % Concent (32.0-36.0) Red Cell Distribution Width 16.7 % (11.6-17.2) Platelet Count 198 TH/MM3 (150-450) Mean Platelet Volume 9.0 FL (7.0-11.0) Neutrophils (%) (Auto) 90.1 % (16.0-70.0) Lymphocytes (%) (Auto) 3.1 % (9.0-44.0) Monocytes (%) (Auto) 5.8 % (0.0-8.0) Eosinophils (%) (Auto) 0.1 % (0.0-4.0) Basophils (%) (Auto) 0.9 % (0.0-2.0) Neutrophils # (Auto) 22.5 TH/MM3 (1.8-7.7) Lymphocytes # (Auto) 0.8 TH/MM3 (1.0-4.8) Monocytes # (Auto) 1.4 TH/MM3 (0-0.9) Eosinophils # (Auto) 0.0 TH/MM3 (0-0.4) Basophils # (Auto) 0.2 TH/MM3 (0-0.2) CBC Comment DIFF FINAL Differential Comment Sodium Level 137 MEQ/L (136-145) Potassium Level 4.8 MEQ/L (3.5-5.1) Chloride Level 97 MEQ/L (98-107) Carbon Dioxide Level 35.0 MEQ/L (21.0-32.0) Anion Gap 5 MEQ/L (5-15) Blood Urea Nitrogen 35 MG/DL (7-18) Creatinine 1.57 MG/DL (0.60-1.30) Estimat Glomerular Filtration 44 ML/MIN (>89) Rate Random Glucose 174 MG/DL (74-106) Lactic Acid Level 1.3 mmol/L (0.4-2.0) Calcium Level 8.9 MG/DL (8.5-10.1) Magnesium Level 2.1 MG/DL (1.5-2.5) Test 06/22/17 06/23/17 06/23/17 06/23/17 23:19 04:22 05:24 12:06 Blood Gas Puncture Site RT RADIAL RT RADIAL LINE Blood Gas Patient Temperature 98.6 98.6 98.6 Blood Gas HCO3 32 mmol/L 32 mmol/L (22-26) (22-26) Blood Gas Base Excess 4.6 mmol/L 4.8 mmol/L (-2-2) (-2-2) Blood Gas Oxygen Saturation 87 % (90-100) 95 % (90-100) Arterial Blood pH 7.23 7.24 (7.380-7.420) (7.380-7.420) Arterial Blood Partial 78 mmHg (38-42) 77 mmHg (38-42) Pressure CO2 Arterial Blood Partial 60 mmHg 105 mmHg Pressure O2 (61-120) (61-120) Arterial Blood Oxygen Content 10.9 Vol % 12.2 Vol % (12.0-20.0) (12.0-20.0) Arterial Blood 2.4 % (0-4) 2.2 % (0-4) Carboxyhemoglobin Arterial Blood Methemoglobin 0.8 % (0-2) 0.8 % (0-2) Blood Gas Hemoglobin 8.9 G/DL 9.0 G/DL (12.0-16.0) (12.0-16.0) Oxygen Delivery Device BIPAP BiPAP VENTILATOR Blood Gas Ventilator Setting IPAP20/EPAP8 IPAP20/EPAP8 500/18/1.0/+5 Blood Gas Inspired Oxygen 60 % 55 % 60 % White Blood Count 22.9 TH/MM3 (4.0-11.0) Red Blood Count 3.04 MIL/MM3 (4.50-5.90) Hemoglobin 9.0 GM/DL (13.0-17.0) Hematocrit 28.7 % (39.0-51.0) Mean Corpuscular Volume 94.6 FL (80.0-100.0) Mean Corpuscular Hemoglobin 29.6 PG (27.0-34.0) Mean Corpuscular Hemoglobin 31.3 % Concent (32.0-36.0) Red Cell Distribution Width 16.7 % (11.6-17.2) Platelet Count 166 TH/MM3 (150-450) Mean Platelet Volume 8.3 FL (7.0-11.0) Neutrophils (%) (Auto) 91.5 % (16.0-70.0) Lymphocytes (%) (Auto) 3.1 % (9.0-44.0) Monocytes (%) (Auto) 4.7 % (0.0-8.0) Eosinophils (%) (Auto) 0.0 % (0.0-4.0) Basophils (%) (Auto) 0.7 % (0.0-2.0) Neutrophils # (Auto) 21.0 TH/MM3 (1.8-7.7) Lymphocytes # (Auto) 0.7 TH/MM3 (1.0-4.8) Monocytes # (Auto) 1.1 TH/MM3 (0-0.9) Eosinophils # (Auto) 0.0 TH/MM3 (0-0.4) Basophils # (Auto) 0.2 TH/MM3 (0-0.2) CBC Comment DIFF FINAL Differential Comment Sodium Level 137 MEQ/L (136-145) Potassium Level 4.8 MEQ/L (3.5-5.1) Chloride Level 97 MEQ/L (98-107) Carbon Dioxide Level 32.8 MEQ/L (21.0-32.0) Anion Gap 7 MEQ/L (5-15) Blood Urea Nitrogen 40 MG/DL (7-18) Creatinine 1.55 MG/DL (0.60-1.30) Estimat Glomerular Filtration 45 ML/MIN (>89) Rate Random Glucose 166 MG/DL (74-106) Calcium Level 8.7 MG/DL (8.5-10.1) B-Type Natriuretic Peptide 987 PG/ML (0-100) Venous Blood pH 7.34 (7.360-7.400) Venous Blood Partial Pressure 53 mmHg (44-48) CO2 Venous Blood Partial Pressure 41 mmHg (35-40) O2 Venous Blood HCO3 28 mmol/L (22-26) Venous Blood Oxygen Saturation 71 % (70-76) Venous Blood Oxygen Content 8.6 Vol % (9.0-17.0) Venous Blood Base Excess 2.5 mmol/L (-2-2) Test 06/24/17 06/24/17 04:08 08:02 White Blood Count 20.4 TH/MM3 (4.0-11.0) Red Blood Count 3.11 MIL/MM3 (4.50-5.90) Hemoglobin 9.2 GM/DL (13.0-17.0) Hematocrit 29.0 % (39.0-51.0) Mean Corpuscular Volume 93.2 FL (80.0-100.0) Mean Corpuscular Hemoglobin 29.6 PG (27.0-34.0) Mean Corpuscular Hemoglobin 31.7 % Concent (32.0-36.0) Red Cell Distribution Width 17.5 % (11.6-17.2) Platelet Count 234 TH/MM3 (150-450) Mean Platelet Volume 8.0 FL (7.0-11.0) Neutrophils (%) (Auto) 82.4 % (16.0-70.0) Lymphocytes (%) (Auto) 6.3 % (9.0-44.0) Monocytes (%) (Auto) 9.6 % (0.0-8.0) Eosinophils (%) (Auto) 0.8 % (0.0-4.0) Basophils (%) (Auto) 0.9 % (0.0-2.0) Neutrophils # (Auto) 16.8 TH/MM3 (1.8-7.7) Lymphocytes # (Auto) 1.3 TH/MM3 (1.0-4.8) Monocytes # (Auto) 2.0 TH/MM3 (0-0.9) Eosinophils # (Auto) 0.2 TH/MM3 (0-0.4) Basophils # (Auto) 0.2 TH/MM3 (0-0.2) CBC Comment DIFF FINAL Differential Comment Sodium Level 136 MEQ/L (136-145) Potassium Level 3.5 MEQ/L (3.5-5.1) Chloride Level 95 MEQ/L (98-107) Carbon Dioxide Level 33.7 MEQ/L (21.0-32.0) Anion Gap 7 MEQ/L (5-15) Blood Urea Nitrogen 34 MG/DL (7-18) Creatinine 1.38 MG/DL (0.60-1.30) Estimat Glomerular Filtration 51 ML/MIN (>89) Rate Random Glucose 317 MG/DL (74-106) Calcium Level 8.5 MG/DL (8.5-10.1) B-Type Natriuretic Peptide 1978 PG/ML (0-100) Random Vancomycin Level 7.8 COMMENT Blood Gas Puncture Site CENTRAL LINE Blood Gas Patient Temperature 98.6 Venous Blood pH 7.41 (7.360-7.400) Venous Blood Partial Pressure 49 mmHg (44-48) CO2 Venous Blood Partial Pressure 37 mmHg (35-40) O2 Venous Blood HCO3 30 mmol/L (22-26) Venous Blood Oxygen Saturation 63 % (70-76) Venous Blood Oxygen Content 7.6 Vol % (9.0-17.0) Venous Blood Base Excess 5.8 mmol/L (-2-2) Oxygen Delivery Device VENTILATOR Blood Gas Ventilator Setting PRVC/AC Blood Gas Inspired Oxygen 40 % Result Diagram: 06/24/17 0408 06/24/17 0408 Imaging Last 48 hours Impressions Chest X-Ray 06/23/17 0000 Signed Impressions: Service Date/Time: Friday, June 23, 2017 10:20 - CONCLUSION: Bilateral pleural effusions and bibasilar consolidation and or compressive collapse possibly slightly worse on the right since the prior exam. Khadar Arboleda MD Procedures * 06/23/17 -endotracheal intubation * 06/23/17 -right chest central line placement * 06/16/17 -cardiac catheterization. . Assessment and Plan Disease Oriented Problem List: (1) Hypercapnic respiratory failure (2) Aortic valve stenosis (3) Sepsis (4) COPD (chronic obstructive pulmonary disease) (5) Anemia (6) Diabetes mellitus (7) Coronary artery disease (8) Hypertension (9) BMI 50.0-59.9, adult Symptom Scale: (1) Shortness of breath 0-10 Scale: Unable to quantify Comment: Secondary to COPD, anemia, acute illness/sepsis. Now intubated on mechanical ventilation. . (2) Debility 0-10 Scale: Unable to quantify Comment: Progressive. Exacerbated by acute injury and prolonged hospitalization. . Pertinent Non-Medical Issues Psychosocial: Patient originally from [place]. Moved to [place] over 40 years ago. He is a , has 1 son Ismael Khan. Retired 8 years ago secondary to COPD. 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 Served in the [employer] for 3 years, a 70 [place] . Spiritual: No sikh affiliation. Legal: Reports that advance directives [facility] completed [facility]. Ethical issues impacting care: No ethical issues identified at this time. . Important Contacts Patient's friend Tere Talamantes Pt's mother Queenie Cruz . . Prognosis Mr. Khan is a 66-year-old male with a medical history significant for COPD, morbid obesity, CAD, hypertension and diabetes mellitus type 2. Patient with newly diagnosed severe aortic valve stenosis with limited treatment options secondary to multiple chronic comorbidities, sepsis and anemia. Poor prognosis for an improved quality of life. 2 year mortality around 50% if aortic valve is not replaced. Patient at high risk for further complications, continue decline and . . Code Status: Full Code Plan * CODE STATUS: Full code. Risks, benefits and limitations of CPR, intubation and mechanical ventilation have been previously discussed with patient and HCS on 06/21/17. Patient elected full code. * HEALTHCARE DECISION-MAKING: Patient unable to participating in medical decision-making secondary to clinical condition, sedated -intubated on mechanical ventilation. Patient designated friend Tere Talamantes as HCS, no alternate HCS. * GOALS OF CARE: 06/24/17 -Healthcare surrogate Tere electing to continue aggressive management, allow a few days to evaluate patient's condition. Goal is to attempt at medical extubation. Patient has verbalized in the past not wanting tracheostomy or PEG tube placement. Palliative care will continue to follow-up. * SYMPTOMS: = Shortness of breath, multifactorial. Secondary to COPD, anemia, sepsis. Clinical condition complicated by respiratory failure, patient intubated on mechanical ventilation. = Debility, progressive. Worsened during the past year. Exacerbated by acute illness. * Case discussed with bedside RN Gabby. * Palliative care contact information has been provided to patient and friend Tere. * Palliative care will continue to follow-up as needed for further clarifications of goals of care as patient's clinical course continues to evolve. . Time Spent Total Floor Time (mins): 33 (Total time to include review medical records, physical exam, telephone conversation with healthcare surrogate Maday and case discussion with bedside RN.) >50% Counseling/Coord of Care: Yes Attestation To help prompt me to consider important information that might be impacting today's encounter and assessment, information from prior notes written by myself or my colleagues may have been "brought forward" into today's note. My signature on this note, however, is an attestation that I personally performed the exam, history, and/or decision-making noted today, and, unless otherwise indicated, the interactions with patient, family, and staff as well as the review of records all occurred today. I also attest that the listed assessment and stated plan reflect my best clinical judgment today based on the combination of historical information, prior notes, and today's exam/ interactions. When time spent is documented, it refers only to time spent today by the signer, or if indicated, combined time spent today by collaborating physician/nurse practitioner. Camilla Marquez Jun 24, 2017 13:59
[2017-06-24] MEDS ORDERED: DEXTROSE 50% IN WATER 50 ML VIAL(D50) IV PRN (16:15)
[2017-06-24] MEDS: INSULIN ASPART SUPPLEMENTAL SCALE SQ SCH ×2 (16:15→22:12)
[2017-06-24] MEDS ORDERED: GLUCAGON 1 MG/ML VIAL OTHER PRN (16:15)
--- NOTE | 2017-06-24 16:46 | HHI.CCPN ---
Subjective Remarks/Hospital Course 66-year-old male. Date of admission 06/12/2017. Past medical history includes COPD, morbid obesity, coronary artery disease, hypertension, diabetes mellitus with peripheral neuropathy. Patient was his normal state of health until yesterday when he "did not feel good " including myalgias, generalized weakness. No recent sick contacts. No changes in his diet. No recent travels. Laboratory work revealed a lactic acidosis of 5.4. Potassium is 5.9. Note he is on an ARB along with KCl supplementation, leukocytosis is a 24,000, anemia of 8.6 with Hemoccult-negative stool done in ED in acute kidney injury with a creatinine of 1.5. Chest x-ray revealed elevated left hemidiaphragm otherwise negative. Received 1 dose of Zosyn and vancomycin the ED. We are asked to admit. 06/23: Tight , morbid obesity, fluid overload, pneumonia all hampering CO2 removal. Respiratory effort ineffective and nearly obtunded from hypercapneic failure. 06/24: Progressed to decompensated failure requiring intubation and mechanical ventilation. Neosynephrine required for sepsis. Objective Vital Signs Date Time Temp Pulse Resp B/P Pulse Ox O2 Delivery O2 Flow Rate FiO2 06/24/17 16:39 94 40 06/24/17 16:00 61 06/24/17 16:00 98.7 12 143/65 06/24/17 07:52 Ventilator 06/22/17 20:53 15.00 Intake and Output 06/23/17 06/23/17 06/24/17 08:00 16:00 00:00 Intake Total 100 ml 1532 ml 1283 ml Output Total 250 ml 1300 ml 1950 ml Balance -150 ml 232 ml -667 ml Result Diagram: 06/24/17 0408 06/24/17 0408 Other Results Laboratory Tests Test 06/24/17 08:02 Blood Gas Puncture Site CENTRAL LINE Blood Gas Patient Temperature 98.6 Venous Blood pH 7.41 (7.360-7.400) Venous Blood Partial Pressure 49 mmHg (44-48) CO2 Venous Blood Partial Pressure 37 mmHg (35-40) O2 Venous Blood HCO3 30 mmol/L (22-26) Venous Blood Oxygen Saturation 63 % (70-76) Venous Blood Oxygen Content 7.6 Vol % (9.0-17.0) Venous Blood Base Excess 5.8 mmol/L (-2-2) Oxygen Delivery Device VENTILATOR Blood Gas Ventilator Setting PRVC/AC Blood Gas Inspired Oxygen 40 % Imaging Last Impressions Chest X-Ray 06/12/17 0728 Signed Impressions: Service Date/Time: May 07:43 - CONCLUSION: 1. Elevation left hemidiaphragm. 2. Bibasilar densities likely atelectasis. Graham Antonio MD Lower Extremity Ultrasound 06/12/17 0000 Signed Impressions: Service Date/Time: May 18:32 - CONCLUSION: Normal examination. Lev Gandhi MD Objective Remarks GENERAL: 58-year-old male, critically ill. SKIN: Warm and pale. No rash. Tattoo left upper extremity HEAD: Atraumatic. Normocephalic. EYES: Pupils equal and round around 3 mm bilaterally and reactive. No scleral icterus. No injection or drainage. ENT: No nasal bleeding or discharge. Mucous membranes pink and moist. NECK: Trachea midline. Orally intubated. CARDIOVASCULAR: Distant. Regular rate and rhythm. S1, S2 . 2/6 murmur at LSB. RESPIRATORY: Diffuse crackles. Breath sounds good bilaterally. GASTROINTESTINAL: Abdomen soft, non-tender, obese. Hypoactive bowel sounds. No guarding. MUSCULOSKELETAL: Extremities with chronic venous stasis bilateral lower extremities with woody edema. NEUROLOGICAL: Obtunded.Withdraws 4 limbs. A/P Assessment and Plan Neuro/Psych: Acetaminophen 650 mg by mouth every 4 hours when necessary fever Hydrocodone/acetaminophen 5/325 one tablet every 4 hours when necessary pain 1-5 Morphine sulfate 2 mg IV every 2 hours when necessary pain 6-10 CT head ordered but refused per patient CV: Lactic acidosis - resolved Hypertension Coronary artery disease EKG revealed sinus tachycardia. Left axis deviation. QTC was 403 Initial troponin 0.05. Negative workup Holding losartan 100 mg by mouth daily light of hypotension relative and acute kidney injury. Resume when clinically indicated Patient has received IV Lasix 40 mg we'll hold further doses by mouth daily in light of hypotension. Resume when clinically indicated Converted to lasix gtt 06/24 Resp: Prior tobaccoism 50 pack years. Quit 15 years ago Chronic oxygen use possibly undiagnosed PAULA/pickwickian Obesity hypoventilation syndrome Chest x-ray revealed elevated left hemidiaphragm. Possible bilateral lower lobe atelectasis Nasal cannula to maintain saturations greater than or equal to 92% Continue ipratropium/albuterol 0.5/2.5 nebulizers every 6 hours with albuterol nebulizers every 2 hours. Dyspnea Incentive spirometry while awake Intubated 06/23. GI: Early satiety Elevated total bilirubin Total bilirubin elevated however remainder of LFTs negative. Benign abdominal examination.. Lipase normal Patient refuses CT abdomen/pelvis. Pantoprazole 40 mg IV daily for GI prophylaxis Docusate sodium/senna 1 tablet by mouth twice a day for bowel regimen Dark stools per RN. Will Hemoccult stool 1. : Franco catheter if indicated for accurate I's and O's in a critically ill patient Endo: Diabetes mellitus/insulin requiring with peripheral neuropathy Home medications include insulin aspart 30 units 3 times a day and insulin glargine 50 units subcutaneous twice a day Currently on detemir 30 units subcutaneous twice a day with Novolin R sliding scale insulin with Accu-Cheks before meals/at bedtime Renal: Acute or chronic kidney injury - resolving Unknown baseline. Abdominal ultrasound rule out hydronephrosis Urine eosinophil/electrolytes D/C fluid. Status post 3 L normal saline 1 Heme: Leukocytosis Normocytic anemia Elevated PTT Hemoccult negative in ED. Received 1 unit PRBCs in the emergency department Hemoglobin currently 9.5 Recheck CBC in a.m. ID: Antibiotic per ID recommendation Blood cultures 2, sputum, UA, urine Legionella and pneumococcal antigens is also are pending. Influenza negative. ID consult appreciated MSK: BMI greater than 50 Weight loss encouraged FEN: Access - Utilize peripheral IV. - Right SCV CVL placed 06/23 Prophylaxis - GI - pantoprazole - DVT - SCD/heparin subcutaneous Overall impression: Critically ill and deteriorating respiratory function requiring intubation and mechanical ventilation. Florid fluid overload. Critical Care 40 mins aside from procedures Eddie Shabazz MD Jun 24, 2017 16:46
[2017-06-24] MEDS: MAGNESIUM SULFATE 1 GM PREMIX 100 ML IV SCH ×2 (17:00→18:00)
[2017-06-24] MEDS: POTASSIUM CHLOR 40 MEQ PREMIX 100 ML IV SCH ×2 (17:00→21:00)
--- NOTE | 2017-06-24 17:22 | HHI.GIFU ---
Subjective Remarks Pt intubated on vent. NO signs bleeding. (Diana Leija) Objective Vitals I&O Vital Signs Date Time Temp Pulse Resp B/P Pulse Ox O2 Delivery O2 Flow Rate FiO2 06/24/17 16:39 94 40 06/24/17 16:00 50 06/24/17 16:00 61 06/24/17 16:00 98.7 61 12 143/65 98 06/24/17 15:00 61 06/24/17 14:00 60 06/24/17 12:00 50 06/24/17 12:00 60 06/24/17 12:00 98.4 60 12 131/61 97 06/24/17 11:53 96 40 06/24/17 10:00 64 06/24/17 08:00 50 06/24/17 08:00 64 06/24/17 08:00 98.1 64 14 137/63 98 06/24/17 07:52 99 Ventilator 40 06/24/17 07:52 99 40 06/24/17 07:00 98 Mechanical Ventilator 40 06/24/17 07:00 58 06/24/17 06:00 60 06/24/17 04:00 98.5 66 14 121/56 96 06/24/17 04:00 50 06/24/17 04:00 66 06/24/17 03:52 98 40 06/24/17 02:00 50 06/24/17 02:00 64 06/24/17 01:15 96 40 06/24/17 00:00 98.6 68 14 130/62 97 06/24/17 00:00 50 06/24/17 00:00 68 06/23/17 23:00 70 06/23/17 22:30 98 40 06/23/17 22:00 72 06/23/17 20:00 98.2 69 14 148/63 97 06/23/17 20:00 50 06/23/17 20:00 69 06/23/17 19:13 100 50 06/23/17 19:00 97 Mechanical Ventilator 50 06/23/17 18:00 69 I/O 06/23/17 06/23/17 06/23/17 06/24/17 06/24/17 06/24/17 07:00 15:00 23:00 07:00 15:00 23:00 Intake Total 100 ml 1532 ml 1283 ml 1200 ml 1542 ml Output Total 250 ml 1300 ml 1950 ml 1050 ml 2450 ml Balance -150 ml 232 ml -667 ml 150 ml -908 ml Intake Oral 100 ml 0 ml IV Total 1532 ml 1283 ml 1200 ml 1542 ml Output Urine Total 250 ml 1300 ml 1950 ml 1050 ml 2450 ml Gastric Drainage Total 0 ml 0 ml # Bowel Movements 0 0 0 0 0 Laboratory Laboratory Tests Test 06/24/17 06/24/17 04:08 08:02 White Blood Count 20.4 Red Blood Count 3.11 Hemoglobin 9.2 Hematocrit 29.0 Mean Corpuscular Volume 93.2 Mean Corpuscular Hemoglobin 29.6 Mean Corpuscular Hemoglobin 31.7 Concent Red Cell Distribution Width 17.5 Platelet Count 234 Mean Platelet Volume 8.0 Neutrophils (%) (Auto) 82.4 Lymphocytes (%) (Auto) 6.3 Monocytes (%) (Auto) 9.6 Eosinophils (%) (Auto) 0.8 Basophils (%) (Auto) 0.9 Neutrophils # (Auto) 16.8 Lymphocytes # (Auto) 1.3 Monocytes # (Auto) 2.0 Eosinophils # (Auto) 0.2 Basophils # (Auto) 0.2 CBC Comment DIFF FINAL Differential Comment Sodium Level 136 Potassium Level 3.5 Chloride Level 95 Carbon Dioxide Level 33.7 Anion Gap 7 Blood Urea Nitrogen 34 Creatinine 1.38 Estimat Glomerular Filtration 51 Rate Random Glucose 317 Calcium Level 8.5 B-Type Natriuretic Peptide 1978 Random Vancomycin Level 7.8 Blood Gas Puncture Site CENTRAL LINE Blood Gas Patient Temperature 98.6 Venous Blood pH 7.41 Venous Blood Partial Pressure 49 CO2 Venous Blood Partial Pressure 37 O2 Venous Blood HCO3 30 Venous Blood Oxygen Saturation 63 Venous Blood Oxygen Content 7.6 Venous Blood Base Excess 5.8 Oxygen Delivery Device VENTILATOR Blood Gas Ventilator Setting PRVC/AC Blood Gas Inspired Oxygen 40 Date/Time Procedure Status Source Growth 06/24/17 13:46 Gram Stain Received Sputum Endotracheal Pending 06/24/17 13:46 Sputum Culture Received Sputum Endotracheal Pending Imaging Last Impressions Chest X-Ray 06/23/17 0000 Signed Impressions: Service Date/Time: Friday, June 23, 2017 10:20 - CONCLUSION: Bilateral pleural effusions and bibasilar consolidation and or compressive collapse possibly slightly worse on the right since the prior exam. Khadar Arboleda MD CT Angiography 06/15/17 0000 Signed Impressions: Service Date/Time: Friday, June 16, 2017 13:35 - CONCLUSION: 1. Small bilateral pleural effusions with adjacent alveolar consolidations consistent with compressive atelectasis and/or pneumonia. Clinical correlation is recommended. 2. Pleural calcifications within the bilateral posterior lung bases consistent with asbestos related pleural disease or fibrothorax. 3. Cardiomegaly. 4. No evidence of pulmonary embolism. 5. Ascites within the upper abdomen. Casimiro Lazo MD Abdomen Ultrasound 06/13/17 0000 Signed Impressions: Service Date/Time: Tuesday, June 13, 2017 15:35 - CONCLUSION: Limited study secondary to bowel gas and body habitus. Hepatic cysts are noted. Small amount of free fluid suspected. Lev Gandhi MD Lower Extremity Ultrasound 06/12/17 0000 Signed Impressions: Service Date/Time: May 18:32 - CONCLUSION: Normal examination. Lev Gandhi MD Physical Exam HEENT: Normocephalic; atraumatic CHEST: Resp even/unlabored, OETT to vent. Diminished. CARDIAC: RRR + murmur ABDOMEN: Soft, obese, bowel sounds faint EXTREMITIES: Generalized edema. SKIN: no rash; no jaundice. 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 Hemoccult positive. Plan was for GI workup with cardiac clearance, per cardiology pt high risk for noncardiac procedures. S/P 2 units PRBC. HH stable - Anemia secondary to acute blood loss. H/H on admission was 8.0/25.2. S/P 2 units PRBC and has been stable, currently stable. No history of EGD/Colonoscopy. Per cardiology high risk for any procedure other than cardiac - Acute respiratory failure. Pt halicated for respiratory distress/hypoxia/ams last night, required intubation with mechanical ventilation. - AMS, likely secondary to elevated CO2, now intubated. - Sepsis/leukocytosis/lactic acidosis/bacteremia. BCx with GPC, Streptococcus species. Rpt. BCx no growth 5 days. 2D echo with very technically limited study , moderate thickening of the aortic valve leaflets, severe aortic valve stenosis, moderate thickening of the aortic valve leaflets. RIGO was canceled due to hypoxia and currently not candidate for avr or tavr, so findings unlikely to exchange specialist and risk/benefit ratio unfavorable per cardiology. WBC 20.4. Ceftriaxone. - HAI with electrolyte abnormalities. Creat 1.38. - DM, CAD, COPD, HTN, Neuropathy per attending. PLAN: - high risk for noncardiac procedures - TF - Glucerna 1.5 @50mls/hr goal rate - Cont. PPI - Monitor HH - Transfuse as necessary - Supportive care - Further recommendations to follow based on results of above - Pt seen and examined by Dr. Corbett and this note is written on her behalf ( Diana Leija) Physician Comments seen, examined agree with above previously patient refused egd/colonoscopy ct abdomen/pelvis to evaluate for any abdominal pathology (Pretty Corbett MD ) Diana Leija Jun 24, 2017 17:22 Pretty Corbett MD Jun 24, 2017 19:09
[2017-06-24] MEDS: INSULIN DETEMIR 100 UNITS/ML VIAL SQ SCH ×2 (18:00→21:14)
[2017-06-24 19:17] LABS: BICARBONATE 34.5 MEQ/L (21.0-32.0); MAGNESIUM 2.1 MG/DL (1.5-2.5); POTASSIUM 3.2 MEQ/L (3.5-5.1)
[2017-06-24] MEDS: FUROSEMIDE INJ 100 MG in SODIUM CHLORIDE 0.9% INJ 90 ML IV SCH (21:31)
[2017-06-25] VITALS (19 sets, daily range): BP systolic 81–115; BP diastolic 49–65; PULSE 63–94; RESP 12–17; TEMP 98.2–98.9; O2SAT 93–100
[2017-06-25] MEDS: PHENYLEPHRINE INJ 80 MG in DEXTROSE 5% IN WATE 500 ML INJ 492 ML IV SCH ×8 (03:21→08:38)
[2017-06-25] MEDS: CHLORHEXIDINE GLUCONATE 2 % 1 PACK (2 CLOTHS) TOP SCH (03:22)
[2017-06-25] MEDS: CEFEPIME INJ 2,000 MG in SODIUM CHLORIDE 0.9% INJ 100 ML IV SCH ×2 (03:22→14:34)
[2017-06-25 05:08] LABS: BICARBONATE 35.4 MEQ/L (21.0-32.0); POTASSIUM 3.5 MEQ/L (3.5-5.1)
[2017-06-25] MEDS: INSULIN ASPART SUPPLEMENTAL SCALE SQ SCH ×5 (05:50→23:16)
[2017-06-25] MEDS: PROPOFOL 1000 MG/100 ML INJ 100 ML IV SCH ×3 (05:51→23:24)
[2017-06-25] MEDS: CHLORHEXIDINE 0.12% (ORAL KIT) 15 ML CUP MT SCH ×2 (08:26→20:51)
[2017-06-25] MEDS: DOCUSATE SODIUM 50 MG/SENNA 8.6 MG TAB PO SCH ×2 (08:27→23:19)
[2017-06-25] MEDS: INSULIN DETEMIR 100 UNITS/ML VIAL SQ SCH ×2 (08:27→23:16)
[2017-06-25] MEDS: PANTOPRAZOLE SODIUM 40 MG VIAL IV SCH (08:27)
[2017-06-25] MEDS: SODIUM CHLORIDE 0.9% FLUSH 10 ML FLUSH IV FLUSH SCH ×2 (08:28→20:51)
[2017-06-25] MEDS: FUROSEMIDE INJ 100 MG in SODIUM CHLORIDE 0.9% INJ 90 ML IV SCH ×2 (08:38→17:37)
[2017-06-25] MEDS ORDERED: NOREPINEPHRINE-DEXTROSE DRIP 250 ML IV SCH (09:15)
[2017-06-25] MEDS ORDERED: TERBUTALINE INJ 1 MG/ML AMP SQ PRN (09:15)
--- NOTE | 2017-06-25 09:17 | HHI.CCPN ---
Subjective Remarks/Hospital Course 66-year-old male. Date of admission 06/12/2017. Past medical history includes COPD, morbid obesity, coronary artery disease, hypertension, diabetes mellitus with peripheral neuropathy. Patient was his normal state of health until yesterday when he "did not feel good " including myalgias, generalized weakness. No recent sick contacts. No changes in his diet. No recent travels. Laboratory work revealed a lactic acidosis of 5.4. Potassium is 5.9. Note he is on an ARB along with KCl supplementation, leukocytosis is a 24,000, anemia of 8.6 with Hemoccult-negative stool done in ED in acute kidney injury with a creatinine of 1.5. Chest x-ray revealed elevated left hemidiaphragm otherwise negative. Received 1 dose of Zosyn and vancomycin the ED. We are asked to admit. 06/23: Tight , morbid obesity, fluid overload, pneumonia all hampering CO2 removal. Respiratory effort ineffective and nearly obtunded from hypercapneic failure. 06/24: Progressed to decompensated failure requiring intubation and mechanical ventilation. Neosynephrine required for sepsis. 06/25: Will need to add levophed for BP support. Neosynephrine is requiring too much volume. Renal function improving, continue diuresis, minimize iv fluid. Objective Vital Signs Date Time Temp Pulse Resp B/P Pulse Ox O2 Delivery O2 Flow Rate FiO2 06/25/17 07:21 95 40 06/25/17 06:00 65 06/25/17 04:00 98.9 12 81/52 06/24/17 07:52 Ventilator 06/22/17 20:53 15.00 Intake and Output 06/24/17 06/24/17 06/25/17 08:00 16:00 00:00 Intake Total 1200 ml 1542 ml 2036 ml Output Total 1050 ml 2450 ml 1050 ml Balance 150 ml -908 ml 986 ml Result Diagram: 06/24/17 0408 06/25/17 0345 Imaging Last Impressions Chest X-Ray 06/12/17 0728 Signed Impressions: Service Date/Time: May 07:43 - CONCLUSION: 1. Elevation left hemidiaphragm. 2. Bibasilar densities likely atelectasis. Graham Antonio MD Lower Extremity Ultrasound 06/12/17 0000 Signed Impressions: Service Date/Time: May 18:32 - CONCLUSION: Normal examination. Lev Gandhi MD Objective Remarks GENERAL: 58-year-old male, critically ill. SKIN: Warm and pale. No rash. Tattoo left upper extremity HEAD: Atraumatic. Normocephalic. EYES: Pupils equal and round around 3 mm bilaterally and reactive. No scleral icterus. No injection or drainage. ENT: No nasal bleeding or discharge. Mucous membranes pink and moist. NECK: Trachea midline. Orally intubated. CARDIOVASCULAR: Distant. Regular rate and rhythm. S1, S2 . 2/6 murmur at LSB. RESPIRATORY: Diffuse crackles. Breath sounds good bilaterally. GASTROINTESTINAL: Abdomen soft, non-tender, obese. Hypoactive bowel sounds. No guarding. MUSCULOSKELETAL: Extremities with chronic venous stasis bilateral lower extremities with woody edema. NEUROLOGICAL: Sedated. Withdraws 4 limbs. A/P Assessment and Plan Neuro/Psych: Acetaminophen 650 mg by mouth every 4 hours when necessary fever Hydrocodone/acetaminophen 5/325 one tablet every 4 hours when necessary pain 1-5 Morphine sulfate 2 mg IV every 2 hours when necessary pain 6-10 CT head ordered but refused per patient CV: Lactic acidosis - resolved Hypertension Coronary artery disease EKG revealed sinus tachycardia. Left axis deviation. QTC was 403 Initial troponin 0.05. Negative workup Holding losartan 100 mg by mouth daily light of hypotension relative and acute kidney injury. Resume when clinically indicated Patient has received IV Lasix 40 mg we'll hold further doses by mouth daily in light of hypotension. Resume when clinically indicated Converted to lasix gtt 06/24 Resp: Prior tobaccoism 50 pack years. Quit 15 years ago Chronic oxygen use possibly undiagnosed PAULA/pickwickian Obesity hypoventilation syndrome Chest x-ray revealed elevated left hemidiaphragm. Possible bilateral lower lobe atelectasis Nasal cannula to maintain saturations greater than or equal to 92% Continue ipratropium/albuterol 0.5/2.5 nebulizers every 6 hours with albuterol nebulizers every 2 hours. Dyspnea Incentive spirometry while awake Intubated 06/23. GI: Early satiety Elevated total bilirubin Total bilirubin elevated however remainder of LFTs negative. Benign abdominal examination.. Lipase normal Patient refuses CT abdomen/pelvis. Pantoprazole 40 mg IV daily for GI prophylaxis Docusate sodium/senna 1 tablet by mouth twice a day for bowel regimen Dark stools per RN. Will Hemoccult stool 1. : Franco catheter if indicated for accurate I's and O's in a critically ill patient Endo: Diabetes mellitus/insulin requiring with peripheral neuropathy Home medications include insulin aspart 30 units 3 times a day and insulin glargine 50 units subcutaneous twice a day Currently on detemir 30 units subcutaneous twice a day with Novolin R sliding scale insulin with Accu-Cheks before meals/at bedtime Renal: Acute or chronic kidney injury - resolving Unknown baseline. Abdominal ultrasound rule out hydronephrosis Urine eosinophil/electrolytes D/C fluid. Status post 3 L normal saline 1 Heme: Leukocytosis Normocytic anemia Elevated PTT Hemoccult negative in ED. Received 1 unit PRBCs in the emergency department Hemoglobin currently 9.5 Recheck CBC in a.m. ID: Antibiotic per ID recommendation Blood cultures 2, sputum, UA, urine Legionella and pneumococcal antigens is also are pending. Influenza negative. ID consult appreciated MSK: BMI greater than 50 Weight loss encouraged FEN: Access - Utilize peripheral IV. - Right SCV CVL placed 06/23 Prophylaxis - GI - pantoprazole - DVT - SCD/heparin subcutaneous Overall impression: Critically ill and deteriorating respiratory function requiring intubation and mechanical ventilation. Florid fluid overload. Continue lasix gtt, replace lytes. Critical Care 38 mins Eddie Shabazz MD Jun 25, 2017 09:16
--- NOTE | 2017-06-25 09:34 | HHI.GIFU ---
Subjective Remarks Resting in bed. Sedated on vent. No active GI bleeding. Tolerating TF. Of note, patient was adamantly refusing GI procedures prior to being intubated. (Aga Dyson) Objective Vitals I&O Vital Signs Date Time Temp Pulse Resp B/P Pulse Ox O2 Delivery O2 Flow Rate FiO2 06/25/17 07:21 95 40 06/25/17 06:00 65 06/25/17 04:19 96 40 06/25/17 04:00 98.9 63 12 81/52 96 06/25/17 04:00 40 06/25/17 04:00 63 06/25/17 02:00 71 06/25/17 01:05 96 40 06/25/17 00:00 40 06/25/17 00:00 98.6 65 12 101/49 97 06/25/17 00:00 64 06/24/17 22:00 67 06/24/17 20:00 40 06/24/17 20:00 98.5 67 12 123/58 95 06/24/17 20:00 67 06/24/17 19:28 95 40 06/24/17 18:00 58 06/24/17 16:39 94 40 06/24/17 16:00 50 06/24/17 16:00 61 06/24/17 16:00 98.7 61 12 143/65 98 06/24/17 15:00 61 06/24/17 14:00 60 06/24/17 12:00 50 06/24/17 12:00 60 06/24/17 12:00 98.4 60 12 131/61 97 06/24/17 11:53 96 40 06/24/17 10:00 64 I/O 06/24/17 06/24/17 06/24/17 06/25/17 06/25/17 06/25/17 07:00 15:00 23:00 07:00 15:00 23:00 Intake Total 1200 ml 1542 ml 2036 ml 1727 ml Output Total 1050 ml 2450 ml 1050 ml 1250 ml Balance 150 ml -908 ml 986 ml 477 ml IV Total 1200 ml 1542 ml 1837 ml 1468 ml Tube Feeding 199 ml 259 ml Output Urine Total 1050 ml 2450 ml 1050 ml 1250 ml Gastric Drainage Total 0 ml # Bowel Movements 0 0 Laboratory Laboratory Tests Test 06/24/17 06/25/17 18:21 03:45 Sodium Level 137 139 Potassium Level 3.2 3.5 Chloride Level 97 97 Carbon Dioxide Level 34.5 35.4 Anion Gap 6 7 Blood Urea Nitrogen 29 26 Creatinine 1.35 1.27 Estimat Glomerular Filtration 53 56 Rate Random Glucose 373 271 Calcium Level 8.0 8.1 Phosphorus Level 1.2 1.2 Magnesium Level 2.1 2.0 B-Type Natriuretic Peptide 2497 Random Vancomycin Level 10.8 Date/Time Procedure Status Source Growth 06/24/17 13:46 Gram Stain Received Sputum Endotracheal Pending 06/24/17 13:46 Sputum Culture Received Sputum Endotracheal Pending Imaging Last Impressions Chest X-Ray 06/23/17 0000 Signed Impressions: Service Date/Time: Friday, June 23, 2017 10:20 - CONCLUSION: Bilateral pleural effusions and bibasilar consolidation and or compressive collapse possibly slightly worse on the right since the prior exam. Khadar Arboleda MD CT Angiography 06/15/17 0000 Signed Impressions: Service Date/Time: Friday, June 16, 2017 13:35 - CONCLUSION: 1. Small bilateral pleural effusions with adjacent alveolar consolidations consistent with compressive atelectasis and/or pneumonia. Clinical correlation is recommended. 2. Pleural calcifications within the bilateral posterior lung bases consistent with asbestos related pleural disease or fibrothorax. 3. Cardiomegaly. 4. No evidence of pulmonary embolism. 5. Ascites within the upper abdomen. Casimiro Lazo MD Abdomen Ultrasound 06/13/17 0000 Signed Impressions: Service Date/Time: Tuesday, June 13, 2017 15:35 - CONCLUSION: Limited study secondary to bowel gas and body habitus. Hepatic cysts are noted. Small amount of free fluid suspected. Lev Gandhi MD Lower Extremity Ultrasound 06/12/17 0000 Signed Impressions: Service Date/Time: May 18:32 - CONCLUSION: Normal examination. Lev Gandhi MD Physical Exam HEENT: Normocephalic; atraumatic CHEST: Resp even/unlabored, OETT to vent. Diminished. CARDIAC: RRR ABDOMEN: Soft, obese, bowel sounds faint EXTREMITIES: Generalized edema. SKIN: no rash; no jaundice. 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 Hemoccult positive. Plan was for GI workup with cardiac clearance, per cardiology pt high risk for noncardiac procedures. Of note, we were asked to see patient for anemia/melena prior to him being intubated and he was adamantly refusing GI procedures at that time. S/P 2 units PRBC. HH 9.2/29.0. - Anemia secondary to acute blood loss. H/H on admission was 8.0/25.2. S/P 2 units PRBC and has been stable, currently stable. No history of EGD/ Colonoscopy. Per cardiology high risk for any procedure other than cardiac - Acute respiratory failure. Vent per CCM - AMS, likely secondary to elevated CO2, now intubated. - Sepsis/leukocytosis/lactic acidosis/bacteremia. BCx with GPC, Streptococcus species. Rpt. BCx no growth 5 days. 2D echo with very technically limited study , moderate thickening of the aortic valve leaflets, severe aortic valve stenosis, moderate thickening of the aortic valve leaflets. RIGO was canceled due to hypoxia and currently not candidate for avr or tavr, so findings unlikely to policy change clerk and risk/benefit ratio unfavorable per cardiology. WBC 20.4. Ceftriaxone. - HAI with electrolyte abnormalities. Creat 1.27. - DM, CAD, COPD, HTN, Neuropathy per attending. PLAN: - TF - Glucerna 1.5 @50mls/hr goal rate - Cont. PPI - Monitor HH - Transfuse as necessary - Await CT scan - Supportive care - Pt not stable for any noncardiac procedures per cardiology - Pt seen and examined by Dr. Corbett and this note is written on her behalf ( Aga Dyson) Physician Comments seen, examined agree with above (Pretty Corbett MD) Aga Dyson Jun 25, 2017 09:34 Pretty Corbett MD Jun 25, 2017 11:14
[2017-06-25] MEDS: NOREPINEPHRINE 16 MG/D5W 250 ML IV SCH ×4 (10:39→20:51)
[2017-06-25] MEDS ORDERED: POTASSIUM CHLORIDE 25 MEQ EFFERVESCENT TAB PO PRN (10:45)
[2017-06-25] MEDS ORDERED: MAGNESIUM OXIDE 400 MG TAB PO PRN (10:45)
[2017-06-25] MEDS ORDERED: POTASSIUM CHLOR 40 MEQ PREMIX 100 ML IV PRN ×2 (10:45)
[2017-06-25] MEDS ORDERED: POTASSIUM CHLOR 20 MEQ PREMIX 100 ML IV PRN ×2 (10:45)
[2017-06-25] MEDS ORDERED: MAGNESIUM SULFATE INJ 4 GM in SODIUM CHLORIDE 0.9% INJ 92 ML IV PRN (10:45)
[2017-06-25] MEDS ORDERED: MAGNESIUM SULFATE INJ 2 GM in SODIUM CHLORIDE 0.9% INJ 96 ML IV PRN (10:45)
[2017-06-25] MEDS ORDERED: POTASSIUM PHOSPHATE MONOBASIC 500 MG TAB PO PRN (10:45)
[2017-06-25] MEDS ORDERED: SODIUM PHOSPHATE INJ 30 MMOL in SODIUM CHLOR 0.9% 250 ML INJ 240 ML IV PRN (10:45)
[2017-06-25] MEDS ORDERED: POTASSIUM PHOSPHATE MONOBASIC 500 MG TAB PO/TUBE PRN (10:45)
[2017-06-25] MEDS: RESP: ALBUTEROL 2.5 MG/3 ML NEB (PRN) INH (11:21)
[2017-06-25] MEDS: POTASSIUM PHOSPHATE INJ 30 MMOL in SODIUM CHLOR 0.9% 250 ML INJ 250 ML IV PRN (11:33)
[2017-06-25] MEDS ORDERED: Vancomycin Consult Pharmacy 1 EA OTHER SCH (13:30)
[2017-06-25] MEDS ORDERED: VANCOMYCIN INJ 1,000 MG in SODIUM CHLOR 0.9% 250 ML INJ 250 ML IV ONE (13:30)
--- NOTE | 2017-06-25 13:35 | HHI.IDPN ---
Subjective Subjective Remarks Patient is a 66-year-old morbidly obese male, presented to the hospital complaining of severe shortness of breath. Patient states he has COPD, and has had problem with chronic shortness of breath. He does not use any supplemental oxygen at home. Patient also admits to chronic lower extremity edema. He presented to the hospital because he had development of severe shortness of breath that he couldn't even walk a few distances which is not his normal. He denies any congestion, cough or any chest pain or palpitations. Also has been very weak, and just didn't feel good. He has not had any dizziness or syncopal episode. Has not had any nausea vomiting, abdominal pain, dysuria. On presentation he had an elevated white count. Patient has been afebrile. His lactic acid was elevated. Urinalysis was unremarkable. Chest x-ray with some basilar atelectasis. Patient was admitted initially for sepsis, and was started on broad-spectrum antibiotics. His WBC went down to 19, but it went up to 27,000. Patient received a large dose of IV Solu-Medrol on June 12. Patient currently states his breathing is better. He is still on nasal O2. Notes reviewed D/W RN Temps ok On pressors - changed to levophed Sedated on the vent Diuresing No new (+) BC WBC remains elevated, but decreasing Echo with severe , thickened leaflets BC with Strep bovis Palliative med notes reviewed Antibiotics Cefepime Vancomycin Past Medical History COPD Coronary artery disease Hypertension Diabetes mellitus with peripheral neuropathy Elevated BMI Past Surgical History Tonsillectomy Allergies: Coded Allergies: Penicillin (Verified Allergy, Mild, 06/12/17) Objective . Vital Signs Date Time Temp Pulse Resp B/P Pulse Ox O2 Delivery O2 Flow Rate FiO2 06/25/17 12:00 76 06/25/17 12:00 98.7 76 15 93/54 94 06/25/17 12:00 40 06/25/17 11:16 94 40 06/25/17 10:00 65 06/25/17 08:00 98.2 66 12 114/54 96 06/25/17 08:00 65 06/25/17 08:00 40 06/25/17 07:21 95 40 06/25/17 06:00 65 06/25/17 04:19 96 40 06/25/17 04:00 98.9 63 12 81/52 96 06/25/17 04:00 40 06/25/17 04:00 63 06/25/17 02:00 71 06/25/17 01:05 96 40 06/25/17 00:00 40 06/25/17 00:00 98.6 65 12 101/49 97 06/25/17 00:00 64 06/24/17 22:00 67 06/24/17 20:00 40 06/24/17 20:00 98.5 67 12 123/58 95 06/24/17 20:00 67 06/24/17 19:28 95 40 06/24/17 18:00 58 06/24/17 16:39 94 40 06/24/17 16:00 50 06/24/17 16:00 61 06/24/17 16:00 98.7 61 12 143/65 98 06/24/17 15:00 61 06/24/17 14:00 60 06/24/17 06/24/17 06/25/17 15:00 23:00 07:00 Intake Total 1542 ml 2036 ml 1727 ml Output Total 2450 ml 1050 ml 1250 ml Balance -908 ml 986 ml 477 ml IV Total 1542 ml 1837 ml 1468 ml Tube Feeding 199 ml 259 ml Output Urine Total 2450 ml 1050 ml 1250 ml # Bowel Movements 0 . Laboratory Tests Test 06/24/17 04:08 White Blood Count 20.4 TH/MM3 Red Blood Count 3.11 MIL/MM3 Hemoglobin 9.2 GM/DL Hematocrit 29.0 % Mean Corpuscular Volume 93.2 FL Mean Corpuscular Hemoglobin 29.6 PG Mean Corpuscular Hemoglobin 31.7 % Concent Red Cell Distribution Width 17.5 % Platelet Count 234 TH/MM3 Mean Platelet Volume 8.0 FL Neutrophils (%) (Auto) 82.4 % Lymphocytes (%) (Auto) 6.3 % Monocytes (%) (Auto) 9.6 % Eosinophils (%) (Auto) 0.8 % Basophils (%) (Auto) 0.9 % Neutrophils # (Auto) 16.8 TH/MM3 Lymphocytes # (Auto) 1.3 TH/MM3 Monocytes # (Auto) 2.0 TH/MM3 Eosinophils # (Auto) 0.2 TH/MM3 Basophils # (Auto) 0.2 TH/MM3 CBC Comment DIFF FINAL Differential Comment Laboratory Tests Test 06/24/17 06/24/17 06/25/17 04:08 18:21 03:45 Sodium Level 136 MEQ/L 137 MEQ/L 139 MEQ/L Potassium Level 3.5 MEQ/L 3.2 MEQ/L 3.5 MEQ/L Chloride Level 95 MEQ/L 97 MEQ/L 97 MEQ/L Carbon Dioxide Level 33.7 MEQ/L 34.5 MEQ/L 35.4 MEQ/L Anion Gap 7 MEQ/L 6 MEQ/L 7 MEQ/L Blood Urea Nitrogen 34 MG/DL 29 MG/DL 26 MG/DL Creatinine 1.38 MG/DL 1.35 MG/DL 1.27 MG/DL Estimat Glomerular Filtration 51 ML/MIN 53 ML/MIN 56 ML/MIN Rate Random Glucose 317 MG/DL 373 MG/DL 271 MG/DL Calcium Level 8.5 MG/DL 8.0 MG/DL 8.1 MG/DL B-Type Natriuretic Peptide 1978 PG/ML 2497 PG/ML Phosphorus Level 1.2 MG/DL 1.2 MG/DL Magnesium Level 2.1 MG/DL 2.0 MG/DL Microbiology Date/Time Procedure Status Source Growth 06/24/17 13:46 Gram Stain - Final Resulted Sputum Endotracheal 06/24/17 13:46 Sputum Culture - Preliminary Resulted Sputum Endotracheal IMMATURE GROWTH - REINCUBATE Imaging Chest X-Ray 06/23/17 0000 Signed Impressions: Service Date/Time: Friday, June 23, 2017 10:20 - CONCLUSION: Bilateral pleural effusions and bibasilar consolidation and or compressive collapse possibly slightly worse on the right since the prior exam. Khadar Arboleda MD CT Angiography 06/15/17 0000 Signed Impressions: Service Date/Time: Friday, June 16, 2017 13:35 - CONCLUSION: 1. Small bilateral pleural effusions with adjacent alveolar consolidations consistent with compressive atelectasis and/or pneumonia. Clinical correlation is recommended. 2. Pleural calcifications within the bilateral posterior lung bases consistent with asbestos related pleural disease or fibrothorax. 3. Cardiomegaly. 4. No evidence of pulmonary embolism. 5. Ascites within the upper abdomen. Casimiro Lazo MD Abdomen Ultrasound 06/13/17 0000 Signed Impressions: Service Date/Time: Tuesday, June 13, 2017 15:35 - CONCLUSION: Limited study secondary to bowel gas and body habitus. Hepatic cysts are noted. Small amount of free fluid suspected. Lev Gandhi MD Lower Extremity Ultrasound 06/12/17 0000 Signed Impressions: Service Date/Time: May 18:32 - CONCLUSION: Normal examination. Lev Gandhi MD Physical Exam GENERAL: sedated on the vent, not in respiratory distress. SKIN: Cool and dry. No generalized rash, no evidence of embolic lesions. HEAD: Atraumatic. Normocephalic. No temporal wasting, or tenderness. EYES: [place] conjunctiva. No petechia or hemorrhage. Pupils equal, round and reactive to light. No scleral icterus. No injection or drainage. EARS, NOSE AND THROAT: Nose without bleeding or purulent nasal discharge. Mucous membranes moist. Orally intubated NECK: Trachea midline. Supple and not tender, no meningeal signs CARDIOVASCULAR: Regular rate and rhythm. Has murmur loudest at base of the heart. NO rub RESPIRATORY: Diffuse wheezing ABDOMEN: Soft, obese, non-tender, mildly distended. Bowel sounds present and normoactive. No guarding. No rebound. EXTREMITIES: No clubbing, cyanosis. He has improving edema BLE, and he has bark tree texture of his skin in both legs and feet. NEUROLOGICAL: Sedated PSYCHIATRIC: Unable to assess LINE: No evidence of infection : Frnaco in place, urine looks clear Assessment & Plan Remarks IMPRESSION Initial presentation of severe SOB, patient with obesity, known COPD, ? possibly with cor pulmonale - clinically no evidence of PNA - has obesity, ?with sleep apnea Strep bovis bacteremia, very suspicious for endocarditis - Has severe Sepsis, shock Severe aortic stenosis COPD Leukocytosis, persistent Respiratory failure, likely pulmonary edema, ?PNA Renal insufficiency RECOMMENDATION Follow new C/S Continue cefepime Continue IV Vancomycin Follow CBC Monitor progress Prognosis not good due to other underlying comorbid conditions Palliative on the case Estela Watts MD Jun 25, 2017 13:34
--- NOTE | 2017-06-25 16:12 | PD.CARD.PN ---
Subjective Subjective Remarks intubated, sedated Objective Vital Signs / I&O Vital Signs Date Time Temp Pulse Resp B/P Pulse Ox O2 Delivery O2 Flow Rate FiO2 06/25/17 15:16 93 40 06/25/17 14:00 78 06/25/17 12:00 76 06/25/17 12:00 98.7 76 15 93/54 94 06/25/17 12:00 40 06/25/17 11:16 94 40 06/25/17 10:00 65 06/25/17 08:00 98.2 66 12 114/54 96 06/25/17 08:00 65 06/25/17 08:00 40 06/25/17 07:21 95 40 06/25/17 06:00 65 06/25/17 04:19 96 40 06/25/17 04:00 98.9 63 12 81/52 96 06/25/17 04:00 40 06/25/17 04:00 63 06/25/17 02:00 71 06/25/17 01:05 96 40 06/25/17 00:00 40 06/25/17 00:00 98.6 65 12 101/49 97 06/25/17 00:00 64 06/24/17 22:00 67 06/24/17 20:00 40 06/24/17 20:00 98.5 67 12 123/58 95 06/24/17 20:00 67 06/24/17 19:28 95 40 06/24/17 18:00 58 06/24/17 16:39 94 40 I/O 06/24/17 06/24/17 06/24/17 06/25/17 06/25/17 06/25/17 07:00 15:00 23:00 07:00 15:00 23:00 Intake Total 1200 ml 1542 ml 2036 ml 1727 ml 1652 ml Output Total 1050 ml 2450 ml 1050 ml 1250 ml 750 ml Balance 150 ml -908 ml 986 ml 477 ml 902 ml IV Total 1200 ml 1542 ml 1837 ml 1468 ml 1328 ml Tube Feeding 199 ml 259 ml 324 ml Output Urine Total 1050 ml 2450 ml 1050 ml 1250 ml 750 ml Gastric Drainage Total 0 ml 0 ml # Bowel Movements 0 0 0 Physical Exam GENERAL: SKIN: Warm and dry. HEAD: Normocephalic. EYES: No scleral icterus. No injection or drainage. NECK: Supple, trachea midline. No JVD or lymphadenopathy. CARDIOVASCULAR: Regular rate and rhythm without murmurs, gallops, or rubs. RESPIRATORY: Breath sounds equal bilaterally. No accessory muscle use. GASTROINTESTINAL: Abdomen soft, non-tender, nondistended. MUSCULOSKELETAL: No cyanosis, or edema. BACK: Nontender without obvious deformity. No CVA tenderness. Laboratory Laboratory Tests Test 06/24/17 06/25/17 18:21 03:45 Sodium Level 137 MEQ/L 139 MEQ/L Potassium Level 3.2 MEQ/L 3.5 MEQ/L Chloride Level 97 MEQ/L 97 MEQ/L Carbon Dioxide Level 34.5 MEQ/L 35.4 MEQ/L Anion Gap 6 MEQ/L 7 MEQ/L Blood Urea Nitrogen 29 MG/DL 26 MG/DL Creatinine 1.35 MG/DL 1.27 MG/DL Estimat Glomerular Filtration 53 ML/MIN 56 ML/MIN Rate Random Glucose 373 MG/DL 271 MG/DL Calcium Level 8.0 MG/DL 8.1 MG/DL Phosphorus Level 1.2 MG/DL 1.2 MG/DL Magnesium Level 2.1 MG/DL 2.0 MG/DL B-Type Natriuretic Peptide 2497 PG/ML Random Vancomycin Level 10.8 COMMENT Assessment and Plan Problem List: (1) Coronary artery disease (2) COPD (chronic obstructive pulmonary disease) (3) Diabetes mellitus (4) Acute kidney injury (5) Diabetic neuropathy associated with type 2 diabetes mellitus (6) Severe sepsis (7) Hypertension (8) Aortic valve stenosis Assessment and Plan 1.) Severe - d/w Dr Stevens, most likely will need tavr when anemia and bacteremia resolves, try to continue diuresis with lasix 40 mg iv bid if sbp > 90 and no worsening renal failure, f//u bnp, failing medical management 2.) Bacteremia - yolie canceled due to hypoxia and currently not candidate for avr or tavr, so findings unlikely to foreign exchange trader and risk/benefit ratio unfavorable 3.) Palliative care consulted due to poor prognosis due to multiple co morbidities and limited treatment options 4.) Respiratory failure - due to hypercapnic respiratory failure and worsening decompensated chf due to severe ; patient appears to be failing medical management. Attempting to increase lasix dose but limited by hypotension and arf /cri. 5.) High risk for noncardiac procedure Problem Qualifiers (1) Coronary artery disease: Qualified Code: I25.10 - Coronary artery disease involving [place] coronary artery without angina pectoris, unspecified whether [place] or transplanted heart (2) COPD (chronic obstructive pulmonary disease): Qualified Code: J44.9 - Chronic obstructive pulmonary disease, unspecified COPD type (3) Diabetes mellitus: Qualified Code: E11.65 - Type 2 diabetes mellitus with hyperglycemia, with long -term current use of insulin (4) Diabetic neuropathy associated with type 2 diabetes mellitus: Qualified Code: E11.42 - Diabetic polyneuropathy associated with type 2 diabetes mellitus (5) Hypertension: Qualified Code: I10 - Hypertension, unspecified type (6) Aortic valve stenosis: Qualified Code: I35.0 - Aortic valve stenosis, unspecified etiology Hai Park MD Jun 25, 2017 16:12
[2017-06-25] MEDS ORDERED: DIATRIZOATE MEGLUM/DIATRIZOATE SOD 9 ML CUP PO ONE (16:15)
[2017-06-25 17:54] LABS: BICARBONATE 35.3 MEQ/L (21.0-32.0); MAGNESIUM 1.9 MG/DL (1.5-2.5); POTASSIUM 3.7 MEQ/L (3.5-5.1)
--- NOTE | 2017-06-25 23:14 | RADRPT ---
EXAM DATE/TIME: 06/25/2017 22:16 [place] COMPARISON: No previous studies available for comparison. INDICATIONS : Abdominal pain. Anemia. ORAL CONTRAST: Prescribed oral contrast ingested. RADIATION DOSE: 31.51 CTDIvol (mGy) ; Patient body habitus MEDICAL HISTORY : Hypertension. Chronic obstructive pulmonary disease. Diabetes. SURGICAL HISTORY : None. ENCOUNTER: Subsequent ACUITY: 2 weeks PAIN SCALE: Non-responsive LOCATION: All quadrants. TECHNIQUE: Volumetric scanning of the abdomen and pelvis was performed. Using automated exposure control and ad justment of the mA and/or kV according to patient size, radiation dose was kept as low as reasonably achievable to obtain optimal diagnostic quality images. DICOM format image data is available electro nically for review and comparison. FINDINGS: LOWER LUNGS: Segmental consolidation with air bronchograms both lower lobes. Small bilateral pleural effusions. Bilateral pleural calcification. LIVER: 2 cm hypodense oval lesion in the lateral right lobe liver, which was shown to represent a cyst on pr ior ultrasound. Gallbladder is markedly abnormal containing numerous densely calcified stones occupy ing at least half of the volume of the gallbladder. No pericholecystic fluid. Calcified stones appe ar to extend into the cystic duct, but no calcifications seen in the common bile duct. SPLEEN: Normal size without lesion. PANCREAS: Within normal limits. KIDNEYS: Normal in size and shape. There is no mass, stone, or hydronephrosis. ADRENAL GLANDS: The right at adrenal gland is normal in configuration. In the expected location of the left degenera tive gland, there are multiple nodular densities which appear to be serpiginous, possibly representin g varices. It is difficult to discriminate between the varices and the adrenal gland on a noncontras t study. There may be a left adrenal mass measuring 2.2 cm. 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 BOWEL/MESENTERY: Gastric tube tip in the antrum of the stomach. No dilated loops of small or large bowel. Oral contr ast is present in the colon and distal small bowel. The appendix is identified in the right abdomen and is markedly elongated measuring almost 10 cm in length tracking along and lateral to the right co hanna. No induration of the periappendiceal fat. ABDOMINAL WALL: There is a ventral hernia located approximately the level of the umbilicus with separation between th e rectus muscles measuring 4.1 cm; the hernia contains only fat. There is marked thickening of the l eft lateral abdominal wall with the musculature measuring in excess of 8 cm in width. There is also induration or fluid in the subcutaneous tissues adjacent to the thickened muscle. The right abdomina l wall is incompletely evaluated, being out of the field of view of the scanner. RETROPERITONEUM: There is no lymphadenopathy. BLADDER: Franco catheter in nondistended bladder. REPRODUCTIVE: Within normal limits. INGUINAL: There is no lymphadenopathy or hernia. MUSCULOSKELETAL: Within normal limits for patient age. CONCLUSION: 1. Abnormal appearance of gallbladder with multiple calcified stones occupying most half of the volum e of the gallbladder. Possible stones extending into the cystic duct. May consider performing hepat obiliary tract scan to evaluate for cystic duct obstruction. 2. Bilateral lower lobe consolidative infiltrates and pleural effusion. 3. Large fat containing ventral abdominal hernia and marked thickening of the lateral abdominal muscu lature. 4. Abnormal appearance to the expected location of the left adrenal gland suggesting a combination of varices and adrenal mass. This cannot be further assessed on noncontrast exam. Sal Longoria MD on June 25, 2017 at 22:58 Board Certified Radiologist. This report was verified electronically.
[2017-06-25] MEDS: LACTULOSE SYRUP 20 GM/30 ML CUP PO PRN (23:19)
[2017-06-26] VITALS (19 sets, daily range): BP systolic 105–114; BP diastolic 57–74; PULSE 70–84; RESP 12–18; TEMP 98.2–98.8; O2SAT 93–100
[2017-06-26] MEDS ORDERED: AMIODARONE HCL 150 MG/3 ML VIAL ONE (02:26)
[2017-06-26] MEDS: CEFEPIME INJ 2,000 MG in SODIUM CHLORIDE 0.9% INJ 100 ML IV SCH ×2 (02:45→15:07)
[2017-06-26] MEDS: CHLORHEXIDINE GLUCONATE 2 % 1 PACK (2 CLOTHS) TOP SCH (04:00)
[2017-06-26] MEDS: FUROSEMIDE INJ 100 MG in SODIUM CHLORIDE 0.9% INJ 90 ML IV SCH ×2 (04:51→20:03)
[2017-06-26] MEDS: VANCOMYCIN INJ 1,500 MG in SODIUM CHLORID 0.9% 500 ML INJ 500 ML IV SCH (04:52)
[2017-06-26 05:33] LABS: BICARBONATE 38.9 MEQ/L (21.0-32.0); MAGNESIUM 1.9 MG/DL (1.5-2.5); POTASSIUM 3.5 MEQ/L (3.5-5.1)
[2017-06-26] MEDS: INSULIN ASPART SUPPLEMENTAL SCALE SQ SCH ×3 (06:26→18:00)
[2017-06-26] MEDS: SODIUM CHLORIDE 0.9% FLUSH 10 ML FLUSH IV FLUSH SCH ×2 (07:49→20:02)
[2017-06-26] MEDS: CHLORHEXIDINE 0.12% (ORAL KIT) 15 ML CUP MT SCH ×2 (07:49→20:02)
[2017-06-26] MEDS: DOCUSATE SODIUM 50 MG/SENNA 8.6 MG TAB PO SCH ×2 (07:50→20:00)
[2017-06-26] MEDS: PANTOPRAZOLE SODIUM 40 MG VIAL IV SCH (07:50)
[2017-06-26] MEDS: INSULIN DETEMIR 100 UNITS/ML VIAL SQ SCH ×2 (08:32→20:01)
[2017-06-26] MEDS: RESP: ALBUTEROL 2.5 MG/3 ML NEB (PRN) INH ×2 (08:38→23:45)
--- NOTE | 2017-06-26 10:44 | PD.CARD.PN ---
Subjective Subjective Remarks intubated, sedated Objective Vital Signs / I&O Vital Signs Date Time Temp Pulse Resp B/P Pulse Ox O2 Delivery O2 Flow Rate FiO2 06/26/17 10:00 75 06/26/17 08:00 40 06/26/17 08:00 98.3 82 18 110/57 100 06/26/17 08:00 83 06/26/17 07:32 96 40 06/26/17 06:00 82 06/26/17 04:10 97 40 06/26/17 04:00 98.4 83 15 105/59 94 06/26/17 04:00 40 06/26/17 04:00 83 06/26/17 02:00 80 06/26/17 00:55 97 40 06/26/17 00:00 98.2 84 18 108/59 96 06/26/17 00:00 82 06/26/17 00:00 40 06/25/17 22:00 83 06/25/17 21:30 100 100 06/25/17 20:00 40 06/25/17 20:00 98.5 81 15 115/65 98 06/25/17 20:00 80 06/25/17 19:37 100 40 06/25/17 18:00 90 06/25/17 16:00 40 06/25/17 16:00 98.6 87 17 113/54 96 06/25/17 16:00 94 06/25/17 15:16 93 40 06/25/17 14:00 78 06/25/17 12:00 76 06/25/17 12:00 98.7 76 15 93/54 94 06/25/17 12:00 40 06/25/17 11:16 94 40 I/O 06/25/17 06/25/17 06/25/17 06/26/17 06/26/17 06/26/17 07:00 15:00 23:00 07:00 15:00 23:00 Intake Total 1727 ml 1652 ml 821 ml 1562 ml Output Total 1250 ml 750 ml 1350 ml 1750 ml Balance 477 ml 902 ml -529 ml -188 ml IV Total 1468 ml 1328 ml 821 ml 1356 ml Tube Feeding 259 ml 324 ml 206 ml Output Urine Total 1250 ml 750 ml 1350 ml 1750 ml Gastric Drainage Total 0 ml # Bowel Movements 0 Physical Exam GENERAL: SKIN: Warm and dry. HEAD: Normocephalic. EYES: No scleral icterus. No injection or drainage. NECK: Supple, trachea midline. No JVD or lymphadenopathy. CARDIOVASCULAR: Regular rate and rhythm without murmurs, gallops, or rubs. RESPIRATORY: Breath sounds equal bilaterally. No accessory muscle use. GASTROINTESTINAL: Abdomen soft, non-tender, nondistended. MUSCULOSKELETAL: No cyanosis, or edema. BACK: Nontender without obvious deformity. No CVA tenderness. Laboratory Laboratory Tests Test 06/25/17 06/26/17 06/26/17 16:45 04:00 05:00 Sodium Level 138 MEQ/L 139 MEQ/L Potassium Level 3.7 MEQ/L 3.5 MEQ/L Chloride Level 97 MEQ/L 97 MEQ/L Carbon Dioxide Level 35.3 MEQ/L 38.9 MEQ/L Anion Gap 6 MEQ/L 3 MEQ/L Blood Urea Nitrogen 25 MG/DL 25 MG/DL Creatinine 1.20 MG/DL 1.17 MG/DL Estimat Glomerular Filtration 60 ML/MIN 62 ML/MIN Rate Random Glucose 307 MG/DL 226 MG/DL Calcium Level 8.0 MG/DL 8.0 MG/DL Phosphorus Level 2.8 MG/DL 2.4 MG/DL Magnesium Level 1.9 MG/DL 1.9 MG/DL B-Type Natriuretic Peptide 751 PG/ML Assessment and Plan Problem List: (1) Coronary artery disease (2) COPD (chronic obstructive pulmonary disease) (3) Diabetes mellitus (4) Acute kidney injury (5) Diabetic neuropathy associated with type 2 diabetes mellitus (6) Severe sepsis (7) Hypertension (8) Aortic valve stenosis Assessment and Plan 1.) Severe - d/w Dr Stevens, most likely will need tavr when anemia and bacteremia resolves, try to continue diuresis with lasix 40 mg iv bid if sbp > 90 and no worsening renal failure, f//u bnp, failing medical management, chf improving on lasix drip 2.) Bacteremia - yolie canceled due to hypoxia and currently not candidate for avr or tavr, so findings unlikely to exchange clerk and risk/benefit ratio unfavorable 3.) Palliative care consulted due to poor prognosis due to multiple co morbidities and limited treatment options 4.) Respiratory failure - due to hypercapnic respiratory failure and worsening decompensated chf due to severe ; patient appears to be failing medical management. Attempting to increase lasix dose but limited by hypotension and arf /cri. 5.) High risk for noncardiac procedure 6.) Dr Solorio covering until 7 am 06/30/17 Problem Qualifiers (1) Coronary artery disease: Qualified Code: I25.10 - Coronary artery disease involving [place] coronary artery without angina pectoris, unspecified whether [place] or transplanted heart (2) COPD (chronic obstructive pulmonary disease): Qualified Code: J44.9 - Chronic obstructive pulmonary disease, unspecified COPD type (3) Diabetes mellitus: Qualified Code: E11.65 - Type 2 diabetes mellitus with hyperglycemia, with long -term current use of insulin (4) Diabetic neuropathy associated with type 2 diabetes mellitus: Qualified Code: E11.42 - Diabetic polyneuropathy associated with type 2 diabetes mellitus (5) Hypertension: Qualified Code: I10 - Hypertension, unspecified type (6) Aortic valve stenosis: Qualified Code: I35.0 - Aortic valve stenosis, unspecified etiology Hai Park MD Jun 26, 2017 10:44
--- NOTE | 2017-06-26 11:40 | HHI.CCPN ---
Subjective Remarks/Hospital Course 66-year-old male. Date of admission 06/12/2017. Past medical history includes COPD, morbid obesity, coronary artery disease, hypertension, diabetes mellitus with peripheral neuropathy. Patient was his normal state of health until yesterday when he "did not feel good " including myalgias, generalized weakness. No recent sick contacts. No changes in his diet. No recent travels. Laboratory work revealed a lactic acidosis of 5.4. Potassium is 5.9. Note he is on an ARB along with KCl supplementation, leukocytosis is a 24,000, anemia of 8.6 with Hemoccult-negative stool done in ED in acute kidney injury with a creatinine of 1.5. Chest x-ray revealed elevated left hemidiaphragm otherwise negative. Received 1 dose of Zosyn and vancomycin the ED. We are asked to admit. 06/23: Tight , morbid obesity, fluid overload, pneumonia all hampering CO2 removal. Respiratory effort ineffective and nearly obtunded from hypercapneic failure. 06/24: Progressed to decompensated failure requiring intubation and mechanical ventilation. Neosynephrine required for sepsis. 06/25: Will need to add levophed for BP support. Neosynephrine is requiring too much volume. Renal function improving, continue diuresis, minimize iv fluid. Objective Vital Signs Date Time Temp Pulse Resp B/P Pulse Ox O2 Delivery O2 Flow Rate FiO2 06/26/17 11:08 95 40 06/26/17 10:00 75 06/26/17 08:00 98.3 18 110/57 06/24/17 07:52 Ventilator 06/22/17 20:53 15.00 Intake and Output 06/25/17 06/25/17 06/26/17 08:00 16:00 00:00 Intake Total 1727 ml 1652 ml 821 ml Output Total 1250 ml 750 ml 1350 ml Balance 477 ml 902 ml -529 ml Result Diagram: 06/24/17 0408 06/26/17 0500 Imaging Last Impressions Chest X-Ray 06/12/17 0728 Signed Impressions: Service Date/Time: May 07:43 - CONCLUSION: 1. Elevation left hemidiaphragm. 2. Bibasilar densities likely atelectasis. rGaham Antonio MD Lower Extremity Ultrasound 06/12/17 0000 Signed Impressions: Service Date/Time: May 18:32 - CONCLUSION: Normal examination. Lev Gandhi MD Objective Remarks GENERAL: 58-year-old male, critically ill. SKIN: Warm and pale. No rash. Tattoo left upper extremity HEAD: Atraumatic. Normocephalic. EYES: Pupils equal and round around 3 mm bilaterally and reactive. No scleral icterus. No injection or drainage. ENT: No nasal bleeding or discharge. Mucous membranes pink and moist. NECK: Trachea midline. Orally intubated. CARDIOVASCULAR: Distant. Regular rate and rhythm. S1, S2 . 2/6 murmur at LSB. RESPIRATORY: Scattered crackles in dependent lung corey. Breath sounds good bilaterally. GASTROINTESTINAL: Abdomen soft, non-tender, obese. Active bowel sounds. No guarding. MUSCULOSKELETAL: Extremities with chronic venous stasis bilateral lower extremities with woody edema. NEUROLOGICAL: Lightly sedated for vent synchrony. Withdraws 4 limbs. A/P Problem List: (1) Severe sepsis ICD Code: A41.9 Status: Acute (2) Hypercapnic respiratory failure ICD Code: J96.92 Status: Acute (3) Acute kidney injury ICD Code: N17.9 Status: Acute (4) Aortic valve stenosis ICD Code: I35.0 Status: Acute (5) Diabetes mellitus ICD Code: E11.9 Status: Acute (6) COPD (chronic obstructive pulmonary disease) ICD Code: J44.9 Status: Acute Assessment and Plan Neuro/Psych: Acetaminophen 650 mg by mouth every 4 hours when necessary fever Hydrocodone/acetaminophen 5/325 one tablet every 4 hours when necessary pain 1-5 Morphine sulfate 2 mg IV every 2 hours when necessary pain 6-10 CT head ordered but refused per patient CV: Lactic acidosis - resolved Hypertension Coronary artery disease EKG revealed sinus tachycardia. Left axis deviation. QTC was 403 Initial troponin 0.05. Negative workup Holding losartan 100 mg by mouth daily light of hypotension relative and acute kidney injury. Resume when clinically indicated Patient has received IV Lasix 40 mg we'll hold further doses by mouth daily in light of hypotension. Resume when clinically indicated Converted to lasix gtt 06/24, increased to 20 mg/hr 07/27 Resp: Prior tobaccoism 50 pack years. Quit 15 years ago Chronic oxygen use possibly undiagnosed PAULA/pickwickian Obesity hypoventilation syndrome Chest x-ray revealed elevated left hemidiaphragm. Possible bilateral lower lobe atelectasis Nasal cannula to maintain saturations greater than or equal to 92% Continue ipratropium/albuterol 0.5/2.5 nebulizers every 6 hours with albuterol nebulizers every 2 hours. Dyspnea Incentive spirometry while awake Intubated 06/23. GI: Early satiety Elevated total bilirubin Total bilirubin elevated however remainder of LFTs negative. Benign abdominal examination.. Lipase normal Patient refuses CT abdomen/pelvis. Pantoprazole 40 mg IV daily for GI prophylaxis Docusate sodium/senna 1 tablet by mouth twice a day for bowel regimen Dark stools per RN. Will Hemoccult stool 1. : Franco catheter if indicated for accurate I's and O's in a critically ill patient Endo: Diabetes mellitus/insulin requiring with peripheral neuropathy Home medications include insulin aspart 30 units 3 times a day and insulin glargine 50 units subcutaneous twice a day Currently on detemir 30 units subcutaneous twice a day with Novolin R sliding scale insulin with Accu-Cheks before meals/at bedtime Renal: Acute or chronic kidney injury - resolving Unknown baseline. Abdominal ultrasound rule out hydronephrosis Urine eosinophil/electrolytes D/C fluid. Status post 3 L normal saline 1 Heme: Leukocytosis Normocytic anemia Elevated PTT Hemoccult negative in ED. Received 1 unit PRBCs in the emergency department Hemoglobin currently 9.5 Recheck CBC in a.m. ID: Antibiotic per ID recommendation Blood cultures 2, sputum, UA, urine Legionella and pneumococcal antigens is also are pending. Influenza negative. Blood X 4 - Strep bovis 06/12 ID consult appreciated MSK: BMI greater than 50 Weight loss encouraged FEN: Access - Utilize peripheral IV. - Right SCV CVL placed 06/23 Prophylaxis - GI - pantoprazole - DVT - SCD/heparin subcutaneous Overall impression: Admitted with bacteremia and critically ill with deteriorating respiratory function requiring intubation and mechanical ventilation. Florid fluid overload. Continue lasix gtt, replace lytes. Gallstone on CT. Critical Care 38 mins Problem Qualifiers (1) Aortic valve stenosis: Qualified Code: I35.0 - Aortic valve stenosis, unspecified etiology (2) Diabetes mellitus: Qualified Code: E11.65 - Type 2 diabetes mellitus with hyperglycemia, with long -term current use of insulin (3) COPD (chronic obstructive pulmonary disease): Qualified Code: J44.1 - Chronic obstructive pulmonary disease with acute exacerbation Eddie Shabazz MD Jun 26, 2017 11:40
--- NOTE | 2017-06-26 12:00 | HHI.HCPN ---
Reason for visit a. To assist with evaluation and management of symptoms including: Shortness of breath and debility. b. To assist medical decision maker(s) with: better understanding of current medical conditions; weighing benefits/burdens of medical treatment options; making medical treatment decisions. . Subjective/Interval History Mr. Khan is a 66-year-old male with a medical history significant for COPD, morbid obesity, CAD, hypertension and diabetes mellitus type 2. Recently diagnosed with severe aortic stenosis, not a candidate for AVR secondary to multiple ongoing comorbidities, sepsis and anemia. May eventually be a candidate for high risk TAVR once anemia and sepsis is resolved. Palliative care consulted for clarification of goals of care given poor prognosis with limited treatment options. Patient seen in ICU. He remains orally intubated on mechanical ventilation, sedated. Patient currently Levophed drip for sepsis/hypertension and Lasix drip. Patient remains fluid overload, Tank-Synephrine discontinued secondary to this. Persistent leukocytosis, Infectious disease following. Abdomen/pelvis CT 06/25/17 revealing abnormal appearance of gallbladder with multiple calcified stones, bilateral lower lobe infiltrates and pleural effusions. Laboratory workup today revealed an improving renal function, BUN/creatinine 25/.17. BNP trending down, 751 today from 2497 yesterday. Patient afebrile, remains on 40% FiO2. Tube feedings via OG tube at 20 mL an hour. Case discussed with bedside NELIA Pierre. . Family/friend interactions Telephone conversation with [facility] Tere Caruso), medical update provided. Shared concerns of patient's clinical condition given multiple ongoing chronic comorbidities, severe aortic stenosis, respiratory failure, acute kidney injury and physical deconditioning. Goal of therapy is to continue aggressive management, allow time for medical improvement. As per [facility] Maday, prior conversations with patient in which he verbalized wishing full code , intubation and mechanical ventilation for 2 weeks; however, if unable to wean off ventilator support, patient declined tracheostomy and PEG tube placement and asked to be "let go". Plan to continue aggressive management, reassess goals over the next week. Maday reports that she has been in contact with the patient's elderly mother who is aware of patient's worsening clinical condition. . Advance Directives Living Will: Completed, but not made available Health Care Surrogate: Copy in medical record Advance Directive Specifics Date completed: 06/20/2017 . Health Care Surrogate(s): Patient designated friend Tere Talamantes as HCS. No alternate HCS. . Documented care wishes: Pending copy of living will. . Significant change in goals: Full code. Continue aggressive management. . Objective Vital Signs Date Time Temp Pulse Resp B/P Pulse Ox O2 Delivery O2 Flow Rate FiO2 06/26/17 11:08 95 40 06/26/17 10:00 75 06/26/17 08:00 40 06/26/17 08:00 98.3 82 18 110/57 100 06/26/17 08:00 83 06/26/17 07:32 96 40 06/26/17 06:00 82 06/26/17 04:10 97 40 06/26/17 04:00 98.4 83 15 105/59 94 06/26/17 04:00 40 06/26/17 04:00 83 06/26/17 02:00 80 06/26/17 00:55 97 40 06/26/17 00:00 98.2 84 18 108/59 96 06/26/17 00:00 82 06/26/17 00:00 40 06/25/17 22:00 83 06/25/17 21:30 100 100 06/25/17 20:00 40 06/25/17 20:00 98.5 81 15 115/65 98 06/25/17 20:00 80 06/25/17 19:37 100 40 06/25/17 18:00 90 06/25/17 16:00 40 06/25/17 16:00 98.6 87 17 113/54 96 06/25/17 16:00 94 06/25/17 15:16 93 40 06/25/17 14:00 78 06/25/17 12:00 76 06/25/17 12:00 98.7 76 15 93/54 94 06/25/17 12:00 40 Intake & Output 06/26/17 06/26/17 06:59 18:59 Intake Total 2383 ml Output Total 3100 ml Balance -717 ml IV Total 2177 ml Tube Feeding 206 ml Output Urine Total 3100 ml Physical Exam CONSTITUTIONAL/GENERAL: This is an obese man orally intubated on mechanical ventilation. TUBES/LINES/DRAINS: ETT, OG, PIV's, right chest central line, Franco catheter, bilateral soft wrist restraints. SKIN: No jaundice. Ecchymoses on upper extremities. Skin temperature appropriate. Vascular skin changes to bilateral lower extremities. HEAD: Atraumatic. Normocephalic. EYES: Pupils equal and round and reactive. No scleral icterus. No injection or drainage. ENT: Unable to evaluate hearing, sedated. Nose without bleeding or purulent drainage. Moist oral mucosa. NECK: Trachea midline. Supple. CARDIOVASCULAR: Regular rate and rhythm. Weeping edema to bilateral upper extremities. RESPIRATORY/CHEST: Symmetric, orally intubated on mechanical ventilation. Mild wheezes breath sounds bilaterally. GASTROINTESTINAL: Abdomen large, obese, round. Unable to evaluate for hepatomegaly secondary to body habitus, obesity. GENITOURINARY: Unable to evaluate for bladder distension secondary to body habitus, obesity. MUSCULOSKELETAL: Extremities without cyanosis. Edema to bilateral lower lower extremities and hands. NEUROLOGICAL: Unresponsive to verbal or tactile stimuli, sedated. PSYCHIATRIC: Unable to evaluate secondary to clinical condition, sedated. . Diagnostic Tests Laboratory Laboratory Tests Test 06/23/17 06/24/17 06/24/17 06/24/17 12:06 04:08 08:02 18:21 Blood Gas Puncture Site LINE CENTRAL LINE Blood Gas Patient Temperature 98.6 98.6 Venous Blood pH 7.34 7.41 (7.360-7.400) (7.360-7.400) Venous Blood Partial Pressure 53 mmHg (44-48) 49 mmHg (44-48) CO2 Venous Blood Partial Pressure 41 mmHg (35-40) 37 mmHg (35-40) O2 Venous Blood HCO3 28 mmol/L 30 mmol/L (22-26) (22-26) Venous Blood Oxygen Saturation 71 % (70-76) 63 % (70-76) Venous Blood Oxygen Content 8.6 Vol % 7.6 Vol % (9.0-17.0) (9.0-17.0) Venous Blood Base Excess 2.5 mmol/L 5.8 mmol/L (-2-2) (-2-2) Oxygen Delivery Device VENTILATOR VENTILATOR Blood Gas Ventilator Setting 500/18/1.0/+5 PRVC/AC Blood Gas Inspired Oxygen 60 % 40 % White Blood Count 20.4 TH/MM3 (4.0-11.0) Red Blood Count 3.11 MIL/MM3 (4.50-5.90) Hemoglobin 9.2 GM/DL (13.0-17.0) Hematocrit 29.0 % (39.0-51.0) Mean Corpuscular Volume 93.2 FL (80.0-100.0) Mean Corpuscular Hemoglobin 29.6 PG (27.0-34.0) Mean Corpuscular Hemoglobin 31.7 % Concent (32.0-36.0) Red Cell Distribution Width 17.5 % (11.6-17.2) Platelet Count 234 TH/MM3 (150-450) Mean Platelet Volume 8.0 FL (7.0-11.0) Neutrophils (%) (Auto) 82.4 % (16.0-70.0) Lymphocytes (%) (Auto) 6.3 % (9.0-44.0) Monocytes (%) (Auto) 9.6 % (0.0-8.0) Eosinophils (%) (Auto) 0.8 % (0.0-4.0) Basophils (%) (Auto) 0.9 % (0.0-2.0) Neutrophils # (Auto) 16.8 TH/MM3 (1.8-7.7) Lymphocytes # (Auto) 1.3 TH/MM3 (1.0-4.8) Monocytes # (Auto) 2.0 TH/MM3 (0-0.9) Eosinophils # (Auto) 0.2 TH/MM3 (0-0.4) Basophils # (Auto) 0.2 TH/MM3 (0-0.2) CBC Comment DIFF FINAL Differential Comment Sodium Level 136 MEQ/L 137 MEQ/L (136-145) (136-145) Potassium Level 3.5 MEQ/L 3.2 MEQ/L (3.5-5.1) (3.5-5.1) Chloride Level 95 MEQ/L 97 MEQ/L (98-107) (98-107) Carbon Dioxide Level 33.7 MEQ/L 34.5 MEQ/L (21.0-32.0) (21.0-32.0) Anion Gap 7 MEQ/L (5-15) 6 MEQ/L (5-15) Blood Urea Nitrogen 34 MG/DL (7-18) 29 MG/DL (7-18) Creatinine 1.38 MG/DL 1.35 MG/DL (0.60-1.30) (0.60-1.30) Estimat Glomerular Filtration 51 ML/MIN (>89) 53 ML/MIN (>89) Rate Random Glucose 317 MG/DL 373 MG/DL (74-106) (74-106) Calcium Level 8.5 MG/DL 8.0 MG/DL (8.5-10.1) (8.5-10.1) B-Type Natriuretic Peptide 1978 PG/ML (0-100) Random Vancomycin Level 7.8 COMMENT Phosphorus Level 1.2 MG/DL (2.5-4.9) Magnesium Level 2.1 MG/DL (1.5-2.5) Test 06/25/17 06/25/17 06/26/17 06/26/17 03:45 16:45 04:00 05:00 Sodium Level 139 MEQ/L 138 MEQ/L 139 MEQ/L (136-145) (136-145) (136-145) Potassium Level 3.5 MEQ/L 3.7 MEQ/L 3.5 MEQ/L (3.5-5.1) (3.5-5.1) (3.5-5.1) Chloride Level 97 MEQ/L 97 MEQ/L 97 MEQ/L (98-107) (98-107) (98-107) Carbon Dioxide Level 35.4 MEQ/L 35.3 MEQ/L 38.9 MEQ/L (21.0-32.0) (21.0-32.0) (21.0-32.0) Anion Gap 7 MEQ/L (5-15) 6 MEQ/L (5-15) 3 MEQ/L (5-15) Blood Urea Nitrogen 26 MG/DL (7-18) 25 MG/DL (7-18) 25 MG/DL (7-18) Creatinine 1.27 MG/DL 1.20 MG/DL 1.17 MG/DL (0.60-1.30) (0.60-1.30) (0.60-1.30) Estimat Glomerular Filtration 56 ML/MIN (>89) 60 ML/MIN (>89) 62 ML/MIN (>89) Rate Random Glucose 271 MG/DL 307 MG/DL 226 MG/DL (74-106) (74-106) (74-106) Calcium Level 8.1 MG/DL 8.0 MG/DL 8.0 MG/DL (8.5-10.1) (8.5-10.1) (8.5-10.1) Phosphorus Level 1.2 MG/DL 2.8 MG/DL 2.4 MG/DL (2.5-4.9) (2.5-4.9) (2.5-4.9) Magnesium Level 2.0 MG/DL 1.9 MG/DL 1.9 MG/DL (1.5-2.5) (1.5-2.5) (1.5-2.5) B-Type Natriuretic Peptide 2497 PG/ML 751 PG/ML (0-100) (0-100) Random Vancomycin Level 10.8 COMMENT Result Diagram: 06/24/17 0408 06/26/17 0500 Microbiology Microbiology Date/Time Procedure Status Source Growth 06/24/17 13:46 Gram Stain - Final Resulted Sputum Endotracheal 06/24/17 13:46 Sputum Culture - Preliminary Resulted Sputum Endotracheal IMMATURE GROWTH - REINCUBATE Imaging Last 48 hours Impressions Abdomen/Pelvis CT 06/25/17 0000 Signed Impressions: Service Date/Time: Sunday, June 25, 2017 22:16 - CONCLUSION: 1. Abnormal appearance of gallbladder with multiple calcified stones occupying most half of the volume of the gallbladder. Possible stones extending into the cystic duct. May consider performing hepatobiliary tract scan to evaluate for cystic duct obstruction. 2. Bilateral lower lobe consolidative infiltrates and pleural effusion. 3. Large fat containing ventral abdominal hernia and marked thickening of the lateral abdominal musculature. 4. Abnormal appearance to the expected location of the left adrenal gland suggesting a combination of varices and adrenal mass. This cannot be further assessed on noncontrast exam. Sal Longoria MD Procedures * 06/23/17 -endotracheal intubation * 06/23/17 -right chest central line placement * 06/16/17 -cardiac catheterization. . Assessment and Plan Disease Oriented Problem List: (1) Hypercapnic respiratory failure (2) Aortic valve stenosis (3) Sepsis (4) COPD (chronic obstructive pulmonary disease) (5) Anemia (6) Diabetes mellitus (7) Coronary artery disease (8) Hypertension (9) BMI 50.0-59.9, adult Symptom Scale: (1) Shortness of breath 0-10 Scale: Unable to quantify Comment: Secondary to COPD, anemia, acute illness/sepsis. Intubated on mechanical ventilation. . (2) Debility 0-10 Scale: Unable to quantify Comment: Progressive. Exacerbated by acute injury and prolonged hospitalization. . Pertinent Non-Medical Issues Psychosocial: Patient originally from [place]. Moved to [place] over 40 years ago. He is a , has 1 son Ismael Khan. Retired 8 years ago secondary to COPD. 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 Served in the [employer] for 3 years, a 70 [place] . Spiritual: No hindu affiliation. Legal: Reports that advance directives [facility]. Ethical issues impacting care: No ethical issues identified at this time. . Important Contacts Patient's friend Tere Talamantes Pt's mother Queenie Cruz . . Prognosis Mr. Khan is a 66-year-old male with a medical history significant for COPD, morbid obesity, CAD, hypertension and diabetes mellitus type 2. Patient with newly diagnosed severe aortic valve stenosis with limited treatment options secondary to multiple chronic comorbidities, sepsis and anemia. Poor prognosis for an improved quality of life. 2 year mortality around 50% if aortic valve is not replaced. Patient at high risk for further complications, continue decline and . . Code Status: Full Code Plan * CODE STATUS: Full code. Risks, benefits and limitations of CPR, intubation and mechanical ventilation have been previously discussed with patient and HCS on 06/21/17. Patient elected full code. * HEALTHCARE DECISION-MAKING: Patient unable to participating in medical decision-making secondary to clinical condition, sedated -intubated on mechanical ventilation. Patient designated friend Tere Talamantes as HCS, no alternate HCS. * GOALS OF CARE: 06/26/17 -Healthcare surrogate Tere electing to continue aggressive management, allow until next week to evaluate patient's condition. Goal is to attempt at medical extubation. However, HCS to transition patient to comfort-directed care/withdrawal of life support should pt's clinical condition continues to worsen or inability to wean off ventilator support given patient's known wishes against tracheostomy and PEG tube placement. * SYMPTOMS: = Shortness of breath, multifactorial. Secondary to COPD, anemia, sepsis. Clinical condition complicated by respiratory failure, patient intubated on mechanical ventilation. = Debility, progressive. Worsened during the past year. Exacerbated by acute illness. * Case discussed with bedside NELIA Pierre. * Palliative care contact information has been provided to patient and friend Tere. * Palliative care will continue to follow-up as needed for further clarifications of goals of care as patient's clinical course continues to evolve. . Time Spent Total Floor Time (mins): 39 (Total time to include review and summarization of medical records, physical exam, telephone conversation with healthcare surrogate regarding goals of care and case discussion with bedside RN.) >50% Counseling/Coord of Care: Yes Attestation To help prompt me to consider important information that might be impacting today's encounter and assessment, information from prior notes written by myself or my colleagues may have been "brought forward" into today's note. My signature on this note, however, is an attestation that I personally performed the exam, history, and/or decision-making noted today, and, unless otherwise indicated, the interactions with patient, family, and staff as well as the review of records all occurred today. I also attest that the listed assessment and stated plan reflect my best clinical judgment today based on the combination of historical information, prior notes, and today's exam/ interactions. When time spent is documented, it refers only to time spent today by the signer, or if indicated, combined time spent today by collaborating physician/nurse practitioner. Camilla Marquez Jun 26, 2017 12:00
--- NOTE | 2017-06-26 15:05 | HHI.IDPN ---
Subjective Subjective Remarks Patient is a 66-year-old morbidly obese male, presented to the hospital complaining of severe shortness of breath. Patient states he has COPD, and has had problem with chronic shortness of breath. He does not use any supplemental oxygen at home. Patient also admits to chronic lower extremity edema. He presented to the hospital because he had development of severe shortness of breath that he couldn't even walk a few distances which is not his normal. He denies any congestion, cough or any chest pain or palpitations. Also has been very weak, and just didn't feel good. He has not had any dizziness or syncopal episode. Has not had any nausea vomiting, abdominal pain, dysuria. On presentation he had an elevated white count. Patient has been afebrile. His lactic acid was elevated. Urinalysis was unremarkable. Chest x-ray with some basilar atelectasis. Patient was admitted initially for sepsis, and was started on broad-spectrum antibiotics. His WBC went down to 19, but it went up to 27,000. Patient received a large dose of IV Solu-Medrol on June 12. Patient currently states his breathing is better. He is still on nasal O2. Notes reviewed D/W RN Temps ok On pressors - levophed Sedated on the vent Diuresing No new (+) BC Echo with severe , thickened leaflets BC with Strep bovis Palliative med notes reviewed Antibiotics Cefepime Vancomycin Past Medical History COPD Coronary artery disease Hypertension Diabetes mellitus with peripheral neuropathy Elevated BMI Past Surgical History Tonsillectomy Allergies: Coded Allergies: Penicillin (Verified Allergy, Mild, 06/12/17) Objective . Vital Signs Date Time Temp Pulse Resp B/P Pulse Ox O2 Delivery O2 Flow Rate FiO2 06/26/17 11:08 95 40 06/26/17 10:00 75 06/26/17 08:00 40 06/26/17 08:00 98.3 82 18 110/57 100 06/26/17 08:00 83 06/26/17 07:32 96 40 06/26/17 06:00 82 06/26/17 04:10 97 40 06/26/17 04:00 98.4 83 15 105/59 94 06/26/17 04:00 40 06/26/17 04:00 83 06/26/17 02:00 80 06/26/17 00:55 97 40 06/26/17 00:00 98.2 84 18 108/59 96 06/26/17 00:00 82 06/26/17 00:00 40 06/25/17 22:00 83 06/25/17 21:30 100 100 06/25/17 20:00 40 06/25/17 20:00 98.5 81 15 115/65 98 06/25/17 20:00 80 06/25/17 19:37 100 40 06/25/17 18:00 90 06/25/17 16:00 40 06/25/17 16:00 98.6 87 17 113/54 96 06/25/17 16:00 94 06/25/17 15:16 93 40 06/25/17 06/25/17 06/26/17 15:00 23:00 07:00 Intake Total 1652 ml 821 ml 1562 ml Output Total 750 ml 1350 ml 1750 ml Balance 902 ml -529 ml -188 ml IV Total 1328 ml 821 ml 1356 ml Tube Feeding 324 ml 206 ml Output Urine Total 750 ml 1350 ml 1750 ml Gastric Drainage Total 0 ml # Bowel Movements 0 . Laboratory Tests Test 06/24/17 06/25/17 06/25/17 06/26/17 18:21 03:45 16:45 04:00 Sodium Level 137 MEQ/L 139 MEQ/L 138 MEQ/L Potassium Level 3.2 MEQ/L 3.5 MEQ/L 3.7 MEQ/L Chloride Level 97 MEQ/L 97 MEQ/L 97 MEQ/L Carbon Dioxide Level 34.5 MEQ/L 35.4 MEQ/L 35.3 MEQ/L Anion Gap 6 MEQ/L 7 MEQ/L 6 MEQ/L Blood Urea Nitrogen 29 MG/DL 26 MG/DL 25 MG/DL Creatinine 1.35 MG/DL 1.27 MG/DL 1.20 MG/DL Estimat Glomerular Filtration 53 ML/MIN 56 ML/MIN 60 ML/MIN Rate Random Glucose 373 MG/DL 271 MG/DL 307 MG/DL Calcium Level 8.0 MG/DL 8.1 MG/DL 8.0 MG/DL Phosphorus Level 1.2 MG/DL 1.2 MG/DL 2.8 MG/DL Magnesium Level 2.1 MG/DL 2.0 MG/DL 1.9 MG/DL B-Type Natriuretic Peptide 2497 PG/ML 751 PG/ML Test 06/26/17 05:00 Sodium Level 139 MEQ/L Potassium Level 3.5 MEQ/L Chloride Level 97 MEQ/L Carbon Dioxide Level 38.9 MEQ/L Anion Gap 3 MEQ/L Blood Urea Nitrogen 25 MG/DL Creatinine 1.17 MG/DL Estimat Glomerular Filtration 62 ML/MIN Rate Random Glucose 226 MG/DL Calcium Level 8.0 MG/DL Phosphorus Level 2.4 MG/DL Magnesium Level 1.9 MG/DL Microbiology Date/Time Procedure Status Source Growth 06/24/17 13:46 Gram Stain - Final Complete Sputum Endotracheal 06/24/17 13:46 Sputum Culture - Final Complete Sputum Endotracheal MODERATE GROWTH NORMAL RESPIRATORY EVA Imaging Chest X-Ray 06/23/17 0000 Signed Impressions: Service Date/Time: Friday, June 23, 2017 10:20 - CONCLUSION: Bilateral pleural effusions and bibasilar consolidation and or compressive collapse possibly slightly worse on the right since the prior exam. Khadar Arboleda MD CT Angiography 06/15/17 0000 Signed Impressions: Service Date/Time: Friday, June 16, 2017 13:35 - CONCLUSION: 1. Small bilateral pleural effusions with adjacent alveolar consolidations consistent with compressive atelectasis and/or pneumonia. Clinical correlation is recommended. 2. Pleural calcifications within the bilateral posterior lung bases consistent with asbestos related pleural disease or fibrothorax. 3. Cardiomegaly. 4. No evidence of pulmonary embolism. 5. Ascites within the upper abdomen. Casimiro Lazo MD Abdomen Ultrasound 06/13/17 0000 Signed Impressions: Service Date/Time: Tuesday, June 13, 2017 15:35 - CONCLUSION: Limited study secondary to bowel gas and body habitus. Hepatic cysts are noted. Small amount of free fluid suspected. Lev Gandhi MD Lower Extremity Ultrasound 06/12/17 0000 Signed Impressions: Service Date/Time: May 18:32 - CONCLUSION: Normal examination. Lev Gandhi MD Physical Exam GENERAL: sedated on the vent, not in respiratory distress. SKIN: Cool and dry. No generalized rash, no evidence of embolic lesions. HEAD: Atraumatic. Normocephalic. No temporal wasting, or tenderness. EYES: Seeley conjunctiva. No petechia or hemorrhage. Pupils equal, round and reactive to light. No scleral icterus. No injection or drainage. EARS, NOSE AND THROAT: Nose without bleeding or purulent nasal discharge. Mucous membranes moist. Orally intubated NECK: Trachea midline. Supple and not tender, no meningeal signs CARDIOVASCULAR: Regular rate and rhythm. Has murmur loudest at base of the heart. NO rub RESPIRATORY: Diffuse wheezing ABDOMEN: Soft, obese, non-tender, mildly distended. Bowel sounds present and normoactive. No guarding. No rebound. EXTREMITIES: No clubbing, cyanosis. He has improving edema BLE, and he has bark tree texture of his skin in both legs and feet. NEUROLOGICAL: Sedated PSYCHIATRIC: Unable to assess LINE: No evidence of infection : Franco in place, urine looks clear Assessment & Plan Remarks IMPRESSION Initial presentation of severe SOB, patient with obesity, known COPD, ? possibly with cor pulmonale - clinically no evidence of PNA - has obesity, ?with sleep apnea Strep bovis bacteremia, very suspicious for endocarditis - Has severe Sepsis, shock Severe aortic stenosis COPD Leukocytosis, persistent Respiratory failure, likely pulmonary edema, ?PNA Renal insufficiency RECOMMENDATION Follow new C/S Continue cefepime Continue IV Vancomycin Follow CBC Monitor progress Prognosis not good due to other underlying comorbid conditions Palliative on the case D/W Estela Zheng MD Jun 26, 2017 15:05
--- NOTE | 2017-06-26 17:00 | HHI.GIFU ---
Subjective Remarks Resting in bed, sedated on vent. No active bleeding. (Aga Dyson) Objective Vitals I&O Vital Signs Date Time Temp Pulse Resp B/P Pulse Ox O2 Delivery O2 Flow Rate FiO2 06/26/17 16:00 70 06/26/17 16:00 40 06/26/17 14:00 76 06/26/17 12:00 77 06/26/17 12:00 40 06/26/17 11:08 95 40 06/26/17 10:00 75 06/26/17 08:00 40 06/26/17 08:00 98.3 82 18 110/57 100 06/26/17 08:00 83 06/26/17 07:32 96 40 06/26/17 06:00 82 06/26/17 04:10 97 40 06/26/17 04:00 98.4 83 15 105/59 94 06/26/17 04:00 40 06/26/17 04:00 83 06/26/17 02:00 80 06/26/17 00:55 97 40 06/26/17 00:00 98.2 84 18 108/59 96 06/26/17 00:00 82 06/26/17 00:00 40 06/25/17 22:00 83 06/25/17 21:30 100 100 06/25/17 20:00 40 06/25/17 20:00 98.5 81 15 115/65 98 06/25/17 20:00 80 06/25/17 19:37 100 40 06/25/17 18:00 90 I/O 06/25/17 06/25/17 06/25/17 06/26/17 06/26/17 06/26/17 06:59 14:59 22:59 06:59 14:59 22:59 Intake Total 1727 ml 1652 ml 821 ml 1562 ml 1235 ml Output Total 1250 ml 750 ml 1350 ml 1750 ml 1700 ml Balance 477 ml 902 ml -529 ml -188 ml -465 ml IV Total 1468 ml 1328 ml 821 ml 1356 ml 1005 ml Tube Feeding 259 ml 324 ml 206 ml 230 ml Output Urine Total 1250 ml 750 ml 1350 ml 1750 ml 1700 ml Gastric Drainage Total 0 ml 0 ml # Bowel Movements 0 0 Laboratory Laboratory Tests Test 06/26/17 06/26/17 04:00 05:00 B-Type Natriuretic Peptide 751 Sodium Level 139 Potassium Level 3.5 Chloride Level 97 Carbon Dioxide Level 38.9 Anion Gap 3 Blood Urea Nitrogen 25 Creatinine 1.17 Estimat Glomerular Filtration 62 Rate Random Glucose 226 Calcium Level 8.0 Phosphorus Level 2.4 Magnesium Level 1.9 Date/Time Procedure Status Source Growth 06/24/17 13:46 Gram Stain - Final Complete Sputum Endotracheal 06/24/17 13:46 Sputum Culture - Final Complete Sputum Endotracheal MODERATE GROWTH NORMAL RESPIRATORY EVA Imaging Last Impressions Abdomen/Pelvis CT 06/25/17 0000 Signed Impressions: Service Date/Time: Sunday, June 25, 2017 22:16 - CONCLUSION: 1. Abnormal appearance of gallbladder with multiple calcified stones occupying most half of the volume of the gallbladder. Possible stones extending into the cystic duct. May consider performing hepatobiliary tract scan to evaluate for cystic duct obstruction. 2. Bilateral lower lobe consolidative infiltrates and pleural effusion. 3. Large fat containing ventral abdominal hernia and marked thickening of the lateral abdominal musculature. 4. Abnormal appearance to the expected location of the left adrenal gland suggesting a combination of varices and adrenal mass. This cannot be further assessed on noncontrast exam. Sal Longoria MD Chest X-Ray 06/23/17 0000 Signed Impressions: Service Date/Time: Friday, June 23, 2017 10:20 - CONCLUSION: Bilateral pleural effusions and bibasilar consolidation and or compressive collapse possibly slightly worse on the right since the prior exam. Khadar Arboleda MD CT Angiography 06/15/17 0000 Signed Impressions: Service Date/Time: Friday, June 16, 2017 13:35 - CONCLUSION: 1. Small bilateral pleural effusions with adjacent alveolar consolidations consistent with compressive atelectasis and/or pneumonia. Clinical correlation is recommended. 2. Pleural calcifications within the bilateral posterior lung bases consistent with asbestos related pleural disease or fibrothorax. 3. Cardiomegaly. 4. No evidence of pulmonary embolism. 5. Ascites within the upper abdomen. Casimiro Lazo MD Abdomen Ultrasound 06/13/17 0000 Signed Impressions: Service Date/Time: Tuesday, June 13, 2017 15:35 - CONCLUSION: Limited study secondary to bowel gas and body habitus. Hepatic cysts are noted. Small amount of free fluid suspected. Lev Gandhi MD Lower Extremity Ultrasound 06/12/17 0000 Signed Impressions: Service Date/Time: May 18:32 - CONCLUSION: Normal examination. Lev Gandhi MD Physical Exam HEENT: Normocephalic; atraumatic CHEST: Resp even/unlabored, OETT to vent. Diminished. CARDIAC: RRR ABDOMEN: Soft, obese, bowel sounds faint EXTREMITIES: Generalized edema. SKIN: no rash; no jaundice. 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 Hemoccult positive. Plan was for GI workup with cardiac clearance, per cardiology pt high risk for noncardiac procedures. Of note, we were asked to see patient for anemia/melena prior to him being intubated and he was adamantly refusing GI procedures at that time. Abdomen/Pelvis CT (06/25/17)----- > 1. Abnormal appearance of gallbladder with multiple calcified stones occupying most half of the volume of the gallbladder. Possible stones extending into the cystic duct. May consider performing hepatobiliary tract scan to evaluate for cystic duct obstruction. 2. Bilateral lower lobe consolidative infiltrates and pleural effusion. 3. Large fat containing ventral abdominal hernia and marked thickening of the lateral abdominal musculature. 4. Abnormal appearance to the expected location of the left adrenal gland suggesting a combination of varices and adrenal mass. This cannot be further assessed on noncontrast exam. S/P 2 units PRBC. HH 9.2/29.0 on 06/24. - Cholelithiasis. CT with abnormal appearance of gallbladder with multiple calcified stones occupying most half of the volume of the gallbladder. Possible stones extending into the cystic duct. May consider performing hepatobiliary tract scan to evaluate for cystic duct obstruction. His WBC is persistently elevated at 20.4, although he has endocarditis. LFTs have not been checked since 06/20. Will recheck. He is not a candidate for surgery and if it is thought that this could be contributing to his leukocytosis /infection, then he would need cholecystomy tube. Cefepime, Vanco. ID following. - Anemia secondary to acute blood loss. H/H on admission was 8.0/25.2. S/P 2 units PRBC and has been stable, currently stable. No history of EGD/ Colonoscopy. Per cardiology high risk for any procedure other than cardiac - Acute respiratory failure. Vent per CCM - AMS, likely secondary to elevated CO2, now intubated. - Sepsis/leukocytosis/lactic acidosis/bacteremia. BCx with GPC, Streptococcus species. Rpt. BCx no growth 5 days. 2D echo with very technically limited study , moderate thickening of the aortic valve leaflets, severe aortic valve stenosis, moderate thickening of the aortic valve leaflets. RIGO was canceled due to hypoxia and currently not candidate for avr or tavr, so findings unlikely to changeover operator and risk/benefit ratio unfavorable per cardiology. Persistent elevation of WBC. Does have abnormal gallbladder filled with gallstones occupying most half of the volume of the gallbladder. Possible stones extending into the cystic duct. Ceftriaxone. - HAI with electrolyte abnormalities. Creat 1.57. - DM, CAD, COPD, HTN, Neuropathy per attending. PLAN: - Glucerna 1.5 @50mls/hr goal rate - Cont. PPI - Monitor HH - Transfuse as necessary - Supportive care - Will discuss with Dr. Corbett abnormal GB, not a surgical candidate. If cholecystitis suspected, will likely need cholecystomy tube - Pt not stable for any noncardiac procedures per cardiology - Pt seen and examined by Dr. Corbett and this note is written on her behalf ( Aga Dyson) Physician Comments seen, examined agree with above (Pretty Corbett MD) Aga Dyson Jun 26, 2017 17:00 Pretty Corbett MD Jun 26, 2017 19:59
[2017-06-26 18:34] LABS: POTASSIUM 3.3 MEQ/L (3.5-5.1)
[2017-06-26] MEDS: LACTULOSE SYRUP 20 GM/30 ML CUP PO PRN (20:00)
[2017-06-27] VITALS (17 sets, daily range): BP systolic 107–128; BP diastolic 56–72; PULSE 72–97; RESP 12–21; TEMP 98.3–100.4; O2SAT 93–100
[2017-06-27] MEDS: PROPOFOL 1000 MG/100 ML INJ 100 ML IV SCH (00:05)
[2017-06-27] MEDS: CHLORHEXIDINE GLUCONATE 2 % 1 PACK (2 CLOTHS) TOP SCH (03:09)
[2017-06-27] MEDS: CEFEPIME INJ 2,000 MG in SODIUM CHLORIDE 0.9% INJ 100 ML IV SCH ×2 (03:10→16:01)
[2017-06-27] MEDS: FUROSEMIDE INJ 100 MG in SODIUM CHLORIDE 0.9% INJ 90 ML IV SCH ×3 (03:10→18:30)
[2017-06-27 04:16] LABS: BICARBONATE 39.9 MEQ/L (21.0-32.0); MAGNESIUM 1.9 MG/DL (1.5-2.5); POTASSIUM 3.4 MEQ/L (3.5-5.1)
[2017-06-27] MEDS: INSULIN ASPART SUPPLEMENTAL SCALE SQ SCH ×4 (05:37→17:42)
[2017-06-27] MEDS: POTASSIUM PHOSPHATE INJ 30 MMOL in SODIUM CHLOR 0.9% 250 ML INJ 250 ML IV PRN ×2 (05:42→09:29)
[2017-06-27] MEDS: NOREPINEPHRINE 16 MG/D5W 250 ML IV SCH ×4 (05:43→09:29)
[2017-06-27] MEDS: VANCOMYCIN INJ 1,500 MG in SODIUM CHLORID 0.9% 500 ML INJ 500 ML IV SCH (05:43)
[2017-06-27] MEDS: CHLORHEXIDINE 0.12% (ORAL KIT) 15 ML CUP MT SCH ×2 (08:34→19:56)
--- NOTE | 2017-06-27 08:39 | HHI.CCPN ---
Subjective Remarks/Hospital Course 66-year-old male. Date of admission 06/12/2017. Past medical history includes COPD, morbid obesity, coronary artery disease, hypertension, diabetes mellitus with peripheral neuropathy. Patient was his normal state of health until yesterday when he "did not feel good " including myalgias, generalized weakness. No recent sick contacts. No changes in his diet. No recent travels. Laboratory work revealed a lactic acidosis of 5.4. Potassium is 5.9. Note he is on an ARB along with KCl supplementation, leukocytosis is a 24,000, anemia of 8.6 with Hemoccult-negative stool done in ED in acute kidney injury with a creatinine of 1.5. Chest x-ray revealed elevated left hemidiaphragm otherwise negative. Received 1 dose of Zosyn and vancomycin the ED. We are asked to admit. 06/23: Tight , morbid obesity, fluid overload, pneumonia all hampering CO2 removal. Respiratory effort ineffective and nearly obtunded from hypercapneic failure. 06/24: Progressed to decompensated failure requiring intubation and mechanical ventilation. Neosynephrine required for sepsis. 06/25: Will need to add levophed for BP support. Neosynephrine is requiring too much volume. Renal function improving, continue diuresis, minimize iv fluid. 06/26: Improved fluid removal. Persistent leukocytosis. 06/27: Tolerates SBTs well. Ideally, aim for extubation and discuss DNR/DNI status with POA. Objective Vital Signs Date Time Temp Pulse Resp B/P Pulse Ox O2 Delivery O2 Flow Rate FiO2 06/27/17 07:51 95 40 06/27/17 06:00 79 06/27/17 04:00 100.4 12 122/59 06/24/17 07:52 Ventilator Intake and Output 06/26/17 06/26/17 06/27/17 08:00 16:00 00:00 Intake Total 1562 ml 1235 ml 789 ml Output Total 1750 ml 1700 ml 1350 ml Balance -188 ml -465 ml -561 ml Result Diagram: 06/24/17 0408 06/27/17 0330 Other Results Microbiology Date/Time Procedure Status Source Growth 06/24/17 13:46 Gram Stain - Final Complete Sputum Endotracheal 06/24/17 13:46 Sputum Culture - Final Complete Sputum Endotracheal MODERATE GROWTH NORMAL RESPIRATORY EVA Imaging Last Impressions Chest X-Ray 06/12/17 0728 Signed Impressions: Service Date/Time: May 07:43 - CONCLUSION: 1. Elevation left hemidiaphragm. 2. Bibasilar densities likely atelectasis. Graham Antonio MD Lower Extremity Ultrasound 06/12/17 0000 Signed Impressions: Service Date/Time: May 18:32 - CONCLUSION: Normal examination. Lev Gandhi MD Objective Remarks GENERAL: 58-year-old male, critically ill. SKIN: Warm and pale. No rash. Tattoo left upper extremity HEAD: Atraumatic. Normocephalic. EYES: Pupils equal and round around 2 mm bilaterally and reactive. No scleral icterus. No injection or drainage. ENT: No nasal bleeding or discharge. Mucous membranes pink and moist. NECK: Trachea midline. Orally intubated. CARDIOVASCULAR: Distant. Regular rate and rhythm. S1, S2 . 2/6 murmur at LSB. RESPIRATORY: Scattered crackles in dependent lung corey. Breath sounds good bilaterally. GASTROINTESTINAL: Abdomen soft, non-tender, obese. Active bowel sounds. No guarding. MUSCULOSKELETAL: Extremities with chronic venous stasis bilateral lower extremities with woody edema, acute swelling has decreased. NEUROLOGICAL: Lightly sedated for vent synchrony. Moves 4 limbs to command. BURT. A/P Problem List: (1) Hypercapnic respiratory failure ICD Code: J96.92 Status: Acute (2) Severe sepsis ICD Code: A41.9 Status: Acute (3) Bacteremia due to Gram-positive bacteria ICD Code: R78.81 Status: Acute (4) Acute kidney injury ICD Code: N17.9 Status: Acute (5) Aortic valve stenosis ICD Code: I35.0 Status: Acute (6) Diabetes mellitus ICD Code: E11.9 Status: Acute (7) COPD (chronic obstructive pulmonary disease) ICD Code: J44.9 Status: Acute Assessment and Plan Neuro/Psych: Acetaminophen 650 mg by mouth every 4 hours when necessary fever Hydrocodone/acetaminophen 5/325 one tablet every 4 hours when necessary pain 1-5 Morphine sulfate 2 mg IV every 2 hours when necessary pain 6-10 CT head ordered but refused per patient CV: Lactic acidosis - resolved Hypertension Coronary artery disease EKG revealed sinus tachycardia. Left axis deviation. QTC was 403 Initial troponin 0.05. Negative workup Holding losartan 100 mg by mouth daily light of hypotension relative and acute kidney injury. Resume when clinically indicated Patient has received IV Lasix 40 mg we'll hold further doses by mouth daily in light of hypotension. Resume when clinically indicated Converted to lasix gtt 06/24, increased to 20 mg/hr 07/27 Resp: Prior tobaccoism 50 pack years. Quit 15 years ago Chronic oxygen use possibly undiagnosed PAULA/pickwickian Obesity hypoventilation syndrome Chest x-ray revealed elevated left hemidiaphragm. Possible bilateral lower lobe atelectasis Nasal cannula to maintain saturations greater than or equal to 92% Continue ipratropium/albuterol 0.5/2.5 nebulizers every 6 hours with albuterol nebulizers every 2 hours. Dyspnea Incentive spirometry while awake Intubated 06/23. GI: Early satiety Elevated total bilirubin Total bilirubin elevated however remainder of LFTs negative. Benign abdominal examination.. Lipase normal Patient refuses CT abdomen/pelvis. Pantoprazole 40 mg IV daily for GI prophylaxis Docusate sodium/senna 1 tablet by mouth twice a day for bowel regimen Dark stools per RN. Will Hemoccult stool 1. Numerous gallstones on CT scan 06/25 : Franco catheter if indicated for accurate I's and O's in a critically ill patient Endo: Diabetes mellitus/insulin requiring with peripheral neuropathy Home medications include insulin aspart 30 units 3 times a day and insulin glargine 50 units subcutaneous twice a day Currently on detemir 30 units subcutaneous twice a day with Novolin R sliding scale insulin with Accu-Cheks before meals/at bedtime Renal: Acute or chronic kidney injury - resolving Unknown baseline. Abdominal ultrasound rule out hydronephrosis Urine eosinophil/electrolytes D/C fluid. Heme: Leukocytosis Normocytic anemia Elevated PTT Hemoccult negative in ED. Received 1 unit PRBCs in the emergency department Hemoglobin currently 9.5 Recheck CBC in a.m. ID: Antibiotic per ID recommendation Blood cultures 2, sputum, UA, urine Legionella and pneumococcal antigens is also are pending. Influenza negative. Blood X 4 - Strep bovis 06/12 ID consult appreciated MSK: BMI greater than 50 Weight loss encouraged FEN: Access - Utilize peripheral IV. - Right SCV CVL placed 06/23 Prophylaxis - GI - pantoprazole - DVT - SCD/heparin subcutaneous Overall impression: Admitted with bacteremia (Strep bovis) and presented critically ill with deteriorating respiratory function requiring intubation and mechanical ventilation. Suspect bacterial endocarditis. The combination of severe aortic stenosis and sepsis tipped him over into florid heart failure/ fluid overload. Continue lasix gtt at 20 mg/hr. He was quite limited prior to this immediate illness and is unlikely to live long afterward, even if we can get him extubated. Palliative Care service is talking with his POA. Critical Care 36 mins Problem Qualifiers (1) Aortic valve stenosis: Qualified Code: I35.0 - Aortic valve stenosis, unspecified etiology (2) Diabetes mellitus: Qualified Code: E11.65 - Type 2 diabetes mellitus with hyperglycemia, with long -term current use of insulin (3) COPD (chronic obstructive pulmonary disease): Qualified Code: J44.1 - Chronic obstructive pulmonary disease with acute exacerbation Eddie Shabazz MD Jun 27, 2017 08:39
[2017-06-27] MEDS: SODIUM CHLORIDE 0.9% FLUSH 10 ML FLUSH IV FLUSH SCH ×2 (09:00→19:56)
[2017-06-27] MEDS: DOCUSATE SODIUM 50 MG/SENNA 8.6 MG TAB PO SCH ×2 (09:00→19:56)
[2017-06-27] MEDS: PANTOPRAZOLE SODIUM 40 MG VIAL IV SCH (09:26)
[2017-06-27] MEDS: fentaNYL DRIP 250 ML IV SCH (09:26)
[2017-06-27] MEDS: INSULIN DETEMIR 100 UNITS/ML VIAL SQ SCH ×2 (09:50→19:56)
--- NOTE | 2017-06-27 10:51 | HHI.IDPN ---
Subjective Subjective Remarks Patient is a 66-year-old morbidly obese male, presented to the hospital complaining of severe shortness of breath. Patient states he has COPD, and has had problem with chronic shortness of breath. He does not use any supplemental oxygen at home. Patient also admits to chronic lower extremity edema. He presented to the hospital because he had development of severe shortness of breath that he couldn't even walk a few distances which is not his normal. He denies any congestion, cough or any chest pain or palpitations. Also has been very weak, and just didn't feel good. He has not had any dizziness or syncopal episode. Has not had any nausea vomiting, abdominal pain, dysuria. On presentation he had an elevated white count. Patient has been afebrile. His lactic acid was elevated. Urinalysis was unremarkable. Chest x-ray with some basilar atelectasis. Patient was admitted initially for sepsis, and was started on broad-spectrum antibiotics. His WBC went down to 19, but it went up to 27,000. Patient received a large dose of IV Solu-Medrol on June 12. Patient currently states his breathing is better. He is still on nasal O2. Notes reviewed D/W RN One low grade temps last 24 hours Remains on Levophed On CPAP this morning Sedation lightened, he is following Ct A/P. abnormal GB Diuresing No new (+) BC Echo with severe , thickened leaflets BC with Strep bovis Antibiotics Cefepime Vancomycin Past Medical History COPD Coronary artery disease Hypertension Diabetes mellitus with peripheral neuropathy Elevated BMI Past Surgical History Tonsillectomy Allergies: Coded Allergies: Penicillin (Verified Allergy, Mild, 06/12/17) Objective . Vital Signs Date Time Temp Pulse Resp B/P Pulse Ox O2 Delivery O2 Flow Rate FiO2 06/27/17 10:00 92 06/27/17 08:00 40 06/27/17 08:00 72 06/27/17 08:00 99.1 86 21 128/65 94 06/27/17 07:51 95 40 06/27/17 06:00 79 06/27/17 04:47 94 40 06/27/17 04:00 100.4 90 12 122/59 94 06/27/17 04:00 80 06/27/17 04:00 40 06/27/17 02:00 87 06/27/17 01:14 95 40 06/27/17 00:00 79 06/27/17 00:00 98.9 79 15 107/56 95 06/27/17 00:00 40 06/26/17 22:06 94 40 06/26/17 22:00 78 06/26/17 20:01 93 40 06/26/17 20:00 98.8 80 12 112/58 94 06/26/17 20:00 40 06/26/17 20:00 78 06/26/17 18:00 79 06/26/17 17:31 100 40 06/26/17 16:00 70 06/26/17 16:00 98.4 74 12 112/74 100 06/26/17 16:00 40 06/26/17 14:00 76 06/26/17 12:00 77 06/26/17 12:00 40 06/26/17 12:00 98.2 74 12 114/59 100 06/26/17 11:08 95 40 06/26/17 06/26/17 06/27/17 14:59 22:59 06:59 Intake Total 1235 ml 789 ml 805 ml Output Total 1700 ml 1350 ml 1800 ml Balance -465 ml -561 ml -995 ml IV Total 1005 ml 601 ml 481 ml Tube Feeding 230 ml 188 ml 324 ml Output Urine Total 1700 ml 1350 ml 1800 ml Gastric Drainage Total 0 ml # Bowel Movements 0 . Laboratory Tests Test 06/25/17 06/26/17 06/26/17 06/26/17 16:45 04:00 05:00 17:30 Sodium Level 138 MEQ/L 139 MEQ/L 141 MEQ/L Potassium Level 3.7 MEQ/L 3.5 MEQ/L 3.3 MEQ/L Chloride Level 97 MEQ/L 97 MEQ/L 98 MEQ/L Carbon Dioxide Level 35.3 MEQ/L 38.9 MEQ/L 39.0 MEQ/L Anion Gap 6 MEQ/L 3 MEQ/L 4 MEQ/L Blood Urea Nitrogen 25 MG/DL 25 MG/DL 23 MG/DL Creatinine 1.20 MG/DL 1.17 MG/DL 1.08 MG/DL Estimat Glomerular Filtration 60 ML/MIN 62 ML/MIN 68 ML/MIN Rate Random Glucose 307 MG/DL 226 MG/DL 179 MG/DL Calcium Level 8.0 MG/DL 8.0 MG/DL 7.6 MG/DL Phosphorus Level 2.8 MG/DL 2.4 MG/DL 3.2 MG/DL Magnesium Level 1.9 MG/DL 1.9 MG/DL 2.0 MG/DL B-Type Natriuretic Peptide 751 PG/ML Test 06/27/17 03:30 Sodium Level 144 MEQ/L Potassium Level 3.4 MEQ/L Chloride Level 99 MEQ/L Carbon Dioxide Level 39.9 MEQ/L Anion Gap 5 MEQ/L Blood Urea Nitrogen 24 MG/DL Creatinine 1.12 MG/DL Estimat Glomerular Filtration 65 ML/MIN Rate Random Glucose 127 MG/DL Calcium Level 8.0 MG/DL Phosphorus Level 2.2 MG/DL Magnesium Level 1.9 MG/DL Microbiology Date/Time Procedure Status Source Growth 06/24/17 13:46 Gram Stain - Final Complete Sputum Endotracheal 06/24/17 13:46 Sputum Culture - Final Complete Sputum Endotracheal MODERATE GROWTH NORMAL RESPIRATORY EVA Imaging Chest X-Ray 06/23/17 0000 Signed Impressions: Service Date/Time: Friday, June 23, 2017 10:20 - CONCLUSION: Bilateral pleural effusions and bibasilar consolidation and or compressive collapse possibly slightly worse on the right since the prior exam. Khadar Arboleda MD CT Angiography 06/15/17 0000 Signed Impressions: Service Date/Time: Friday, June 16, 2017 13:35 - CONCLUSION: 1. Small bilateral pleural effusions with adjacent alveolar consolidations consistent with compressive atelectasis and/or pneumonia. Clinical correlation is recommended. 2. Pleural calcifications within the bilateral posterior lung bases consistent with asbestos related pleural disease or fibrothorax. 3. Cardiomegaly. 4. No evidence of pulmonary embolism. 5. Ascites within the upper abdomen. Casimiro Lazo MD Abdomen Ultrasound 06/13/17 0000 Signed Impressions: Service Date/Time: Tuesday, June 13, 2017 15:35 - CONCLUSION: Limited study secondary to bowel gas and body habitus. Hepatic cysts are noted. Small amount of free fluid suspected. Lev Gandhi MD Lower Extremity Ultrasound 06/12/17 0000 Signed Impressions: Service Date/Time: May 18:32 - CONCLUSION: Normal examination. Lev Gandhi MD Physical Exam GENERAL: Opens eyes when stimulated, on the vent, not in respiratory distress. SKIN: Cool and dry. No generalized rash, no evidence of embolic lesions. HEAD: Atraumatic. Normocephalic. No temporal wasting, or tenderness. EYES: [place] conjunctiva. No petechia or hemorrhage. Pupils equal, round and reactive to light. No scleral icterus. No injection or drainage. EARS, NOSE AND THROAT: Nose without bleeding or purulent nasal discharge. Mucous membranes moist. Orally intubated NECK: Trachea midline. Supple and not tender, no meningeal signs CARDIOVASCULAR: Regular rate and rhythm. Has murmur loudest at base of the heart. NO rub RESPIRATORY: Diffuse wheezing ABDOMEN: Soft, obese, non-tender, not distended. Bowel sounds present and normoactive. No guarding. No rebound. EXTREMITIES: No clubbing, cyanosis. He has improving edema BLE, and he has bark tree texture of his skin in both legs and feet. NEUROLOGICAL: Opens eyes PSYCHIATRIC: Unable to assess LINE: No evidence of infection : Franco in place, urine looks clear Assessment & Plan Remarks IMPRESSION Initial presentation of severe SOB, patient with obesity, known COPD, ? possibly with cor pulmonale - clinically no evidence of PNA - has obesity, ?with sleep apnea Strep bovis bacteremia, very suspicious for endocarditis - Has severe Sepsis, shock Severe aortic stenosis COPD Leukocytosis, persistent, but decreasing Respiratory failure, likely pulmonary edema, ?PNA Renal insufficiency Low grade temps ?Stone in GB, exam not remarkable RECOMMENDATION repeat 2 BC Check LFT Continue cefepime Continue IV Vancomycin Add Flagyl Follow CBC Monitor progress Weaning per [facility] D/W NELIA Gautam covering this weekend D/W Estela Zheng MD Jun 27, 2017 10:51
[2017-06-27 11:53] LABS: AUTOMATED NEUTROPHIL # 15.3 TH/MM3 (1.8-7.7); BASOPHIL # 0.1 TH/MM3 (0-0.2); BASOPHIL % 0.7 % (0.0-2.0); EOSINOPHIL # 0.2 TH/MM3 (0-0.4); EOSINOPHIL % 0.9 % (0.0-4.0); HEMATOCRIT 29.2 % (39.0-51.0); LYMPHOCYTE # 0.5 TH/MM3 (1.0-4.8); MEAN CELL VOLUME 95.4 FL (80.0-100.0); MEAN CORPUSCULAR HEMOGLOBIN 29.9 PG (27.0-34.0); MEAN CORPUSCULAR HGB CONC 31.4 % (32.0-36.0); MONO % 7.2 % (0.0-8.0); NEUT % 88.2 % (16.0-70.0); PLATELET COUNT 107 TH/MM3 (150-450); RED BLOOD COUNT 3.06 MIL/MM3 (4.50-5.90); RED CELL DISTRIBUTION WIDTH 18.3 % (11.6-17.2); WHITE BLOOD COUNT 17.4 TH/MM3 (4.0-11.0)
[2017-06-27 12:04] LABS: HEMO FLAGS AUTO DIFF
[2017-06-27 12:20] LABS: INDIRECT BILIRUBIN 0.3 MG/DL (0.0-0.8); TOTAL BILIRUBIN ADULT 0.8 MG/DL (0.2-1.0)
[2017-06-27 12:49] LABS: NEUTROPHIL # MANUAL DIFF 15.8 TH/MM3 (1.8-7.7); PLATELET ESTIMATE SMEAR LOW (NORMAL); PLATELET MORPHOLOGY NORMAL (NORMAL); POLYS (SEG NEUTROPHILS) 91 % (16-70); SCAN/DIFF FINAL DIFF MANUAL; WBC DIFF SAMPLE 100
--- NOTE | 2017-06-27 13:15 | HHI.GIFU ---
Subjective Remarks Resting in bed. Pt is on CPAP. Nurse states that he may be extubated today. Afebrile. Does not appear to have any abdominal tenderness on exam. (Aga Dyson) Objective Vitals I&O Vital Signs Date Time Temp Pulse Resp B/P Pulse Ox O2 Delivery O2 Flow Rate FiO2 06/27/17 12:00 97 06/27/17 12:00 98.3 97 18 116/72 95 06/27/17 12:00 40 06/27/17 11:01 40 06/27/17 11:01 93 40 06/27/17 10:00 92 06/27/17 08:00 40 06/27/17 08:00 72 06/27/17 08:00 99.1 86 21 128/65 94 06/27/17 07:51 95 40 06/27/17 06:00 79 06/27/17 04:47 94 40 06/27/17 04:00 100.4 90 12 122/59 94 06/27/17 04:00 80 06/27/17 04:00 40 06/27/17 02:00 87 06/27/17 01:14 95 40 06/27/17 00:00 79 06/27/17 00:00 98.9 79 15 107/56 95 06/27/17 00:00 40 06/26/17 22:06 94 40 06/26/17 22:00 78 06/26/17 20:01 93 40 06/26/17 20:00 98.8 80 12 112/58 94 06/26/17 20:00 40 06/26/17 20:00 78 06/26/17 18:00 79 06/26/17 17:31 100 40 06/26/17 16:00 70 06/26/17 16:00 98.4 74 12 112/74 100 06/26/17 16:00 40 06/26/17 14:00 76 I/O 06/26/17 06/26/17 06/26/17 06/27/17 06/27/17 06/27/17 06:59 14:59 22:59 06:59 14:59 22:59 Intake Total 1562 ml 1235 ml 789 ml 805 ml Output Total 1750 ml 1700 ml 1350 ml 1800 ml Balance -188 ml -465 ml -561 ml -995 ml IV Total 1356 ml 1005 ml 601 ml 481 ml Tube Feeding 206 ml 230 ml 188 ml 324 ml Output Urine Total 1750 ml 1700 ml 1350 ml 1800 ml Gastric Drainage Total 0 ml # Bowel Movements 0 Laboratory Laboratory Tests Test 06/26/17 06/27/17 06/27/17 17:30 03:30 11:30 Sodium Level 141 144 Potassium Level 3.3 3.4 Chloride Level 98 99 Carbon Dioxide Level 39.0 39.9 Anion Gap 4 5 Blood Urea Nitrogen 23 24 Creatinine 1.08 1.12 Estimat Glomerular Filtration 68 65 Rate Random Glucose 179 127 Calcium Level 7.6 8.0 Phosphorus Level 3.2 2.2 Magnesium Level 2.0 1.9 White Blood Count 17.4 Red Blood Count 3.06 Hemoglobin 9.2 Hematocrit 29.2 Mean Corpuscular Volume 95.4 Mean Corpuscular Hemoglobin 29.9 Mean Corpuscular Hemoglobin 31.4 Concent Red Cell Distribution Width 18.3 Platelet Count 107 Mean Platelet Volume 8.9 Neutrophils (%) (Auto) 88.2 Lymphocytes (%) (Auto) 3.0 Monocytes (%) (Auto) 7.2 Eosinophils (%) (Auto) 0.9 Basophils (%) (Auto) 0.7 Neutrophils # (Auto) 15.3 Lymphocytes # (Auto) 0.5 Monocytes # (Auto) 1.2 Eosinophils # (Auto) 0.2 Basophils # (Auto) 0.1 CBC Comment AUTO DIFF Differential Total Cells 100 Counted Neutrophils % (Manual) 91 Lymphocytes % 3 Monocytes % 6 Neutrophils # (Manual) 15.8 Differential Comment FINAL DIFF MANUAL Platelet Estimate LOW Platelet Morphology Comment NORMAL Total Bilirubin 0.8 Direct Bilirubin 0.5 Indirect Bilirubin 0.3 Aspartate Amino Transf 28 (AST/SGOT) Alanine Aminotransferase 15 (ALT/SGPT) Alkaline Phosphatase 97 Total Protein 6.1 Albumin 1.6 Date/Time Procedure Status Source Growth 06/24/17 13:46 Gram Stain - Final Complete Sputum Endotracheal 06/24/17 13:46 Sputum Culture - Final Complete Sputum Endotracheal MODERATE GROWTH NORMAL RESPIRATORY EVA Imaging Last Impressions Abdomen/Pelvis CT 06/25/17 0000 Signed Impressions: Service Date/Time: Sunday, June 25, 2017 22:16 - CONCLUSION: 1. Abnormal appearance of gallbladder with multiple calcified stones occupying most half of the volume of the gallbladder. Possible stones extending into the cystic duct. May consider performing hepatobiliary tract scan to evaluate for cystic duct obstruction. 2. Bilateral lower lobe consolidative infiltrates and pleural effusion. 3. Large fat containing ventral abdominal hernia and marked thickening of the lateral abdominal musculature. 4. Abnormal appearance to the expected location of the left adrenal gland suggesting a combination of varices and adrenal mass. This cannot be further assessed on noncontrast exam. Sal Longoria MD Chest X-Ray 06/23/17 0000 Signed Impressions: Service Date/Time: Friday, June 23, 2017 10:20 - CONCLUSION: Bilateral pleural effusions and bibasilar consolidation and or compressive collapse possibly slightly worse on the right since the prior exam. Khadar Arboleda MD CT Angiography 06/15/17 0000 Signed Impressions: Service Date/Time: Friday, June 16, 2017 13:35 - CONCLUSION: 1. Small bilateral pleural effusions with adjacent alveolar consolidations consistent with compressive atelectasis and/or pneumonia. Clinical correlation is recommended. 2. Pleural calcifications within the bilateral posterior lung bases consistent with asbestos related pleural disease or fibrothorax. 3. Cardiomegaly. 4. No evidence of pulmonary embolism. 5. Ascites within the upper abdomen. Casimiro Lazo MD Abdomen Ultrasound 06/13/17 0000 Signed Impressions: Service Date/Time: Tuesday, June 13, 2017 15:35 - CONCLUSION: Limited study secondary to bowel gas and body habitus. Hepatic cysts are noted. Small amount of free fluid suspected. Lev Gandhi MD Lower Extremity Ultrasound 06/12/17 0000 Signed Impressions: Service Date/Time: May 18:32 - CONCLUSION: Normal examination. Lev Gandhi MD Physical Exam HEENT: Normocephalic; atraumatic CHEST: Resp even/unlabored, OETT to vent. Diminished. CARDIAC: RRR ABDOMEN: Soft, obese, bowel sounds faint EXTREMITIES: Generalized edema. SKIN: no rash; no jaundice. 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 Hemoccult positive. Plan was for GI workup with cardiac clearance, per cardiology pt high risk for noncardiac procedures. Of note, we were asked to see patient for anemia/melena prior to him being intubated and he was adamantly refusing GI procedures at that time. Abdomen/Pelvis CT (06/25/17)----- > 1. Abnormal appearance of gallbladder with multiple calcified stones occupying most half of the volume of the gallbladder. Possible stones extending into the cystic duct. May consider performing hepatobiliary tract scan to evaluate for cystic duct obstruction. 2. Bilateral lower lobe consolidative infiltrates and pleural effusion. 3. Large fat containing ventral abdominal hernia and marked thickening of the lateral abdominal musculature. 4. Abnormal appearance to the expected location of the left adrenal gland suggesting a combination of varices and adrenal mass. This cannot be further assessed on noncontrast exam. S/P 2 units PRBC. HH 9.2/29.2. - Cholelithiasis. CT with abnormal appearance of gallbladder with multiple calcified stones occupying most half of the volume of the gallbladder. Possible stones extending into the cystic duct. May consider performing hepatobiliary tract scan to evaluate for cystic duct obstruction. His WBC is persistently elevated at 20.4, although he has endocarditis. LFTs stable, T. Bili 0.8, AST 28, ALT 15, Alk Phosph 97. He is not a candidate for surgery and if it is thought that this could be contributing to his leukocytosis/infection, then he would need cholecystomy tube. However, his WBC is improving, his LFTs are stable, and he does not appear to have any abdominal tenderness on exam. Cefepime, Vanco. ID following- will defer to them. - Anemia secondary to acute blood loss. H/H on admission was 8.0/25.2. S/P 2 units PRBC and has been stable, currently stable. No history of EGD/ Colonoscopy. Per cardiology high risk for any procedure other than cardiac - Acute respiratory failure. Vent per CCM - AMS, likely secondary to elevated CO2, now intubated. - Sepsis/leukocytosis/lactic acidosis/bacteremia. BCx with GPC, Streptococcus species. Rpt. BCx no growth 5 days. 2D echo with very technically limited study , moderate thickening of the aortic valve leaflets, severe aortic valve stenosis, moderate thickening of the aortic valve leaflets. RIGO was canceled due to hypoxia and currently not candidate for avr or tavr, so findings unlikely to change manager and risk/benefit ratio unfavorable per cardiology. Persistent elevation of WBC. Does have abnormal gallbladder filled with gallstones occupying most half of the volume of the gallbladder. Possible stones extending into the cystic duct. Vanco, Cefepime - HAI with electrolyte abnormalities. Creat 1.12 - DM, CAD, COPD, HTN, Neuropathy per attending. PLAN: - Glucerna 1.5 @50mls/hr goal rate - Cont. PPI - Monitor HH - Transfuse as necessary - Supportive care - Pt not stable for any noncardiac procedures per cardiology - Pt seen and examined by Dr. Corbett and this note is written on her behalf ( Aga Dyson) Physician Comments seen, examined agree with above (Pretty Corbett MD) Aga Dyson Jun 27, 2017 13:15 Pretty Corbett MD Jun 27, 2017 20:14
--- NOTE | 2017-06-27 16:35 | HHI.HCPN ---
Reason for visit a. To assist with evaluation and management of symptoms including: Shortness of breath and debility. b. To assist medical decision maker(s) with: better understanding of current medical conditions; weighing benefits/burdens of medical treatment options; making medical treatment decisions. . Subjective/Interval History HX: per initial palliative H&P: Mr. Khan is a 66-year-old male with a medical history significant for COPD, morbid obesity, CAD, hypertension and diabetes mellitus type 2. Recently diagnosed with severe aortic stenosis, not a candidate for AVR secondary to multiple ongoing comorbidities, sepsis and anemia. May eventually be a candidate for high risk TAVR once anemia and sepsis is resolved. Palliative care consulted for clarification of goals of care given poor prognosis with limited treatment options. Patient seen in ICU. Notified by skein yarn dyer helper pt self extubated about 1 hr ago. He has remained stable on simple face mask. Pt was tolerating CPAP trials today, critical care planning to extubate today or tomorrow--and readdress intubation status at that time. Lasix drip, good urine output still diuresing. Remains on Levophed 2 mics/min. WBC still elevated though down slightly today 17.4. H&H stable. Repeat liver functions are pending. ID continues to follow patient on cefepime, vancomycin, Flagyl added. Last blood culture 06/16 negative 5 days. Repeat blood cultures ordered per ID. Patient examined in room no visitors present. He is lethargic though does open eyes to my verbal and touch. Responds to name. Follows commands to open eyes attempts to speak but is very weak, unable to. Very weak cough observed. Very weak movement of extremities to command. On simple mask. He is breathing comfortably no apparent distress. Does not appear to be in pain when I ask him yes or no questions he does not nod. discussed with bedside RN Herminia. . Family/friend interactions Following exam call to healthcare surrogate Tere. Review of current clinical assessment, recent diagnostics, overall conditions, pending diagnostics and recent self extubation. Review currently patient appears comfortable. Review treatment options going forward and likely trajectory based on overall prognosis. Review high risk for respiratory compromise and requiring reintubation which would still ultimately resulted in decisions regarding tracheostomy/PEG, versus administration of comfort measures only, hospice. Review of hospice services. Tere appears to have reasonable understanding of conditions and overall prognosis. She indicates she is somewhat caught off guard as she was planning to make these decisions on Friday however upon review of diagnostics, conditions etc. she voiced that she feels confident the patient would not want a tracheostomy and PEG, and that he would not want to go back on the ventilator. She does not wish to make him a full DNR until she has spoken with patient mother whom she involves, and has seen patient herself. She will be arriving to the hospital in the next hour or so after she leaves work and will plan to talk to the RN at that time. She will likely make patient DNR this evening. She is open to meeting with hospice sometime tomorrow. . Advance Directives Living Will: Completed, but not made available Health Care Surrogate: Copy in medical record Advance Directive Specifics Date completed: 06/20/2017 . Health Care Surrogate(s): Patient designated friend Tere Talamantes as HCS. No alternate HCS. . Documented care wishes: Pending copy of living will. . Objective Vital Signs Date Time Temp Pulse Resp B/P Pulse Ox O2 Delivery O2 Flow Rate FiO2 06/27/17 16:00 96 06/27/17 16:00 40 06/27/17 16:00 98.3 96 13 109/59 99 06/27/17 14:00 94 06/27/17 12:00 97 06/27/17 12:00 98.3 97 18 116/72 95 06/27/17 12:00 40 06/27/17 11:01 40 06/27/17 11:01 93 40 06/27/17 10:00 92 06/27/17 08:00 40 06/27/17 08:00 72 06/27/17 08:00 99.1 86 21 128/65 94 06/27/17 07:51 95 40 06/27/17 06:00 79 06/27/17 04:47 94 40 06/27/17 04:00 100.4 90 12 122/59 94 06/27/17 04:00 80 06/27/17 04:00 40 06/27/17 02:00 87 06/27/17 01:14 95 40 06/27/17 00:00 79 06/27/17 00:00 98.9 79 15 107/56 95 06/27/17 00:00 40 06/26/17 22:06 94 40 06/26/17 22:00 78 06/26/17 20:01 93 40 06/26/17 20:00 98.8 80 12 112/58 94 06/26/17 20:00 40 06/26/17 20:00 78 06/26/17 18:00 79 06/26/17 17:31 100 40 Intake & Output 06/27/17 06/27/17 07:00 19:00 Intake Total 1594 ml 1275 ml Output Total 3150 ml 1750 ml Balance -1556 ml -475 ml IV Total 1082 ml 951 ml Tube Feeding 512 ml 324 ml Output Urine Total 3150 ml 1750 ml # Bowel Movements 4 Physical Exam CONSTITUTIONAL/GENERAL: This is an obese , chronically ill-appearing, no apparent distress on simple mask TUBES/LINES/DRAINS: PIV's, right chest central line, Franco catheter, bilateral soft wrist restraints. SKIN: No jaundice. Significant edema especially to bilateral upper extremities. + Weeping, skin tears, ecchymosis to upper extremities. Skin temperature appropriate. Skin thickening scaling to abdomen. Vascular skin changes to bilateral l EYES: Pupils equal and round and reactive. Slight scleral icterus. No injection or drainage. CARDIOVASCULAR: Regular rate and rhythm. Weeping edema to bilateral upper extremities. RESPIRATORY/CHEST: Symmetric, unlabored respirations on simple mask. Breath sounds coarse, diminished bases. Very weak cough. GASTROINTESTINAL: Abdomen large, obese, round. Unable to evaluate for hepatomegaly secondary to body habitus, obesity, + palpable firmness to right upper quadrant GENITOURINARY: Unable to evaluate for bladder distension secondary to body habitus, obesity. MUSCULOSKELETAL: Extremities without cyanosis. Edema to bilateral lower lower extremities improving, still with significant edema to hands NEUROLOGICAL: Lethargic, opens eyes to verbal and touch stimuli. Blinks, moves extremities very weakly to command. Nonverbal. PSYCHIATRIC: Unable to evaluate secondary to clinical condition, appears comfortable no evident anxiety Diagnostic Tests Laboratory Laboratory Tests Test 06/24/17 06/25/17 06/25/17 06/26/17 18:21 03:45 16:45 04:00 Sodium Level 137 MEQ/L 139 MEQ/L 138 MEQ/L (136-145) (136-145) (136-145) Potassium Level 3.2 MEQ/L 3.5 MEQ/L 3.7 MEQ/L (3.5-5.1) (3.5-5.1) (3.5-5.1) Chloride Level 97 MEQ/L 97 MEQ/L 97 MEQ/L (98-107) (98-107) (98-107) Carbon Dioxide Level 34.5 MEQ/L 35.4 MEQ/L 35.3 MEQ/L (21.0-32.0) (21.0-32.0) (21.0-32.0) Anion Gap 6 MEQ/L (5-15) 7 MEQ/L (5-15) 6 MEQ/L (5-15) Blood Urea Nitrogen 29 MG/DL (7-18) 26 MG/DL (7-18) 25 MG/DL (7-18) Creatinine 1.35 MG/DL 1.27 MG/DL 1.20 MG/DL (0.60-1.30) (0.60-1.30) (0.60-1.30) Estimat Glomerular Filtration 53 ML/MIN (>89) 56 ML/MIN (>89) 60 ML/MIN (>89) Rate Random Glucose 373 MG/DL 271 MG/DL 307 MG/DL (74-106) (74-106) (74-106) Calcium Level 8.0 MG/DL 8.1 MG/DL 8.0 MG/DL (8.5-10.1) (8.5-10.1) (8.5-10.1) Phosphorus Level 1.2 MG/DL 1.2 MG/DL 2.8 MG/DL (2.5-4.9) (2.5-4.9) (2.5-4.9) Magnesium Level 2.1 MG/DL 2.0 MG/DL 1.9 MG/DL (1.5-2.5) (1.5-2.5) (1.5-2.5) B-Type Natriuretic Peptide 2497 PG/ML 751 PG/ML (0-100) (0-100) Random Vancomycin Level 10.8 COMMENT Test 06/26/17 06/26/17 06/27/17 06/27/17 05:00 17:30 03:30 11:30 Sodium Level 139 MEQ/L 141 MEQ/L 144 MEQ/L (136-145) (136-145) (136-145) Potassium Level 3.5 MEQ/L 3.3 MEQ/L 3.4 MEQ/L (3.5-5.1) (3.5-5.1) (3.5-5.1) Chloride Level 97 MEQ/L 98 MEQ/L 99 MEQ/L (98-107) (98-107) (98-107) Carbon Dioxide Level 38.9 MEQ/L 39.0 MEQ/L 39.9 MEQ/L (21.0-32.0) (21.0-32.0) (21.0-32.0) Anion Gap 3 MEQ/L (5-15) 4 MEQ/L (5-15) 5 MEQ/L (5-15) Blood Urea Nitrogen 25 MG/DL (7-18) 23 MG/DL (7-18) 24 MG/DL (7-18) Creatinine 1.17 MG/DL 1.08 MG/DL 1.12 MG/DL (0.60-1.30) (0.60-1.30) (0.60-1.30) Estimat Glomerular Filtration 62 ML/MIN (>89) 68 ML/MIN (>89) 65 ML/MIN (>89) Rate Random Glucose 226 MG/DL 179 MG/DL 127 MG/DL (74-106) (74-106) (74-106) Calcium Level 8.0 MG/DL 7.6 MG/DL 8.0 MG/DL (8.5-10.1) (8.5-10.1) (8.5-10.1) Phosphorus Level 2.4 MG/DL 3.2 MG/DL 2.2 MG/DL (2.5-4.9) (2.5-4.9) (2.5-4.9) Magnesium Level 1.9 MG/DL 2.0 MG/DL 1.9 MG/DL (1.5-2.5) (1.5-2.5) (1.5-2.5) White Blood Count 17.4 TH/MM3 (4.0-11.0) Red Blood Count 3.06 MIL/MM3 (4.50-5.90) Hemoglobin 9.2 GM/DL (13.0-17.0) Hematocrit 29.2 % (39.0-51.0) Mean Corpuscular Volume 95.4 FL (80.0-100.0) Mean Corpuscular Hemoglobin 29.9 PG (27.0-34.0) Mean Corpuscular Hemoglobin 31.4 % Concent (32.0-36.0) Red Cell Distribution Width 18.3 % (11.6-17.2) Platelet Count 107 TH/MM3 (150-450) Mean Platelet Volume 8.9 FL (7.0-11.0) Neutrophils (%) (Auto) 88.2 % (16.0-70.0) Lymphocytes (%) (Auto) 3.0 % (9.0-44.0) Monocytes (%) (Auto) 7.2 % (0.0-8.0) Eosinophils (%) (Auto) 0.9 % (0.0-4.0) Basophils (%) (Auto) 0.7 % (0.0-2.0) Neutrophils # (Auto) 15.3 TH/MM3 (1.8-7.7) Lymphocytes # (Auto) 0.5 TH/MM3 (1.0-4.8) Monocytes # (Auto) 1.2 TH/MM3 (0-0.9) Eosinophils # (Auto) 0.2 TH/MM3 (0-0.4) Basophils # (Auto) 0.1 TH/MM3 (0-0.2) CBC Comment AUTO DIFF Differential Total Cells 100 Counted Neutrophils % (Manual) 91 % (16-70) Lymphocytes % 3 % (9-44) Monocytes % 6 % (0-8) Neutrophils # (Manual) 15.8 TH/MM3 (1.8-7.7) Differential Comment FINAL DIFF MANUAL Platelet Estimate LOW (NORMAL) Platelet Morphology Comment NORMAL (NORMAL) Total Bilirubin 0.8 MG/DL (0.2-1.0) Direct Bilirubin 0.5 MG/DL (0.0-0.2) Indirect Bilirubin 0.3 MG/DL (0.0-0.8) Aspartate Amino Transf 28 U/L (15-37) (AST/SGOT) Alanine Aminotransferase 15 U/L (12-78) (ALT/SGPT) Alkaline Phosphatase 97 U/L (45-117) Total Protein 6.1 GM/DL (6.4-8.2) Albumin 1.6 GM/DL (3.4-5.0) Result Diagram: 06/27/17 1130 06/27/17 0330 Procedures * 06/23/17 -endotracheal intubation * 06/23/17 -right chest central line placement * 06/16/17 -cardiac catheterization. . Assessment and Plan Disease Oriented Problem List: (1) Hypercapnic respiratory failure (2) Aortic valve stenosis (3) Sepsis (4) COPD (chronic obstructive pulmonary disease) (5) Anemia (6) Diabetes mellitus (7) Coronary artery disease (8) Hypertension (9) BMI 50.0-59.9, adult Symptom Scale: (1) Shortness of breath 0-10 Scale: Unable to quantify Comment: Secondary to COPD, anemia, acute illness/sepsis. Intubated on mechanical ventilation. . (2) Debility 0-10 Scale: Unable to quantify Comment: Progressive. Exacerbated by acute injury and prolonged hospitalization. . Pertinent Non-Medical Issues Psychosocial: Patient originally from [place]. Moved to [place] over 40 years ago. He is a , has 1 son Ismael hKan. Retired 8 years ago secondary to COPD. 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 Served in the [employer] for 3 years, a 70 [place] . Spiritual: No latter day affiliation. Legal: Reports that advance directives [facility]. Ethical issues impacting care: No ethical issues identified at this time. . Important Contacts Patient's friend Tere Talamantes Pt's mother Queenie Cruz . . Prognosis Mr. Khan is a 66-year-old male with a medical history significant for COPD, morbid obesity, CAD, hypertension and diabetes mellitus type 2. Patient with newly diagnosed severe aortic valve stenosis with limited treatment options secondary to multiple chronic comorbidities, sepsis and anemia. Poor prognosis for an improved quality of life. 2 year mortality around 50% if aortic valve is not replaced. Patient at high risk for further complications, continue decline and . . Code Status: Full Code Plan * CODE STATUS: Full code. Health Care surrogate Tere will likely elect to DNR status later this afternoon after seeing patient and speaking with patient' s mother. * HEALTHCARE DECISION-MAKING: Patient unable to participating in medical decision-making secondary to clinical condition, sedated -intubated on mechanical ventilation. Patient designated friend Tere Talamantes as HCS, no alternate HCS. * GOALS OF CARE: 06/27/17 patient self extubated today, had been tolerating CPAP trials with plan for possible medical extubation today or tomorrow. Spoke with health care surrogate Tere, she feels confident the patient would not want a tracheostomy and PEG, and that he would not want to go back on the ventilator. She does not wish to make him a full DNR until she has spoken with patient mother whom she involves, and has seen patient herself. She will be arriving to the hospital in the next hour or so after she leaves work and will plan to talk to the RN at that time. She will likely make patient DNR this evening. She is open to meeting with hospice sometime tomorrow, as she would want comfort measures to be in place if the patient is not going back on ventilator, patient may be appropriate for a care center. --Discussed with RN, critical care Dr. Bach. Hospice ordered to be placed for tomorrow. Possible DNR pending [facility] arrival later this evening--she will notify nurse. * notified hospice admissions. * SYMPTOMS: = Shortness of breath, multifactorial. Secondary to COPD, anemia, sepsis. Clinical condition complicated by respiratory failure, patient intubated on mechanical ventilation. Tolerating CPAP trials, having ongoing diuresis plan for medical extubation today or tomorrow patient self extubated today. Currently breathing comfortably however high risk for respiratory deterioration. = Debility, progressive. Worsened during the past year. Exacerbated by acute illness. Remains very weak and debilitated * Palliative care contact information has been provided to [facility] friend Tere. * Palliative care will continue to follow-up as needed for further clarifications of goals of care as patient's clinical course continues to evolve. . Time Spent Total Floor Time (mins): 40 >50% Counseling/Coord of Care: Yes (discussed with RN, critical care) Attestation To help prompt me to consider important information that might be impacting today's encounter and assessment, information from prior notes written by myself or my colleagues may have been "brought forward" into today's note. My signature on this note, however, is an attestation that I personally performed the exam, history, and/or decision-making noted today, and, unless otherwise indicated, the interactions with patient, family, and staff as well as the review of records all occurred today. I also attest that the listed assessment and stated plan reflect my best clinical judgment today based on the combination of historical information, prior notes, and today's exam/ interactions. When time spent is documented, it refers only to time spent today by the signer, or if indicated, combined time spent today by collaborating physician/nurse practitioner. Keisha Mazariegos Jun 27, 2017 16:35
[2017-06-27 21:43] LABS: MAGNESIUM 2.3 MG/DL (1.5-2.5); POTASSIUM 3.4 MEQ/L (3.5-5.1)
[2017-06-27 21:50] LABS: INDIRECT BILIRUBIN 0.5 MG/DL (0.0-0.8)
[2017-06-28] VITALS (13 sets, daily range): BP systolic 105–150; BP diastolic 58–67; PULSE 87–106; RESP 13–21; TEMP 98–98.3; O2SAT 95–99
[2017-06-28] MEDS: FUROSEMIDE INJ 100 MG in SODIUM CHLORIDE 0.9% INJ 90 ML IV SCH ×2 (00:28→04:18)
[2017-06-28] MEDS: CHLORHEXIDINE GLUCONATE 2 % 1 PACK (2 CLOTHS) TOP SCH (01:28)
[2017-06-28] MEDS: CEFEPIME INJ 2,000 MG in SODIUM CHLORIDE 0.9% INJ 100 ML IV SCH ×2 (04:15→17:05)
[2017-06-28 05:17] LABS: BASOPHIL # 0.2 TH/MM3 (0-0.2); BASOPHIL % 1.4 % (0.0-2.0); EOSINOPHIL # 0.1 TH/MM3 (0-0.4); EOSINOPHIL % 0.9 % (0.0-4.0); HEMATOCRIT 28.9 % (39.0-51.0); LYMPH % 4.8 % (9.0-44.0); LYMPHOCYTE # 0.6 TH/MM3 (1.0-4.8); MEAN CELL VOLUME 93.4 FL (80.0-100.0); MEAN CORPUSCULAR HEMOGLOBIN 29.9 PG (27.0-34.0); MONO % 4.9 % (0.0-8.0); PLATELET COUNT 102 TH/MM3 (150-450); RED BLOOD COUNT 3.09 MIL/MM3 (4.50-5.90); RED CELL DISTRIBUTION WIDTH 17.5 % (11.6-17.2); WHITE BLOOD COUNT 13.6 TH/MM3 (4.0-11.0)
[2017-06-28 05:19] LABS: HEMO FLAGS AUTO DIFF
[2017-06-28 05:32] LABS: BICARBONATE 44.6 MEQ/L (21.0-32.0); POTASSIUM 3.2 MEQ/L (3.5-5.1)
[2017-06-28] MEDS ORDERED: PHARMACY ORDERED LAB ONE (05:45)
--- NOTE | 2017-06-28 05:54 | RADRPT ---
EXAM DATE/TIME: 06/28/2017 04:16 [facility] COMPARISON: CHEST SINGLE AP, June 23, 2017, 10:20. INDICATIONS : Hypoxemia. MEDICAL HISTORY : Chronic obstructive pulmonary disease. Hypertension Diabetes mellitus type SURGICAL HISTORY : None. ENCOUNTER: Subsequent ACUITY: 2 weeks PAIN SCORE: Non-responsive. LOCATION: Bilateral chest FINDINGS: The cardiac silhouette is enlarged in transverse diameter. There is prominence of the central pulmona ry vasculature with indistinct vascular margins compatible with vascular congestion but no evidence o f overt failure. There is elevation of the left hemidiaphragm. There is resolving bilateral effusions . CONCLUSION: 1. Cardiomegaly and findings of vascular congestion without overt failure. There is significant impro vement when compared to the prior study with resolution of the previously seen effusions Ian Gregorio MD on June 28, 2017 at 5:51 Board Certified Radiologist. This report was verified electronically.
[2017-06-28] MEDS: INSULIN ASPART SUPPLEMENTAL SCALE SQ SCH ×4 (06:00→17:22)
[2017-06-28] MEDS: VANCOMYCIN INJ 1,500 MG in SODIUM CHLORID 0.9% 500 ML INJ 500 ML IV SCH (06:07)
[2017-06-28 08:03] LABS: PLATELET ESTIMATE SMEAR LOW (NORMAL); PLATELET MORPHOLOGY NORMAL (NORMAL); SCAN/DIFF AUTO DIFF CONFIRMED
[2017-06-28] MEDS: CHLORHEXIDINE 0.12% (ORAL KIT) 15 ML CUP MT SCH (08:11)
[2017-06-28] MEDS: PANTOPRAZOLE SODIUM 40 MG VIAL IV SCH (08:12)
[2017-06-28] MEDS: SODIUM CHLORIDE 0.9% FLUSH 10 ML FLUSH IV FLUSH SCH (08:13)
[2017-06-28] MEDS: DOCUSATE SODIUM 50 MG/SENNA 8.6 MG TAB PO SCH (08:13)
[2017-06-28] MEDS: INSULIN DETEMIR 100 UNITS/ML VIAL SQ SCH ×2 (08:19→08:21)
[2017-06-28] MEDS: DEXTROSE 50% IN WATER 50 ML SYRINGE IV PRN (12:06)
--- NOTE | 2017-06-28 15:57 | HHI.DS ---
Discharge Summary Admission Date Jun 12, 2017 at 09:22 Discharge Date: Jun 28, 2017 Admitting Diagnosis Severe sepsis (1) Severe sepsis ICD Code: A41.9 Diagnosis: Principal (2) COPD (chronic obstructive pulmonary disease) ICD Code: J44.9 Diagnosis: Principal (3) Diabetes mellitus ICD Code: E11.9 Diagnosis: Principal (4) Coronary artery disease ICD Code: I25.10 Diagnosis: Principal (5) Hypertension ICD Code: I10 Diagnosis: Principal (6) Diabetic neuropathy associated with type 2 diabetes mellitus ICD Code: E11.40 Diagnosis: Principal (7) BMI 50.0-59.9, adult ICD Code: Z68.43 Diagnosis: Principal (8) Leukocytosis ICD Code: D72.829 Diagnosis: Principal (9) Lactic acidosis ICD Code: E87.2 Diagnosis: Principal (10) Acute kidney injury ICD Code: N17.9 Diagnosis: Principal (11) Elevated partial thromboplastin time (PTT) ICD Code: R79.1 Diagnosis: Principal (12) Hyperkalemia ICD Code: E87.5 Diagnosis: Principal (13) Hyperglycemia ICD Code: R73.9 Diagnosis: Principal Brief History 66-year-old male. Date of admission 06/12/2017. Past medical history includes COPD, morbid obesity, coronary artery disease, hypertension, diabetes mellitus with peripheral neuropathy. Patient was his normal state of health until yesterday when he "did not feel good " including myalgias, generalized weakness. No recent sick contacts. No changes in his diet. No recent travels. Laboratory work revealed a lactic acidosis of 5.4. Potassium is 5.9. Note he is on an ARB along with KCl supplementation, leukocytosis is a 24,000, anemia of 8.6 with Hemoccult-negative stool done in ED in acute kidney injury with a creatinine of 1.5. Chest x-ray revealed elevated left hemidiaphragm otherwise negative. Received 1 dose of Zosyn and vancomycin the ED. We are asked to admit. CBC/BMP: 06/28/17 0500 06/28/17 0500 Significant Findings Laboratory Tests Test 06/25/17 06/26/17 06/26/17 06/26/17 16:45 04:00 05:00 17:30 Chloride Level 97 MEQ/L 97 MEQ/L (98-107) (98-107) Carbon Dioxide Level 35.3 MEQ/L 38.9 MEQ/L 39.0 MEQ/L (21.0-32.0) (21.0-32.0) (21.0-32.0) Blood Urea Nitrogen 25 MG/DL (7-18) 25 MG/DL (7-18) 23 MG/DL (7-18) Estimat Glomerular Filtration 60 ML/MIN (>89) 62 ML/MIN (>89) 68 ML/MIN (>89) Rate Random Glucose 307 MG/DL 226 MG/DL 179 MG/DL (74-106) (74-106) (74-106) Calcium Level 8.0 MG/DL 8.0 MG/DL 7.6 MG/DL (8.5-10.1) (8.5-10.1) (8.5-10.1) B-Type Natriuretic Peptide 751 PG/ML (0-100) Anion Gap 3 MEQ/L (5-15) 4 MEQ/L (5-15) Phosphorus Level 2.4 MG/DL (2.5-4.9) Potassium Level 3.3 MEQ/L (3.5-5.1) Test 06/27/17 06/27/17 06/27/17 06/28/17 03:30 11:30 21:00 05:00 Potassium Level 3.4 MEQ/L 3.4 MEQ/L 3.2 MEQ/L (3.5-5.1) (3.5-5.1) (3.5-5.1) Carbon Dioxide Level 39.9 MEQ/L 43.0 MEQ/L 44.6 MEQ/L (21.0-32.0) (21.0-32.0) (21.0-32.0) Blood Urea Nitrogen 24 MG/DL (7-18) 28 MG/DL (7-18) 28 MG/DL (7-18) Estimat Glomerular Filtration 65 ML/MIN (>89) 60 ML/MIN (>89) 63 ML/MIN (>89) Rate Random Glucose 127 MG/DL 145 MG/DL (74-106) (74-106) Calcium Level 8.0 MG/DL 8.0 MG/DL 7.8 MG/DL (8.5-10.1) (8.5-10.1) (8.5-10.1) Phosphorus Level 2.2 MG/DL (2.5-4.9) White Blood Count 17.4 TH/MM3 13.6 TH/MM3 (4.0-11.0) (4.0-11.0) Red Blood Count 3.06 MIL/MM3 3.09 MIL/MM3 (4.50-5.90) (4.50-5.90) Hemoglobin 9.2 GM/DL 9.2 GM/DL (13.0-17.0) (13.0-17.0) Hematocrit 29.2 % 28.9 % (39.0-51.0) (39.0-51.0) Mean Corpuscular Hemoglobin 31.4 % Concent (32.0-36.0) Red Cell Distribution Width 18.3 % 17.5 % (11.6-17.2) (11.6-17.2) Platelet Count 107 TH/MM3 102 TH/MM3 (150-450) (150-450) Neutrophils (%) (Auto) 88.2 % 88.0 % (16.0-70.0) (16.0-70.0) Lymphocytes (%) (Auto) 3.0 % 4.8 % (9.0-44.0) (9.0-44.0) Neutrophils # (Auto) 15.3 TH/MM3 12.0 TH/MM3 (1.8-7.7) (1.8-7.7) Lymphocytes # (Auto) 0.5 TH/MM3 0.6 TH/MM3 (1.0-4.8) (1.0-4.8) Monocytes # (Auto) 1.2 TH/MM3 (0-0.9) Neutrophils % (Manual) 91 % (16-70) Lymphocytes % 3 % (9-44) Neutrophils # (Manual) 15.8 TH/MM3 (1.8-7.7) Platelet Estimate LOW (NORMAL) LOW (NORMAL) Direct Bilirubin 0.5 MG/DL 0.5 MG/DL (0.0-0.2) (0.0-0.2) Total Protein 6.1 GM/DL (6.4-8.2) Albumin 1.6 GM/DL 1.6 GM/DL (3.4-5.0) (3.4-5.0) Chloride Level 97 MEQ/L (98-107) Anion Gap 2 MEQ/L (5-15) 3 MEQ/L (5-15) Lipase 49 U/L (73-393) Basophilic Stippling FAINT (NORMAL) Sodium Level 146 MEQ/L (136-145) B-Type Natriuretic Peptide 1036 PG/ML (0-100) PE at Discharge GENERAL: This is an obese patient, NC in place. CARDIOVASCULAR: Regular rate and regular rhythm . RESPIRATORY: Clear to auscultation at this time. No wheezing GASTROINTESTINAL: Abdomen soft, non-tender, nondistended. Normal, active bowel sounds MUSCULOSKELETAL: Extremities with bilateral pedal edema. NEURO: Easily arousable but falls back to sleep. Moves all ext x4 Transfer Summary See below Hospital Course 66-year-old male. Date of admission 06/12/2017. Past medical history includes COPD, morbid obesity, coronary artery disease, hypertension, diabetes mellitus with peripheral neuropathy. Patient was his normal state of health until yesterday when he "did not feel good " including myalgias, generalized weakness. No recent sick contacts. No changes in his diet. No recent travels. Laboratory work revealed a lactic acidosis of 5.4. Potassium is 5.9. Note he is on an ARB along with KCl supplementation, leukocytosis is a 24,000, anemia of 8.6 with Hemoccult-negative stool done in ED in acute kidney injury with a creatinine of 1.5. Chest x-ray revealed elevated left hemidiaphragm otherwise negative. Received 1 dose of Zosyn and vancomycin the ED. We are asked to admit. 06/23: Tight , morbid obesity, fluid overload, pneumonia all hampering CO2 removal. Respiratory effort ineffective and nearly obtunded from hypercapneic failure. 06/24: Progressed to decompensated failure requiring intubation and mechanical ventilation. Neosynephrine required for sepsis. 06/25: Will need to add levophed for BP support. Neosynephrine is requiring too much volume. Renal function improving, continue diuresis, minimize iv fluid. 06/26: Improved fluid removal. Persistent leukocytosis. 06/27: Tolerates SBTs well. Ideally, aim for extubation and discuss DNR/DNI status with POA. 06/28: no clinical improvements. family requests hospice. will transfer to hospice facility. I agree with this, as patient will overall not do well clinically. Pt Condition on Discharge: Stable Discharge Disposition: Hospice/Med Facility Discharge Instructions DIET: Follow Instructions for: As Tolerated, No Restrictions Activities you can perform: Regular-No Restrictions Vikas Mina MD Jun 28, 2017 15:57
[2017-06-29] MEDS ORDERED: PHARMACY ORDERED LAB ONE (05:45)
== END 2017-06-28 19:10 | disposition hospice, inpatient (51) | DRG 870 ==
LOC: NEPC 07:12 → NEDA 09:22 → HIME 11:30 → N07A 06-14 22:52 → N03B 06-22 21:07
PROVIDERS: ADMIT Internal Medicine Critical Care Medicine; ATTEND Internal Medicine Critical Care Medicine
PROC: 30233N1 Transfusion of Nonautologous Red Blood Cells into Peripheral Vein, Percutaneous Approach (ICD-10-PCS; 2017-06-12)
PROC: 4A023N8 Measurement of Cardiac Sampling and Pressure, Bilateral, Percutaneous Approach (ICD-10-PCS; 2017-06-16)
PROC: B3101ZZ Fluoroscopy of Thoracic Aorta using Low Osmolar Contrast (ICD-10-PCS; 2017-06-16)
PROC: B2111ZZ Fluoroscopy of Multiple Coronary Arteries using Low Osmolar Contrast (ICD-10-PCS; 2017-06-16)
PROC: 4A033BC Measurement of Arterial Pressure, Coronary, Percutaneous Approach (ICD-10-PCS; 2017-06-16)
PROC: 5A1955Z Respiratory Ventilation, Greater than 96 Consecutive Hours (ICD-10-PCS; principal; 2017-06-23)
PROC: 0BH17EZ Insertion of Endotracheal Airway into Trachea, Via Natural or Artificial Opening (ICD-10-PCS; 2017-06-23)
DX: A40.8 Other streptococcal sepsis (principal); R65.21 Severe sepsis with septic shock; J18.9 Pneumonia, unspecified organism; N17.9 Acute kidney failure, unspecified; E87.2 Acidosis; J96.02 Acute respiratory failure with hypercapnia; J96.01 Acute respiratory failure with hypoxia; I13.0 Hypertensive heart and chronic kidney disease with heart failure and stage 1 through stage 4 chronic kidney disease, or unspecified chronic kidney disease; I50.9 Heart failure, unspecified; D62 Acute posthemorrhagic anemia; I42.9 Cardiomyopathy, unspecified; J44.0 Chronic obstructive pulmonary disease with (acute) lower respiratory infection; K92.2 Gastrointestinal hemorrhage, unspecified; Z68.43 Body mass index [BMI] 50.0-59.9, adult; K92.1 Melena; J98.11 Atelectasis; E66.2 Morbid (severe) obesity with alveolar hypoventilation; J44.9 Chronic obstructive pulmonary disease, unspecified; E11.22 Type 2 diabetes mellitus with diabetic chronic kidney disease; I95.9 Hypotension, unspecified; E11.42 Type 2 diabetes mellitus with diabetic polyneuropathy; E87.5 Hyperkalemia; I25.10 Atherosclerotic heart disease of native coronary artery without angina pectoris; E11.65 Type 2 diabetes mellitus with hyperglycemia; I35.0 Nonrheumatic aortic (valve) stenosis; N18.9 Chronic kidney disease, unspecified; R68.81 Early satiety; E88.09 Other disorders of plasma-protein metabolism, not elsewhere classified; K76.89 Other specified diseases of liver; K80.20 Calculus of gallbladder without cholecystitis without obstruction; K43.9 Ventral hernia without obstruction or gangrene; E11.649 Type 2 diabetes mellitus with hypoglycemia without coma; F40.240 Claustrophobia; Z51.5 Encounter for palliative care; Z79.4 Long term (current) use of insulin; Z87.891 Personal history of nicotine dependence; Z88.0 Allergy status to penicillin; Z99.81 Dependence on supplemental oxygen
CPT/HCPCS: 31500; 36430; 36556; 36600; 71010; 71020; 71275; 74176; 76700; 76937; 80048; 80053; 80076; 80202; 81001; 82150; 82272; 82533; 82550; 82570; 82805; 82810; 82948; 83036; 83605; 83690; 83735; 83880; 84100; 84132; 84300; 84443; 84484; 85007; 85025; 85027; 85384; 85610; 85730; 86403; 86850; 86900; 86901; 86920; 87040; 87070; 87077; 87186; 87205; 87449; 87640; 87641; 87804; 93005; 93306; 93460; 93970; 94002; 94003; 94010; 94150; 94640; 94664; 96374; 96375; C1769; C1893; C9113; J0282; J0610; J0692; J0696; J1120; J1644; J1815; J1940; J2250; J2270; J2370; J2543; J2930; J3010; J3370; J3475; J3480; J7030; J7040; J7050; J7060; J7613; P9016; P9047; Q9963; Q9967